=== PATIENT | male | born 1960 | race Caucasian/White ===

== ENCOUNTER 2022-10-01 20:54 | Inpatient (IN) ==
[2022-10-01] MEDS ORDERED: SODIUM CHLORIDE 0.9% 500 ML IV STA (21:33)
--- NOTE | 2022-10-01 21:56 | Emergency Department Note ---
History of Present Illness General Chief complaint: Hip Pain Time Seen by Provider: 10/01/22 21:37 History of Present Illness Maximum Pain Intensity: 10 This 62-year-old male patient presents to the emergency department today via ambulance for evaluation of altered mental status after fall. History is difficult to obtain, as there is no family history was given by the ex to EMS. Apparently about 10 or 11 days ago, the patient fell. He was at some point in the past week and a half seen at [facility] emergency department diagnosed with the "stomach flu". The patient was discharged. Upon arrival to the emergency department, the patient had complained of right hip and right rib pain. He is also complaining of back pain. It is unclear if the patient had a new fall since the fall 10 or 11 days ago, and the patient is unable to identify this. Upon arrival, the patient was incontinent of stool and does have developing erythema on the left buttock. Pt. aware he is at the hospital and denies any medical history, but unclear of events leading up to his ED visit tonight. Home Medications Medication Instructions Recorded Confirmed Type Cephalexin Monohydrate (Keflex) 500 mg PO QID ##28 11/27/09 Rx None (Patient States No Home Meds) ##0 11/27/09 History Tramadol (Ultram) 100 mg PO Q4HR ##30 11/27/09 Rx Allergies Allergy/AdvReac Type Severity Reaction Status Date / Time No Known Allergies Allergy Unverified 11/27/09 21:43 Past Med/Surg History Medical History No pertinent past medical history Social History Smoking Status: Current some day smoker Feels Safe at Home: Yes Review of Systems A total of 10 systems reviewed and were otherwise negative Physical Exam Vital Signs Vital Signs - 24 hr 10/01/22 20:59 10/01/22 20:59 10/01/22 21:23 Temperature 37.5 C Temperature Source Oral Pulse Rate 138 H 134 H Pulse Rate [Right Apical] 138 H Pulse Rate from SpO2 Sensor Respiratory Rate 20 20 Respiratory Effort / Characteristics Non-Labored Spontaneous Non-Labored Spontaneous Respiratory Depth Normal Normal Respiratory Pattern Regular Regular Blood Pressure 143/85 H Blood Pressure [Right Arm] 143/85 H Blood Pressure Mean 104 Blood Pressure Mean [Right Arm] 104 Pulse Oximetry 94 94 Oxygen Delivery Method Room Air Room Air Sepsis Recent Fever Within 48 Hours No Sepsis New/Unexplained Change in Mental Status Yes Sepsis Action Taken by Nursing Previously Notified 10/01/22 21:45 10/01/22 21:40 10/01/22 21:57 Temperature Temperature Source Pulse Rate 139 H 137 H Pulse Rate [Right Apical] Pulse Rate from SpO2 Sensor 136 H Respiratory Rate 23 32 H Respiratory Effort / Characteristics Respiratory Depth Respiratory Pattern Blood Pressure 118/91 112/84 Blood Pressure [Right Arm] Blood Pressure Mean 100 93 Blood Pressure Mean [Right Arm] Pulse Oximetry 93 93 93 Oxygen Delivery Method Room Air Room Air Room Air Sepsis Recent Fever Within 48 Hours Sepsis New/Unexplained Change in Mental Status Sepsis Action Taken by Nursing 10/01/22 22:00 10/01/22 22:24 10/01/22 22:30 Temperature Temperature Source Pulse Rate 135 H 138 H 135 H Pulse Rate [Right Apical] Pulse Rate from SpO2 Sensor 136 H Respiratory Rate 21 24 26 H Respiratory Effort / Characteristics Respiratory Depth Respiratory Pattern Blood Pressure 113/85 137/5 L 128/89 Blood Pressure [Right Arm] Blood Pressure Mean 94 49 102 Blood Pressure Mean [Right Arm] Pulse Oximetry 94 94 93 Oxygen Delivery Method Room Air Sepsis Recent Fever Within 48 Hours Sepsis New/Unexplained Change in Mental Status Sepsis Action Taken by Nursing 10/01/22 23:01 10/01/22 23:30 10/02/22 00:02 Temperature Temperature Source Pulse Rate 135 H 129 H Pulse Rate [Right Apical] Pulse Rate from SpO2 Sensor 129 H Respiratory Rate 18 32 H 28 H Respiratory Effort / Characteristics Respiratory Depth Respiratory Pattern Blood Pressure 132/86 138/84 109/78 Blood Pressure [Right Arm] Blood Pressure Mean 101 102 88 Blood Pressure Mean [Right Arm] Pulse Oximetry 94 93 95 Oxygen Delivery Method Sepsis Recent Fever Within 48 Hours Sepsis New/Unexplained Change in Mental Status Sepsis Action Taken by Nursing 10/02/22 00:31 10/02/22 00:44 10/02/22 00:50 Temperature Temperature Source Pulse Rate 135 H 132 H 131 H Pulse Rate [Right Apical] Pulse Rate from SpO2 Sensor 137 H 131 H Respiratory Rate 33 H 20 34 H Respiratory Effort / Characteristics Respiratory Depth Respiratory Pattern Blood Pressure 130/80 Blood Pressure [Right Arm] Blood Pressure Mean 96 Blood Pressure Mean [Right Arm] Pulse Oximetry 92 96 Oxygen Delivery Method Sepsis Recent Fever Within 48 Hours Sepsis New/Unexplained Change in Mental Status Sepsis Action Taken by Nursing 10/02/22 01:00 10/02/22 01:00 10/02/22 01:10 Temperature Temperature Source Pulse Rate 129 H Pulse Rate [Right Apical] Pulse Rate from SpO2 Sensor 128 H 126 H Respiratory Rate 35 H Respiratory Effort / Characteristics Respiratory Depth Respiratory Pattern Blood Pressure 121/84 Blood Pressure [Right Arm] Blood Pressure Mean 90 Blood Pressure Mean [Right Arm] Pulse Oximetry 94 95 Oxygen Delivery Method Sepsis Recent Fever Within 48 Hours Sepsis New/Unexplained Change in Mental Status Sepsis Action Taken by Nursing 10/02/22 01:20 10/02/22 01:30 10/02/22 01:40 Temperature Temperature Source Pulse Rate 117 H Pulse Rate [Right Apical] Pulse Rate from SpO2 Sensor 123 H 120 H 118 H Respiratory Rate 16 Respiratory Effort / Characteristics Respiratory Depth Respiratory Pattern Blood Pressure Blood Pressure [Right Arm] Blood Pressure Mean Blood Pressure Mean [Right Arm] Pulse Oximetry 96 96 93 Oxygen Delivery Method Sepsis Recent Fever Within 48 Hours Sepsis New/Unexplained Change in Mental Status Sepsis Action Taken by Nursing 10/02/22 01:50 10/02/22 01:50 10/02/22 02:00 Temperature Temperature Source Pulse Rate Pulse Rate [Right Apical] Pulse Rate from SpO2 Sensor 119 H Respiratory Rate Respiratory Effort / Characteristics Respiratory Depth Respiratory Pattern Blood Pressure 102/49 L 96/66 L Blood Pressure [Right Arm] Blood Pressure Mean 65 79 Blood Pressure Mean [Right Arm] Pulse Oximetry Oxygen Delivery Method Sepsis Recent Fever Within 48 Hours Sepsis New/Unexplained Change in Mental Status Sepsis Action Taken by Nursing 10/02/22 02:00 10/02/22 02:10 Temperature Temperature Source Pulse Rate Pulse Rate [Right Apical] Pulse Rate from SpO2 Sensor 116 H 115 H Respiratory Rate Respiratory Effort / Characteristics Respiratory Depth Respiratory Pattern Blood Pressure Blood Pressure [Right Arm] Blood Pressure Mean Blood Pressure Mean [Right Arm] Pulse Oximetry 94 90 Oxygen Delivery Method Sepsis Recent Fever Within 48 Hours Sepsis New/Unexplained Change in Mental Status Sepsis Action Taken by Nursing VITALS: Vitals are noted on the nurse's note and reviewed by myself patient is tachycardic. O2 saturation 93% on room air. GENERAL: This is a 62-year-old male, in no acute distress, nondiaphoretic, well- developed well-nourished. SKIN: The skin was without rashes, erythema, edema, or bruising. There is no tenting of the skin. Capillary refill less than 2 seconds. HEAD: Normocephalic atraumatic. EARS: External auditory canals clear, tympanic membranes pearly tavarez without erythema or effusion bilaterally. EYES: Pupils equal round and reactive to light and accommodation. Conjunctivae without injection, sclerae without icterus. Extraocular movements intact. NOSE: Patent, turbinates without inflammation or discharge. No sinus tenderness. MOUTH: Mucous membranes dry. Tonsils are not enlarged. Pharynx without erythema or exudate. Uvula midline. Airway patent. Tongue does not deviate. NECK: Supple without nuchal rigidity. No lymphadenopathy. No thyromegaly. Cervical spine is nontender. No JVD. HEART: Regular rate and rhythm without murmurs gallops or rubs. LUNGS: Clear to auscultation bilaterally without wheezes, rales or rhonchi. No retractions or accessory muscle use. ABDOMEN: Positive bowel sounds x 4. Soft, nontender, without masses or organomegaly. No guarding or rebound tenderness. MUSCULOSKELETAL: Right lower extremity shortened and externally rotated. No muscle atrophy or edema noted. Full range of motion without joint tenderness in all extremities except as noted. No obvious tenderness to palpation. Pt. does roll himself onto his right side throughout exam. Strength 5/5 throughout. NEURO: Patient was alert and oriented to place. Pt. slow to respond. Deep tendon reflexes 2+ throughout. No focal neurological deficits. Course Course The patient was seen and evaluated as above. An order was placed for continuous cardiac monitoring. The monitor shows a sinus tachycardia at a rate of 137 bpm per my interpretation. IV access obtained, labs drawn. Patient hydrated with IV fluids per sepsis protocol. Pt. pulled IV out, nursing staff replaced IV. Imaging performed and reviewed by myself and radiologist as noted. Labs reviewed by myself. Patient medicated with IV Zosyn. I discussed the findings with the patient at bedside. Recommended admission. Pt. agreeable. I discussed the case with my attending. I discussed case with Dr. Cook, [facility] physician. He did agree to see and evaluate the patient for admission Administered Medications Lactated Ringer's (Lr) 1,000 mls @ 200 mls/hr IV .Q5H ONE Stop: 10/02/22 06:06 Last Admin: 10/02/22 04:15 Dose: 200 mls/hr Documented By: TANIA Morphine Sulfate (Morphine Sulfate 2 Mg/Ml Carp) 2 mg IV Q3H PRN PRN Reason: Pain Stop: 10/16/22 03:31 Last Admin: 10/02/22 03:47 Dose: 2 mg Documented By: TANIA Discontinued Medications Sodium Chloride (Nss) 500 mls @ 999 mls/hr IV .Q31M STA Stop: 10/01/22 22:03 Last Admin: 10/01/22 21:55 Dose: Not Given Documented By: GLENN Sodium Chloride (Nss 1000ml) 1,000 mls @ 999 mls/hr IV .Q1H1M ISIAH Stop: 10/01/22 23:00 Last Infusion: 10/02/22 00:14 Dose: 0 mls/hr Documented By: Admin: 10/01/22 21:56 Dose: 999 mls/hr Documented By: GLENN Piperacillin Sod/Tazobactam Sod (Zosyn) 4.5 gm in 120 mls @ 240 mls/hr IV NOW ONE Stop: 10/01/22 23:02 Last Infusion: 10/02/22 00:14 Dose: 0 mls/hr Documented By: Admin: 10/01/22 22:40 Dose: 240 mls/hr Documented By: ABNER Sodium Chloride (Nss 1000ml) 1,000 mls @ 999 mls/hr IV .Q1H1M ONE Stop: 10/01/22 23:34 Last Infusion: 10/02/22 01:12 Dose: 0 mls/hr Documented By: Admin: 10/01/22 23:27 Dose: 999 mls/hr Documented By: KAROL Acetaminophen (Ofirmev) 1,000 mg in 100 mls @ 400 mls/hr IV NOW STA Stop: 10/02/22 01:03 Last Infusion: 10/02/22 01:12 Dose: 0 mls/hr Documented By: Admin: 10/02/22 00:54 Dose: 400 mls/hr Documented By: KAROL Magnesium Sulfate/Dextrose (Magnesium Sulfate / D5w) 1 gm in 100 mls @ 50 mls/hr IV ONE ONE Stop: 10/02/22 03:02 Last Infusion: 10/02/22 04:09 Dose: 0 mls/hr Documented By: Admin: 10/02/22 01:43 Dose: 50 mls/hr Documented By: KAROL Daptomycin 450 mg/ Syringe 9 mls @ 4.5 mls/min IV NOW STA; Protocol Stop: 10/02/22 01:08 Last Admin: 10/02/22 01:44 Dose: 4.5 mls/min Documented By: KAROL Metronidazole (Flagyl) 500 mg in 100 mls @ 100 mls/hr IV NOW STA; Protocol Stop: 10/02/22 02:24 Last Infusion: 10/02/22 04:09 Dose: 0 mls/hr Documented By: Admin: 10/02/22 02:37 Dose: 100 mls/hr Documented By: KAROL Ioversol (Optiray 320 100ml) 100 ml IV ONCE ONE Stop: 10/01/22 23:20 Last Admin: 10/01/22 23:20 Dose: 95 ml Documented By: ENDER Oxycodone HCl (Oxycodone Hcl Ir 5 Mg Tab (Immediate Release)) 5 mg PO NOW STA Stop: 10/02/22 02:19 Last Admin: 10/02/22 02:37 Dose: 5 mg Documented By: KAROL Medical Decision Making Differential Diagnosis Infection, hypoglycemia, electrolyte abnormalities, overdose, toxicologic, cardi ac sources, intracerebral event, neurologic, trauma, as well as other pathologies. Medical Records No medical records available for review. Home Medications Current Medication List: was personally reviewed by me Laboratory Data Attestation: I reviewed the patient's lab results. No leukocytosis. Mild anemia with hemoglobin of 13.5. Thrombocytopenia with platelet count of 96,000. Lactic acid 4.7. Repeat lactic acid 5.0. INR 1.6. Sodium 125, creatinine 1.15. Anion gap 9. [place]lys[place] 1.9, total bilirubin elevated at 2.9, AST elevated at 64, ALT 43. Alkaline phosphatase 115. Troponin elevated at 23.9. CK2 20. BNP 68. TSH 0.671. Procalcitonin elevated at 2.48. Urinalysis is concerning for urinary tract infection with positive nitrites, leukocyte esterase, blood. Urine drug screen positive for amphetamines, marijuana. Alcohol less than 10. COVID-19 testing negative 10/01/22 21:54 10/01/22 21:54 Lab Results 10/01/22 10/01/22 10/01/22 Range/Units 21:38 21:54 21:54 WBC 7.90 (4.8-10.8) K/ul RBC 4.23 L (4.70-6.10) M/uL Hgb 13.5 L (14.0-18.0) g/dl Hct 37.3 L (42.0-52.0) % MCV 88.2 (80.0-100.0) fL MCH 31.9 (25.0-34.0) pg MCHC 36.2 H (32.0-36.0) g/dL RDW Std Deviation 46.0 (36.4-46.3) fL RDW Coeff of Yanni 14.3 (11.5-14.5) % Plt Count 96 L (130-400) K/uL MPV 9.9 (9.4-12.4) fL Immature Gran % (Auto) 0.6 % Neut % (Auto) 80.7 % Lymph % (Auto) 12.2 % [place] % (Auto) 6.2 % Eos % (Auto) 0.0 % Baso % (Auto) 0.3 % Neut # (Auto) 6.38 (1.40-6.50) K/uL Lymph # (Auto) 0.96 L (1.2-3.4) K/uL [place] # (Auto) 0.49 (0.11-0.59) K/uL Eos # (Auto) 0.00 (0-0.50) K/uL Baso # (Auto) 0.02 (0-0.2) K/uL Immature Gran # (Auto) 0.05 (0.01-0.20) K/uL Platelet Estimate Decreased L (Normal) Acanthocytes (Spur) 2+ PT (9.0-12.0) Seconds INR (0.9-1.1) APTT (21.0-31.0) Seconds PTT Ratio VBG pH (7.36-7.41) VBG pCO2 (38-50) mmHg VBG pO2 mmHg VBG HCO3 mmol/L VBG O2 Saturation % VBG Base Excess mEq/L Sodium (136-145) mmol/L Potassium (3.5-5.1) mmol/L Chloride (98-107) mmol/L Carbon Dioxide (21-32) mmol/L Anion Gap (3-11) BUN (6-23) mg/dl Creatinine (0.6-1.4) mg/dl Est Cr Clr Drug Dosing ml/min Est GFR ( Amer) ml/min Est GFR (Non-Af Amer) ml/min BUN/Creatinine Ratio (10-20) Glucose (70-99(Fasting)) mg/dl Osmolality (280-300) mOsm/kg Lactate 4.7 H* (0.4-2.0) mmol/L Calcium (8.6-10.3) mg/dl Magnesium (1.7-2.4) mg/dl Total Bilirubin (0.2-1.0) mg/dl AST (13-39) U/L ALT (7-52) U/L Alkaline Phosphatase (34-104) U/L Ammonia (18-72) umol/L Total Creatine Kinase (30-223) U/L Troponin I High Sens (0-20) pg/ml B-Natriuretic Peptide (0-100) pg/ml Total Protein (6.0-8.3) gm/dl Albumin (3.4-5.0) gm/dl Globulin (2.5-4.0) gm/dl Albumin/Globulin Ratio (0.9-2) Procalcitonin (0-0.5) ng/ml TSH (0.300-4.500) uIu/ml Urine Color Urine Appearance (Clear) Urine pH (4.5-7.5) Ur Specific [place] (1.000-1.030) Urine Protein (Negative) Urine Glucose (UA) (Negative) Urine Ketones (Negative) Urine Blood (Negative) Urine Nitrite (Negative) Urine Bilirubin (Negative) Urine Urobilinogen (Negative) Ur Leukocyte Esterase (Negative) Urine WBC (Auto) (0-5) /hpf Urine RBC (Auto) (0-4) /hpf U Hyaline Cast (Auto) (0-5) /lpf U Epithel Cells (Auto) (0-5) /lpf Urine Bacteria (Auto) (Negative) Urine Opiates Screen (Neg) Ur Methadone, Qual (Neg) Urine Barbiturates (Neg) Ur Phencyclidine (PCP) (Neg) U Amphetamin/Meth Scrn (Neg) MDMA (Ecstasy) Screen (Neg) U Benzodiazepines Scrn (Neg) Ur Cocaine Metabolite (Neg) U Marijuana (THC) Screen (Neg) Ethyl Alcohol mg/dL (<10.0) mg/dl SARS-CoV-2, RNA, NAAT NEGATIVE (NEGATIVE) Blood Type Antibody Screen 10/01/22 10/01/22 10/01/22 Range/Units 21:54 21:54 21:54 WBC (4.8-10.8) K/ul RBC (4.70-6.10) M/uL Hgb (14.0-18.0) g/dl Hct (42.0-52.0) % MCV (80.0-100.0) fL MCH (25.0-34.0) pg MCHC (32.0-36.0) g/dL RDW Std Deviation (36.4-46.3) fL RDW Coeff of Yanni (11.5-14.5) % Plt Count (130-400) K/uL MPV (9.4-12.4) fL Immature Gran % (Auto) % Neut % (Auto) % Lymph % (Auto) % [place] % (Auto) % Eos % (Auto) % Baso % (Auto) % Neut # (Auto) (1.40-6.50) K/uL Lymph # (Auto) (1.2-3.4) K/uL [place] # (Auto) (0.11-0.59) K/uL Eos # (Auto) (0-0.50) K/uL Baso # (Auto) (0-0.2) K/uL Immature Gran # (Auto) (0.01-0.20) K/uL Platelet Estimate (Normal) Acanthocytes (Spur) PT 17.0 H (9.0-12.0) Seconds INR 1.6 H (0.9-1.1) APTT 40.4 H* (21.0-31.0) Seconds PTT Ratio 1.4 VBG pH (7.36-7.41) VBG pCO2 (38-50) mmHg VBG pO2 mmHg VBG HCO3 mmol/L VBG O2 Saturation % VBG Base Excess mEq/L Sodium 125 L (136-145) mmol/L Potassium 4.2 (3.5-5.1) mmol/L Chloride 95 L (98-107) mmol/L Carbon Dioxide 21 (21-32) mmol/L Anion Gap 9 (3-11) BUN 21 (6-23) mg/dl Creatinine 1.15 (0.6-1.4) mg/dl Est Cr Clr Drug Dosing 70.0 ml/min Est GFR ( Amer) 78.1 ml/min Est GFR (Non-Af Amer) 67.4 ml/min BUN/Creatinine Ratio 18.3 (10-20) Glucose 126 H (70-99(Fasting)) mg/dl Osmolality (280-300) mOsm/kg Lactate (0.4-2.0) mmol/L Calcium 8.4 L (8.6-10.3) mg/dl Magnesium 1.9 (1.7-2.4) mg/dl Total Bilirubin 2.9 H (0.2-1.0) mg/dl AST 64 H (13-39) U/L ALT 43 (7-52) U/L Alkaline Phosphatase 115 H (34-104) U/L Ammonia (18-72) umol/L Total Creatine Kinase 220 (30-223) U/L Troponin I High Sens 23.9 H (0-20) pg/ml B-Natriuretic Peptide (0-100) pg/ml Total Protein 7.3 (6.0-8.3) gm/dl Albumin 3.0 L (3.4-5.0) gm/dl Globulin 4.3 H (2.5-4.0) gm/dl Albumin/Globulin Ratio 0.7 L (0.9-2) Procalcitonin 2.48 H (0-0.5) ng/ml TSH (0.300-4.500) uIu/ml Urine Color Urine Appearance (Clear) Urine pH (4.5-7.5) Ur Specific [place] (1.000-1.030) Urine Protein (Negative) Urine Glucose (UA) (Negative) Urine Ketones (Negative) Urine Blood (Negative) Urine Nitrite (Negative) Urine Bilirubin (Negative) Urine Urobilinogen (Negative) Ur Leukocyte Esterase (Negative) Urine WBC (Auto) (0-5) /hpf Urine RBC (Auto) (0-4) /hpf U Hyaline Cast (Auto) (0-5) /lpf U Epithel Cells (Auto) (0-5) /lpf Urine Bacteria (Auto) (Negative) Urine Opiates Screen (Neg) Ur Methadone, Qual (Neg) Urine Barbiturates (Neg) Ur Phencyclidine (PCP) (Neg) U Amphetamin/Meth Scrn (Neg) MDMA (Ecstasy) Screen (Neg) U Benzodiazepines Scrn (Neg) Ur Cocaine Metabolite (Neg) U Marijuana (THC) Screen (Neg) Ethyl Alcohol mg/dL (<10.0) mg/dl SARS-CoV-2, RNA, NAAT (NEGATIVE) Blood Type Antibody Screen 10/01/22 10/01/22 10/01/22 Range/Units 21:54 21:54 21:54 WBC (4.8-10.8) K/ul RBC (4.70-6.10) M/uL Hgb (14.0-18.0) g/dl Hct (42.0-52.0) % MCV (80.0-100.0) fL MCH (25.0-34.0) pg MCHC (32.0-36.0) g/dL RDW Std Deviation (36.4-46.3) fL RDW Coeff of Yanni (11.5-14.5) % Plt Count (130-400) K/uL MPV (9.4-12.4) fL Immature Gran % (Auto) % Neut % (Auto) % Lymph % (Auto) % [place] % (Auto) % Eos % (Auto) % Baso % (Auto) % Neut # (Auto) (1.40-6.50) K/uL Lymph # (Auto) (1.2-3.4) K/uL [place] # (Auto) (0.11-0.59) K/uL Eos # (Auto) (0-0.50) K/uL Baso # (Auto) (0-0.2) K/uL Immature Gran # (Auto) (0.01-0.20) K/uL Platelet Estimate (Normal) Acanthocytes (Spur) PT (9.0-12.0) Seconds INR (0.9-1.1) APTT (21.0-31.0) Seconds PTT Ratio VBG pH (7.36-7.41) VBG pCO2 (38-50) mmHg VBG pO2 mmHg VBG HCO3 mmol/L VBG O2 Saturation % VBG Base Excess mEq/L Sodium (136-145) mmol/L Potassium (3.5-5.1) mmol/L Chloride (98-107) mmol/L Carbon Dioxide (21-32) mmol/L Anion Gap (3-11) BUN (6-23) mg/dl Creatinine (0.6-1.4) mg/dl Est Cr Clr Drug Dosing ml/min Est GFR ( Amer) ml/min Est GFR (Non-Af Amer) ml/min BUN/Creatinine Ratio (10-20) Glucose (70-99(Fasting)) mg/dl Osmolality (280-300) mOsm/kg Lactate (0.4-2.0) mmol/L Calcium (8.6-10.3) mg/dl Magnesium (1.7-2.4) mg/dl Total Bilirubin (0.2-1.0) mg/dl AST (13-39) U/L ALT (7-52) U/L Alkaline Phosphatase (34-104) U/L Ammonia (18-72) umol/L Total Creatine Kinase (30-223) U/L Troponin I High Sens (0-20) pg/ml B-Natriuretic Peptide 68 (0-100) pg/ml Total Protein (6.0-8.3) gm/dl Albumin (3.4-5.0) gm/dl Globulin (2.5-4.0) gm/dl Albumin/Globulin Ratio (0.9-2) Procalcitonin (0-0.5) ng/ml TSH (0.300-4.500) uIu/ml Urine Color Urine Appearance (Clear) Urine pH (4.5-7.5) Ur Specific [place] (1.000-1.030) Urine Protein (Negative) Urine Glucose (UA) (Negative) Urine Ketones (Negative) Urine Blood (Negative) Urine Nitrite (Negative) Urine Bilirubin (Negative) Urine Urobilinogen (Negative) Ur Leukocyte Esterase (Negative) Urine WBC (Auto) (0-5) /hpf Urine RBC (Auto) (0-4) /hpf U Hyaline Cast (Auto) (0-5) /lpf U Epithel Cells (Auto) (0-5) /lpf Urine Bacteria (Auto) (Negative) Urine Opiates Screen (Neg) Ur Methadone, Qual (Neg) Urine Barbiturates (Neg) Ur Phencyclidine (PCP) (Neg) U Amphetamin/Meth Scrn (Neg) MDMA (Ecstasy) Screen (Neg) U Benzodiazepines Scrn (Neg) Ur Cocaine Metabolite (Neg) U Marijuana (THC) Screen (Neg) Ethyl Alcohol mg/dL < 10.0 (<10.0) mg/dl SARS-CoV-2, RNA, NAAT (NEGATIVE) Blood Type A Negative Antibody Screen NEGATIVE 10/01/22 10/01/22 10/01/22 Range/Units 21:54 21:54 22:26 WBC (4.8-10.8) K/ul RBC (4.70-6.10) M/uL Hgb (14.0-18.0) g/dl Hct (42.0-52.0) % MCV (80.0-100.0) fL MCH (25.0-34.0) pg MCHC (32.0-36.0) g/dL RDW Std Deviation (36.4-46.3) fL RDW Coeff of Yanni (11.5-14.5) % Plt Count (130-400) K/uL MPV (9.4-12.4) fL Immature Gran % (Auto) % Neut % (Auto) % Lymph % (Auto) % [place] % (Auto) % Eos % (Auto) % Baso % (Auto) % Neut # (Auto) (1.40-6.50) K/uL Lymph # (Auto) (1.2-3.4) K/uL [place] # (Auto) (0.11-0.59) K/uL Eos # (Auto) (0-0.50) K/uL Baso # (Auto) (0-0.2) K/uL Immature Gran # (Auto) (0.01-0.20) K/uL Platelet Estimate (Normal) Acanthocytes (Spur) PT (9.0-12.0) Seconds INR (0.9-1.1) APTT (21.0-31.0) Seconds PTT Ratio VBG pH (7.36-7.41) VBG pCO2 (38-50) mmHg VBG pO2 mmHg VBG HCO3 mmol/L VBG O2 Saturation % VBG Base Excess mEq/L Sodium (136-145) mmol/L Potassium (3.5-5.1) mmol/L Chloride (98-107) mmol/L Carbon Dioxide (21-32) mmol/L Anion Gap (3-11) BUN (6-23) mg/dl Creatinine (0.6-1.4) mg/dl Est Cr Clr Drug Dosing ml/min Est GFR ( Amer) ml/min Est GFR (Non-Af Amer) ml/min BUN/Creatinine Ratio (10-20) Glucose (70-99(Fasting)) mg/dl Osmolality 276 L (280-300) mOsm/kg Lactate (0.4-2.0) mmol/L Calcium (8.6-10.3) mg/dl Magnesium (1.7-2.4) mg/dl Total Bilirubin (0.2-1.0) mg/dl AST (13-39) U/L ALT (7-52) U/L Alkaline Phosphatase (34-104) U/L Ammonia (18-72) umol/L Total Creatine Kinase (30-223) U/L Troponin I High Sens (0-20) pg/ml B-Natriuretic Peptide (0-100) pg/ml Total Protein (6.0-8.3) gm/dl Albumin (3.4-5.0) gm/dl Globulin (2.5-4.0) gm/dl Albumin/Globulin Ratio (0.9-2) Procalcitonin (0-0.5) ng/ml TSH 0.671 (0.300-4.500) uIu/ml Urine Color [place] Urine Appearance Clear (Clear) Urine pH 5.5 (4.5-7.5) Ur Specific [place] 1.029 (1.000-1.030) Urine Protein 2+ H (Negative) Urine Glucose (UA) Negative (Negative) Urine Ketones Trace H (Negative) Urine Blood 3+ H (Negative) Urine Nitrite Positive A (Negative) Urine Bilirubin 1+ H (Negative) Urine Urobilinogen Positive H (Negative) Ur Leukocyte Esterase Trace H (Negative) Urine WBC (Auto) 1-5 (0-5) /hpf Urine RBC (Auto) 5-10 H (0-4) /hpf U Hyaline Cast (Auto) 1-5 (0-5) /lpf U Epithel Cells (Auto) 5-10 H (0-5) /lpf Urine Bacteria (Auto) Negative (Negative) Urine Opiates Screen (Neg) Ur Methadone, Qual (Neg) Urine Barbiturates (Neg) Ur Phencyclidine (PCP) (Neg) U Amphetamin/Meth Scrn (Neg) MDMA (Ecstasy) Screen (Neg) U Benzodiazepines Scrn (Neg) Ur Cocaine Metabolite (Neg) U Marijuana (THC) Screen (Neg) Ethyl Alcohol mg/dL (<10.0) mg/dl SARS-CoV-2, RNA, NAAT (NEGATIVE) Blood Type Antibody Screen 10/01/22 10/02/22 10/02/22 Range/Units 22:26 00:00 00:00 WBC (4.8-10.8) K/ul RBC (4.70-6.10) M/uL Hgb (14.0-18.0) g/dl Hct (42.0-52.0) % MCV (80.0-100.0) fL MCH (25.0-34.0) pg MCHC (32.0-36.0) g/dL RDW Std Deviation (36.4-46.3) fL RDW Coeff of Yanni (11.5-14.5) % Plt Count (130-400) K/uL MPV (9.4-12.4) fL Immature Gran % (Auto) % Neut % (Auto) % Lymph % (Auto) % [place] % (Auto) % Eos % (Auto) % Baso % (Auto) % Neut # (Auto) (1.40-6.50) K/uL Lymph # (Auto) (1.2-3.4) K/uL [place] # (Auto) (0.11-0.59) K/uL Eos # (Auto) (0-0.50) K/uL Baso # (Auto) (0-0.2) K/uL Immature Gran # (Auto) (0.01-0.20) K/uL Platelet Estimate (Normal) Acanthocytes (Spur) PT (9.0-12.0) Seconds INR (0.9-1.1) APTT (21.0-31.0) Seconds PTT Ratio VBG pH 7.44 H (7.36-7.41) VBG pCO2 35 L (38-50) mmHg VBG pO2 20 mmHg VBG HCO3 24 mmol/L VBG O2 Saturation < 60.0 % VBG Base Excess 0.1 mEq/L Sodium (136-145) mmol/L Potassium (3.5-5.1) mmol/L Chloride (98-107) mmol/L Carbon Dioxide (21-32) mmol/L Anion Gap (3-11) BUN (6-23) mg/dl Creatinine (0.6-1.4) mg/dl Est Cr Clr Drug Dosing ml/min Est GFR ( Amer) ml/min Est GFR (Non-Af Amer) ml/min BUN/Creatinine Ratio (10-20) Glucose (70-99(Fasting)) mg/dl Osmolality (280-300) mOsm/kg Lactate 5.0 H* (0.4-2.0) mmol/L Calcium (8.6-10.3) mg/dl Magnesium (1.7-2.4) mg/dl Total Bilirubin (0.2-1.0) mg/dl AST (13-39) U/L ALT (7-52) U/L Alkaline Phosphatase (34-104) U/L Ammonia (18-72) umol/L Total Creatine Kinase (30-223) U/L Troponin I High Sens (0-20) pg/ml B-Natriuretic Peptide (0-100) pg/ml Total Protein (6.0-8.3) gm/dl Albumin (3.4-5.0) gm/dl Globulin (2.5-4.0) gm/dl Albumin/Globulin Ratio (0.9-2) Procalcitonin (0-0.5) ng/ml TSH (0.300-4.500) uIu/ml Urine Color Urine Appearance (Clear) Urine pH (4.5-7.5) Ur Specific [place] (1.000-1.030) Urine Protein (Negative) Urine Glucose (UA) (Negative) Urine Ketones (Negative) Urine Blood (Negative) Urine Nitrite (Negative) Urine Bilirubin (Negative) Urine Urobilinogen (Negative) Ur Leukocyte Esterase (Negative) Urine WBC (Auto) (0-5) /hpf Urine RBC (Auto) (0-4) /hpf U Hyaline Cast (Auto) (0-5) /lpf U Epithel Cells (Auto) (0-5) /lpf Urine Bacteria (Auto) (Negative) Urine Opiates Screen Neg (Neg) Ur Methadone, Qual Neg (Neg) Urine Barbiturates Neg (Neg) Ur Phencyclidine (PCP) Neg (Neg) U Amphetamin/Meth Scrn Pos H (Neg) MDMA (Ecstasy) Screen Neg (Neg) U Benzodiazepines Scrn Neg (Neg) Ur Cocaine Metabolite Neg (Neg) U Marijuana (THC) Screen Pos H (Neg) Ethyl Alcohol mg/dL (<10.0) mg/dl SARS-CoV-2, RNA, NAAT (NEGATIVE) Blood Type Antibody Screen 10/02/22 10/02/22 Range/Units 01:45 01:45 WBC (4.8-10.8) K/ul RBC (4.70-6.10) M/uL Hgb (14.0-18.0) g/dl Hct (42.0-52.0) % MCV (80.0-100.0) fL MCH (25.0-34.0) pg MCHC (32.0-36.0) g/dL RDW Std Deviation (36.4-46.3) fL RDW Coeff of Yanni (11.5-14.5) % Plt Count (130-400) K/uL MPV (9.4-12.4) fL Immature Gran % (Auto) % Neut % (Auto) % Lymph % (Auto) % [place] % (Auto) % Eos % (Auto) % Baso % (Auto) % Neut # (Auto) (1.40-6.50) K/uL Lymph # (Auto) (1.2-3.4) K/uL [place] # (Auto) (0.11-0.59) K/uL Eos # (Auto) (0-0.50) K/uL Baso # (Auto) (0-0.2) K/uL Immature Gran # (Auto) (0.01-0.20) K/uL Platelet Estimate (Normal) Acanthocytes (Spur) PT (9.0-12.0) Seconds INR (0.9-1.1) APTT (21.0-31.0) Seconds PTT Ratio VBG pH (7.36-7.41) VBG pCO2 (38-50) mmHg VBG pO2 mmHg VBG HCO3 mmol/L VBG O2 Saturation % VBG Base Excess mEq/L Sodium 126 L (136-145) mmol/L Potassium (3.5-5.1) mmol/L Chloride (98-107) mmol/L Carbon Dioxide (21-32) mmol/L Anion Gap (3-11) BUN (6-23) mg/dl Creatinine (0.6-1.4) mg/dl Est Cr Clr Drug Dosing ml/min Est GFR ( Amer) ml/min Est GFR (Non-Af Amer) ml/min BUN/Creatinine Ratio (10-20) Glucose (70-99(Fasting)) mg/dl Osmolality (280-300) mOsm/kg Lactate (0.4-2.0) mmol/L Calcium (8.6-10.3) mg/dl Magnesium (1.7-2.4) mg/dl Total Bilirubin (0.2-1.0) mg/dl AST (13-39) U/L ALT (7-52) U/L Alkaline Phosphatase (34-104) U/L Ammonia 44.0 (18-72) umol/L Total Creatine Kinase (30-223) U/L Troponin I High Sens 25.9 H (0-20) pg/ml B-Natriuretic Peptide (0-100) pg/ml Total Protein (6.0-8.3) gm/dl Albumin (3.4-5.0) gm/dl Globulin (2.5-4.0) gm/dl Albumin/Globulin Ratio (0.9-2) Procalcitonin (0-0.5) ng/ml TSH (0.300-4.500) uIu/ml Urine Color Urine Appearance (Clear) Urine pH (4.5-7.5) Ur Specific [place] (1.000-1.030) Urine Protein (Negative) Urine Glucose (UA) (Negative) Urine Ketones (Negative) Urine Blood (Negative) Urine Nitrite (Negative) Urine Bilirubin (Negative) Urine Urobilinogen (Negative) Ur Leukocyte Esterase (Negative) Urine WBC (Auto) (0-5) /hpf Urine RBC (Auto) (0-4) /hpf U Hyaline Cast (Auto) (0-5) /lpf U Epithel Cells (Auto) (0-5) /lpf Urine Bacteria (Auto) (Negative) Urine Opiates Screen (Neg) Ur Methadone, Qual (Neg) Urine Barbiturates (Neg) Ur Phencyclidine (PCP) (Neg) U Amphetamin/Meth Scrn (Neg) MDMA (Ecstasy) Screen (Neg) U Benzodiazepines Scrn (Neg) Ur Cocaine Metabolite (Neg) U Marijuana (THC) Screen (Neg) Ethyl Alcohol mg/dL (<10.0) mg/dl SARS-CoV-2, RNA, NAAT (NEGATIVE) Blood Type Antibody Screen Imaging Data Radiologist's Impression: Abdomen/Pelvis CT 10/01/22 21:49 Exam(s): CT ABDOMEN + PELVIS With Contrast IV Amt: 95 ML OPTIRAY 320 EXAM: CT Abdomen and Pelvis With Intravenous Contrast CLINICAL HISTORY: Reason for exam: fall, right hip pain, AMS. TECHNIQUE: Axial computed tomography images of the abdomen and pelvis with intravenous contrast. Automated exposure control was utilized for the study. A dose lowering technique was utilized adhering to the principles of ALARA. CONTRAST: Patient received 95 ML OPTIRAY 320 of IV contrast COMPARISON: None. FINDINGS: Lung bases: Mild bilateral posterior dependent atelectasis. ABDOMEN: Liver: Nodular margins of the liver suggestive of cirrhosis. Gallbladder and bile ducts: Unremarkable. No calcified stones. No ductal dilation. Pancreas: Unremarkable. No mass. No ductal dilation. Spleen: The spleen measures 14.6 cm consistent with splenomegaly. Adrenals: Unremarkable. No mass. Kidneys and ureters: Possible tiny stones within the lower pole of the left kidney measuring 2.2 mm. Otherwise normal bilateral kidneys. No hydronephrosis. Stomach and bowel: Incompletely distended colon with borderline thickening of the wall. Loops of small bowel within the right abdomen with borderline mild fullness of the wall, cannot exclude mild enterocolitis. Mild distention of several small bowel loops in the pelvis reaching a maximum diameter up to 2.3 cm, cannot exclude mild ileus. No significant dilatation to suggest obstruction. The descending colon is decompressed, otherwise unremarkable. PELVIS: Appendix: Normal appendix. Bladder: Unremarkable. No mass. Reproductive: Unremarkable as visualized. ABDOMEN and PELVIS: Intraperitoneal space: Unremarkable. No free air. No significant fluid collection. Bones/joints: There is a comminuted fracture involving the right intertrochanteric region. Mild compression fracture of L1 vertebral body with no extension to the pedicles or retropulsion. Multilevel degenerative disease of the lumbar spine. No dislocation. Soft tissues: Slight heterogeneity with enlargement and poor definition of the fascial planes involving the right gluteus musculature, suggestive of nonspecific soft tissue edema versus bruising/hematoma. Small bilateral fat-containing inguinal hernias versus scrotal lipomas. Vasculature: Calcified atherosclerotic disease of aorta with no aneurysm or dissection. Possible small distal esophageal varices. Lymph nodes: Unremarkable. No enlarged lymph nodes. IMPRESSION: 1. Intertrochanteric comminuted fracture of the right hip is described otherwise normal alignment. 2. Mild acute compression fracture of L1 with no retropulsion or extension to the pedicles. 3. Cirrhosis with mild splenomegaly and possible small esophageal varices. No evidence of visceral injury. No intra-abdominal hematoma and free fluid seen. 4. Possible nonobstructive stone within the left lower renal pole measuring 2.2 mm. Remainder of bilateral kidneys are unremarkable. 5. Cannot exclude mild enterocolitis in the appropriate clinical context, clinical correlation recommended. Electronically signed by: Aaliyah Fyr MD 10/02/22 00:[address] 10/01/22 21:49 Exam(s): CT C SPINE EXAM: CT Cervical Spine Without Intravenous Contrast CLINICAL HISTORY: Reason for exam: fall, AMS. TECHNIQUE: Axial computed tomography images of the cervical spine without intravenous contrast. Automated exposure control was utilized for the study. A dose lowering technique was utilized adhering to the principles of ALARA. COMPARISON: None. FINDINGS: Vertebrae: Degenerative arthrosis at anterior C1-C2 articulation otherwise normal odontoid process. Multilevel spondylosis with narrowing of described, severe C6-C7. Otherwise normal alignment. No acute fracture. Discs/spinal canal/neural foramina: Multilevel bilateral apophyseal hypertrophy contributing to variable degrees of neuroforaminal encroachment, more significant at C6-C7. No central canal stenosis. Soft tissues: Unremarkable. Pleural space: Lung apices revealed no pneumothorax. Mild right-sided apical pleural thickening with subpleural cystic/emphysematous changes versus scarring. IMPRESSION: Multilevel degenerative disease with no acute fracture or subluxation. Electronically signed by: Aaliyah Fry MD 10/02/22 00:[address] 10/01/22 21:49 Exam(s): CT CHEST With Contrast IV Amt: 95 ML OPTIRAY 320 EXAM: CT Chest With Intravenous Contrast CLINICAL HISTORY: Reason for exam: fall, right rib pain, AMS. TECHNIQUE: Axial computed tomography images of the chest with intravenous contrast. Automated exposure control was utilized for the study. A dose lowering technique was utilized adhering to the principles of ALARA. CONTRAST: Patient received 95 ML OPTIRAY 320 of IV contrast COMPARISON: None. FINDINGS: Lungs: Bilateral posterior lower lobe subpleural atelectasis. Pleural space: Right apical pleural thickening with subpleural scarring versus minimal cystic subpleural emphysematous changes. Otherwise normal lung parenchyma. No pleural effusion or pneumothorax. Heart: Unremarkable. No significant pericardial effusion. Normal cardiac size with coronary artery calcifications. Bones/joints: Degenerative disease of the bilateral shoulders, right more than left. Degenerative disease of the spine. Cortical disruption with irregularity along the superior endplate of L1 concerning for acute mild compression fracture. Moderate decrease in vertebral body height of T8 with prominent Schmorl nodes along the superior endplate suggestive of compression fracture, exact age indeterminate and likely old given morphology. No dislocation. Soft tissues: Unremarkable. Vasculature: Atherosclerotic disease of aorta with no aneurysm or dissection. Lymph nodes: Unremarkable. No enlarged lymph nodes. Liver: Nodular margins of the liver concerning for underlying cirrhosis. The spleen is enlarged measuring at least 14 cm, otherwise not entirely included in the [id number]. Gallbladder and bile ducts: Status post cholecystectomy. IMPRESSION: No acute findings in the chest. Electronically signed by: Aaliyah Fry MD 10/02/22 00:[address] 10/01/22 21:49 Exam(s): CT HEAD Without Contrast EXAM: CT Head Without Intravenous Contrast CLINICAL HISTORY: Reason for exam: fall, AMS. TECHNIQUE: Axial computed tomography images of the head/brain without intravenous contrast. Automated exposure control was utilized for the study. A dose lowering technique was utilized adhering to the principles of ALARA. COMPARISON: None. FINDINGS: Brain: Mild generalized brain atrophy. No hemorrhage. No significant white matter disease. Ventricles: Unremarkable. No ventriculomegaly. Bones/joints: Unremarkable. No acute fracture. Soft tissues: Unremarkable. Sinuses: Unremarkable as visualized. No acute sinusitis. Mastoid air cells: Unremarkable as visualized. No mastoid effusion. IMPRESSION: Involutional changes otherwise normal CT brain. Electronically signed by: Aaliyah Fry MD 10/02/22 00:22 AM ECG Data Attestation: I personally reviewed and interpreted this ECG as follows: Indication: + altered mental status Rate (beats per minute): 135 Rhythm: + sinus tachycardia ECG [place]: + Normal ECG ST segments: no ST depression, no ST elevation or no T-wave inversions Comparison ECG Date: no prior available Blood Pressure Blood Pressure Findings: Normal blood pressure Head Trauma GCS Score: 15 MDM Narrative This 62-year-old male patient presents to the emergency department today via ambulance for altered mental status. The patient is also complaining of right hip and right side pain. Pt. hydrated with 2,500 cc IV fluids upon arrival. He was medicated with Zosyn due to elevated lactic acid level. Patient was found to have a right hip fracture. CT imaging performed as above due to unclear history and AMS. CT imaging as above. CT imaging consistent with right hip fracture, acute compression fracture of L1, cirrhosis, mild enterocolitis. Patient did remain tachycardic while here in the emergency department despite fluid resuscitation. Pt. will be admitted to the [facility] hospitalist group for management of his current condition. Please see hospitalist dictation regarding ongoing management and care of this patient. The chart was completed utilizing [employer] Speech voice recognition software. Grammatical errors, random word insertions, pronoun errors, and incomplete sentences are an occasional consequence of this system due to software limitations, ambient noise, and hardware issues. Any formal questions or concerns about the content, text, or information contained within the body of this dictation should be directly addressed to the provider for clarification. Impression & Plan Acute alteration in mental status, Acute pain of right hip, Right-sided chest wall pain, Tachycardia, Sepsis, Closed fracture of right hip Discharge Plan Visit Data Chief Complaint: Hip Pain ED Provider: Patrick Bloom ED Midlevel Provider: Betzy Jean Discharge Problem: Acute alteration in mental status, Acute pain of right hip, Right-sided chest wall pain, Tachycardia, Sepsis, Closed fracture of right hip Patient Disposition: Admitted As Inpatient Discharge Instructions Interventions: ED Discharge Assessment Last Done: 10/02/22 03:21
[2022-10-01] MEDS ORDERED: SODIUM CHLORIDE 0.9% 1000ML 1,000 ML IV SCH (22:00)
[2022-10-01] MEDS ORDERED: PIPERACILLIN/TAZOBACTAM 4.5 GM/120 ML BAG IV ONE (22:33)
[2022-10-01] MEDS ORDERED: SODIUM CHLORIDE 0.9% 1000ML 1,000 ML IV ONE (22:34)
[2022-10-01 22:37] LABS: Albumin Globulin Ratio 0.7 (0.9-2); BUN Creatinine Ratio 18.3 (10-20); Bilirubin,Total 2.9 mg/dl (0.2-1.0); Calcium 8.4 mg/dl (8.6-10.3); Est GFR (African American) 78.1 ml/min; Est GFR (Non-African American) 67.4 ml/min; Globulin 4.3 gm/dl (2.5-4.0); Magnesium 1.9 mg/dl (1.7-2.4); Potassium 4.2 mmol/L (3.5-5.1); Total Protein 7.3 gm/dl (6.0-8.3)
[2022-10-01 22:44] LABS: Troponin I High Sensitivity 23.9 pg/ml (0-20)
[2022-10-01 22:47] LABS: Appearance Urine Clear (Clear); Bacteria Urine Automated Negative (Negative); Blood Urine 3+ (Negative); Color Urine Orange; Glucose Urine UA Negative (Negative); Ketones Urine Trace (Negative); Leukocyte Esterase Urine Trace (Negative); Nitrite Urine Positive (Negative); Protein Urine 2+ (Negative); Specific Gravity Urine 1.029 (1.000-1.030); Urobilinogen Urine Positive (Negative); pH Urine 5.5 (4.5-7.5)
[2022-10-01 22:48] LABS: Bilirubin Urine 1+ (Negative)
[2022-10-01 22:59] LABS: Acanthocytes 2+; Basophils # (auto) 0.02 K/uL (0-0.2); Basophils % (auto) 0.3 %; Hematocrit (blood only) 37.3 % (42.0-52.0); Hemoglobin 13.5 g/dl (14.0-18.0); Immature Granulocytes # (auto) 0.05 K/uL (0.01-0.20); Immature Granulocytes % (auto) 0.6 %; Lymphocytes # (auto) 0.96 K/uL (1.2-3.4); Lymphocytes % (auto) 12.2 %; Mean Corpuscular Hemoglobin 31.9 pg (25.0-34.0); Mean Corpuscular Hgb Conc 36.2 g/dL (32.0-36.0); Mean Corpuscular Volume 88.2 fL (80.0-100.0); Mean Platelet Volume 9.9 fL (9.4-12.4); Monocytes # (auto) 0.49 K/uL (0.11-0.59); Monocytes % (auto) 6.2 %; Neutrophils # (auto) 6.38 K/uL (1.40-6.50); Neutrophils % (auto) 80.7 %; Platelet Count 96 K/uL (130-400); Platelet Estimate Decreased (Normal); RDW Coefficient of Variation 14.3 % (11.5-14.5); Red Blood Count 4.23 M/uL (4.70-6.10)
[2022-10-01 23:01] LABS: INR 1.6 (0.9-1.1); Partial Thromboplastin Ratio 1.4
[2022-10-01 23:12] LABS: Amphetamines+Metham, Urine Pos (Neg); Barbiturates, Urine Neg (Neg); Benzodiazepine, Urine Neg (Neg); Cocaine, Urine Neg (Neg); MDMA (Ecstacy), Urine Neg (Neg); Methadone, Urine Neg (Neg); Opiate, Urine Neg (Neg); Phencyclidine, Urine Neg (Neg)
[2022-10-01 23:14] LABS: Partial Thromboplastin Time 40.4 Seconds (21.0-31.0)
[2022-10-01] MEDS ORDERED: OPTIRAY 320 100ml IV ONE (23:19)
--- NOTE | 2022-10-02 00:22 | CT Scan Report ---
Exam(s): CT CHEST With Contrast IV Amt: 95 ML OPTIRAY 320 EXAM: CT Chest With Intravenous Contrast CLINICAL HISTORY: Reason for exam: fall, right rib pain, AMS. TECHNIQUE: Axial computed tomography images of the chest with intravenous contrast. Automated exposure control was utilized for the study. A dose lowering technique was utilized adhering to the principles of ALARA. CONTRAST: Patient received 95 ML OPTIRAY 320 of IV contrast COMPARISON: None. FINDINGS: Lungs: Bilateral posterior lower lobe subpleural atelectasis. Pleural space: Right apical pleural thickening with subpleural scarring versus minimal cystic subpleural emphysematous changes. Otherwise normal lung parenchyma. No pleural effusion or pneumothorax. Heart: Unremarkable. No significant pericardial effusion. Normal cardiac size with coronary artery calcifications. Bones/joints: Degenerative disease of the bilateral shoulders, right more than left. Degenerative disease of the spine. Cortical disruption with irregularity along the superior endplate of L1 concerning for acute mild compression fracture. Moderate decrease in vertebral body height of T8 with prominent Schmorl nodes along the superior endplate suggestive of compression fracture, exact age indeterminate and likely old given morphology. No dislocation. Soft tissues: Unremarkable. Vasculature: Atherosclerotic disease of aorta with no aneurysm or dissection. Lymph nodes: Unremarkable. No enlarged lymph nodes. Liver: Nodular margins of the liver concerning for underlying cirrhosis. The spleen is enlarged measuring at least 14 cm, otherwise not entirely included in the [id number]. Gallbladder and bile ducts: Status post cholecystectomy. IMPRESSION: No acute findings in the chest. Electronically signed by: Aaliyah Fry MD 10/02/22 00:22 AM
--- NOTE | 2022-10-02 00:23 | CT Scan Report ---
Exam(s): CT C SPINE EXAM: CT Cervical Spine Without Intravenous Contrast CLINICAL HISTORY: Reason for exam: fall, AMS. TECHNIQUE: Axial computed tomography images of the cervical spine without intravenous contrast. Automated exposure control was utilized for the study. A dose lowering technique was utilized adhering to the principles of ALARA. COMPARISON: None. FINDINGS: Vertebrae: Degenerative arthrosis at anterior C1-C2 articulation otherwise normal odontoid process. Multilevel spondylosis with narrowing of described, severe C6-C7. Otherwise normal alignment. No acute fracture. Discs/spinal canal/neural foramina: Multilevel bilateral apophyseal hypertrophy contributing to variable degrees of neuroforaminal encroachment, more significant at C6-C7. No central canal stenosis. Soft tissues: Unremarkable. Pleural space: Lung apices revealed no pneumothorax. Mild right-sided apical pleural thickening with subpleural cystic/emphysematous changes versus scarring. IMPRESSION: Multilevel degenerative disease with no acute fracture or subluxation. Electronically signed by: Aaliyah Fry MD 10/02/22 00:22 AM
--- NOTE | 2022-10-02 00:23 | CT Scan Report ---
Exam(s): CT HEAD Without Contrast EXAM: CT Head Without Intravenous Contrast CLINICAL HISTORY: Reason for exam: fall, AMS. TECHNIQUE: Axial computed tomography images of the head/brain without intravenous contrast. Automated exposure control was utilized for the study. A dose lowering technique was utilized adhering to the principles of ALARA. COMPARISON: None. FINDINGS: Brain: Mild generalized brain atrophy. No hemorrhage. No significant white matter disease. Ventricles: Unremarkable. No ventriculomegaly. Bones/joints: Unremarkable. No acute fracture. Soft tissues: Unremarkable. Sinuses: Unremarkable as visualized. No acute sinusitis. Mastoid air cells: Unremarkable as visualized. No mastoid effusion. IMPRESSION: Involutional changes otherwise normal CT brain. Electronically signed by: Aaliyah Fry MD 10/02/22 00:22 AM
[2022-10-02 00:24] LABS: Base Excess VBG 0.1 mEq/L; HCO3 VBG 24 mmol/L; Oxygen Saturation VBG < 60.0 %; PCO2 VBG 35 mmHg (38-50); PO2 VBG 20 mmHg; pH VBG 7.44 (7.36-7.41)
--- NOTE | 2022-10-02 00:28 | CT Scan Report ---
Exam(s): CT ABDOMEN + PELVIS With Contrast IV Amt: 95 ML OPTIRAY 320 EXAM: CT Abdomen and Pelvis With Intravenous Contrast CLINICAL HISTORY: Reason for exam: fall, right hip pain, AMS. TECHNIQUE: Axial computed tomography images of the abdomen and pelvis with intravenous contrast. Automated exposure control was utilized for the study. A dose lowering technique was utilized adhering to the principles of ALARA. CONTRAST: Patient received 95 ML OPTIRAY 320 of IV contrast COMPARISON: None. FINDINGS: Lung bases: Mild bilateral posterior dependent atelectasis. ABDOMEN: Liver: Nodular margins of the liver suggestive of cirrhosis. Gallbladder and bile ducts: Unremarkable. No calcified stones. No ductal dilation. Pancreas: Unremarkable. No mass. No ductal dilation. Spleen: The spleen measures 14.6 cm consistent with splenomegaly. Adrenals: Unremarkable. No mass. Kidneys and ureters: Possible tiny stones within the lower pole of the left kidney measuring 2.2 mm. Otherwise normal bilateral kidneys. No hydronephrosis. Stomach and bowel: Incompletely distended colon with borderline thickening of the wall. Loops of small bowel within the right abdomen with borderline mild fullness of the wall, cannot exclude mild enterocolitis. Mild distention of several small bowel loops in the pelvis reaching a maximum diameter up to 2.3 cm, cannot exclude mild ileus. No significant dilatation to suggest obstruction. The descending colon is decompressed, otherwise unremarkable. PELVIS: Appendix: Normal appendix. Bladder: Unremarkable. No mass. Reproductive: Unremarkable as visualized. ABDOMEN and PELVIS: Intraperitoneal space: Unremarkable. No free air. No significant fluid collection. Bones/joints: There is a comminuted fracture involving the right intertrochanteric region. Mild compression fracture of L1 vertebral body with no extension to the pedicles or retropulsion. Multilevel degenerative disease of the lumbar spine. No dislocation. Soft tissues: Slight heterogeneity with enlargement and poor definition of the fascial planes involving the right gluteus musculature, suggestive of nonspecific soft tissue edema versus bruising/hematoma. Small bilateral fat-containing inguinal hernias versus scrotal lipomas. Vasculature: Calcified atherosclerotic disease of aorta with no aneurysm or dissection. Possible small distal esophageal varices. Lymph nodes: Unremarkable. No enlarged lymph nodes. IMPRESSION: 1. Intertrochanteric comminuted fracture of the right hip is described otherwise normal alignment. 2. Mild acute compression fracture of L1 with no retropulsion or extension to the pedicles. 3. Cirrhosis with mild splenomegaly and possible small esophageal varices. No evidence of visceral injury. No intra-abdominal hematoma and free fluid seen. 4. Possible nonobstructive stone within the left lower renal pole measuring 2.2 mm. Remainder of bilateral kidneys are unremarkable. 5. Cannot exclude mild enterocolitis in the appropriate clinical context, clinical correlation recommended. Electronically signed by: Aaliyah Fry MD 10/02/22 00:28 AM
[2022-10-02] MEDS ORDERED: ACETAMINOPHEN 1,000 MG/100 ML VIAL IV STA (00:49)
[2022-10-02] MEDS ORDERED: MAGNESIUM SULFATE / D5W 1 GM/100 ML BAG IV ONE (01:03)
[2022-10-02] MEDS ORDERED: LACTATED RINGER'S 1,000 ML IV ONE ×2 (01:07→06:37)
[2022-10-02] MEDS ORDERED: DAPTOmycin 450 MG in SYRINGE 0 ML IV STA (01:07)
[2022-10-02] MEDS ORDERED: metroNIDAZOLE 500 MG/100 ML BAG IV STA (01:25)
[2022-10-02] MEDS ORDERED: oxyCODONE HCL IR 5 MG TAB (IMMEDIATE RELEASE) PO STA (02:18)
--- NOTE | 2022-10-02 02:18 | History & Physical Report ---
Date of Service October 02, 2022 Assessment & Plan (1) Severe sepsis: Plan: SIRS plus lactic acidosis Possible sources : Complicated UTI Diarrhea rule out C. 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 difficile, Flagyl 1 dose for presumptive C. difficile given sepsis criteria, oral vancomycin if C. difficile positive IVF, follow lactic acid Follow troponin TTE RE syncope, hypotension Orthopedics consult Re: Right femoral fracture N.p.o. until patient seen by Orthopedics in anticipation of procedure Final preop eval pending response to sepsis management and TTE results Hepatitis panel, check HCV RNA Outpatient GI consult for new diagnosis of cirrhosis Careful correction of sodium, hyponatremia work-up, may need Nephrology evaluation. Check hemoglobin A1c Nicotine replacement therapy as needed DVT prophylaxis with SCDs Re: Thrombocytopenia Full code Patient's ex- requesting updates from providers. Martín Manisha Ames, contact #[phone]. Total critical care time was 45 minutes. Text document was generated using [employer] voice recognition software. It may contain grammatical or spelling errors. Kindly contact undersigned for clarification of any documentation item in question. History of Present Illness Chief Complaint: Right hip pain, diarrhea, confusion as per records Primary Care Provider: NO PCP History obtained from patient, family, and records. Medical history significant for LSS status post surgery, HCV status post Rx past alcohol abuse, ongoing tobacco use. Patient has not seen a PCP for a number of years. Patient fell at home last week after an unwitnessed syncopal event. Patient woke up on his own. Not sure how long he was out. No headache, no chest pain, no cough, no SOB, no abdominal pain. No tongue injury or incontinence as per patient. Patient noticed achy right hip pain worse on ambulation. Patient drove himself to [facility] ER where 'nothing was done' as per patient account. Patient subsequently stayed at ex-'s trailer home. Watery diarrhea symptoms with worsening right hip pain over the last few days. No recent antibiotic Rx. Patient not sure about sick contacts given recent ER visit. Patient found to be somewhat confused by . Patient brought to ER by EMS. Lowest SBP at the ER noted to be 90s. Zosyn administered at the ER for sepsis. 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 Allergies Allergy/AdvReac Type Severity Reaction Status Date / Time No Known Allergies Allergy Unverified 11/27/09 21:43 Home Medications Medication Instructions Recorded Confirmed Type herbal drugs 10/02/22 History Past Med/Surg History Medical History No pertinent past medical history Social History Smoking Status: Former smoker Hx Alcohol Use: No Hx Substance Use: No Preferred Language: German Communication Ability: Effective [place] Layer Required: No Beliefs That Will Affect Care: None Current Living Situation: Alone Current Living Situation Comment: home alone Other Information That Helps Us Care for You: No Feels Safe at Home: Yes Safety Concerns: Feels Safe At This Time Assistive Devices: Cane Review of Systems Review of Systems: As per HPI, all other systems reviewed and negative Physical Exam Physical Exam: GENERAL: uncomfortable, no respiratory distress SKIN: Pallor , warm HEENT: Partial alopecia, pale palpebral conjunctivae, no ptosis, dry buccal mucosa NECK : Supple, no tenderness CHEST : Decreased breath sounds, no tenderness HEART : Tachycardic, no obvious murmurs ABDOMEN: Some distention, nontender EXTREMITIES : No LE swelling, right hip tenderness, no other conspicuous deformities noted NEUROLOGIC : Coherent, no facial asymmetry, gait and stance not assessed Results & Data Results & Data Vital Signs (Past 12 Hours) Vital Signs Temp Pulse Pulse Resp BP BP Pulse Ox 10/02/22 02:10 90 10/02/22 02:00 94 10/02/22 02:00 96/66 L 10/02/22 01:50 102/49 L 10/02/22 01:40 117 H 16 93 10/02/22 01:30 96 10/02/22 01:20 96 10/02/22 01:10 95 10/02/22 01:00 129 H 35 H 94 10/02/22 01:00 121/84 10/02/22 00:50 131 H 34 H 96 10/02/22 00:44 132 H 20 10/02/22 00:31 135 H 33 H 130/80 92 10/02/22 00:02 28 H 109/78 95 10/01/22 23:30 129 H 32 H 138/84 93 10/01/22 23:01 135 H 18 132/86 94 10/01/22 22:30 135 H 26 H 128/89 93 10/01/22 22:24 138 H 24 137/5 L 94 10/01/22 22:00 135 H 21 113/85 94 10/01/22 21:57 137 H 32 H 112/84 93 10/01/22 21:40 139 H 23 118/91 93 10/01/22 21:45 93 10/01/22 21:23 134 H 10/01/22 20:59 138 H 20 143/85 H 94 10/01/22 20:59 37.5 C 138 H 20 143/85 H 94 O2 Del Method 10/02/22 02:10 10/02/22 02:00 10/02/22 02:00 10/02/22 01:50 10/02/22 01:40 10/02/22 01:30 10/02/22 01:20 10/02/22 01:10 10/02/22 01:00 10/02/22 01:00 10/02/22 00:50 10/02/22 00:44 10/02/22 00:31 10/02/22 00:02 10/01/22 23:30 10/01/22 23:01 10/01/22 22:30 10/01/22 22:24 10/01/22 22:00 Room Air 10/01/22 21:57 Room Air 10/01/22 21:40 Room Air 10/01/22 21:45 Room Air 10/01/22 21:23 10/01/22 20:59 Room Air 10/01/22 20:59 Room Air Laboratory Results Laboratory Results WBC 7.90 K/ul (4.8-10.8) 10/01/22 21:54 RBC 4.23 M/uL (4.70-6.10) L 10/01/22 21:54 Hgb 13.5 g/dl (14.0-18.0) L 10/01/22 21:54 Hct 37.3 % (42.0-52.0) L 10/01/22 21:54 MCV 88.2 fL (80.0-100.0) 10/01/22 21:54 MCH 31.9 pg (25.0-34.0) 10/01/22 21:54 MCHC 36.2 g/dL (32.0-36.0) H 10/01/22 21:54 RDW Std Deviation 46.0 fL (36.4-46.3) 10/01/22 21:54 RDW Coeff of Yanni 14.3 % (11.5-14.5) 10/01/22 21:54 Plt Count 96 K/uL (130-400) L 10/01/22 21:54 MPV 9.9 fL (9.4-12.4) 10/01/22 21:54 Immature Gran % (Auto) 0.6 % 10/01/22 21:54 Neut % (Auto) 80.7 % 10/01/22 21:54 Lymph % (Auto) 12.2 % 10/01/22 21:54 [place] % (Auto) 6.2 % 10/01/22 21:54 Eos % (Auto) 0.0 % 10/01/22 21:54 Baso % (Auto) 0.3 % 10/01/22 21:54 Neut # (Auto) 6.38 K/uL (1.40-6.50) 10/01/22 21:54 Lymph # (Auto) 0.96 K/uL (1.2-3.4) L 10/01/22 21:54 [place] # (Auto) 0.49 K/uL (0.11-0.59) 10/01/22 21:54 Eos # (Auto) 0.00 K/uL (0-0.50) 10/01/22 21:54 Baso # (Auto) 0.02 K/uL (0-0.2) 10/01/22 21:54 Immature Gran # (Auto) 0.05 K/uL (0.01-0.20) 10/01/22 21:54 Platelet Estimate Decreased (Normal) L 10/01/22 21:54 Acanthocytes (Spur) 2+ 10/01/22 21:54 PT 17.0 Seconds (9.0-12.0) H 10/01/22 21:54 INR 1.6 (0.9-1.1) H 10/01/22 21:54 APTT 40.4 Seconds (21.0-31.0) H* 10/01/22 21:54 PTT Ratio 1.4 10/01/22 21:54 VBG pH 7.44 (7.36-7.41) H 10/02/22 00:00 VBG pCO2 35 mmHg (38-50) L 10/02/22 00:00 VBG pO2 20 mmHg 10/02/22 00:00 VBG HCO3 24 mmol/L 10/02/22 00:00 VBG O2 Saturation < 60.0 % 10/02/22 00:00 VBG Base Excess 0.1 mEq/L 10/02/22 00:00 Sodium 125 mmol/L (136-145) L 10/01/22 21:54 Potassium 4.2 mmol/L (3.5-5.1) 10/01/22 21:54 Chloride 95 mmol/L (98-107) L 10/01/22 21:54 Carbon Dioxide 21 mmol/L (21-32) 10/01/22 21:54 Anion Gap 9 (3-11) 10/01/22 21:54 BUN 21 mg/dl (6-23) 10/01/22 21:54 Creatinine 1.15 mg/dl (0.6-1.4) 10/01/22 21:54 Est Cr Clr Drug Dosing 70.0 ml/min 10/01/22 21:54 Est GFR ( Amer) 78.1 ml/min 10/01/22 21:54 Est GFR (Non-Af Amer) 67.4 ml/min 10/01/22 21:54 BUN/Creatinine Ratio 18.3 (10-20) 10/01/22 21:54 Glucose 126 mg/dl (70-99(Fasting)) H 10/01/22 21:54 Osmolality 276 mOsm/kg (280-300) L 10/01/22 21:54 Lactate 5.0 mmol/L (0.4-2.0) H* 10/02/22 00:00 Calcium 8.4 mg/dl (8.6-10.3) L 10/01/22 21:54 Magnesium 1.9 mg/dl (1.7-2.4) 10/01/22 21:54 Total Bilirubin 2.9 mg/dl (0.2-1.0) H 10/01/22 21:54 AST 64 U/L (13-39) H 10/01/22 21:54 ALT 43 U/L (7-52) 10/01/22 21:54 Alkaline Phosphatase 115 U/L (34-104) H 10/01/22 21:54 Ammonia 44.0 umol/L (18-72) 10/02/22 01:45 Total Creatine Kinase 220 U/L (30-223) 10/01/22 21:54 Troponin I High Sens 23.9 pg/ml (0-20) H 10/01/22 21:54 B-Natriuretic Peptide 68 pg/ml (0-100) 10/01/22 21:54 Total Protein 7.3 gm/dl (6.0-8.3) 10/01/22 21:54 Albumin 3.0 gm/dl (3.4-5.0) L 10/01/22 21:54 Globulin 4.3 gm/dl (2.5-4.0) H 10/01/22 21:54 Albumin/Globulin Ratio 0.7 (0.9-2) L 10/01/22 21:54 Procalcitonin 2.48 ng/ml (0-0.5) H 10/01/22 21:54 TSH 0.671 uIu/ml (0.300-4.500) 10/01/22 21:54 Urine Color [place] 10/01/22 22:26 Urine Appearance Clear (Clear) 10/01/22 22:26 Urine pH 5.5 (4.5-7.5) 10/01/22 22:26 Ur Specific [place] 1.029 (1.000-1.030) 10/01/22 22:26 Urine Protein 2+ (Negative) H 10/01/22 22:26 Urine Glucose (UA) Negative (Negative) 10/01/22 22:26 Urine Ketones Trace (Negative) H 10/01/22 22:26 Urine Blood 3+ (Negative) H 10/01/22 22:26 Urine Nitrite Positive (Negative) A 10/01/22 22:26 Urine Bilirubin 1+ (Negative) H 10/01/22 22:26 Urine Urobilinogen Positive (Negative) H 10/01/22 22:26 Ur Leukocyte Esterase Trace (Negative) H 10/01/22 22:26 Urine WBC (Auto) 1-5 /hpf (0-5) 10/01/22 22:26 Urine RBC (Auto) 5-10 /hpf (0-4) H 10/01/22 22:26 U Hyaline Cast (Auto) 1-5 /lpf (0-5) 10/01/22 22:26 U Epithel Cells (Auto) 5-10 /lpf (0-5) H 10/01/22 22:26 Urine Bacteria (Auto) Negative (Negative) 10/01/22 22:26 Urine Opiates Screen Neg (Neg) 10/01/22 22:26 Ur Methadone, Qual Neg (Neg) 10/01/22 22:26 Urine Barbiturates Neg (Neg) 10/01/22 22:26 Ur Phencyclidine (PCP) Neg (Neg) 10/01/22 22:26 U Amphetamin/Meth Scrn Pos (Neg) H 10/01/22 22:26 MDMA (Ecstasy) Screen Neg (Neg) 10/01/22 22:26 U Benzodiazepines Scrn Neg (Neg) 10/01/22 22:26 Ur Cocaine Metabolite Neg (Neg) 10/01/22 22:26 U Marijuana (THC) Screen Pos (Neg) H 10/01/22 22:26 Ethyl Alcohol mg/dL < 10.0 mg/dl (<10.0) 10/01/22 21:54 SARS-CoV-2, RNA, NAAT NEGATIVE (NEGATIVE) 10/01/22 21:38 Blood Type A Negative 10/01/22 21:54 Antibody Screen NEGATIVE 10/01/22 21:54 Impressions Abdomen/Pelvis CT 10/01/22 21:49 Exam(s): CT ABDOMEN + PELVIS With Contrast IV Amt: 95 ML OPTIRAY 320 EXAM: CT Abdomen and Pelvis With Intravenous Contrast CLINICAL HISTORY: Reason for exam: fall, right hip pain, AMS. TECHNIQUE: Axial computed tomography images of the abdomen and pelvis with intravenous contrast. Automated exposure control was utilized for the study. A dose lowering technique was utilized adhering to the principles of ALARA. CONTRAST: Patient received 95 ML OPTIRAY 320 of IV contrast COMPARISON: None. FINDINGS: Lung bases: Mild bilateral posterior dependent atelectasis. ABDOMEN: Liver: Nodular margins of the liver suggestive of cirrhosis. Gallbladder and bile ducts: Unremarkable. No calcified stones. No ductal dilation. Pancreas: Unremarkable. No mass. No ductal dilation. Spleen: The spleen measures 14.6 cm consistent with splenomegaly. Adrenals: Unremarkable. No mass. Kidneys and ureters: Possible tiny stones within the lower pole of the left kidney measuring 2.2 mm. Otherwise normal bilateral kidneys. No hydronephrosis. Stomach and bowel: Incompletely distended colon with borderline thickening of the wall. Loops of small bowel within the right abdomen with borderline mild fullness of the wall, cannot exclude mild enterocolitis. Mild distention of several small bowel loops in the pelvis reaching a maximum diameter up to 2.3 cm, cannot exclude mild ileus. No significant dilatation to suggest obstruction. The descending colon is decompressed, otherwise unremarkable. PELVIS: Appendix: Normal appendix. Bladder: Unremarkable. No mass. Reproductive: Unremarkable as visualized. ABDOMEN and PELVIS: Intraperitoneal space: Unremarkable. No free air. No significant fluid collection. Bones/joints: There is a comminuted fracture involving the right intertrochanteric region. Mild compression fracture of L1 vertebral body with no extension to the pedicles or retropulsion. Multilevel degenerative disease of the lumbar spine. No dislocation. Soft tissues: Slight heterogeneity with enlargement and poor definition of the fascial planes involving the right gluteus musculature, suggestive of nonspecific soft tissue edema versus bruising/hematoma. Small bilateral fat-containing inguinal hernias versus scrotal lipomas. Vasculature: Calcified atherosclerotic disease of aorta with no aneurysm or dissection. Possible small distal esophageal varices. Lymph nodes: Unremarkable. No enlarged lymph nodes. IMPRESSION: 1. Intertrochanteric comminuted fracture of the right hip is described otherwise normal alignment. 2. Mild acute compression fracture of L1 with no retropulsion or extension to the pedicles. 3. Cirrhosis with mild splenomegaly and possible small esophageal varices. No evidence of visceral injury. No intra-abdominal hematoma and free fluid seen. 4. Possible nonobstructive stone within the left lower renal pole measuring 2.2 mm. Remainder of bilateral kidneys are unremarkable. 5. Cannot exclude mild enterocolitis in the appropriate clinical context, clinical correlation recommended. Electronically signed by: Aaliyah Fry MD 10/02/22 00:[address] 10/01/22 21:49 Exam(s): CT C SPINE EXAM: CT Cervical Spine Without Intravenous Contrast CLINICAL HISTORY: Reason for exam: fall, AMS. TECHNIQUE: Axial computed tomography images of the cervical spine without intravenous contrast. Automated exposure control was utilized for the study. A dose lowering technique was utilized adhering to the principles of ALARA. COMPARISON: None. FINDINGS: Vertebrae: Degenerative arthrosis at anterior C1-C2 articulation otherwise normal odontoid process. Multilevel spondylosis with narrowing of described, severe C6-C7. Otherwise normal alignment. No acute fracture. Discs/spinal canal/neural foramina: Multilevel bilateral apophyseal hypertrophy contributing to variable degrees of neuroforaminal encroachment, more significant at C6-C7. No central canal stenosis. Soft tissues: Unremarkable. Pleural space: Lung apices revealed no pneumothorax. Mild right-sided apical pleural thickening with subpleural cystic/emphysematous changes versus scarring. IMPRESSION: Multilevel degenerative disease with no acute fracture or subluxation. Electronically signed by: Aaliyah Fry MD 10/02/22 00:[address] 10/01/22 21:49 Exam(s): CT CHEST With Contrast IV Amt: 95 ML OPTIRAY 320 EXAM: CT Chest With Intravenous Contrast CLINICAL HISTORY: Reason for exam: fall, right rib pain, AMS. TECHNIQUE: Axial computed tomography images of the chest with intravenous contrast. Automated exposure control was utilized for the study. A dose lowering technique was utilized adhering to the principles of ALARA. CONTRAST: Patient received 95 ML OPTIRAY 320 of IV contrast COMPARISON: None. FINDINGS: Lungs: Bilateral posterior lower lobe subpleural atelectasis. Pleural space: Right apical pleural thickening with subpleural scarring versus minimal cystic subpleural emphysematous changes. Otherwise normal lung parenchyma. No pleural effusion or pneumothorax. Heart: Unremarkable. No significant pericardial effusion. Normal cardiac size with coronary artery calcifications. Bones/joints: Degenerative disease of the bilateral shoulders, right more than left. Degenerative disease of the spine. Cortical disruption with irregularity along the superior endplate of L1 concerning for acute mild compression fracture. Moderate decrease in vertebral body height of T8 with prominent Schmorl nodes along the superior endplate suggestive of compression fracture, exact age indeterminate and likely old given morphology. No dislocation. Soft tissues: Unremarkable. Vasculature: Atherosclerotic disease of aorta with no aneurysm or dissection. Lymph nodes: Unremarkable. No enlarged lymph nodes. Liver: Nodular margins of the liver concerning for underlying cirrhosis. The spleen is enlarged measuring at least 14 cm, otherwise not entirely included in the [id number]. Gallbladder and bile ducts: Status post cholecystectomy. IMPRESSION: No acute findings in the chest. Electronically signed by: Aaliyah Fry MD 10/02/22 00:[address] 10/01/22 21:49 Exam(s): CT HEAD Without Contrast EXAM: CT Head Without Intravenous Contrast CLINICAL HISTORY: Reason for exam: fall, AMS. TECHNIQUE: Axial computed tomography images of the head/brain without intravenous contrast. Automated exposure control was utilized for the study. A dose lowering technique was utilized adhering to the principles of ALARA. COMPARISON: None. FINDINGS: Brain: Mild generalized brain atrophy. No hemorrhage. No significant white matter disease. Ventricles: Unremarkable. No ventriculomegaly. Bones/joints: Unremarkable. No acute fracture. Soft tissues: Unremarkable. Sinuses: Unremarkable as visualized. No acute sinusitis. Mastoid air cells: Unremarkable as visualized. No mastoid effusion. IMPRESSION: Involutional changes otherwise normal CT brain. Electronically signed by: Aaliyah Fry MD 10/02/22 00:22 AM Diagnostic Findings EKG as per my interpretation : Rate 135, sinus tachycardia, normal axis, no ischemia, low voltage
[2022-10-02] MEDS ORDERED: PROMETHAZINE HCL 6.25 MG in SODIUM CHLORIDE 0.9% 50 ML IV PRN (02:23)
[2022-10-02] MEDS ORDERED: ACETAMINOPHEN 325 MG TAB PO PRN (02:25)
[2022-10-02 02:27] LABS: Troponin I High Sensitivity 25.9 pg/ml (0-20)
--- NOTE | 2022-10-02 03:21 | CT Scan Report ---
Exam(s): CT RIGHT HIP Without Contrast EXAM: CT Right Lower Extremity Without Intravenous Contrast, Hip CLINICAL HISTORY: Reason for exam: R hip pain. TECHNIQUE: Axial computed tomography images of the right hip without intravenous contrast. CTDI is 3597.14 mGy and DLP is 1546.33 mGy-cm. Automated exposure control was utilized for the study. A dose lowering technique was utilized adhering to the principles of ALARA. COMPARISON: None. FINDINGS: Bones/joints: Severely comminuted fracture involving the right intertrochanteric region of the right proximal femur with cephalad displacement of the femoral shaft in relation to the femoral neck and 90 angulation. Normal alignment at the level of the hip joint. Mild narrowing of the joint space at the level of the right hip with small cystic changes consistent with degenerative disease. Soft tissues: Unremarkable. IMPRESSION: Comminuted right-sided intertrochanteric fracture as described. Electronically signed by: Aaliyah Fry MD 10/02/22 03:19 AM
[2022-10-02] MEDS ORDERED: bisacodyL 10 MG SUPP PR PRN (03:27)
[2022-10-02] MEDS: MoRPHine SULFATE 2 MG/ML CARP IV PRN ×3 (03:47→17:08)
[2022-10-02 06:04] LABS: Hematocrit (blood only) 31.1 % (42.0-52.0); Hemoglobin 11.1 g/dl (14.0-18.0); Mean Corpuscular Hemoglobin 31.4 pg (25.0-34.0); Mean Corpuscular Hgb Conc 35.7 g/dL (32.0-36.0); Mean Corpuscular Volume 87.9 fL (80.0-100.0); Mean Platelet Volume 9.9 fL (9.4-12.4); Platelet Count 76 K/uL (130-400); RDW Coefficient of Variation 14.2 % (11.5-14.5); RDW Standard Deviation 46.1 fL (36.4-46.3); Red Blood Count 3.54 M/uL (4.70-6.10); White Blood Count 5.56 K/ul (4.8-10.8)
[2022-10-02 06:12] LABS: Albumin Globulin Ratio 0.7 (0.9-2); Albumin Level 2.5 gm/dl (3.4-5.0); BUN Creatinine Ratio 22.6 (10-20); Bilirubin,Total 2.4 mg/dl (0.2-1.0); Calcium 7.6 mg/dl (8.6-10.3); Creatinine Clr Calc Pharmacy 86.6 ml/min; Est GFR (African American) 100.9 ml/min; Est GFR (Non-African American) 87.1 ml/min; Globulin 3.7 gm/dl (2.5-4.0); Potassium 3.9 mmol/L (3.5-5.1); Total Protein 6.2 gm/dl (6.0-8.3)
[2022-10-02 06:14] LABS: Basophils # (auto) 0.02 K/uL (0-0.2); Basophils % (auto) 0.4 %; Immature Granulocytes # (auto) 0.03 K/uL (0.01-0.20); Immature Granulocytes % (auto) 0.5 %; Lymphocytes # (auto) 0.75 K/uL (1.2-3.4); Lymphocytes % (auto) 13.5 %; Monocytes # (auto) 0.52 K/uL (0.11-0.59); Monocytes % (auto) 9.4 %; Neutrophils # (auto) 4.24 K/uL (1.40-6.50); Neutrophils % (auto) 76.2 %; Polychromasia 1+
[2022-10-02 06:19] LABS: Troponin I High Sensitivity 20.3 pg/ml (0-20)
--- NOTE | 2022-10-02 07:09 | XRay Report ---
XR hip RT 2V w pelvis CLINICAL HISTORY: Right hip pain following fall. COMPARISON: CT of the abdomen and right hip performed earlier today. FINDINGS: Incidental is made of contrast within the bladder from recent contrast-enhanced CT. The sa croiliac joints and symphysis pubis are intact. Note is made of an acute significantly comminuted mod erately displaced intertrochanteric fracture of the right femur. There is no proximal left femoral fr acture. There is no pelvic fracture. IMPRESSION: Acute comminuted, moderately displaced intertrochanteric fracture of the right femur. ACT 112: Negative or not required by law. Electronically signed by: Aravind Plata M.D. 10/02/2022 7:08 AM
[2022-10-02 07:13] LABS: Estimated Average Glucose 97 mg/dl
[2022-10-02 08:30] LABS: Anaplasmosis Smear(Rpt to DOH) Pos for Anaplasma
[2022-10-02] MEDS: CEFEPIME 2,000 MG in SYRINGE 0 ML IV SCH ×3 (08:36→23:43)
[2022-10-02] MEDS: DOXYCYCLINE HYCLATE 100 MG in DEXTROSE 5% 100 ML IV SCH ×2 (10:38→20:00)
[2022-10-02] MEDS: SODIUM CHLORIDE 0.9% 1000ML 1,000 ML IV SCH ×3 (10:39→23:44)
--- NOTE | 2022-10-02 12:17 | Electrocardiogram Report ---
Test Reason : Blood Pressure : / mmHG Vent. Rate : 135 BPM Atrial Rate : 135 BPM P-R Int : 158 ms QRS Dur : 082 ms QT Int : 274 ms P-R-T Axes : 065 024 054 degrees QTc Int : 411 ms Sinus tachycardia Low voltage QRS Borderline ECG When compared with ECG of 02-AUG-2010 11:24, Vent. rate has increased BY 64 BPM Confirmed by Cisco Pandey ([id number]) on 10/02/2022 12:17:11 PM Referred By: REFERRED SELF Confirmed By:Cisco Pandey
[2022-10-02 13:57] LABS: Lyme Ab IgM w/WB Rflx Positive (Negative)
[2022-10-02 14:20] LABS: Lyme Ab IgG w/WB Rflx Positive (Negative)
[2022-10-02] MEDS: oxyCODONE HCL IR 5 MG TAB (IMMEDIATE RELEASE) PO PRN (14:49)
--- NOTE | 2022-10-02 15:04 | Hospitalist Progress Note ---
Date of Service October 02, 2022 Assessment & Plan (1) Severe sepsis: (2) Lyme disease: (3) Anaplasmosis: (4) Lactic acidosis: (5) Hyponatremia: (6) Closed fracture of right hip: Plan 62-year-old male male with history of hep C treated, cirrhosis, was not seen a physician for long time and is not on any meds except for herbals admitted with right hip fracture, Lyme disease/anaplasmosis, lactic acidosis and hyponatremia X-ray right hip- Acute comminuted, moderately displaced intertrochanteric fracture of the right femur. CT A/P- 1. Intertrochanteric comminuted fracture of the right hip is described otherwise normal alignment. 2. Mild acute compression fracture of L1 with no retropulsion or extension to the pedicles. 3. Cirrhosis with mild splenomegaly and possible small esophageal varices. No evidence of visceral injury. No intra-abdominal hematoma and free fluid seen. 4. Possible nonobstructive stone within the left lower renal pole measuring 2.2 mm. Remainder of bilateral kidneys are unremarkable. 5. Cannot exclude mild enterocolitis in the appropriate clinical context, clinical correlation recommended. CT chest, head and cervical spine with no acute findings Echo with hyperdynamic left ventricle, EF more than 75%,borderline consider LVH, no significant valvular disease, no pulm hypertension Lyme disease/anaplasmosis- reported tick bite last week. Labs positive for Anaplasma and Lyme disease. Started on doxycycline. Lactic acidosis-patient does not report any abdominal pain, doubt any abdominal ischemia, possibly due to above. Getting IVF. Trend. Also on empiric cefepime pending blood culture results. Patient does not meet SIRS or sepsis criteria-no fever or leukocytosis or hypotension noted. Hyponatremia-sodium has remained at 126 despite IVF. Continue NSS. Nephrology consulted. Closed right hip fracture-due to fall. CT reviewed as above. Ortho following for surgery L1 fracture-due to fall. CT reviewed as above. Consulted spine orthopedics Polysubstance abuse- UDS positive for amphetamine and marijuana. Does smoke few cigarettes a day. States he used to drink alcohol in the past. Thrombocytopenia-due to tickborne disease. Monitor. Cirrhosis of liver with mild splenomegaly and possible small esophageal varices- no ascites noted. No acute encephalopathy. Patient does report history of hep C treated in the past and was seen at [place]. Patient does not see any GI doctors locally. Recommended GI follow-up at discharge with EGD DVT prophylaxis-patient is at high risk for DVT given his hip fracture. We will start on subcu heparin until midnight and hold for possible surgery tomorrow. Disposition-uncertain at this time. Patient will need hip surgery after medical optimization Updated ex- Manisha at bedside Admission and Anticipated Discharge Date Admission Date: October 02, 2022 Subjective Patient was seen and examined at bedside. He is awake alert oriented x4, answering questions appropriately, ex partner at bedside. Apparently he fell [id number] 2 times over the past week and was evaluated at [facility] but denies having any xrays done. He was using a cane over the past week. He also had a tick removed. States poor oral intake. He is asking for a drink. He hasn't seen a doctor in a long time. He does have Hep C which was treated; and states he was evaluated at [place] with liver biopsy. He states he smokes few cigarettes. Denies alcohol intake. Review of Systems Review of Systems: All systems reviewed & are unremarkable except as noted in Subjective Physical Exam Physical Exam: General: Sick looking, lying comfortably in bed, not in acute distress, on room air HEENT: EOMI, KAMALJIT, dry oral mucosa Chest: Fair breath sounds bilaterally CVS: Regular, normal heart sounds, no murmur Abdomen: Soft, non tender, not distended, normal bowel sounds Neuro: Awake, alert, oriented, conversing well Extremities: No cyanosis, clubbing or edema. No ecchymosis noted Results & Data Results & Data Vital Signs (Past 12 Hours) Vital Signs Temp Pulse Pulse Resp BP Pulse Ox O2 Del Method 10/02/22 12:05 36.9 C 116 H 20 119/71 94 Room Air 10/02/22 07:54 36.8 C 109 H 20 108/68 96 Room Air 10/02/22 07:48 111 H 10/02/22 06:39 36.6 C 106 H 14 106/68 96 Room Air 10/02/22 05:40 105 H 10/02/22 03:43 36.6 C 106 H 14 106/68 96 Room Air Laboratory Results Short CBC 10/01/22 10/02/22 Range/Units 21:54 05:20 WBC 7.90 5.56 (4.8-10.8) K/ul Hgb 13.5 L 11.1 L (14.0-18.0) g/dl Hct 37.3 L 31.1 L (42.0-52.0) % Plt Count 96 L 76 L (130-400) K/uL BMP 10/01/22 10/02/22 10/02/22 21:54 01:45 05:20 Sodium 125 L 126 L 126 L Potassium 4.2 3.9 Chloride 95 L 100 Carbon Dioxide 21 21 BUN 21 21 Creatinine 1.15 0.93 Glucose 126 H 113 H Calcium 8.4 L 7.6 L Cardiac Enzymes 10/01/22 10/02/22 Range/Units 21:54 05:20 Total Creatine Kinase 220 215 (30-223) U/L Liver Function 10/01/22 10/02/22 Range/Units 21:54 05:20 Total Bilirubin 2.9 H 2.4 H (0.2-1.0) mg/dl AST 64 H 56 H (13-39) U/L ALT 43 36 (7-52) U/L Alkaline Phosphatase 115 H 94 (34-104) U/L Albumin 3.0 L 2.5 L (3.4-5.0) gm/dl Urine 10/01/22 Range/Units 22:26 Urine Color [place] Urine Appearance Clear (Clear) Urine pH 5.5 (4.5-7.5) Ur Specific [place] 1.029 (1.000-1.030) Urine Protein 2+ H (Negative) Urine Glucose (UA) Negative (Negative) Diagnostic Findings Hip/Pelvis X-Ray 10/01/22 21:49 XR hip RT 2V w pelvis CLINICAL HISTORY: Right hip pain following fall. COMPARISON: CT of the abdomen and right hip performed earlier today. FINDINGS: Incidental is made of contrast within the bladder from recent contrast-enhanced CT. The sacroiliac joints and symphysis pubis are intact. Note is made of an acute significantly comminuted moderately displaced intertrochanteric fracture of the right femur. There is no proximal left femoral fracture. There is no pelvic fracture. IMPRESSION: Acute comminuted, moderately displaced intertrochanteric fracture of the right femur. ACT 112: Negative or not required by law. Electronically signed by: Aravind Plata M.D. 10/02/2022 7:[address] 10/02/22 02:23 Exam(s): CT RIGHT HIP Without Contrast EXAM: CT Right Lower Extremity Without Intravenous Contrast, Hip CLINICAL HISTORY: Reason for exam: R hip pain. TECHNIQUE: Axial computed tomography images of the right hip without intravenous contrast. CTDI is 3597.14 mGy and DLP is 1546.33 mGy-cm. Automated exposure control was utilized for the study. A dose lowering technique was utilized adhering to the principles of ALARA. COMPARISON: None. FINDINGS: Bones/joints: Severely comminuted fracture involving the right intertrochanteric region of the right proximal femur with cephalad displacement of the femoral shaft in relation to the femoral neck and 90 angulation. Normal alignment at the level of the hip joint. Mild narrowing of the joint space at the level of the right hip with small cystic changes consistent with degenerative disease. Soft tissues: Unremarkable. IMPRESSION: Comminuted right-sided intertrochanteric fracture as described. Electronically signed by: Aaliyah Fry MD 10/02/22 03:19 AM Medications Administered Current Inpatient Medications Acetaminophen (Acetaminophen 325 Mg Tab) 325 mg PO Q6H PRN PRN Reason: Mild Pain (Scale 1, 2, 3) Stop: 11/01/22 02:24 Promethazine HCl 6.25 mg/ (Sodium Chloride) 50.25 mls @ 201 mls/hr IV Q6H PRN PRN Reason: Nausea And Vomiting Stop: 11/01/22 02:22 Cefepime HCl 2,000 mg/ Syringe 20 mls @ 5 mls/min IV Q8H ISIAH; Protocol Stop: 10/12/22 07:59 Last Admin: 10/02/22 08:36 Dose: 5 mls/min Doxycycline Hyclate 100 mg/ (Dextrose) 110 mls @ 50 mls/hr IV Q12H ISIAH; Protocol Stop: 10/16/22 08:59 Last Infusion: 10/02/22 13:05 Dose: Infused Sodium Chloride (Nss 1000ml) 1,000 mls @ 125 mls/hr IV .Q8H ISIAH Stop: 11/01/22 10:14 Last Admin: 10/02/22 10:39 Dose: 125 mls/hr Morphine Sulfate (Morphine Sulfate 2 Mg/Ml Carp) 2 mg IV Q3H PRN PRN Reason: Pain Stop: 10/16/22 03:31 Last Admin: 10/02/22 08:35 Dose: 2 mg Oxycodone HCl (Oxycodone Hcl Ir 5 Mg Tab (Immediate Release)) 5 mg PO Q4H PRN PRN Reason: Pain Stop: 10/16/22 02:22 Last Admin: 10/02/22 14:49 Dose: 5 mg
--- NOTE | 2022-10-02 15:13 | Orthopedic Consultation ---
Date of Consultation October 02, 2022 Assessment & Plan (1) Closed fracture of right hip: Right intertrochanteric hip fracture Patient will require a right trochanteric femoral nail. I have disussed the case with Dr. Villalta. Patient is currently not cleared for surgery at this time. We will add him onto the surgery schedule tomorrow tentatively and if he is medically cleared at that point in time we will go ahead with the right TFN. History of Present Illness Reason for Consultation: Right intertrochanteric hip fracture Attending Physician: Wolfgang Villalta MD History of Present Illness 62-year-old male with past medical history of hepatitis C which has been treated, history of cirrhosis, who fell several times over the last week injuring his hip. Initially had fallen approximately a week ago and had pain in his right hip but was apparently able to ambulate with a cane. History from the chart states that he went to [facility] to be seen there but nothing was overtly done. He began having worsening pain and had 1 more fall at 1 point in time. He was having increasing difficulty ambulating and bearing weight. He was staying with his ex- at her place of residence and she noticed a change in mental status. He was thusly brought to [facility] and was seen by the staff. X-rays were taken. It was found that he had an intertrochanteric hip fracture of the right hip. 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 He was admitted by the hospitalist staff and we have been asked to see him for his right hip fracture. Currently he is sleeping but does awaken. He answers most questions appropriately. He is obviously somewhat somnolent and had just received some pain medication. He states he is having hip pain mostly with movement but at most times the pain is controlled at rest. No other complaints at this time. Allergies Allergy/AdvReac Type Severity Reaction Status Date / Time No Known Allergies Allergy Unverified 11/27/09 21:43 Home Medications Medication Instructions Recorded Confirmed Type herbal drugs 10/02/22 History Patient History Medical History No pertinent past medical history Social History Smoking Status: Former smoker Hx Alcohol Use: No Hx Substance Use: No Preferred Language: Egyptian Communication Ability: Effective Parliamentary Librarian Required: No Beliefs That Will Affect Care: None Current Living Situation: Alone Current Living Situation Comment: home alone Other Information That Helps Us Care for You: No Feels Safe at Home: Yes Safety Concerns: Feels Safe At This Time Assistive Devices: Cane Physical Exam Physical Exam: Patient is a 62-year-old white male who appears his stated age. He is somewhat somnolent but is alert and oriented to person and place. No acute distress. He is pleasant and cooperative. On examination of his right lower extremity, he has noted swelling in the right thigh compared to the left. He has moderate tenderness on palpation over the lateral aspect of the right hip. He has no pain over the right knee on palpation and has no noticeable effusion. Range of motion is deferred. He is nontender at the right ankle and has the ability to do range of motion of the right ankle at this time. Left lower extremity is unaffected and he is nontender at the hip, knee, ankle. Denies any new cervical, thoracic, lumbar pain. History of lumbar surgery in the past with chronic pain. He states he has some mild numbness or tingling in the toes of his left foot compared to the right. Upper extremities appear to be unaffected and he is nontender at the shoulders, elbows, and wrists. Range of motion within normal limits. Distal pulses equal bilaterally. Other than his complaint of some mild tingling and numbness in his toes of the left foot he has no gross motor or sensory loss at this time. Results & Data Vital Signs (Past 12 Hours) Vital Signs Temp Pulse Pulse Resp BP Pulse Ox O2 Del Method 10/02/22 12:05 36.9 C 116 H 20 119/71 94 Room Air 10/02/22 07:54 36.8 C 109 H 20 108/68 96 Room Air 10/02/22 07:48 111 H 10/02/22 06:39 36.6 C 106 H 14 106/68 96 Room Air 10/02/22 05:40 105 H 10/02/22 03:43 36.6 C 106 H 14 106/68 96 Room Air Laboratory Results Laboratory Results WBC 5.56 K/ul (4.8-10.8) 10/02/22 05:20 RBC 3.54 M/uL (4.70-6.10) L 10/02/22 05:20 Hgb 11.1 g/dl (14.0-18.0) L 10/02/22 05:20 Hct 31.1 % (42.0-52.0) L 10/02/22 05:20 MCV 87.9 fL (80.0-100.0) 10/02/22 05:20 MCH 31.4 pg (25.0-34.0) 10/02/22 05:20 MCHC 35.7 g/dL (32.0-36.0) 10/02/22 05:20 RDW Std Deviation 46.1 fL (36.4-46.3) 10/02/22 05:20 RDW Coeff of Yanni 14.2 % (11.5-14.5) 10/02/22 05:20 Plt Count 76 K/uL (130-400) L 10/02/22 05:20 MPV 9.9 fL (9.4-12.4) 10/02/22 05:20 Immature Gran % (Auto) 0.5 % 10/02/22 05:20 Neut % (Auto) 76.2 % 10/02/22 05:20 Lymph % (Auto) 13.5 % 10/02/22 05:20 [place] % (Auto) 9.4 % 10/02/22 05:20 Eos % (Auto) 0.0 % 10/02/22 05:20 Baso % (Auto) 0.4 % 10/02/22 05:20 Neut # (Auto) 4.24 K/uL (1.40-6.50) 10/02/22 05:20 Lymph # (Auto) 0.75 K/uL (1.2-3.4) L 10/02/22 05:20 [place] # (Auto) 0.52 K/uL (0.11-0.59) 10/02/22 05:20 Eos # (Auto) 0.00 K/uL (0-0.50) 10/02/22 05:20 Baso # (Auto) 0.02 K/uL (0-0.2) 10/02/22 05:20 Immature Gran # (Auto) 0.03 K/uL (0.01-0.20) 10/02/22 05:20 Platelet Estimate Decreased (Normal) L 10/01/22 21:54 Polychromasia 1+ 10/02/22 05:20 Acanthocytes (Spur) 2+ 10/01/22 21:54 Peripher Smr Path Cons 10/02/22 05:20 PT 17.0 Seconds (9.0-12.0) H 10/01/22 21:54 INR 1.6 (0.9-1.1) H 10/01/22 21:54 APTT 40.4 Seconds (21.0-31.0) H* 10/01/22 21:54 PTT Ratio 1.4 10/01/22 21:54 VBG pH 7.44 (7.36-7.41) H 10/02/22 00:00 VBG pCO2 35 mmHg (38-50) L 10/02/22 00:00 VBG pO2 20 mmHg 10/02/22 00:00 VBG HCO3 24 mmol/L 10/02/22 00:00 VBG O2 Saturation < 60.0 % 10/02/22 00:00 VBG Base Excess 0.1 mEq/L 10/02/22 00:00 Sodium 126 mmol/L (136-145) L 10/02/22 05:20 Potassium 3.9 mmol/L (3.5-5.1) 10/02/22 05:20 Chloride 100 mmol/L (98-107) 10/02/22 05:20 Carbon Dioxide 21 mmol/L (21-32) 10/02/22 05:20 Anion Gap 5 (3-11) 10/02/22 05:20 BUN 21 mg/dl (6-23) 10/02/22 05:20 Creatinine 0.93 mg/dl (0.6-1.4) 10/02/22 05:20 Est Cr Clr Drug Dosing 86.6 ml/min 10/02/22 05:20 Est GFR ( Amer) 100.9 ml/min 10/02/22 05:20 Est GFR (Non-Af Amer) 87.1 ml/min 10/02/22 05:20 BUN/Creatinine Ratio 22.6 (10-20) H 10/02/22 05:20 Glucose 113 mg/dl (70-99(Fasting)) H 10/02/22 05:20 Estimat Average Glucose 97 mg/dl 10/02/22 05:20 Hemoglobin A1c 5.0 % (4.5-5.6) 10/02/22 05:20 Osmolality 276 mOsm/kg (280-300) L 10/01/22 21:54 Lactate 4.7 mmol/L (0.4-2.0) H* 10/02/22 11:50 Calcium 7.6 mg/dl (8.6-10.3) L 10/02/22 05:20 Magnesium 1.9 mg/dl (1.7-2.4) 10/01/22 21:54 Total Bilirubin 2.4 mg/dl (0.2-1.0) H 10/02/22 05:20 AST 56 U/L (13-39) H 10/02/22 05:20 ALT 36 U/L (7-52) 10/02/22 05:20 Alkaline Phosphatase 94 U/L (34-104) 10/02/22 05:20 Ammonia 44.0 umol/L (18-72) 10/02/22 01:45 Total Creatine Kinase 215 U/L (30-223) 10/02/22 05:20 Troponin I High Sens 20.3 pg/ml (0-20) H 10/02/22 05:20 B-Natriuretic Peptide 68 pg/ml (0-100) 10/01/22 21:54 Total Protein 6.2 gm/dl (6.0-8.3) 10/02/22 05:20 Albumin 2.5 gm/dl (3.4-5.0) L 10/02/22 05:20 Globulin 3.7 gm/dl (2.5-4.0) 10/02/22 05:20 Albumin/Globulin Ratio 0.7 (0.9-2) L 10/02/22 05:20 Procalcitonin 3.15 ng/ml (0-0.5) H 10/02/22 05:20 TSH 0.671 uIu/ml (0.300-4.500) 10/01/22 21:54 Urine Color [place] 10/01/22 22:26 Urine Appearance Clear (Clear) 10/01/22 22:26 Urine pH 5.5 (4.5-7.5) 10/01/22 22:26 Ur Specific [place] 1.029 (1.000-1.030) 10/01/22 22:26 Urine Protein 2+ (Negative) H 10/01/22 22:26 Urine Glucose (UA) Negative (Negative) 10/01/22 22:26 Urine Ketones Trace (Negative) H 10/01/22 22:26 Urine Blood 3+ (Negative) H 10/01/22 22:26 Urine Nitrite Positive (Negative) A 10/01/22 22:26 Urine Bilirubin 1+ (Negative) H 10/01/22 22:26 Urine Urobilinogen Positive (Negative) H 10/01/22 22:26 Ur Leukocyte Esterase Trace (Negative) H 10/01/22 22:26 Urine WBC (Auto) 1-5 /hpf (0-5) 10/01/22 22:26 Urine RBC (Auto) 5-10 /hpf (0-4) H 10/01/22 22:26 U Hyaline Cast (Auto) 1-5 /lpf (0-5) 10/01/22 22:26 U Epithel Cells (Auto) 5-10 /lpf (0-5) H 10/01/22 22:26 Urine Bacteria (Auto) Negative (Negative) 10/01/22 22:26 Urine Opiates Screen Neg (Neg) 10/01/22 22:26 Ur Methadone, Qual Neg (Neg) 10/01/22 22:26 Urine Barbiturates Neg (Neg) 10/01/22 22:26 Ur Phencyclidine (PCP) Neg (Neg) 10/01/22 22:26 U Amphetamin/Meth Scrn Pos (Neg) H 10/01/22 22:26 MDMA (Ecstasy) Screen Neg (Neg) 10/01/22 22:26 U Benzodiazepines Scrn Neg (Neg) 10/01/22 22:26 Ur Cocaine Metabolite Neg (Neg) 10/01/22 22:26 U Marijuana (THC) Screen Pos (Neg) H 10/01/22 22:26 Ethyl Alcohol mg/dL < 10.0 mg/dl (<10.0) 10/01/22 21:54 Anaplasma Smear See Comment A 10/02/22 05:20 Anaplasma Comment Pos for Anaplasma 10/02/22 05:20 Lyme Disease IgG Ab Positive (Negative) A 10/02/22 11:50 Lyme Disease IgM Ab Positive (Negative) A 10/02/22 11:50 SARS-CoV-2, RNA, NAAT NEGATIVE (NEGATIVE) 10/01/22 21:38 Blood Type A Negative 10/01/22 21:54 Antibody Screen NEGATIVE 10/01/22 21:54 Impressions Abdomen/Pelvis CT 10/01/22 21:49 Exam(s): CT ABDOMEN + PELVIS With Contrast IV Amt: 95 ML OPTIRAY 320 EXAM: CT Abdomen and Pelvis With Intravenous Contrast CLINICAL HISTORY: Reason for exam: fall, right hip pain, AMS. TECHNIQUE: Axial computed tomography images of the abdomen and pelvis with intravenous contrast. Automated exposure control was utilized for the study. A dose lowering technique was utilized adhering to the principles of ALARA. CONTRAST: Patient received 95 ML OPTIRAY 320 of IV contrast COMPARISON: None. FINDINGS: Lung bases: Mild bilateral posterior dependent atelectasis. ABDOMEN: Liver: Nodular margins of the liver suggestive of cirrhosis. Gallbladder and bile ducts: Unremarkable. No calcified stones. No ductal dilation. Pancreas: Unremarkable. No mass. No ductal dilation. Spleen: The spleen measures 14.6 cm consistent with splenomegaly. Adrenals: Unremarkable. No mass. Kidneys and ureters: Possible tiny stones within the lower pole of the left kidney measuring 2.2 mm. Otherwise normal bilateral kidneys. No hydronephrosis. Stomach and bowel: Incompletely distended colon with borderline thickening of the wall. Loops of small bowel within the right abdomen with borderline mild fullness of the wall, cannot exclude mild enterocolitis. Mild distention of several small bowel loops in the pelvis reaching a maximum diameter up to 2.3 cm, cannot exclude mild ileus. No significant dilatation to suggest obstruction. The descending colon is decompressed, otherwise unremarkable. PELVIS: Appendix: Normal appendix. Bladder: Unremarkable. No mass. Reproductive: Unremarkable as visualized. ABDOMEN and PELVIS: Intraperitoneal space: Unremarkable. No free air. No significant fluid collection. Bones/joints: There is a comminuted fracture involving the right intertrochanteric region. Mild compression fracture of L1 vertebral body with no extension to the pedicles or retropulsion. Multilevel degenerative disease of the lumbar spine. No dislocation. Soft tissues: Slight heterogeneity with enlargement and poor definition of the fascial planes involving the right gluteus musculature, suggestive of nonspecific soft tissue edema versus bruising/hematoma. Small bilateral fat-containing inguinal hernias versus scrotal lipomas. Vasculature: Calcified atherosclerotic disease of aorta with no aneurysm or dissection. Possible small distal esophageal varices. Lymph nodes: Unremarkable. No enlarged lymph nodes. IMPRESSION: 1. Intertrochanteric comminuted fracture of the right hip is described otherwise normal alignment. 2. Mild acute compression fracture of L1 with no retropulsion or extension to the pedicles. 3. Cirrhosis with mild splenomegaly and possible small esophageal varices. No evidence of visceral injury. No intra-abdominal hematoma and free fluid seen. 4. Possible nonobstructive stone within the left lower renal pole measuring 2.2 mm. Remainder of bilateral kidneys are unremarkable. 5. Cannot exclude mild enterocolitis in the appropriate clinical context, clinical correlation recommended. Electronically signed by: Aaliyah Fry MD 10/02/22 00:[address] 10/01/22 21:49 Exam(s): CT C SPINE EXAM: CT Cervical Spine Without Intravenous Contrast CLINICAL HISTORY: Reason for exam: fall, AMS. TECHNIQUE: Axial computed tomography images of the cervical spine without intravenous contrast. Automated exposure control was utilized for the study. A dose lowering technique was utilized adhering to the principles of ALARA. COMPARISON: None. FINDINGS: Vertebrae: Degenerative arthrosis at anterior C1-C2 articulation otherwise normal odontoid process. Multilevel spondylosis with narrowing of described, severe C6-C7. Otherwise normal alignment. No acute fracture. Discs/spinal canal/neural foramina: Multilevel bilateral apophyseal hypertrophy contributing to variable degrees of neuroforaminal encroachment, more significant at C6-C7. No central canal stenosis. Soft tissues: Unremarkable. Pleural space: Lung apices revealed no pneumothorax. Mild right-sided apical pleural thickening with subpleural cystic/emphysematous changes versus scarring. IMPRESSION: Multilevel degenerative disease with no acute fracture or subluxation. Electronically signed by: Aaliyah Fry MD 10/02/22 00:[address] 10/01/22 21:49 Exam(s): CT CHEST With Contrast IV Amt: 95 ML OPTIRAY 320 EXAM: CT Chest With Intravenous Contrast CLINICAL HISTORY: Reason for exam: fall, right rib pain, AMS. TECHNIQUE: Axial computed tomography images of the chest with intravenous contrast. Automated exposure control was utilized for the study. A dose lowering technique was utilized adhering to the principles of ALARA. CONTRAST: Patient received 95 ML OPTIRAY 320 of IV contrast COMPARISON: None. FINDINGS: Lungs: Bilateral posterior lower lobe subpleural atelectasis. Pleural space: Right apical pleural thickening with subpleural scarring versus minimal cystic subpleural emphysematous changes. Otherwise normal lung parenchyma. No pleural effusion or pneumothorax. Heart: Unremarkable. No significant pericardial effusion. Normal cardiac size with coronary artery calcifications. Bones/joints: Degenerative disease of the bilateral shoulders, right more than left. Degenerative disease of the spine. Cortical disruption with irregularity along the superior endplate of L1 concerning for acute mild compression fracture. Moderate decrease in vertebral body height of T8 with prominent Schmorl nodes along the superior endplate suggestive of compression fracture, exact age indeterminate and likely old given morphology. No dislocation. Soft tissues: Unremarkable. Vasculature: Atherosclerotic disease of aorta with no aneurysm or dissection. Lymph nodes: Unremarkable. No enlarged lymph nodes. Liver: Nodular margins of the liver concerning for underlying cirrhosis. The spleen is enlarged measuring at least 14 cm, otherwise not entirely included in the [id number]. Gallbladder and bile ducts: Status post cholecystectomy. IMPRESSION: No acute findings in the chest. Electronically signed by: Aaliyah Fry MD 10/02/22 00:[address] 10/01/22 21:49 Exam(s): CT HEAD Without Contrast EXAM: CT Head Without Intravenous Contrast CLINICAL HISTORY: Reason for exam: fall, AMS. TECHNIQUE: Axial computed tomography images of the head/brain without intravenous contrast. Automated exposure control was utilized for the study. A dose lowering technique was utilized adhering to the principles of ALARA. COMPARISON: None. FINDINGS: Brain: Mild generalized brain atrophy. No hemorrhage. No significant white matter disease. Ventricles: Unremarkable. No ventriculomegaly. Bones/joints: Unremarkable. No acute fracture. Soft tissues: Unremarkable. Sinuses: Unremarkable as visualized. No acute sinusitis. Mastoid air cells: Unremarkable as visualized. No mastoid effusion. IMPRESSION: Involutional changes otherwise normal CT brain. Electronically signed by: Aaliyah Fry MD 10/02/22 00:22 AM Hip/Pelvis X-Ray 10/01/22 21:49 XR hip RT 2V w pelvis CLINICAL HISTORY: Right hip pain following fall. COMPARISON: CT of the abdomen and right hip performed earlier today. FINDINGS: Incidental is made of contrast within the bladder from recent contrast-enhanced CT. The sacroiliac joints and symphysis pubis are intact. Note is made of an acute significantly comminuted moderately displaced intertrochanteric fracture of the right femur. There is no proximal left femoral fracture. There is no pelvic fracture. IMPRESSION: Acute comminuted, moderately displaced intertrochanteric fracture of the right femur. ACT 112: Negative or not required by law. Electronically signed by: Aravind Plata M.D. 10/02/2022 7:[address] 10/02/22 02:23 Exam(s): CT RIGHT HIP Without Contrast EXAM: CT Right Lower Extremity Without Intravenous Contrast, Hip CLINICAL HISTORY: Reason for exam: R hip pain. TECHNIQUE: Axial computed tomography images of the right hip without intravenous contrast. CTDI is 3597.14 mGy and DLP is 1546.33 mGy-cm. Automated exposure control was utilized for the study. A dose lowering technique was utilized adhering to the principles of ALARA. COMPARISON: None. FINDINGS: Bones/joints: Severely comminuted fracture involving the right intertrochanteric region of the right proximal femur with cephalad displacement of the femoral shaft in relation to the femoral neck and 90 angulation. Normal alignment at the level of the hip joint. Mild narrowing of the joint space at the level of the right hip with small cystic changes consistent with degenerative disease. Soft tissues: Unremarkable. IMPRESSION: Comminuted right-sided intertrochanteric fracture as described. Electronically signed by: Aaliyah Fry MD 10/02/22 03:19 AM
[2022-10-02] MEDS ORDERED: METOPROLOL TARTRATE 1 MG/ML VIAL IV STA (17:17)
--- NOTE | 2022-10-02 17:20 | Nephrology Consultation ---
Date of Consultation October 02, 2022 Assessment & Plan (1) Hyponatremia: presenting sodium 126 in a septic patient w/ hypotension w/ meth in his system, tachycardia, AF w/ RVR and climbing lactate. unclear cause; may be hypovolemic but at risk for SIADH/low solute diet picture. note also that as liver pt he may have normal BP in low 1oos systolic -maintain eukalemia -ordered missing urine data -clinically current priority though is hemodynamic stabilization > hyponatremia correction less important meli since it would involve stopping/slowing IVF; for now continue current IVF -f/u repeat labs should be drawn soon; orders in -goal sNa by tomorrow am is no more than 133 -continue IVF as needed and efforts to control HR (2) Abnormal urine findings: proteinuria, microhematuria; no evidence of infection. may well relate to hcv hx. denies nsaid use. -quantify proteinuria -follow blood tests of renal function -at risk for [place] w/ dye load -further w/u pending above History of Present Illness Reason for Consultation: hyponatremia Requesting Physician: Dr Villalta Attending Physician: Wolfgang Villalta MD History of Present Illness 62 y/o M whom I'm asked to see for hyponatremia was admitted early this AM w/ severe sepsis from anaplasmosis /lyme disease and w/ traumatic R femoral fracture after syncope. Plan is for OR tomorrow if he can be medically cleared. Also w/ sNa 126 on presentation. PMH includes HCV s/p RX and w/ liver cirrhosis, past EtOH abuse, active methamphetamine and THC and tobacco use, lumbar spinal stenosis s/p surgery. Does not follow w/ OP PCP x years. He had an unwitnessed syncopal event approximately a week back and went to [facility]; released. over the next days developed watery diarrhea and worsening R hip pain. Brought to ER today d/t confusion, hypotension w/ presenting SBP in 90s. His HR since admission has been 120-130s. he is currently 2.1 L positive. His presenting sNa was 126, unchanged despite aggressive fluid resuscitation currently w/ NS at 150 mL/hr. he is being treated w/ doxycycline and cefepime. Currently on a regular diet for NPO status at [place]. Lactate continues to climb, last one 4.7 midday. serum osms 276; no urine studies for sodium posted yet. late this afternoon he flipped into a fib w/ RVR and is being started on a heparing gtt. 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 Recent 2-3 wk camping trips sounds like in [place]. He c/o uncontrolled R hip pain; no sob, no n/v; tolerating po but minimal appetite; no edema; denies confusion. tells me he had gross hematuria in the past year but wasn't sure of cause. no recent gross hematuria. no rash. Allergies Allergy/AdvReac Type Severity Reaction Status Date / Time No Known Allergies Allergy Unverified 10/02/22 15:33 Home Medications Medication Instructions Recorded Confirmed Type herbal drugs SLEEP 10/02/22 History Patient History Medical History (Updated 10/02/22 @ 17:26 by Lizbet Todd MD, PhD) HCV (hepatitis C virus) s/p medical treatment Liver cirrhosis Surgical History (Updated 10/02/22 @ 17:23 by Lizbet Todd MD, PhD) History of lumbosacral spine surgery Social History Smoking Status: Former smoker Hx Alcohol Use: No Hx Substance Use: No Preferred Language: Telugu Communication Ability: Effective Cash Applications Specialist Required: No Beliefs That Will Affect Care: None Current Living Situation: Alone Current Living Situation Comment: home alone Other Information That Helps Us Care for You: No Feels Safe at Home: Yes Safety Concerns: Feels Safe At This Time Assistive Devices: Cane Review of Systems Review of Systems: All systems reviewed & are unremarkable except as noted in HPI & below Physical Exam Constitutional: well developed, well nourished and cooperative; no acute distress Eyes: EOM intact bilaterally ENMT: Ears: no external ear abnormality Nose: no external nose abnormality Mouth: + dry oral mucous membranes Neck: no nuchal rigidity Respiratory: normal respiratory effort Auscultation: + diminished lung sounds Cardiovascular: Rate/Rhythm: + tachycardic Extremities: no edema Gastrointestinal (Abdomen): Inspection/Auscultation: normal bowel sounds Percussion/Palpation: abdomen soft; abdomen nontender Musculoskeletal: Extremities: + limited ROM of extremities (R leg ext rotated) and strength 5/5 throughout Skin: no rashes, warm and dry Neurologic: neff, fluent speech, no tremor Psychiatric: Orientation: alert and oriented x 3 Genitourinary: sosa w/ orange yellow urine Results & Data Vital Signs (Past 12 Hours) Vital Signs Temp Pulse Pulse Resp BP Pulse Ox O2 Del Method 10/02/22 17:04 124 H 10/02/22 16:05 37 C 58 L 20 100/63 98 Room Air 10/02/22 12:05 36.9 C 116 H 20 119/71 94 Room Air 10/02/22 07:54 36.8 C 109 H 20 108/68 96 Room Air 10/02/22 07:48 111 H 10/02/22 06:39 36.6 C 106 H 14 106/68 96 Room Air 10/02/22 05:40 105 H Laboratory Results 10/02/22 05:20 10/02/22 05:20 UA > 3+ blood, 1+ bilirubin, 2+ protien, trace ketones 1029, trace LE; no bacteria Diagnostic Findings X-ray right hip-Acute comminuted, moderately displaced intertrochanteric fracture of the right femur. CT A/P-1. Intertrochanteric comminuted fracture of the right hip is described otherwise normal alignment. 2. Mild acute compression fracture of L1 with no retropulsion or extension to the pedicles. 3. Cirrhosis with mild splenomegaly and possible small esophageal varices. No evidence of visceral injury. No intra-abdominal hematoma and free fluid seen. 4. Possible nonobstructive stone within the left lower renal pole measuring 2.2 mm. Remainder of bilateral kidneys are unremarkable. 5. Cannot exclude mild enterocolitis in the appropriate clinical context, clinical correlation recommended. CT chest, head and cervical spinewith no acute findings Echowith hyperdynamic left ventricle, EF more than 75%,borderline consider LVH, no significant valvular disease, no pulm hypertension TTE EF wnl, hyperdynamic; broderline [facility]; valves ok
[2022-10-02] MEDS ORDERED: Heparin IV Adult Wt-Based Low-Dose *NO* Bolus Protocol IV SCH (17:30)
[2022-10-02] MEDS ORDERED: HEPARIN SODIUM/DEXTROSE 25,000 UNITS/500 ML BAG IV SCH (17:45)
[2022-10-02] MEDS ORDERED: LIDOCAINE 5% 1 PATCH TD STA (18:52)
[2022-10-02 19:02] LABS: Sodium Random Urine < 10 mmol/L; Total Protein Urine Random 146.5 mg/dl (0-11.9)
[2022-10-02 19:05] LABS: BUN Creatinine Ratio 22.8 (10-20); Calcium 7.5 mg/dl (8.6-10.3); Creatinine Clr Calc Pharmacy 101.9 ml/min; Est GFR (African American) 110.8 ml/min; Est GFR (Non-African American) 95.6 ml/min; Potassium 4.1 mmol/L (3.5-5.1)
[2022-10-02 19:08] LABS: Creatinine Urine Random 183.9 mg/dl; Protein Creatinine Ratio Urine 0.8 (0-0.2)
[2022-10-02] MEDS: METOPROLOL TARTRATE 25 MG TAB PO SCH (21:07)
[2022-10-02] MEDS: ACETAMINOPHEN 325 MG TAB PO SCH (21:10)
[2022-10-02] MEDS ORDERED: HEPARIN SOD 5,000 UNIT/0.5 ML VIAL SQ SCH (22:00)
[2022-10-03 01:18] LABS: BUN Creatinine Ratio 22.8 (10-20); Calcium 7.8 mg/dl (8.6-10.3); Creatinine Clr Calc Pharmacy 101.9 ml/min; Est GFR (African American) 110.8 ml/min; Est GFR (Non-African American) 95.6 ml/min
[2022-10-03] MEDS ORDERED: DAPTOmycin 450 MG in SYRINGE 0 ML IV SCH (02:00)
[2022-10-03 05:19] LABS: Hematocrit (blood only) 30.6 % (42.0-52.0); Hemoglobin 10.8 g/dl (14.0-18.0); Mean Corpuscular Hemoglobin 31.2 pg (25.0-34.0); Mean Corpuscular Hgb Conc 35.3 g/dL (32.0-36.0); Mean Corpuscular Volume 88.4 fL (80.0-100.0); Mean Platelet Volume 10.7 fL (9.4-12.4); Platelet Count 74 K/uL (130-400); RDW Coefficient of Variation 14.6 % (11.5-14.5); RDW Standard Deviation 46.9 fL (36.4-46.3); Red Blood Count 3.46 M/uL (4.70-6.10); White Blood Count 5.27 K/ul (4.8-10.8)
[2022-10-03 05:31] LABS: BUN Creatinine Ratio 27.3 (10-20); Calcium 7.8 mg/dl (8.6-10.3); Creatinine Clr Calc Pharmacy 132.3 ml/min; Est GFR (African American) 119.3 ml/min; Est GFR (Non-African American) 102.9 ml/min; Phosphorus 1.9 mg/dl (2.5-4.9); Potassium 4.1 mmol/L (3.5-5.1)
[2022-10-03] MEDS: SODIUM CHLORIDE 0.9% 1000ML 1,000 ML IV SCH ×3 (05:55→21:12)
[2022-10-03] MEDS ORDERED: SODIUM PHOSPHATE 3 MMOL/1 ML INFUSION IV ONE (07:28)
[2022-10-03] MEDS ORDERED: SODIUM PHOSPHATE 21 MMOL in SODIUM CHLORIDE 0.9% 500 ML IV ONE (08:00)
[2022-10-03] MEDS: ACETAMINOPHEN 325 MG TAB PO SCH ×3 (08:00→21:22)
[2022-10-03] MEDS: METOPROLOL TARTRATE 25 MG TAB PO SCH ×2 (08:01→21:23)
[2022-10-03] MEDS: DOXYCYCLINE HYCLATE 100 MG in DEXTROSE 5% 100 ML IV SCH ×2 (08:05→21:21)
[2022-10-03] MEDS: CEFEPIME 2,000 MG in SYRINGE 0 ML IV SCH ×3 (08:05→23:20)
[2022-10-03] MEDS: MoRPHine SULFATE 4 MG/ML 1 ML CARP\\VIAL IV PRN ×2 (08:05→22:53)
--- NOTE | 2022-10-03 10:19 | Cardiology Consultation ---
Date of Consultation October 03, 2022 Assessment & Plan (1) Severe sepsis: (2) Anaplasmosis: (3) Acute alteration in mental status: (4) Acute pain of right hip: (5) Atrial fibrillation: (6) Elevated troponin: Plan New onset asymptomatic atrial fibrillation with a rapid ventricular response in a 62-year-old male admitted with anaplasmosis, following a fall appearing to be secondary to hypovolemia/hypotension with resultant right hip fracture and acute compression fracture of L1. Workup also revealing emphysema, cirrhosis with possible small distal esophageal varices, thrombocytopenia, hyponatremia. High- sensitivity troponin I minimally elevated and flat with resting echocardiography revealing hyperdynamic LV systolic function without significant valvular disease or pulmonary hypertension. Recommend rate control, continuation of metoprolol as prescribed for now, unin terrupted perioperatively [id number] Score is 1 point with the risks of long-term anticoagulation appearing to be greater than the benefit. Okay to proceed with right trochanteric femoral nailing from a cardiac standpoint. Doxycycline for anaplasmosis/Lyme Supervising Physician Co-Signing Physician Notes Patient seen and examined at the bedside. Answers questions appropriately. Denies chest pain or shortness of breath. Telemetry atrial fibrillation. Complains of right-sided hip and groin discomfort. PE: VSS. Gen: NAD, Awake and alert. Heart: Irregular rhythm. No murmur. Lungs: clear B/L. No R/R/W. Ext: no edema. A/P: Agree with above PA-C history, physical exam, assessment and plan. Currently rate controlled on telemetry. Continue beta-lina therapy. Long- term risk of anticoagulation appears to outweigh benefit. Patient may proceed with orthopedic surgery from a cardiovascular perspective. Treatment of tickborne disease as per internal medicine. History of Present Illness Reason for Consultation: Atrial fibrillation with rapid ventricular response, cardiac clearance/preoperative management Requesting Physician: Pawan Attending Physician: Pawan History of Present Illness Mr. Elias Cortés is a 62-year-old male who was camping a few weeks ago and notes finding an engorged tick after showering. No rash. A week or two ago he started feeling poorly with GI upset, diarrhea. He notes falling a week or two ago after getting up to use the restroom early one morning. Two days after falling the patient was seen at the [facility] ER and was diagnosed with a stomach flu. He recalls receiving IV fluids and being sent home. On October 01, 2022 the patient went to have dinner with his at her home. Due to altered mental status EMS was summoned and the patient was transported to [facility] ER. Patient admitted with a diagnosis of severe sepsis from anaplasmosis/Lyme. Imaging revealed a right hip fracture as well as an acute compression fracture of L1. Additional notable imaging findings included emphysema, cirrhosis with possible small distal esophageal varices, splenomegaly, left sided kidney stones, possible mild enterocolitis, calcified atherosclerotic disease in the aorta without aneurysm or dissection. Additional notable labs include mildly elevated high-sensitivity troponin, hyponatremia, anemia, thrombocytopenia Initial EKG on presentation revealed sinus tachycardia. On October 02, 2022 around 5 PM the patient was observed to be in atrial fibrillation with a rapid ventricular response. He was given IV Lopressor and oral metoprolol tartrate with resultant controlled ventricular response. High-sensitivity troponin I minimally elevated at 23.9, 25.9, and 20.3 pg/mL Resting echocardiography was technically limited. Rhythm was sinus tachycardia at the time of echocardiography. LV systolic function was hyperdynamic with an ejection fraction of greater than 70%. Borderline concentric LVH observed. Aortic valve is mildly calcified, probably trileaflet, without significant aortic stenosis. Trace tricuspid regurgitation noted. Doppler findings not suggestive of pulmonary hypertension. Patient denies prior cardiac history. He specifically denies history of atrial fibrillation, arrhythmia, heart murmur, rheumatic fever, scarlet fever, CAD, [place], or CHF. Past Medical and Surgical History: Chronic alcohol use/abuse Chronic tobacco use/abuse Cirrhosis HCV status post RX Lumbar spine stenosis status postsurgery Cholecystectomy Neurosurgery Family History: Father with an [place] around the age of 50. Younger sister with lung cancer. Older sister with multiple medical issues. Recently lost a sister 2 days ago. Social History: Chronic smoker, less than 1/2 pack/day. Alcohol: Prior heavy use, currently drinking a sixpack per month. Denies illegal drug use; toxicology positive for amphetamine/meth and marijuana. Notes being in herbal men and getting sleep aid as well as [facility] [place]. Lives in [place] alone. , living separately. 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 NAD. HENT: Normocephalic. Atraumatic. Mouth: Very poor dentition Eyes: PER. Conjunctiva pink, sclera clear. Neck: No carotid bruits. No JVD. No HJR. Heart: Irregularly irregular at 86 bpm. Soft systolic ejection murmur. No diastolic murmur. No rub. No gallop. PMI is nondisplaced. Lungs: Diminished. Decreased. Clear to auscultation. Abdomen: +BS. Soft. Nontender. No masses or organomegaly. Infante catheter in place draining concentrated urine Extremities: ? Mild clubbing. No cyanosis. No edema. Limited neurological examination is without focal deficits. Pulses: radial=2/4, posterior tibial=1/4. Results & Data Vital Signs (Past 12 Hours) Vital Signs Temp Pulse Pulse Resp BP Pulse Ox O2 Del Method 10/03/22 07:55 36.8 C 102 H 18 102/66 96 Room Air 10/03/22 07:42 107 H 10/03/22 02:30 36.8 C 101 H 12 111/62 100 Room Air 10/02/22 23:38 112 H 10/02/22 22:50 36.9 C 100 H 20 87/53 L 96 Room Air Laboratory Results CBC 10/03/22 Range/Units 04:43 WBC 5.27 (4.8-10.8) K/ul RBC 3.46 L (4.70-6.10) M/uL Hgb 10.8 L (14.0-18.0) g/dl Hct 30.6 L (42.0-52.0) % Plt Count 74 L (130-400) K/uL Comprehensive Metabolic Panel 10/02/22 10/03/22 10/03/22 Range/Units 18:11 00:48 04:43 Sodium 124 L 129 L 130 L (136-145) mmol/L Potassium 4.1 4.0 4.1 (3.5-5.1) mmol/L Chloride 98 103 104 (98-107) mmol/L Carbon Dioxide 21 22 22 (21-32) mmol/L BUN 18 18 18 (6-23) mg/dl Creatinine 0.79 0.79 0.66 (0.6-1.4) mg/dl Glucose 128 H 90 86 (70-99(Fasting)) mg/dl Calcium 7.5 L 7.8 L 7.8 L (8.6-10.3) mg/dl Intake and Output 10/02/22 10/03/22 10/03/22 22:59 06:59 14:59 Intake Total 1481.667 / 5270.000 1920.0 / 5270.000 0 / 0 Output Total 750 / 1400 650 / 1400 Balance 731.667 / 3870.000 1270.0 / 3870.000 0 / 0 Intake: IV 1001.667 / 4435.000 1920.0 / 4435.000 0 / 0 Doxycycline Hyclate 100 mg In 110 / 220 Dextrose 5% 100 ml @ 50 mls/hr IV Q12H ISIAH Rx#:[id number] Heparin Sodium/Dextrose 25,000 47.5 / 47.5 0 / 0 units In 500 ml @ 950 UNITS/HR 19 mls/hr IV .Q24H ISIAH Rx#: [id number] Sodium Chloride 0.9% 1000ML 1, 844.167 / 2764.167 1920.0 / 2764.167 000 ml @ 150 mls/hr IV .Q6H40M ISIAH Rx#:[id number] Oral 480 / 835 Output: Urine Amount (Catheter) 750 / 1400 650 / 1400 Infante/Indwelling 750 / 1400 650 / 1400 Other: Other Intake Source NPO Weight 91.1 kg Weight Measurement Method Built in [facility] Diagnostic Findings EKG on presentation revealed sinus tachycardia at 135 bpm with low voltage QRS. EKG on October 02, 2022 revealed atrial fibrillation with a rapid ventricular response, ventricular rate of 133 bpm, with nonspecific T wave abnormality EKG this morning reveals atrial fibrillation with a ventricular rate of 89 bpm, low voltage QRS. Continuous telemetry monitoring reveals atrial fibrillation over the past 15 hours with heart rates primarily between 80 and 100 bpm. Echo is as detailed above.
--- NOTE | 2022-10-03 12:50 | Nephrology Progress Note ---
Date of Service October 03, 2022 Assessment & Plan (1) Hyponatremia: Plan: hypovolemic hypotonic hyponatremia. presenting sodium 126 in a septic patient w/ hypotension w/ meth in his system, tachycardia, AF w/ RVR and climbing lactate. unclear cause; may be hypovolemic but at risk for SIADH/low solute diet picture. note also that as liver pt he may have normal BP in low 100s systolic. improving at acceptable rate to 130 today; responding as hypovolemic though at risk for SIADH type process -maintain eukalemia -not unreasonable from sodium standpoint to consider OR at this time -goal sNa by tomorrow am is no more than 136 -continue normal saline at 150 an hour and efforts to control HR; follow-up cardiology recs (2) Abnormal urine findings: Plan: 800 mg proteinuria, microhematuria; no evidence of infection. may well relate to hcv hx versus Lyme dz/anaplasma. denies nsaid use. -quantify proteinuria -follow blood tests of renal function -at risk for [place] w/ dye load but so far no evidence of this -f/u pending hepatitis panels -further w/u pending above Admission and Anticipated Discharge Date Admission Date: October 02, 2022 Subjective lactate remains elevated; NPO for OR this PM; ongoing pain; + hunger; denies nausea vomiting or shortness of breath Review of Systems Review of Systems: All systems reviewed & are unremarkable except as noted in Subjective Physical Exam Constitutional: well developed, well nourished and cooperative; no acute distress Eyes: EOM intact bilaterally ENMT: Ears: no external ear abnormality Nose: no external nose abnormality Mouth: + dry oral mucous membranes Neck: no nuchal rigidity Respiratory: normal respiratory effort (Lying flat on room air); no cough Auscultation: + diminished lung sounds Cardiovascular: Rate/Rhythm: + tachycardic Extremities: no edema Gastrointestinal (Abdomen): Inspection/Auscultation: normal bowel sounds Percussion/Palpation: abdomen soft; abdomen nontender Musculoskeletal: Extremities: + limited ROM of extremities (R leg ext rotated) and strength 5/5 throughout Skin: no rashes, warm and dry Neurologic: Moves all extremities, fluent speech, no tremor Psychiatric: Orientation: alert and oriented x 3 Results & Data Vital Signs (Past 12 Hours) Vital Signs Temp Pulse Pulse Resp BP Pulse Ox O2 Del Method 10/03/22 12:11 36.7 C 88 21 93/57 L 97 Room Air 10/03/22 07:55 36.8 C 102 H 18 102/66 96 Room Air 10/03/22 07:42 107 H 10/03/22 02:30 36.8 C 101 H 12 111/62 100 Room Air Laboratory Results 10/03/22 04:43 10/03/22 04:43 sOSM 276 uOSM [id number] Yariel<10
[2022-10-03] MEDS ORDERED: SODIUM CHLORIDE 0.9% 250 ML IV PRN (13:17)
--- NOTE | 2022-10-03 13:17 | Anesthesiology Consultation ---
Date of Service October 03, 2022 Assessment & Plan Chart Review Chart Review: Acceptable Risk for Surgery and Patient NOT seen in Pre Admission Testing History Surgery Operation Date: 10/03/22 07:00 Proposed Procedures p Right Trochanteric Nail - Onofre Oscar MD Height/Weight Height: 5 ft 11 in Weight: 91.1 kg Allergies Allergy/AdvReac Type Severity Reaction Status Date / Time No Known Allergies Allergy Unverified 10/02/22 15:33 Medications Home Medications Medication Instructions Recorded Confirmed Last Taken herbal drugs SLEEP 10/02/22 Unknown Active Medications Generic Name Dose Route Start Last Admin Trade Name Freq PRN Reason Stop Dose Admin Acetaminophen 650 mg 10/02/22 21:00 10/03/22 08:00 Acetaminophen 325 Mg Tab PO 11/01/22 20:59 650 mg TID ISIAH Administration Cefepime HCl 2,000 mg/ Syringe 20 mls @ 5 mls/min 10/02/22 08:00 10/03/22 08:05 IV 10/12/22 07:59 5 mls/min Q8H ISIAH Administration Protocol Doxycycline Hyclate 100 mg/ 110 mls @ 50 mls/hr 10/02/22 09:00 10/03/22 10:55 Dextrose IV 10/16/22 08:59 Infused Q12H ISIAH Infusion Protocol Sodium Chloride 1,000 mls @ 150 mls/hr 10/02/22 10:15 10/03/22 05:55 Nss 1000ml IV 11/01/22 10:14 150 mls/hr .Q6H40M ISIAH Administration Sodium Phosphate 21 mmol/ 507 mls @ 88 mls/hr 10/03/22 08:00 10/03/22 08:07 Sodium Chloride IV 10/03/22 13:45 88 mls/hr ONE ONE Administration Metoprolol Tartrate 12.5 mg 10/02/22 21:00 10/03/22 08:01 Metoprolol Tartrate 25 Mg Tab PO 11/01/22 20:59 12.5 mg BID ISIAH Administration Morphine Sulfate 3 mg 10/02/22 18:58 10/03/22 08:05 Morphine Sulfate 4 Mg/Ml 1 Ml Carp\Vial IV 10/16/22 18:57 3 mg Q3H PRN Administration Pain Oxycodone HCl 5 mg 10/02/22 02:23 10/02/22 14:49 Oxycodone Hcl Ir 5 Mg Tab (Immediate Release) PO 10/16/22 02:22 5 mg Q4H PRN Administration Pain Past Medical History Medical History HCV (hepatitis C virus) s/p medical treatment Liver cirrhosis Past Surgical History Surgical History History of lumbosacral spine surgery Social History Smoking Status: Former smoker Hx Alcohol Use: No Hx Substance Use: No substance use type: does not use Physical Exam Vital Signs Last Vital Signs Temp 36.7 C 10/03/22 12:11 Pulse 88 10/03/22 12:11 Resp 21 10/03/22 12:11 BP 93/57 L 10/03/22 12:11 Pulse Ox 97 10/03/22 12:11 O2 Del Method Room Air 10/03/22 12:11 Testing Laboratory Results 10/03/22 04:43 10/03/22 04:43 PT 17.0 Seconds (9.0-12.0) H 10/01/22 21:54 INR 1.6 (0.9-1.1) H 10/01/22 21:54 APTT 40.4 Seconds (21.0-31.0) H* 10/01/22 21:54 Hemoglobin A1c 5.0 % (4.5-5.6) 10/02/22 05:20 Urine Color Osprey 10/01/22 22:26 Urine Appearance Clear (Clear) 10/01/22 22:26 Urine pH 5.5 (4.5-7.5) 10/01/22 22:26 Ur Specific [place] 1.029 (1.000-1.030) 10/01/22 22:26 Urine Protein 2+ (Negative) H 10/01/22 22:26 Urine Glucose (UA) Negative (Negative) 10/01/22 22:26 Urine Ketones Trace (Negative) H 10/01/22 22:26 Urine Nitrite Positive (Negative) A 10/01/22 22:26 Ur Leukocyte Esterase Trace (Negative) H 10/01/22 22:26 Urine WBC (Auto) 1-5 /hpf (0-5) 10/01/22 22:26 Urine RBC (Auto) 5-10 /hpf (0-4) H 10/01/22 22:26 U Hyaline Cast (Auto) 1-5 /lpf (0-5) 10/01/22 22:26 U Epithel Cells (Auto) 5-10 /lpf (0-5) H 10/01/22 22:26 Urine Bacteria (Auto) Negative (Negative) 10/01/22 22:26 Blood Type A Negative 10/01/22 21:54 Antibody Screen NEGATIVE 10/01/22 21:54 10/01/22 22:00 Aerobic Blood Culture - Preliminary Blood No growth in Aerobic bottle after 24 hours. Anaerobic Blood Culture - Final 10/01/22 21:54 Aerobic Blood Culture - Preliminary Blood No growth in Aerobic bottle after 24 hours. Anaerobic Blood Culture - Preliminary No growth in Anaerobic bottle after 24 hours.
[2022-10-03] MEDS ORDERED: LIDOCAINE 2% 2 ML VIAL/AMP(20MG/ML) INFIL ONE ×3 (14:28→17:35)
[2022-10-03] MEDS ORDERED: PROPOFOL IV EMULSION 10 MG/ML 20 ML VIAL IV ONE (14:28)
[2022-10-03] MEDS ORDERED: MIDAZOLAM HCL 1 MG/ML 2ML VIAL ONE (14:29)
[2022-10-03] MEDS ORDERED: fentaNYL citrate PF 100 MCG/2 ML VIAL ONE ×2 (14:29→16:37)
--- NOTE | 2022-10-03 14:33 | Hospitalist Progress Note ---
Date of Service October 03, 2022 Assessment & Plan (1) Lyme disease: (2) Anaplasmosis: (3) Lactic acidosis: (4) Hyponatremia: (5) Closed fracture of right hip: Plan 62-year-old male male with history of hep C treated, cirrhosis, was not seen a physician for long time and is not on any meds except for herbals admitted with right hip fracture, Lyme disease/anaplasmosis, lactic acidosis and hyponatremia X-ray right hip- Acute comminuted, moderately displaced intertrochanteric fracture of the right femur. CT A/P- 1. Intertrochanteric comminuted fracture of the right hip is described otherwise normal alignment. 2. Mild acute compression fracture of L1 with no retropulsion or extension to the pedicles. 3. Cirrhosis with mild splenomegaly and possible small esophageal varices. No evidence of visceral injury. No intra-abdominal hematoma and free fluid seen. 4. Possible nonobstructive stone within the left lower renal pole measuring 2.2 mm. Remainder of bilateral kidneys are unremarkable. 5. Cannot exclude mild enterocolitis in the appropriate clinical context, clinical correlation recommended. CT chest, head and cervical spine with no acute findings Echo with hyperdynamic left ventricle, EF more than 75%,borderline consider LVH, no significant valvular disease, no pulm hypertension Closed right hip fracture-due to fall. CT reviewed as above. Plan for surgery today per Ortho. Cleared by cardio for surgery. Remains n.p.o. for the same. L1 fracture-due to fall. CT reviewed as above. Consulted spine orthopedics Lyme disease/anaplasmosis- reported tick bite last week. Labs positive for Anaplasma and Lyme disease. Started on doxycycline 10/02. Lactic acidosis-significantly improved. Lactic acid probably not clearing up because of his liver cirrhosis. No need for further trending. He has been on empiric cefepime pending blood culture results. He does not meet SIRS or sepsis criteria on admission-no fever or leukocytosis or hypotension noted. A-fib with RVR-new diagnosis, went to A-fib with RVR at 5 PM 10/02 and has been in A-fib since, however rate is controlled with Lopressor. We will continue perioperatively and monitor on telemetry. Cardiology is following. Echocardiogram reviewed Hyponatremia-sodium has improved 125->126->130 with IVF. Nephrology following. We will however be cautious with excessive crystalloids given his cirrhosis of liver and risk for third spacing. Hypophosphatemia-repleted. Recheck in a.m. Polysubstance abuse- UDS positive for amphetamine and marijuana. Does smoke few cigarettes a day. States he used to drink alcohol in the past. Thrombocytopenia-due to tickborne disease. Overall stable. Monitor. Cirrhosis of liver with mild splenomegaly and possible small esophageal varices- no ascites noted. No acute encephalopathy. Patient does report history of hep C treated in the past and was seen at [facility]. Patient does not see any GI doctors locally. Recommended GI follow-up at discharge with EGD DVT prophylaxis-we will start on subcu Lovenox after surgery given risk for VTE Disposition: Hip surgery today. Will need PT evaluation and rehab afterwards. Admission and Anticipated Discharge Date Admission Date: October 02, 2022 Subjective Patient was seen and examined at bedside. He feels better but continues with the pain. He thinks his head is clearing up and he cannot remember things better. No fever, chills, chest pain, shortness of breath, nausea or vomiting. Review of Systems Review of Systems: All systems reviewed & are unremarkable except as noted in Subjective Physical Exam Physical Exam: General: Sick looking, lying comfortably in bed, not in acute distress, on room air HEENT: EOMI, KAMALJIT, dry oral mucosa, poor oral hygiene Chest: Fair breath sounds bilaterally CVS: Regular, normal heart sounds, no murmur Abdomen: Soft, non tender, not distended, normal bowel sounds Neuro: Awake, alert, oriented, conversing well Extremities: No cyanosis, clubbing or edema. Results & Data Results & Data Vital Signs (Past 12 Hours) Vital Signs Temp Pulse Pulse Resp BP Pulse Ox O2 Del Method 10/03/22 12:11 36.7 C 88 21 93/57 L 97 Room Air 10/03/22 07:55 36.8 C 102 H 18 102/66 96 Room Air 10/03/22 07:42 107 H 10/03/22 02:30 36.8 C 101 H 12 111/62 100 Room Air Laboratory Results Short CBC 10/03/22 Range/Units 04:43 WBC 5.27 (4.8-10.8) K/ul Hgb 10.8 L (14.0-18.0) g/dl Hct 30.6 L (42.0-52.0) % Plt Count 74 L (130-400) K/uL BMP 10/02/22 10/03/22 10/03/22 18:11 00:48 04:43 Sodium 124 L 129 L 130 L Potassium 4.1 4.0 4.1 Chloride 98 103 104 Carbon Dioxide 22 22 BUN 18 18 18 Creatinine 0.79 0.79 0.66 Glucose 128 H 90 86 Calcium 7.5 L 7.8 L 7.8 L Medications Administered Current Inpatient Medications Acetaminophen (Acetaminophen 325 Mg Tab) 650 mg PO TID [facility] Stop: 11/01/22 20:59 Last Admin: 10/03/22 13:34 Dose: Not Given Promethazine HCl 6.25 mg/ (Sodium Chloride) 50.25 mls @ 201 mls/hr IV Q6H PRN PRN Reason: Nausea And Vomiting Stop: 11/01/22 02:22 Cefepime HCl 2,000 mg/ Syringe 20 mls @ 5 mls/min IV Q8H [facility]; Protocol Stop: 10/12/22 07:59 Last Admin: 10/03/22 08:05 Dose: 5 mls/min Doxycycline Hyclate 100 mg/ (Dextrose) 110 mls @ 50 mls/hr IV Q12H [facility]; Pro tocol Stop: 10/16/22 08:59 Last Infusion: 10/03/22 10:55 Dose: Infused Sodium Chloride (Nss 1000ml) 1,000 mls @ 150 mls/hr IV .Q6H40M [facility] Stop: 11/01/22 10:14 Last Admin: 10/03/22 13:33 Dose: 150 mls/hr Sodium Chloride (Nss) 250 mls @ 15 mls/hr IV .[id number] PRN PRN Reason: For Transfusion Duration Stop: 10/03/22 23:19 Metoprolol Tartrate (Metoprolol Tartrate 25 Mg Tab) 12.5 mg PO BID [facility] Stop: 11/01/22 20:59 Last Admin: 10/03/22 08:01 Dose: 12.5 mg Morphine Sulfate (Morphine Sulfate 4 Mg/Ml 1 Ml Carp\Vial) 3 mg IV Q3H PRN PRN Reason: Pain Stop: 10/16/22 18:57 Last Admin: 10/03/22 08:05 Dose: 3 mg Oxycodone HCl (Oxycodone Hcl Ir 5 Mg Tab (Immediate Release)) 5 mg PO Q4H PRN PRN Reason: Pain Stop: 10/16/22 02:22 Last Admin: 10/02/22 14:49 Dose: 5 mg
--- NOTE | 2022-10-03 15:34 | Electrocardiogram Report ---
Test Reason : Blood Pressure : / mmHG Vent. Rate : 133 BPM Atrial Rate : 113 BPM P-R Int : 000 ms QRS Dur : 086 ms QT Int : 308 ms P-R-T Axes : 000 148 126 degrees QTc Int : 458 ms Suspect arm lead reversal, interpretation assumes no reversal Atrial fibrillation with rapid ventricular response Right ventricular hypertrophy Lateral infarct , age undetermined Abnormal ECG When compared with ECG of 01-OCT-2022 21:41, Atrial fibrillation has replaced Sinus rhythm QRS axis Shifted right Lateral infarct is now Present Nonspecific T wave abnormality now evident in Lateral leads Confirmed by Cisco Pandey ([id number]) on 10/03/2022 3:34:05 PM Referred By: REFERRED SELF Confirmed By:Cisco Pandey
[2022-10-03] MEDS ORDERED: ONDANSETRON INJ 2 MG/ML 2 ML VIAL IV PRN ×2 (15:38→19:11)
[2022-10-03] MEDS ORDERED: fentaNYL citrate PF 100 MCG/2 ML VIAL IV PRN ×2 (15:38→19:11)
[2022-10-03] MEDS ORDERED: ePHEDrine sulfate 50 MG/ML AMP IV PRN ×2 (15:38→19:11)
[2022-10-03] MEDS ORDERED: ATROPINE SULFATE 0.1 MG/ML 10ML SYR IV PRN ×2 (15:38→19:11)
[2022-10-03] MEDS ORDERED: ONDANSETRON INJ 2 MG/ML 2 ML VIAL ONE (15:50)
[2022-10-03] MEDS ORDERED: DEXAMETHASONE SOD INJ 4 MG/ML VIAL ONE (15:50)
--- NOTE | 2022-10-03 15:53 | Electrocardiogram Report ---
Test Reason : Blood Pressure : / mmHG Vent. Rate : 089 BPM Atrial Rate : 075 BPM P-R Int : 000 ms QRS Dur : 088 ms QT Int : 356 ms P-R-T Axes : 000 038 049 degrees QTc Int : 433 ms Atrial fibrillation Low voltage QRS Abnormal ECG When compared with ECG of 02-OCT-2022 17:22, (unconfirmed) Vent. rate has decreased BY 44 BPM QRS axis Shifted left Criteria for Lateral infarct are no longer Present Nonspecific T wave abnormality no longer evident in Lateral leads Confirmed by Cisco Pandey ([id number]) on 10/03/2022 3:53:35 PM Referred By: REFERRED SELF Confirmed By:Cisco Pandey
--- NOTE | 2022-10-03 16:14 | History & Physical Bridge Note ---
Date of Service October 03, 2022 History & Physical Bridge Note I have examined the patient, reviewed the History & Physical and in the interval since the performance of the History & Physical I have noted the following changes of clinical significance: no changes noted
[2022-10-03] MEDS ORDERED: KETAMINE 50 MG/5 ML SYRINGE ONE (16:37)
[2022-10-03] MEDS ORDERED: LABETALOL HCL IV 5 MG/ML 20ML IV ONE (17:49)
[2022-10-03] MEDS ORDERED: BUPIVACAINE 0.25% PF 30 ML VIAL ONE (18:10)
[2022-10-03] MEDS ORDERED: HYDROmorphone INJ 2 MG/ML SYR/VIAL ONE (18:11)
--- NOTE | 2022-10-03 18:35 | Post Operative Brief Note ---
Immediate Post Op Note v1 Date of Surgery October 03, 2022 Pre & Post Diagnosis Preoperative diagnosis: Comminuted intertrochanteric right hip fracture postoperative diagnosis: Comminuted intertrochanteric right hip fracture Operation Date: 10/03/22 07:00 <No data on this case meets the specified criteria> I identified the patient and participated in the time-out.: Yes Procedure open reduction internal fixation right hip fracture with trochanteric femoral nail fixation with fenestrated helical blade Operation Date: 10/03/22 07:00 <No data on this case meets the specified criteria> Surgeon Onofre Oscar MD Director Of Optimization Christian FRIEDMAN Estimated Blood Loss 75 Findings Consistent with Post-Op Diagnosis Specimens none Drains Sosa Catheter (arrived with sosa catheter in place, draining cloudy dark yellow/tea colored urine) Anesthesia Type General Regional Complications none Disposition Disposition: Recovery Room Overlapping Procedure I was immediately available: during the entire case.
--- NOTE | 2022-10-03 18:50 | Operative Report ---
Post Operative Report Pre & Post Diagnosis preoperative diagnosis:comminuted right intertrochanteric hip fracture Postoperative diagnosis: Comminuted right intertrochanteric hip fracture Operation Date: 10/03/22 07:00 <No data on this case meets the specified criteria> I identified the patient and participated in the time-out.: Yes Procedure open reduction internal fixation right intertrochanteric hip fracture with a trochanteric femoral nail with fenestrated helical blade fixation Operation Date: 10/03/22 07:00 <No data on this case meets the specified criteria> Surgeon Onofre Oscar MD [employer] Machine Operator Christian FRIEDMAN Estimated Blood Loss 75 Findings Consistent with Post-Op Diagnosis Specimens none Drains none Anesthesia Type General Regional Complications none Disposition Disposition: Recovery Room Indications See operative note Description of Procedure 62-year-old male with history of drug abuse and diagnosis on this admission with hepatitis C. And cirrhosis of the liver. Patient had a history of mechanical fall and apparently drove himself to the emergency room but had mental status changes and most of the history came from his family. X-rays demonstrate a comminuted intertrochanteric right hip fracture. There was some delay to surgery due to his medical condition and medical management issues. Patient does have a low platelet count at 74,000. Patient was placed under general anesthetic due to low platelet count. Patient was positioned on the fracture table in boot traction with a well-padded right foot and heel. The left leg was placed into a well leg holding device flexion and internal rotation also well-padded. His right arm was draped across his abdomen and chest. The fracture was reduced with longitudinal traction on the fracture table internal rotation and adduction of the hip. I was able to get satisfactory reduction with reestablishment of the normal neck-shaft angle and fracture out to length but there is still comminution of the trochanters. The right hip was sterilely prepped and draped in sterile fashion. ChloraPrep was used. Patient had preoperative IV antibiotics. A longitudinal incision was made over the trochanteric region of the right hip. Patient had a lot of swelling in the hip and thigh area due to posttraumatic swelling and internal bleeding. The skin was incised through edematous fat which was elevated off the fascia. The fascia bruce was split longitudinally and the medius muscle had a large hematoma within it. This was evacuated. We coagulated bleeders as necessary with electrocautery. Despite the low platelet count patient did not have much active bleeding and a lot of this was old blood. The fracture was significantly comminuted. In order to get the reamer in appropriate position I had to use a curved awl to line that up appropriately first followed by a beaded guidewire followed by appropriate reamer in the proximal canal. He had very thick femoral cortexes and no evidence of any osteoporosis. Because of his narrow distal femoral canal which shows a 10 mm diameter nail. Under fluoroscopic guidance the 10 mm x 130 degree angle titanium cannulated trochanteric femoral nail with a 235 mm length from [employer] was advanced over the guidewire under fluoroscopic guidance into the canal. It was advanced down to the appropriate depth. Sec incision was made for the helical blade. The guidewire was advanced under fluoroscopic guidance in AP and lateral views to be centrally located within the neck and head. The appropriate drills were used. This was followed by insertion of the 105 mm length fenestrated helical titanium blade. There was excellent fixation. The proximal screw was tightened and backed off a quarter turn to allow sliding and compression. Traction was let off the leg and then we compressed the fracture with the device. After adequate compression was obtained the сергей was locked distally with a 5 mm x 44 mm titanium locking screw. Final x-rays were obtained AP and lateral views demonstrating screws were all in appropriate position and the blade was in good position within the femoral neck and head. All wounds were irrigated. The fascia was closed with 2 [id number] #1 Vicryl sutures. The subcutaneous tissues were closed rotated 2-0 Vicryl sutures. The skin was closed with wagner. Sterile dressings were applied. Marvin FRIEDMAN was my marketing support assistant. He assisted in soft tissue retraction instrument management wound closure and postoperative care. I attest to the content of the Intraoperative Record and any orders documented therein. Any exceptions are noted below.
--- NOTE | 2022-10-03 19:09 | Anesthesiology Progress Note ---
Date of Service October 03, 2022 Anesthesia Post Procedure Vital Signs Vital Signs: Temp Pulse Pulse Resp BP BP Pulse Ox 10/03/22 15:30 37 C 97 H 20 90/60 L 10/03/22 12:11 36.7 C 88 21 93/57 L 97 10/03/22 07:55 36.8 C 102 H 18 102/66 96 10/03/22 07:42 107 H 10/03/22 02:30 36.8 C 101 H 12 111/62 100 10/02/22 23:38 112 H 10/02/22 22:50 36.9 C 100 H 20 87/53 L 96 10/02/22 20:53 114 H 96/62 L 10/02/22 19:49 36.8 C 115 H 17 93/58 L 93 O2 Del Method 10/03/22 15:30 Room Air 10/03/22 12:11 Room Air 10/03/22 07:55 Room Air 10/03/22 07:42 10/03/22 02:30 Room Air 10/02/22 23:38 10/02/22 22:50 Room Air 10/02/22 20:53 10/02/22 19:49 Room Air Pain Intensity Right Hip: Pain Intensity: 9 Transfer of Care Handoff Completed per policy Notes Mental Status: alert / awake / arousable Patient Amnestic to Procedure: Yes Nausea / Vomiting: adequately controlled Pain: adequately controlled Airway Patency, RR, SpO2: stable & adequate BP & HR: stable & adequate Hydration State: stable & adequate Anesthetic Complications: no major complications apparent
--- NOTE | 2022-10-03 19:29 | Fluoroscopy Report ---
INTRAOPERATIVE RADIOGRAPHS CLINICAL HISTORY: Open reduction and fixation of the right proximal femur. Fluoro time: 180 seconds Ka,r: 63.93 mGy FINDINGS: 5 spot fluoroscopic views of the right femur are correlated with radiographs dated 3. There has been intertrochanteric and intramedullary nail fixation of a comminuted intertrochanteri c fracture of the right proximal femur. Near-anatomic alignment is restored. There is medial displace ment of the lesser trochanter. A single cortical lag transfixes the distal end of the intramedullary nail. The orthopedic hardware appears intact. IMPRESSION: Intraoperative images from open reduction and internal fixation of the right proximal fem ur as above. Electronically signed by: Juan J Echevarria M.D. 10/03/2022 7:28 PM
[2022-10-03] MEDS: oxyCODONE HCL IR 5 MG TAB (IMMEDIATE RELEASE) PO PRN (21:26)
[2022-10-04] MEDS: MoRPHine SULFATE 4 MG/ML 1 ML CARP\\VIAL IV PRN ×2 (05:58→13:14)
[2022-10-04 06:17] LABS: Hematocrit (blood only) 28.8 % (42.0-52.0); Hemoglobin 9.9 g/dl (14.0-18.0); Mean Corpuscular Hemoglobin 31.2 pg (25.0-34.0); Mean Corpuscular Hgb Conc 34.4 g/dL (32.0-36.0); Mean Corpuscular Volume 90.9 fL (80.0-100.0); Mean Platelet Volume 11.5 fL (9.4-12.4); Platelet Count 77 K/uL (130-400); RDW Coefficient of Variation 14.7 % (11.5-14.5); RDW Standard Deviation 49.5 fL (36.4-46.3); Red Blood Count 3.17 M/uL (4.70-6.10); White Blood Count 6.63 K/ul (4.8-10.8)
[2022-10-04 06:31] LABS: BUN Creatinine Ratio 28.8 (10-20); Est GFR (African American) 119.3 ml/min; Est GFR (Non-African American) 102.9 ml/min; Magnesium 2.1 mg/dl (1.7-2.4); Phosphorus 2.2 mg/dl (2.5-4.9); Potassium 4.6 mmol/L (3.5-5.1)
[2022-10-04 06:55] LABS: Basophils # (auto) 0.01 K/uL (0-0.2); Basophils % (auto) 0.2 %; Immature Granulocytes # (auto) 0.03 K/uL (0.01-0.20); Immature Granulocytes % (auto) 0.5 %; Lymphocytes # (auto) 3.07 K/uL (1.2-3.4); Lymphocytes % (auto) 46.3 %; Neutrophils # (auto) 2.92 K/uL (1.40-6.50); Polychromasia 1+
--- NOTE | 2022-10-04 08:00 | Orthopedic Progress Note ---
Date of Service October 04, 2022 Assessment & Plan (1) Closed fracture of right hip: Plan: Postop day #1 right trochanteric femoral nailing -PT/OT: Toe-touch weightbearing right lower extremity -Pain management as written -AM labs: Hemoglobin 9.9 from 10.8 preop and 13.5 on admission. Acute blood loss anemia due to surgical loss versus dilutional. Platelets stable at 77. -DVT prophylaxis: SCDs, TEDs, Anticoagulation as per medicine. Okay to resume anticoagulation this evening. -Discharge plan: Patient likely will require rehab at discharge. He lives alone in a second floor apartment. PT/OT eval's pending. Admission and Anticipated Discharge Date Admission Date: October 02, 2022 Subjective Patient is postop day #1 right trochanteric femoral nailing. He is doing well this morning in regards to his hip. Pain is controlled. No other complaints. Denies chest pain, shortness of breath, nausea/vomiting/diarrhea, headaches or d izziness. Review of Systems Review of Systems: All systems reviewed & are unremarkable except as noted in Subjective Physical Exam Physical Exam: Right hip: Dressing is clean, dry, intact. Compartments are soft and nontender. No calf tenderness. Toes are mobile with good dorsiflexion. Distally neurovascular status and sensation grossly intact. Results & Data Vital Signs (Past 12 Hours) Vital Signs Temp Pulse Pulse Resp BP Pulse Ox Pulse Ox 10/04/22 06:09 85 10/04/22 06:00 113/77 10/04/22 03:00 95 10/04/22 02:49 36.1 C L 91 H 16 102/65 95 10/03/22 23:06 91 H 10/03/22 22:15 36.0 C L 91 H 18 99/65 L 96 10/03/22 20:45 36.4 C 93 H 18 104/66 91 10/03/22 20:18 89 18 109/60 92 O2 Del Method O2 Del Method O2 Flow Rate 10/04/22 06:09 10/04/22 06:00 10/04/22 03:00 Room Air 10/04/22 02:49 Room Air 10/03/22 23:06 10/03/22 22:15 Nasal Cannula 2 10/03/22 20:45 Nasal Cannula 2 10/03/22 20:18 Nasal Cannula 2 Laboratory Results Lab Results 10/01/22 10/01/22 10/01/22 Range/Units 21:38 21:54 21:54 WBC 7.90 (4.8-10.8) K/ul RBC 4.23 L (4.70-6.10) M/uL Hgb 13.5 L (14.0-18.0) g/dl Hct 37.3 L (42.0-52.0) % MCV 88.2 (80.0-100.0) fL MCH 31.9 (25.0-34.0) pg MCHC 36.2 H (32.0-36.0) g/dL RDW Std Deviation 46.0 (36.4-46.3) fL RDW Coeff of Yanni 14.3 (11.5-14.5) % Plt Count 96 L (130-400) K/uL MPV 9.9 (9.4-12.4) fL Immature Gran % (Auto) 0.6 % Neut % (Auto) 80.7 % Lymph % (Auto) 12.2 % [place] % (Auto) 6.2 % Eos % (Auto) 0.0 % Baso % (Auto) 0.3 % Neut # (Auto) 6.38 (1.40-6.50) K/uL Lymph # (Auto) 0.96 L (1.2-3.4) K/uL [place] # (Auto) 0.49 (0.11-0.59) K/uL Eos # (Auto) 0.00 (0-0.50) K/uL Baso # (Auto) 0.02 (0-0.2) K/uL Immature Gran # (Auto) 0.05 (0.01-0.20) K/uL Platelet Estimate Decreased L (Normal) Polychromasia Acanthocytes (Spur) 2+ Peripher Smr Path Cons PT (9.0-12.0) Seconds INR (0.9-1.1) APTT (21.0-31.0) Seconds PTT Ratio VBG pH (7.36-7.41) VBG pCO2 (38-50) mmHg VBG pO2 mmHg VBG HCO3 mmol/L VBG O2 Saturation % VBG Base Excess mEq/L Sodium (136-145) mmol/L Potassium (3.5-5.1) mmol/L Chloride (98-107) mmol/L Carbon Dioxide (21-32) mmol/L Anion Gap (3-11) BUN (6-23) mg/dl Creatinine (0.6-1.4) mg/dl Est Cr Clr Drug Dosing ml/min Est GFR ( Amer) ml/min Est GFR (Non-Af Amer) ml/min BUN/Creatinine Ratio (10-20) Glucose (70-99(Fasting)) mg/dl Estimat Average Glucose mg/dl Hemoglobin A1c (4.5-5.6) % Osmolality (280-300) mOsm/kg Lactate 4.7 H* (0.4-2.0) mmol/L Calcium (8.6-10.3) mg/dl Phosphorus (2.5-4.9) mg/dl Magnesium (1.7-2.4) mg/dl Total Bilirubin (0.2-1.0) mg/dl AST (13-39) U/L ALT (7-52) U/L Alkaline Phosphatase (34-104) U/L Ammonia (18-72) umol/L Total Creatine Kinase (30-223) U/L Troponin I High Sens (0-20) pg/ml B-Natriuretic Peptide (0-100) pg/ml Total Protein (6.0-8.3) gm/dl Albumin (3.4-5.0) gm/dl Globulin (2.5-4.0) gm/dl Albumin/Globulin Ratio (0.9-2) 25-OH Vitamin D Total (30-100) ng/ml Procalcitonin (0-0.5) ng/ml TSH (0.300-4.500) uIu/ml Urine Color Urine Appearance (Clear) Urine pH (4.5-7.5) Ur Specific [place] (1.000-1.030) Urine Protein (Negative) Urine Glucose (UA) (Negative) Urine Ketones (Negative) Urine Blood (Negative) Urine Nitrite (Negative) Urine Bilirubin (Negative) Urine Urobilinogen (Negative) Ur Leukocyte Esterase (Negative) Urine WBC (Auto) (0-5) /hpf Urine RBC (Auto) (0-4) /hpf U Hyaline Cast (Auto) (0-5) /lpf U Epithel Cells (Auto) (0-5) /lpf Urine Bacteria (Auto) (Negative) Urine Osmolality (500-800) mOsm/kg Ur Random Creatinine mg/dl U Random Total Protein (0-11.9) mg/dl Ur Random Sodium mmol/L Protein/Creatinin Ratio (0-0.2) Urine Opiates Screen (Neg) Ur Methadone, Qual (Neg) Urine Barbiturates (Neg) Ur Phencyclidine (PCP) (Neg) U Amphetamin/Meth Scrn (Neg) MDMA (Ecstasy) Screen (Neg) U Benzodiazepines Scrn (Neg) Ur Cocaine Metabolite (Neg) U Marijuana (THC) Screen (Neg) Ethyl Alcohol mg/dL (<10.0) mg/dl Anaplasma Smear Anaplasma Comment Lyme Disease IgG Ab (Negative) Lyme Disease IgM Ab (Negative) SARS-CoV-2, RNA, NAAT NEGATIVE (NEGATIVE) Blood Type Blood Type Recheck Antibody Screen 10/01/22 10/01/22 10/01/22 Range/Units 21:54 21:54 21:54 WBC (4.8-10.8) K/ul RBC (4.70-6.10) M/uL Hgb (14.0-18.0) g/dl Hct (42.0-52.0) % MCV (80.0-100.0) fL MCH (25.0-34.0) pg MCHC (32.0-36.0) g/dL RDW Std Deviation (36.4-46.3) fL RDW Coeff of Yanin (11.5-14.5) % Plt Count (130-400) K/uL MPV (9.4-12.4) fL Immature Gran % (Auto) % Neut % (Auto) % Lymph % (Auto) % [place] % (Auto) % Eos % (Auto) % Baso % (Auto) % Neut # (Auto) (1.40-6.50) K/uL Lymph # (Auto) (1.2-3.4) K/uL [place] # (Auto) (0.11-0.59) K/uL Eos # (Auto) (0-0.50) K/uL Baso # (Auto) (0-0.2) K/uL Immature Gran # (Auto) (0.01-0.20) K/uL Platelet Estimate (Normal) Polychromasia Acanthocytes (Spur) Peripher Smr Path Cons PT 17.0 H (9.0-12.0) Seconds INR 1.6 H (0.9-1.1) APTT 40.4 H* (21.0-31.0) Seconds PTT Ratio 1.4 VBG pH (7.36-7.41) VBG pCO2 (38-50) mmHg VBG pO2 mmHg VBG HCO3 mmol/L VBG O2 Saturation % VBG Base Excess mEq/L Sodium 125 L (136-145) mmol/L Potassium 4.2 (3.5-5.1) mmol/L Chloride 95 L (98-107) mmol/L Carbon Dioxide 21 (21-32) mmol/L Anion Gap 9 (3-11) BUN 21 (6-23) mg/dl Creatinine 1.15 (0.6-1.4) mg/dl Est Cr Clr Drug Dosing 70.0 ml/min Est GFR ( Amer) 78.1 ml/min Est GFR (Non-Af Amer) 67.4 ml/min BUN/Creatinine Ratio 18.3 (10-20) Glucose 126 H (70-99(Fasting)) mg/dl Estimat Average Glucose mg/dl Hemoglobin A1c (4.5-5.6) % Osmolality (280-300) mOsm/kg Lactate (0.4-2.0) mmol/L Calcium 8.4 L (8.6-10.3) mg/dl Phosphorus (2.5-4.9) mg/dl Magnesium 1.9 (1.7-2.4) mg/dl Total Bilirubin 2.9 H (0.2-1.0) mg/dl AST 64 H (13-39) U/L ALT 43 (7-52) U/L Alkaline Phosphatase 115 H (34-104) U/L Ammonia (18-72) umol/L Total Creatine Kinase 220 (30-223) U/L Troponin I High Sens 23.9 H (0-20) pg/ml B-Natriuretic Peptide (0-100) pg/ml Total Protein 7.3 (6.0-8.3) gm/dl Albumin 3.0 L (3.4-5.0) gm/dl Globulin 4.3 H (2.5-4.0) gm/dl Albumin/Globulin Ratio 0.7 L (0.9-2) 25-OH Vitamin D Total (30-100) ng/ml Procalcitonin 2.48 H (0-0.5) ng/ml TSH (0.300-4.500) uIu/ml Urine Color Urine Appearance (Clear) Urine pH (4.5-7.5) Ur Specific [place] (1.000-1.030) Urine Protein (Negative) Urine Glucose (UA) (Negative) Urine Ketones (Negative) Urine Blood (Negative) Urine Nitrite (Negative) Urine Bilirubin (Negative) Urine Urobilinogen (Negative) Ur Leukocyte Esterase (Negative) Urine WBC (Auto) (0-5) /hpf Urine RBC (Auto) (0-4) /hpf U Hyaline Cast (Auto) (0-5) /lpf U Epithel Cells (Auto) (0-5) /lpf Urine Bacteria (Auto) (Negative) Urine Osmolality (500-800) mOsm/kg Ur Random Creatinine mg/dl U Random Total Protein (0-11.9) mg/dl Ur Random Sodium mmol/L Protein/Creatinin Ratio (0-0.2) Urine Opiates Screen (Neg) Ur Methadone, Qual (Neg) Urine Barbiturates (Neg) Ur Phencyclidine (PCP) (Neg) U Amphetamin/Meth Scrn (Neg) MDMA (Ecstasy) Screen (Neg) U Benzodiazepines Scrn (Neg) Ur Cocaine Metabolite (Neg) U Marijuana (THC) Screen (Neg) Ethyl Alcohol mg/dL (<10.0) mg/dl Anaplasma Smear Anaplasma Comment Lyme Disease IgG Ab (Negative) Lyme Disease IgM Ab (Negative) SARS-CoV-2, RNA, NAAT (NEGATIVE) Blood Type Blood Type Recheck Antibody Screen 10/01/22 10/01/22 10/01/22 Range/Units 21:54 21:54 21:54 WBC (4.8-10.8) K/ul RBC (4.70-6.10) M/uL Hgb (14.0-18.0) g/dl Hct (42.0-52.0) % MCV (80.0-100.0) fL MCH (25.0-34.0) pg MCHC (32.0-36.0) g/dL RDW Std Deviation (36.4-46.3) fL RDW Coeff of Yanni (11.5-14.5) % Plt Count (130-400) K/uL MPV (9.4-12.4) fL Immature Gran % (Auto) % Neut % (Auto) % Lymph % (Auto) % [place] % (Auto) % Eos % (Auto) % Baso % (Auto) % Neut # (Auto) (1.40-6.50) K/uL Lymph # (Auto) (1.2-3.4) K/uL [place] # (Auto) (0.11-0.59) K/uL Eos # (Auto) (0-0.50) K/uL Baso # (Auto) (0-0.2) K/uL Immature Gran # (Auto) (0.01-0.20) K/uL Platelet Estimate (Normal) Polychromasia Acanthocytes (Spur) Peripher Smr Path Cons PT (9.0-12.0) Seconds INR (0.9-1.1) APTT (21.0-31.0) Seconds PTT Ratio VBG pH (7.36-7.41) VBG pCO2 (38-50) mmHg VBG pO2 mmHg VBG HCO3 mmol/L VBG O2 Saturation % VBG Base Excess mEq/L Sodium (136-145) mmol/L Potassium (3.5-5.1) mmol/L Chloride (98-107) mmol/L Carbon Dioxide (21-32) mmol/L Anion Gap (3-11) BUN (6-23) mg/dl Creatinine (0.6-1.4) mg/dl Est Cr Clr Drug Dosing ml/min Est GFR ( Amer) ml/min Est GFR (Non-Af Amer) ml/min BUN/Creatinine Ratio (10-20) Glucose (70-99(Fasting)) mg/dl Estimat Average Glucose mg/dl Hemoglobin A1c (4.5-5.6) % Osmolality (280-300) mOsm/kg Lactate (0.4-2.0) mmol/L Calcium (8.6-10.3) mg/dl Phosphorus (2.5-4.9) mg/dl Magnesium (1.7-2.4) mg/dl Total Bilirubin (0.2-1.0) mg/dl AST (13-39) U/L ALT (7-52) U/L Alkaline Phosphatase (34-104) U/L Ammonia (18-72) umol/L Total Creatine Kinase (30-223) U/L Troponin I High Sens (0-20) pg/ml B-Natriuretic Peptide 68 (0-100) pg/ml Total Protein (6.0-8.3) gm/dl Albumin (3.4-5.0) gm/dl Globulin (2.5-4.0) gm/dl Albumin/Globulin Ratio (0.9-2) 25-OH Vitamin D Total (30-100) ng/ml Procalcitonin (0-0.5) ng/ml TSH (0.300-4.500) uIu/ml Urine Color Urine Appearance (Clear) Urine pH (4.5-7.5) Ur Specific [place] (1.000-1.030) Urine Protein (Negative) Urine Glucose (UA) (Negative) Urine Ketones (Negative) Urine Blood (Negative) Urine Nitrite (Negative) Urine Bilirubin (Negative) Urine Urobilinogen (Negative) Ur Leukocyte Esterase (Negative) Urine WBC (Auto) (0-5) /hpf Urine RBC (Auto) (0-4) /hpf U Hyaline Cast (Auto) (0-5) /lpf U Epithel Cells (Auto) (0-5) /lpf Urine Bacteria (Auto) (Negative) Urine Osmolality (500-800) mOsm/kg Ur Random Creatinine mg/dl U Random Total Protein (0-11.9) mg/dl Ur Random Sodium mmol/L Protein/Creatinin Ratio (0-0.2) Urine Opiates Screen (Neg) Ur Methadone, Qual (Neg) Urine Barbiturates (Neg) Ur Phencyclidine (PCP) (Neg) U Amphetamin/Meth Scrn (Neg) MDMA (Ecstasy) Screen (Neg) U Benzodiazepines Scrn (Neg) Ur Cocaine Metabolite (Neg) U Marijuana (THC) Screen (Neg) Ethyl Alcohol mg/dL < 10.0 (<10.0) mg/dl Anaplasma Smear Anaplasma Comment Lyme Disease IgG Ab (Negative) Lyme Disease IgM Ab (Negative) SARS-CoV-2, RNA, NAAT (NEGATIVE) Blood Type A Negative Blood Type Recheck Antibody Screen NEGATIVE 10/01/22 10/01/22 10/01/22 Range/Units 21:54 21:54 22:26 WBC (4.8-10.8) K/ul RBC (4.70-6.10) M/uL Hgb (14.0-18.0) g/dl Hct (42.0-52.0) % MCV (80.0-100.0) fL MCH (25.0-34.0) pg MCHC (32.0-36.0) g/dL RDW Std Deviation (36.4-46.3) fL RDW Coeff of Yanni (11.5-14.5) % Plt Count (130-400) K/uL MPV (9.4-12.4) fL Immature Gran % (Auto) % Neut % (Auto) % Lymph % (Auto) % [place] % (Auto) % Eos % (Auto) % Baso % (Auto) % Neut # (Auto) (1.40-6.50) K/uL Lymph # (Auto) (1.2-3.4) K/uL [place] # (Auto) (0.11-0.59) K/uL Eos # (Auto) (0-0.50) K/uL Baso # (Auto) (0-0.2) K/uL Immature Gran # (Auto) (0.01-0.20) K/uL Platelet Estimate (Normal) Polychromasia Acanthocytes (Spur) Peripher Smr Path Cons PT (9.0-12.0) Seconds INR (0.9-1.1) APTT (21.0-31.0) Seconds PTT Ratio VBG pH (7.36-7.41) VBG pCO2 (38-50) mmHg VBG pO2 mmHg VBG HCO3 mmol/L VBG O2 Saturation % VBG Base Excess mEq/L Sodium (136-145) mmol/L Potassium (3.5-5.1) mmol/L Chloride (98-107) mmol/L Carbon Dioxide (21-32) mmol/L Anion Gap (3-11) BUN (6-23) mg/dl Creatinine (0.6-1.4) mg/dl Est Cr Clr Drug Dosing ml/min Est GFR ( Amer) ml/min Est GFR (Non-Af Amer) ml/min BUN/Creatinine Ratio (10-20) Glucose (70-99(Fasting)) mg/dl Estimat Average Glucose mg/dl Hemoglobin A1c (4.5-5.6) % Osmolality 276 L (280-300) mOsm/kg Lactate (0.4-2.0) mmol/L Calcium (8.6-10.3) mg/dl Phosphorus (2.5-4.9) mg/dl Magnesium (1.7-2.4) mg/dl Total Bilirubin (0.2-1.0) mg/dl AST (13-39) U/L ALT (7-52) U/L Alkaline Phosphatase (34-104) U/L Ammonia (18-72) umol/L Total Creatine Kinase (30-223) U/L Troponin I High Sens (0-20) pg/ml B-Natriuretic Peptide (0-100) pg/ml Total Protein (6.0-8.3) gm/dl Albumin (3.4-5.0) gm/dl Globulin (2.5-4.0) gm/dl Albumin/Globulin Ratio (0.9-2) 25-OH Vitamin D Total (30-100) ng/ml Procalcitonin (0-0.5) ng/ml TSH 0.671 (0.300-4.500) uIu/ml Urine Color [place] Urine Appearance Clear (Clear) Urine pH 5.5 (4.5-7.5) Ur Specific [place] 1.029 (1.000-1.030) Urine Protein 2+ H (Negative) Urine Glucose (UA) Negative (Negative) Urine Ketones Trace H (Negative) Urine Blood 3+ H (Negative) Urine Nitrite Positive A (Negative) Urine Bilirubin 1+ H (Negative) Urine Urobilinogen Positive H (Negative) Ur Leukocyte Esterase Trace H (Negative) Urine WBC (Auto) 1-5 (0-5) /hpf Urine RBC (Auto) 5-10 H (0-4) /hpf U Hyaline Cast (Auto) 1-5 (0-5) /lpf U Epithel Cells (Auto) 5-10 H (0-5) /lpf Urine Bacteria (Auto) Negative (Negative) Urine Osmolality (500-800) mOsm/kg Ur Random Creatinine mg/dl U Random Total Protein (0-11.9) mg/dl Ur Random Sodium mmol/L Protein/Creatinin Ratio (0-0.2) Urine Opiates Screen (Neg) Ur Methadone, Qual (Neg) Urine Barbiturates (Neg) Ur Phencyclidine (PCP) (Neg) U Amphetamin/Meth Scrn (Neg) MDMA (Ecstasy) Screen (Neg) U Benzodiazepines Scrn (Neg) Ur Cocaine Metabolite (Neg) U Marijuana (THC) Screen (Neg) Ethyl Alcohol mg/dL (<10.0) mg/dl Anaplasma Smear Anaplasma Comment Lyme Disease IgG Ab (Negative) Lyme Disease IgM Ab (Negative) SARS-CoV-2, RNA, NAAT (NEGATIVE) Blood Type Blood Type Recheck Antibody Screen 10/01/22 10/02/22 10/02/22 Range/Units 22:26 00:00 00:00 WBC (4.8-10.8) K/ul RBC (4.70-6.10) M/uL Hgb (14.0-18.0) g/dl Hct (42.0-52.0) % MCV (80.0-100.0) fL MCH (25.0-34.0) pg MCHC (32.0-36.0) g/dL RDW Std Deviation (36.4-46.3) fL RDW Coeff of Yanni (11.5-14.5) % Plt Count (130-400) K/uL MPV (9.4-12.4) fL Immature Gran % (Auto) % Neut % (Auto) % Lymph % (Auto) % [place] % (Auto) % Eos % (Auto) % Baso % (Auto) % Neut # (Auto) (1.40-6.50) K/uL Lymph # (Auto) (1.2-3.4) K/uL [place] # (Auto) (0.11-0.59) K/uL Eos # (Auto) (0-0.50) K/uL Baso # (Auto) (0-0.2) K/uL Immature Gran # (Auto) (0.01-0.20) K/uL Platelet Estimate (Normal) Polychromasia Acanthocytes (Spur) Peripher Smr Path Cons PT (9.0-12.0) Seconds INR (0.9-1.1) APTT (21.0-31.0) Seconds PTT Ratio VBG pH 7.44 H (7.36-7.41) VBG pCO2 35 L (38-50) mmHg VBG pO2 20 mmHg VBG HCO3 24 mmol/L VBG O2 Saturation < 60.0 % VBG Base Excess 0.1 mEq/L Sodium (136-145) mmol/L Potassium (3.5-5.1) mmol/L Chloride (98-107) mmol/L Carbon Dioxide (21-32) mmol/L Anion Gap (3-11) BUN (6-23) mg/dl Creatinine (0.6-1.4) mg/dl Est Cr Clr Drug Dosing ml/min Est GFR ( Amer) ml/min Est GFR (Non-Af Amer) ml/min BUN/Creatinine Ratio (10-20) Glucose (70-99(Fasting)) mg/dl Estimat Average Glucose mg/dl Hemoglobin A1c (4.5-5.6) % Osmolality (280-300) mOsm/kg Lactate 5.0 H* (0.4-2.0) mmol/L Calcium (8.6-10.3) mg/dl Phosphorus (2.5-4.9) mg/dl Magnesium (1.7-2.4) mg/dl Total Bilirubin (0.2-1.0) mg/dl AST (13-39) U/L ALT (7-52) U/L Alkaline Phosphatase (34-104) U/L Ammonia (18-72) umol/L Total Creatine Kinase (30-223) U/L Troponin I High Sens (0-20) pg/ml B-Natriuretic Peptide (0-100) pg/ml Total Protein (6.0-8.3) gm/dl Albumin (3.4-5.0) gm/dl Globulin (2.5-4.0) gm/dl Albumin/Globulin Ratio (0.9-2) 25-OH Vitamin D Total (30-100) ng/ml Procalcitonin (0-0.5) ng/ml TSH (0.300-4.500) uIu/ml Urine Color Urine Appearance (Clear) Urine pH (4.5-7.5) Ur Specific [place] (1.000-1.030) Urine Protein (Negative) Urine Glucose (UA) (Negative) Urine Ketones (Negative) Urine Blood (Negative) Urine Nitrite (Negative) Urine Bilirubin (Negative) Urine Urobilinogen (Negative) Ur Leukocyte Esterase (Negative) Urine WBC (Auto) (0-5) /hpf Urine RBC (Auto) (0-4) /hpf U Hyaline Cast (Auto) (0-5) /lpf U Epithel Cells (Auto) (0-5) /lpf Urine Bacteria (Auto) (Negative) Urine Osmolality (500-800) mOsm/kg Ur Random Creatinine mg/dl U Random Total Protein (0-11.9) mg/dl Ur Random Sodium mmol/L Protein/Creatinin Ratio (0-0.2) Urine Opiates Screen Neg (Neg) Ur Methadone, Qual Neg (Neg) Urine Barbiturates Neg (Neg) Ur Phencyclidine (PCP) Neg (Neg) U Amphetamin/Meth Scrn Pos H (Neg) MDMA (Ecstasy) Screen Neg (Neg) U Benzodiazepines Scrn Neg (Neg) Ur Cocaine Metabolite Neg (Neg) U Marijuana (THC) Screen Pos H (Neg) Ethyl Alcohol mg/dL (<10.0) mg/dl Anaplasma Smear Anaplasma Comment Lyme Disease IgG Ab (Negative) Lyme Disease IgM Ab (Negative) SARS-CoV-2, RNA, NAAT (NEGATIVE) Blood Type Blood Type Recheck Antibody Screen 10/02/22 10/02/22 10/02/22 Range/Units 01:45 01:45 05:20 WBC (4.8-10.8) K/ul RBC (4.70-6.10) M/uL Hgb (14.0-18.0) g/dl Hct (42.0-52.0) % MCV (80.0-100.0) fL MCH (25.0-34.0) pg MCHC (32.0-36.0) g/dL RDW Std Deviation (36.4-46.3) fL RDW Coeff of Yanni (11.5-14.5) % Plt Count (130-400) K/uL MPV (9.4-12.4) fL Immature Gran % (Auto) % Neut % (Auto) % Lymph % (Auto) % [place] % (Auto) % Eos % (Auto) % Baso % (Auto) % Neut # (Auto) (1.40-6.50) K/uL Lymph # (Auto) (1.2-3.4) K/uL [place] # (Auto) (0.11-0.59) K/uL Eos # (Auto) (0-0.50) K/uL Baso # (Auto) (0-0.2) K/uL Immature Gran # (Auto) (0.01-0.20) K/uL Platelet Estimate (Normal) Polychromasia Acanthocytes (Spur) Peripher Smr Path Cons PT (9.0-12.0) Seconds INR (0.9-1.1) APTT (21.0-31.0) Seconds PTT Ratio VBG pH (7.36-7.41) VBG pCO2 (38-50) mmHg VBG pO2 mmHg VBG HCO3 mmol/L VBG O2 Saturation % VBG Base Excess mEq/L Sodium 126 L 126 L (136-145) mmol/L Potassium 3.9 (3.5-5.1) mmol/L Chloride 100 (98-107) mmol/L Carbon Dioxide 21 (21-32) mmol/L Anion Gap 5 (3-11) BUN 21 (6-23) mg/dl Creatinine 0.93 (0.6-1.4) mg/dl Est Cr Clr Drug Dosing 86.6 ml/min Est GFR ( Amer) 100.9 ml/min Est GFR (Non-Af Amer) 87.1 ml/min BUN/Creatinine Ratio 22.6 H (10-20) Glucose 113 H (70-99(Fasting)) mg/dl Estimat Average Glucose mg/dl Hemoglobin A1c (4.5-5.6) % Osmolality (280-300) mOsm/kg Lactate (0.4-2.0) mmol/L Calcium 7.6 L (8.6-10.3) mg/dl Phosphorus (2.5-4.9) mg/dl Magnesium (1.7-2.4) mg/dl Total Bilirubin 2.4 H (0.2-1.0) mg/dl AST 56 H (13-39) U/L ALT 36 (7-52) U/L Alkaline Phosphatase 94 (34-104) U/L Ammonia 44.0 (18-72) umol/L Total Creatine Kinase 215 (30-223) U/L Troponin I High Sens 25.9 H 20.3 H (0-20) pg/ml B-Natriuretic Peptide (0-100) pg/ml Total Protein 6.2 (6.0-8.3) gm/dl Albumin 2.5 L (3.4-5.0) gm/dl Globulin 3.7 (2.5-4.0) gm/dl Albumin/Globulin Ratio 0.7 L (0.9-2) 25-OH Vitamin D Total (30-100) ng/ml Procalcitonin (0-0.5) ng/ml TSH (0.300-4.500) uIu/ml Urine Color Urine Appearance (Clear) Urine pH (4.5-7.5) Ur Specific [place] (1.000-1.030) Urine Protein (Negative) Urine Glucose (UA) (Negative) Urine Ketones (Negative) Urine Blood (Negative) Urine Nitrite (Negative) Urine Bilirubin (Negative) Urine Urobilinogen (Negative) Ur Leukocyte Esterase (Negative) Urine WBC (Auto) (0-5) /hpf Urine RBC (Auto) (0-4) /hpf U Hyaline Cast (Auto) (0-5) /lpf U Epithel Cells (Auto) (0-5) /lpf Urine Bacteria (Auto) (Negative) Urine Osmolality (500-800) mOsm/kg Ur Random Creatinine mg/dl U Random Total Protein (0-11.9) mg/dl Ur Random Sodium mmol/L Protein/Creatinin Ratio (0-0.2) Urine Opiates Screen (Neg) Ur Methadone, Qual (Neg) Urine Barbiturates (Neg) Ur Phencyclidine (PCP) (Neg) U Amphetamin/Meth Scrn (Neg) MDMA (Ecstasy) Screen (Neg) U Benzodiazepines Scrn (Neg) Ur Cocaine Metabolite (Neg) U Marijuana (THC) Screen (Neg) Ethyl Alcohol mg/dL (<10.0) mg/dl Anaplasma Smear Anaplasma Comment Lyme Disease IgG Ab (Negative) Lyme Disease IgM Ab (Negative) SARS-CoV-2, RNA, NAAT (NEGATIVE) Blood Type Blood Type Recheck Antibody Screen 10/02/22 10/02/22 10/02/22 Range/Units 05:20 05:20 05:20 WBC 5.56 (4.8-10.8) K/ul RBC 3.54 L (4.70-6.10) M/uL Hgb 11.1 L (14.0-18.0) g/dl Hct 31.1 L (42.0-52.0) % MCV 87.9 (80.0-100.0) fL MCH 31.4 (25.0-34.0) pg MCHC 35.7 (32.0-36.0) g/dL RDW Std Deviation 46.1 (36.4-46.3) fL RDW Coeff of Yanni 14.2 (11.5-14.5) % Plt Count 76 L (130-400) K/uL MPV 9.9 (9.4-12.4) fL Immature Gran % (Auto) 0.5 % Neut % (Auto) 76.2 % Lymph % (Auto) 13.5 % [place] % (Auto) 9.4 % Eos % (Auto) 0.0 % Baso % (Auto) 0.4 % Neut # (Auto) 4.24 (1.40-6.50) K/uL Lymph # (Auto) 0.75 L (1.2-3.4) K/uL [place] # (Auto) 0.52 (0.11-0.59) K/uL Eos # (Auto) 0.00 (0-0.50) K/uL Baso # (Auto) 0.02 (0-0.2) K/uL Immature Gran # (Auto) 0.03 (0.01-0.20) K/uL Platelet Estimate (Normal) Polychromasia 1+ Acanthocytes (Spur) Peripher Smr Path Cons PT (9.0-12.0) Seconds INR (0.9-1.1) APTT (21.0-31.0) Seconds PTT Ratio VBG pH (7.36-7.41) VBG pCO2 (38-50) mmHg VBG pO2 mmHg VBG HCO3 mmol/L VBG O2 Saturation % VBG Base Excess mEq/L Sodium (136-145) mmol/L Potassium (3.5-5.1) mmol/L Chloride (98-107) mmol/L Carbon Dioxide (21-32) mmol/L Anion Gap (3-11) BUN (6-23) mg/dl Creatinine (0.6-1.4) mg/dl Est Cr Clr Drug Dosing ml/min Est GFR ( Amer) ml/min Est GFR (Non-Af Amer) ml/min BUN/Creatinine Ratio (10-20) Glucose (70-99(Fasting)) mg/dl Estimat Average Glucose 97 mg/dl Hemoglobin A1c 5.0 (4.5-5.6) % Osmolality (280-300) mOsm/kg Lactate 3.1 H* (0.4-2.0) mmol/L Calcium (8.6-10.3) mg/dl Phosphorus (2.5-4.9) mg/dl Magnesium (1.7-2.4) mg/dl Total Bilirubin (0.2-1.0) mg/dl AST (13-39) U/L ALT (7-52) U/L Alkaline Phosphatase (34-104) U/L Ammonia (18-72) umol/L Total Creatine Kinase (30-223) U/L Troponin I High Sens (0-20) pg/ml B-Natriuretic Peptide (0-100) pg/ml Total Protein (6.0-8.3) gm/dl Albumin (3.4-5.0) gm/dl Globulin (2.5-4.0) gm/dl Albumin/Globulin Ratio (0.9-2) 25-OH Vitamin D Total (30-100) ng/ml Procalcitonin (0-0.5) ng/ml TSH (0.300-4.500) uIu/ml Urine Color Urine Appearance (Clear) Urine pH (4.5-7.5) Ur Specific [place] (1.000-1.030) Urine Protein (Negative) Urine Glucose (UA) (Negative) Urine Ketones (Negative) Urine Blood (Negative) Urine Nitrite (Negative) Urine Bilirubin (Negative) Urine Urobilinogen (Negative) Ur Leukocyte Esterase (Negative) Urine WBC (Auto) (0-5) /hpf Urine RBC (Auto) (0-4) /hpf U Hyaline Cast (Auto) (0-5) /lpf U Epithel Cells (Auto) (0-5) /lpf Urine Bacteria (Auto) (Negative) Urine Osmolality (500-800) mOsm/kg Ur Random Creatinine mg/dl U Random Total Protein (0-11.9) mg/dl Ur Random Sodium mmol/L Protein/Creatinin Ratio (0-0.2) Urine Opiates Screen (Neg) Ur Methadone, Qual (Neg) Urine Barbiturates (Neg) Ur Phencyclidine (PCP) (Neg) U Amphetamin/Meth Scrn (Neg) MDMA (Ecstasy) Screen (Neg) U Benzodiazepines Scrn (Neg) Ur Cocaine Metabolite (Neg) U Marijuana (THC) Screen (Neg) Ethyl Alcohol mg/dL (<10.0) mg/dl Anaplasma Smear See Comment A Anaplasma Comment Pos for Anaplasma Lyme Disease IgG Ab (Negative) Lyme Disease IgM Ab (Negative) SARS-CoV-2, RNA, NAAT (NEGATIVE) Blood Type Blood Type Recheck Antibody Screen 10/02/22 10/02/22 10/02/22 Range/Units 05:20 11:50 11:50 WBC (4.8-10.8) K/ul RBC (4.70-6.10) M/uL Hgb (14.0-18.0) g/dl Hct (42.0-52.0) % MCV (80.0-100.0) fL MCH (25.0-34.0) pg MCHC (32.0-36.0) g/dL RDW Std Deviation (36.4-46.3) fL RDW Coeff of Ynani (11.5-14.5) % Plt Count (130-400) K/uL MPV (9.4-12.4) fL Immature Gran % (Auto) % Neut % (Auto) % Lymph % (Auto) % [place] % (Auto) % Eos % (Auto) % Baso % (Auto) % Neut # (Auto) (1.40-6.50) K/uL Lymph # (Auto) (1.2-3.4) K/uL [place] # (Auto) (0.11-0.59) K/uL Eos # (Auto) (0-0.50) K/uL Baso # (Auto) (0-0.2) K/uL Immature Gran # (Auto) (0.01-0.20) K/uL Platelet Estimate (Normal) Polychromasia Acanthocytes (Spur) Peripher Smr Path Cons PT (9.0-12.0) Seconds INR (0.9-1.1) APTT (21.0-31.0) Seconds PTT Ratio VBG pH (7.36-7.41) VBG pCO2 (38-50) mmHg VBG pO2 mmHg VBG HCO3 mmol/L VBG O2 Saturation % VBG Base Excess mEq/L Sodium (136-145) mmol/L Potassium (3.5-5.1) mmol/L Chloride (98-107) mmol/L Carbon Dioxide (21-32) mmol/L Anion Gap (3-11) BUN (6-23) mg/dl Creatinine (0.6-1.4) mg/dl Est Cr Clr Drug Dosing ml/min Est GFR ( Amer) ml/min Est GFR (Non-Af Amer) ml/min BUN/Creatinine Ratio (10-20) Glucose (70-99(Fasting)) mg/dl Estimat Average Glucose mg/dl Hemoglobin A1c (4.5-5.6) % Osmolality (280-300) mOsm/kg Lactate 4.7 H* (0.4-2.0) mmol/L Calcium (8.6-10.3) mg/dl Phosphorus (2.5-4.9) mg/dl Magnesium (1.7-2.4) mg/dl Total Bilirubin (0.2-1.0) mg/dl AST (13-39) U/L ALT (7-52) U/L Alkaline Phosphatase (34-104) U/L Ammonia (18-72) umol/L Total Creatine Kinase (30-223) U/L Troponin I High Sens (0-20) pg/ml B-Natriuretic Peptide (0-100) pg/ml Total Protein (6.0-8.3) gm/dl Albumin (3.4-5.0) gm/dl Globulin (2.5-4.0) gm/dl Albumin/Globulin Ratio (0.9-2) 25-OH Vitamin D Total (30-100) ng/ml Procalcitonin 3.15 H (0-0.5) ng/ml TSH (0.300-4.500) uIu/ml Urine Color Urine Appearance (Clear) Urine pH (4.5-7.5) Ur Specific [place] (1.000-1.030) Urine Protein (Negative) Urine Glucose (UA) (Negative) Urine Ketones (Negative) Urine Blood (Negative) Urine Nitrite (Negative) Urine Bilirubin (Negative) Urine Urobilinogen (Negative) Ur Leukocyte Esterase (Negative) Urine WBC (Auto) (0-5) /hpf Urine RBC (Auto) (0-4) /hpf U Hyaline Cast (Auto) (0-5) /lpf U Epithel Cells (Auto) (0-5) /lpf Urine Bacteria (Auto) (Negative) Urine Osmolality (500-800) mOsm/kg Ur Random Creatinine mg/dl U Random Total Protein (0-11.9) mg/dl Ur Random Sodium mmol/L Protein/Creatinin Ratio (0-0.2) Urine Opiates Screen (Neg) Ur Methadone, Qual (Neg) Urine Barbiturates (Neg) Ur Phencyclidine (PCP) (Neg) U Amphetamin/Meth Scrn (Neg) MDMA (Ecstasy) Screen (Neg) U Benzodiazepines Scrn (Neg) Ur Cocaine Metabolite (Neg) U Marijuana (THC) Screen (Neg) Ethyl Alcohol mg/dL (<10.0) mg/dl Anaplasma Smear Anaplasma Comment Lyme Disease IgG Ab Positive A (Negative) Lyme Disease IgM Ab Positive A (Negative) SARS-CoV-2, RNA, NAAT (NEGATIVE) Blood Type Blood Type Recheck Antibody Screen 10/02/22 10/02/22 10/02/22 Range/Units 17:29 17:29 18:11 WBC (4.8-10.8) K/ul RBC (4.70-6.10) M/uL Hgb (14.0-18.0) g/dl Hct (42.0-52.0) % MCV (80.0-100.0) fL MCH (25.0-34.0) pg MCHC (32.0-36.0) g/dL RDW Std Deviation (36.4-46.3) fL RDW Coeff of Yanni (11.5-14.5) % Plt Count (130-400) K/uL MPV (9.4-12.4) fL Immature Gran % (Auto) % Neut % (Auto) % Lymph % (Auto) % [place] % (Auto) % Eos % (Auto) % Baso % (Auto) % Neut # (Auto) (1.40-6.50) K/uL Lymph # (Auto) (1.2-3.4) K/uL [place] # (Auto) (0.11-0.59) K/uL Eos # (Auto) (0-0.50) K/uL Baso # (Auto) (0-0.2) K/uL Immature Gran # (Auto) (0.01-0.20) K/uL Platelet Estimate (Normal) Polychromasia Acanthocytes (Spur) Peripher Smr Path Cons PT (9.0-12.0) Seconds INR (0.9-1.1) APTT (21.0-31.0) Seconds PTT Ratio VBG pH (7.36-7.41) VBG pCO2 (38-50) mmHg VBG pO2 mmHg VBG HCO3 mmol/L VBG O2 Saturation % VBG Base Excess mEq/L Sodium 124 L (136-145) mmol/L Potassium 4.1 (3.5-5.1) mmol/L Chloride 98 (98-107) mmol/L Carbon Dioxide 21 (21-32) mmol/L Anion Gap 5 (3-11) BUN 18 (6-23) mg/dl Creatinine 0.79 (0.6-1.4) mg/dl Est Cr Clr Drug Dosing 101.9 ml/min Est GFR ( Amer) 110.8 ml/min Est GFR (Non-Af Amer) 95.6 ml/min BUN/Creatinine Ratio 22.8 H (10-20) Glucose 128 H (70-99(Fasting)) mg/dl Estimat Average Glucose mg/dl Hemoglobin A1c (4.5-5.6) % Osmolality (280-300) mOsm/kg Lactate (0.4-2.0) mmol/L Calcium 7.5 L (8.6-10.3) mg/dl Phosphorus (2.5-4.9) mg/dl Magnesium (1.7-2.4) mg/dl Total Bilirubin (0.2-1.0) mg/dl AST (13-39) U/L ALT (7-52) U/L Alkaline Phosphatase (34-104) U/L Ammonia (18-72) umol/L Total Creatine Kinase (30-223) U/L Troponin I High Sens (0-20) pg/ml B-Natriuretic Peptide (0-100) pg/ml Total Protein (6.0-8.3) gm/dl Albumin (3.4-5.0) gm/dl Globulin (2.5-4.0) gm/dl Albumin/Globulin Ratio (0.9-2) 25-OH Vitamin D Total (30-100) ng/ml Procalcitonin (0-0.5) ng/ml TSH (0.300-4.500) uIu/ml Urine Color Urine Appearance (Clear) Urine pH (4.5-7.5) Ur Specific [place] (1.000-1.030) Urine Protein (Negative) Urine Glucose (UA) (Negative) Urine Ketones (Negative) Urine Blood (Negative) Urine Nitrite (Negative) Urine Bilirubin (Negative) Urine Urobilinogen (Negative) Ur Leukocyte Esterase (Negative) Urine WBC (Auto) (0-5) /hpf Urine RBC (Auto) (0-4) /hpf U Hyaline Cast (Auto) (0-5) /lpf U Epithel Cells (Auto) (0-5) /lpf Urine Bacteria (Auto) (Negative) Urine Osmolality 976 H (500-800) mOsm/kg Ur Random Creatinine 183.9 mg/dl U Random Total Protein 146.5 H (0-11.9) mg/dl Ur Random Sodium < 10 mmol/L Protein/Creatinin Ratio 0.8 H (0-0.2) Urine Opiates Screen (Neg) Ur Methadone, Qual (Neg) Urine Barbiturates (Neg) Ur Phencyclidine (PCP) (Neg) U Amphetamin/Meth Scrn (Neg) MDMA (Ecstasy) Screen (Neg) U Benzodiazepines Scrn (Neg) Ur Cocaine Metabolite (Neg) U Marijuana (THC) Screen (Neg) Ethyl Alcohol mg/dL (<10.0) mg/dl Anaplasma Smear Anaplasma Comment Lyme Disease IgG Ab (Negative) Lyme Disease IgM Ab (Negative) SARS-CoV-2, RNA, NAAT (NEGATIVE) Blood Type Blood Type Recheck Antibody Screen 10/03/22 10/03/22 10/03/22 Range/Units 00:48 04:43 04:43 WBC 5.27 (4.8-10.8) K/ul RBC 3.46 L (4.70-6.10) M/uL Hgb 10.8 L (14.0-18.0) g/dl Hct 30.6 L (42.0-52.0) % MCV 88.4 (80.0-100.0) fL MCH 31.2 (25.0-34.0) pg MCHC 35.3 (32.0-36.0) g/dL RDW Std Deviation 46.9 H (36.4-46.3) fL RDW Coeff of Yanni 14.6 H (11.5-14.5) % Plt Count 74 L (130-400) K/uL MPV 10.7 (9.4-12.4) fL Immature Gran % (Auto) % Neut % (Auto) % Lymph % (Auto) % [place] % (Auto) % Eos % (Auto) % Baso % (Auto) % Neut # (Auto) (1.40-6.50) K/uL Lymph # (Auto) (1.2-3.4) K/uL [place] # (Auto) (0.11-0.59) K/uL Eos # (Auto) (0-0.50) K/uL Baso # (Auto) (0-0.2) K/uL Immature Gran # (Auto) (0.01-0.20) K/uL Platelet Estimate (Normal) Polychromasia Acanthocytes (Spur) Peripher Smr Path Cons PT (9.0-12.0) Seconds INR (0.9-1.1) APTT (21.0-31.0) Seconds PTT Ratio VBG pH (7.36-7.41) VBG pCO2 (38-50) mmHg VBG pO2 mmHg VBG HCO3 mmol/L VBG O2 Saturation % VBG Base Excess mEq/L Sodium 129 L 130 L (136-145) mmol/L Potassium 4.0 4.1 (3.5-5.1) mmol/L Chloride 103 104 (98-107) mmol/L Carbon Dioxide 22 22 (21-32) mmol/L Anion Gap 4 4 (3-11) BUN 18 18 (6-23) mg/dl Creatinine 0.79 0.66 (0.6-1.4) mg/dl Est Cr Clr Drug Dosing 101.9 132.3 ml/min Est GFR ( Amer) 110.8 119.3 ml/min Est GFR (Non-Af Amer) 95.6 102.9 ml/min BUN/Creatinine Ratio 22.8 H 27.3 H (10-20) Glucose 90 86 (70-99(Fasting)) mg/dl Estimat Average Glucose mg/dl Hemoglobin A1c (4.5-5.6) % Osmolality (280-300) mOsm/kg Lactate (0.4-2.0) mmol/L Calcium 7.8 L 7.8 L (8.6-10.3) mg/dl Phosphorus 1.9 L (2.5-4.9) mg/dl Magnesium 2.0 (1.7-2.4) mg/dl Total Bilirubin (0.2-1.0) mg/dl AST (13-39) U/L ALT (7-52) U/L Alkaline Phosphatase (34-104) U/L Ammonia (18-72) umol/L Total Creatine Kinase (30-223) U/L Troponin I High Sens (0-20) pg/ml B-Natriuretic Peptide (0-100) pg/ml Total Protein (6.0-8.3) gm/dl Albumin (3.4-5.0) gm/dl Globulin (2.5-4.0) gm/dl Albumin/Globulin Ratio (0.9-2) 25-OH Vitamin D Total (30-100) ng/ml Procalcitonin (0-0.5) ng/ml TSH (0.300-4.500) uIu/ml Urine Color Urine Appearance (Clear) Urine pH (4.5-7.5) Ur Specific [place] (1.000-1.030) Urine Protein (Negative) Urine Glucose (UA) (Negative) Urine Ketones (Negative) Urine Blood (Negative) Urine Nitrite (Negative) Urine Bilirubin (Negative) Urine Urobilinogen (Negative) Ur Leukocyte Esterase (Negative) Urine WBC (Auto) (0-5) /hpf Urine RBC (Auto) (0-4) /hpf U Hyaline Cast (Auto) (0-5) /lpf U Epithel Cells (Auto) (0-5) /lpf Urine Bacteria (Auto) (Negative) Urine Osmolality (500-800) mOsm/kg Ur Random Creatinine mg/dl U Random Total Protein (0-11.9) mg/dl Ur Random Sodium mmol/L Protein/Creatinin Ratio (0-0.2) Urine Opiates Screen (Neg) Ur Methadone, Qual (Neg) Urine Barbiturates (Neg) Ur Phencyclidine (PCP) (Neg) U Amphetamin/Meth Scrn (Neg) MDMA (Ecstasy) Screen (Neg) U Benzodiazepines Scrn (Neg) Ur Cocaine Metabolite (Neg) U Marijuana (THC) Screen (Neg) Ethyl Alcohol mg/dL (<10.0) mg/dl Anaplasma Smear Anaplasma Comment Lyme Disease IgG Ab (Negative) Lyme Disease IgM Ab (Negative) SARS-CoV-2, RNA, NAAT (NEGATIVE) Blood Type Blood Type Recheck Antibody Screen 10/03/22 10/03/22 10/03/22 Range/Units 04:43 08:39 10:26 WBC (4.8-10.8) K/ul RBC (4.70-6.10) M/uL Hgb (14.0-18.0) g/dl Hct (42.0-52.0) % MCV (80.0-100.0) fL MCH (25.0-34.0) pg MCHC (32.0-36.0) g/dL RDW Std Deviation (36.4-46.3) fL RDW Coeff of Yanni (11.5-14.5) % Plt Count (130-400) K/uL MPV (9.4-12.4) fL Immature Gran % (Auto) % Neut % (Auto) % Lymph % (Auto) % [place] % (Auto) % Eos % (Auto) % Baso % (Auto) % Neut # (Auto) (1.40-6.50) K/uL Lymph # (Auto) (1.2-3.4) K/uL [place] # (Auto) (0.11-0.59) K/uL Eos # (Auto) (0-0.50) K/uL Baso # (Auto) (0-0.2) K/uL Immature Gran # (Auto) (0.01-0.20) K/uL Platelet Estimate (Normal) Polychromasia Acanthocytes (Spur) Peripher Smr Path Cons PT (9.0-12.0) Seconds INR (0.9-1.1) APTT (21.0-31.0) Seconds PTT Ratio VBG pH (7.36-7.41) VBG pCO2 (38-50) mmHg VBG pO2 mmHg VBG HCO3 mmol/L VBG O2 Saturation % VBG Base Excess mEq/L Sodium (136-145) mmol/L Potassium (3.5-5.1) mmol/L Chloride (98-107) mmol/L Carbon Dioxide (21-32) mmol/L Anion Gap (3-11) BUN (6-23) mg/dl Creatinine (0.6-1.4) mg/dl Est Cr Clr Drug Dosing ml/min Est GFR ( Amer) ml/min Est GFR (Non-Af Amer) ml/min BUN/Creatinine Ratio (10-20) Glucose (70-99(Fasting)) mg/dl Estimat Average Glucose mg/dl Hemoglobin A1c (4.5-5.6) % Osmolality (280-300) mOsm/kg Lactate 2.6 H* 2.9 H* (0.4-2.0) mmol/L Calcium (8.6-10.3) mg/dl Phosphorus (2.5-4.9) mg/dl Magnesium (1.7-2.4) mg/dl Total Bilirubin (0.2-1.0) mg/dl AST (13-39) U/L ALT (7-52) U/L Alkaline Phosphatase (34-104) U/L Ammonia (18-72) umol/L Total Creatine Kinase (30-223) U/L Troponin I High Sens (0-20) pg/ml B-Natriuretic Peptide (0-100) pg/ml Total Protein (6.0-8.3) gm/dl Albumin (3.4-5.0) gm/dl Globulin (2.5-4.0) gm/dl Albumin/Globulin Ratio (0.9-2) 25-OH Vitamin D Total (30-100) ng/ml Procalcitonin (0-0.5) ng/ml TSH (0.300-4.500) uIu/ml Urine Color Urine Appearance (Clear) Urine pH (4.5-7.5) Ur Specific [place] (1.000-1.030) Urine Protein (Negative) Urine Glucose (UA) (Negative) Urine Ketones (Negative) Urine Blood (Negative) Urine Nitrite (Negative) Urine Bilirubin (Negative) Urine Urobilinogen (Negative) Ur Leukocyte Esterase (Negative) Urine WBC (Auto) (0-5) /hpf Urine RBC (Auto) (0-4) /hpf U Hyaline Cast (Auto) (0-5) /lpf U Epithel Cells (Auto) (0-5) /lpf Urine Bacteria (Auto) (Negative) Urine Osmolality (500-800) mOsm/kg Ur Random Creatinine mg/dl U Random Total Protein (0-11.9) mg/dl Ur Random Sodium mmol/L Protein/Creatinin Ratio (0-0.2) Urine Opiates Screen (Neg) Ur Methadone, Qual (Neg) Urine Barbiturates (Neg) Ur Phencyclidine (PCP) (Neg) U Amphetamin/Meth Scrn (Neg) MDMA (Ecstasy) Screen (Neg) U Benzodiazepines Scrn (Neg) Ur Cocaine Metabolite (Neg) U Marijuana (THC) Screen (Neg) Ethyl Alcohol mg/dL (<10.0) mg/dl Anaplasma Smear Anaplasma Comment Lyme Disease IgG Ab (Negative) Lyme Disease IgM Ab (Negative) SARS-CoV-2, RNA, NAAT (NEGATIVE) Blood Type Blood Type Recheck A Negative Antibody Screen 10/04/22 10/04/22 10/04/22 Range/Units 05:50 05:50 05:50 WBC 6.63 (4.8-10.8) K/ul RBC 3.17 L (4.70-6.10) M/uL Hgb 9.9 L (14.0-18.0) g/dl Hct 28.8 L (42.0-52.0) % MCV 90.9 (80.0-100.0) fL MCH 31.2 (25.0-34.0) pg MCHC 34.4 (32.0-36.0) g/dL RDW Std Deviation 49.5 H (36.4-46.3) fL RDW Coeff of Yanni 14.7 H (11.5-14.5) % Plt Count 77 L (130-400) K/uL MPV 11.5 (9.4-12.4) fL Immature Gran % (Auto) 0.5 % Neut % (Auto) 44.0 % Lymph % (Auto) 46.3 % [place] % (Auto) 9.0 % Eos % (Auto) 0.0 % Baso % (Auto) 0.2 % Neut # (Auto) 2.92 (1.40-6.50) K/uL Lymph # (Auto) 3.07 (1.2-3.4) K/uL [place] # (Auto) 0.60 H (0.11-0.59) K/uL Eos # (Auto) 0.00 (0-0.50) K/uL Baso # (Auto) 0.01 (0-0.2) K/uL Immature Gran # (Auto) 0.03 (0.01-0.20) K/uL Platelet Estimate (Normal) Polychromasia 1+ Acanthocytes (Spur) Peripher Smr Path Cons PT (9.0-12.0) Seconds INR (0.9-1.1) APTT (21.0-31.0) Seconds PTT Ratio VBG pH (7.36-7.41) VBG pCO2 (38-50) mmHg VBG pO2 mmHg VBG HCO3 mmol/L VBG O2 Saturation % VBG Base Excess mEq/L Sodium 132 L (136-145) mmol/L Potassium 4.6 (3.5-5.1) mmol/L Chloride 108 H (98-107) mmol/L Carbon Dioxide 19 L (21-32) mmol/L Anion Gap 5 (3-11) BUN 19 (6-23) mg/dl Creatinine 0.66 (0.6-1.4) mg/dl Est Cr Clr Drug Dosing 133.0 ml/min Est GFR ( Amer) 119.3 ml/min Est GFR (Non-Af Amer) 102.9 ml/min BUN/Creatinine Ratio 28.8 H (10-20) Glucose 123 H (70-99(Fasting)) mg/dl Estimat Average Glucose mg/dl Hemoglobin A1c (4.5-5.6) % Osmolality (280-300) mOsm/kg Lactate (0.4-2.0) mmol/L Calcium 8.0 L (8.6-10.3) mg/dl Phosphorus 2.2 L (2.5-4.9) mg/dl Magnesium 2.1 (1.7-2.4) mg/dl Total Bilirubin (0.2-1.0) mg/dl AST (13-39) U/L ALT (7-52) U/L Alkaline Phosphatase (34-104) U/L Ammonia (18-72) umol/L Total Creatine Kinase (30-223) U/L Troponin I High Sens (0-20) pg/ml B-Natriuretic Peptide (0-100) pg/ml Total Protein (6.0-8.3) gm/dl Albumin (3.4-5.0) gm/dl Globulin (2.5-4.0) gm/dl Albumin/Globulin Ratio (0.9-2) 25-OH Vitamin D Total 22.5 L (30-100) ng/ml Procalcitonin (0-0.5) ng/ml TSH (0.300-4.500) uIu/ml Urine Color Urine Appearance (Clear) Urine pH (4.5-7.5) Ur Specific [place] (1.000-1.030) Urine Protein (Negative) Urine Glucose (UA) (Negative) Urine Ketones (Negative) Urine Blood (Negative) Urine Nitrite (Negative) Urine Bilirubin (Negative) Urine Urobilinogen (Negative) Ur Leukocyte Esterase (Negative) Urine WBC (Auto) (0-5) /hpf Urine RBC (Auto) (0-4) /hpf U Hyaline Cast (Auto) (0-5) /lpf U Epithel Cells (Auto) (0-5) /lpf Urine Bacteria (Auto) (Negative) Urine Osmolality (500-800) mOsm/kg Ur Random Creatinine mg/dl U Random Total Protein (0-11.9) mg/dl Ur Random Sodium mmol/L Protein/Creatinin Ratio (0-0.2) Urine Opiates Screen (Neg) Ur Methadone, Qual (Neg) Urine Barbiturates (Neg) Ur Phencyclidine (PCP) (Neg) U Amphetamin/Meth Scrn (Neg) MDMA (Ecstasy) Screen (Neg) U Benzodiazepines Scrn (Neg) Ur Cocaine Metabolite (Neg) U Marijuana (THC) Screen (Neg) Ethyl Alcohol mg/dL (<10.0) mg/dl Anaplasma Smear Anaplasma Comment Lyme Disease IgG Ab (Negative) Lyme Disease IgM Ab (Negative) SARS-CoV-2, RNA, NAAT (NEGATIVE) Blood Type Blood Type Recheck Antibody Screen
[2022-10-04] MEDS: SODIUM CHLORIDE 0.9% 1000ML 1,000 ML IV SCH (08:23)
[2022-10-04] MEDS: METOPROLOL TARTRATE 25 MG TAB PO SCH ×2 (08:24→20:32)
[2022-10-04] MEDS: ACETAMINOPHEN 325 MG TAB PO SCH ×3 (08:25→20:32)
[2022-10-04] MEDS: DOXYCYCLINE HYCLATE 100 MG in DEXTROSE 5% 100 ML IV SCH ×2 (08:30→20:32)
[2022-10-04] MEDS: CEFEPIME 2,000 MG in SYRINGE 0 ML IV SCH ×2 (08:30→15:28)
[2022-10-04] MEDS: oxyCODONE HCL IR 5 MG TAB (IMMEDIATE RELEASE) PO PRN ×2 (10:16→20:48)
--- NOTE | 2022-10-04 11:22 | Nephrology Progress Note ---
Date of Service October 04, 2022 Assessment & Plan (1) Hyponatremia: Plan: hypovolemic hypotonic hyponatremia. presenting sodium 126 in a septic patient w/ hypotension w/ meth in his system, tachycardia, AF w/ RVR and climbing lactate. unclear cause; may be hypovolemic but at risk for SIADH/low solute diet picture. note also that as liver pt he may have normal BP in low 100s systolic. improving at acceptable rate to 132 today; responding as hypovolemic though at risk for SIADH type process -maintain eukalemia -goal sNa by tomorrow am is no more than 138 -changed NS to 1/2 ns W/ 75 MeQ/L sodium bicarb -HR better controlled currently - follow-up any new cardiology recs (2) Abnormal urine findings: Plan: 800 mg proteinuria, microhematuria; no evidence of infection. may well relate to hcv hx versus Lyme dz/anaplasma. denies nsaid use. -quantify proteinuria -follow blood tests of renal function -at risk for [place] w/ dye load but so far no evidence of this -f/u pending hepatitis panels -further w/u pending above Admission and Anticipated Discharge Date Admission Date: October 02, 2022 Subjective OR yesterday; pain controlled when I saw him mid afternoon. no sob Review of Systems Review of Systems: All systems reviewed & are unremarkable except as noted in Subjective Physical Exam Constitutional: well developed, well nourished and cooperative; no acute distress Eyes: EOM intact bilaterally ENMT: Ears: no external ear abnormality Nose: no external nose abnormality Mouth: + dry oral mucous membranes Neck: no nuchal rigidity Respiratory: normal respiratory effort (Lying flat on room air); no cough Auscultation: + diminished lung sounds Cardiovascular: Rate/Rhythm: + tachycardic Extremities: no edema Gastrointestinal (Abdomen): Inspection/Auscultation: normal bowel sounds Percussion/Palpation: abdomen soft; abdomen nontender Musculoskeletal: Extremities: + limited ROM of extremities (R leg ext rotated) and strength 5/5 throughout Skin: no rashes, warm and dry Psychiatric: Orientation: alert and oriented x 3 Results & Data Vital Signs (Past 12 Hours) Vital Signs Temp Pulse Pulse Resp BP Pulse Ox Pulse Ox 10/04/22 08:11 36.4 C L 69 18 104/68 99 10/04/22 06:09 85 10/04/22 06:00 113/77 10/04/22 03:00 95 10/04/22 02:49 36.1 C L 91 H 16 102/65 95 O2 Del Method O2 Del Method 10/04/22 08:11 Room Air 10/04/22 06:09 10/04/22 06:00 10/04/22 03:00 Room Air 10/04/22 02:49 Room Air Laboratory Results 10/04/22 05:50 10/04/22 05:50
--- NOTE | 2022-10-04 11:25 | Hospitalist Progress Note ---
Date of Service October 04, 2022 Assessment & Plan (1) Lyme disease: (2) Anaplasmosis: (3) Lactic acidosis: (4) Hyponatremia: (5) Closed fracture of right hip: Plan 62-year-old male male with history of hep C treated, cirrhosis, was not seen a physician for long time and is not on any meds except for herbals admitted with right hip fracture, Lyme disease/anaplasmosis, lactic acidosis and hyponatremia X-ray right hip- Acute comminuted, moderately displaced intertrochanteric fracture of the right femur. CT A/P- 1. Intertrochanteric comminuted fracture of the right hip is described otherwise normal alignment. 2. Mild acute compression fracture of L1 with no retropulsion or extension to the pedicles. 3. Cirrhosis with mild splenomegaly and possible small esophageal varices. No evidence of visceral injury. No intra-abdominal hematoma and free fluid seen. 4. Possible nonobstructive stone within the left lower renal pole measuring 2.2 mm. Remainder of bilateral kidneys are unremarkable. 5. Cannot exclude mild enterocolitis in the appropriate clinical context, clinical correlation recommended. CT chest, head and cervical spine with no acute findings Echo with hyperdynamic left ventricle, EF more than 75%,borderline consider LVH, no significant valvular disease, no pulm hypertension Closed right hip fracture-due to fall. CT reviewed as above. - Status post open reduction internal fixation right hip fracture with trochanteric femoral nail fixation with fenestrated helical blade 10/03 per Ortho surgery -Continue physical therapy, pain management, bowel regimen -Okay to resume DVT prophylaxis per Ortho from this evening L1 fracture-due to fall. CT reviewed as above. Consulted spine orthopedics Lyme disease/anaplasmosis- reported tick bite last week. Labs positive for Anaplasma and Lyme disease. Started on doxycycline 10/02. Lactic acidosis-significantly improved. Lactic acid probably not clearing up because of his liver cirrhosis. No need for further trending. Clx negative- can likely discontinue cefepime and monitor. He does not meet SIRS or sepsis criteria on admission-no fever or leukocytosis or hypotension noted. A-fib with RVR-resolved, now back to NSR. He went to A-fib with RVR at 5 PM 10/02 and was in normal sinus rhythm when he came out of the OR yesterday 10/03. His A- fib was likely related to the underlying stressors and is now resolved. Echo reviewed. Telemetry reviewed. Seen by cardiology. His CHADS2 VASc is 0 and would not require anticoagulation. Hyponatremia-sodium has improved 125->126->130->132 with IVF. Nephrology following. Will be cautious with further crystalloids given his cirrhosis of liver and risk for third spacing. Likely will correct with good oral intake. Hypophosphatemia-repleted. Recheck in a.m. Polysubstance abuse- UDS positive for amphetamine and marijuana. Does smoke few cigarettes a day. States he used to drink alcohol in the past. Thrombocytopenia-due to tickborne disease. Overall stable. Monitor. Cirrhosis of liver with mild splenomegaly and possible small esophageal varices- no ascites noted. No acute encephalopathy. Patient does report history of hep C treated in the past and was seen at [facility]. Patient does not see any GI doctors locally. Recommended GI follow-up at discharge with EGD DVT prophylaxis- will start subcu heparin today evening as per orthopedics Disposition: PT OT evaluation. We will need rehab. Admission and Anticipated Discharge Date Admission Date: October 02, 2022 Subjective Patient was seen and examined at bedside. He is feeling a lot better today. Pain is improved. Oral intake improved. No fever, chills, chest pain or shortness of breath or nausea or vomiting. States he has 21 stairs to get to his apartment and there are no elevators. Review of Systems Review of Systems: All systems reviewed & are unremarkable except as noted in Subjective Physical Exam Physical Exam: General: Sick looking, lying comfortably in bed, not in acute distress, on room air HEENT: EOMI, KAMALJIT, MMM, poor oral hygiene Chest: Fair breath sounds bilaterally CVS: Regular, normal heart sounds, no murmur Abdomen: Soft, non tender, not distended, normal bowel sounds Neuro: Awake, alert, oriented, conversing well Extremities: No cyanosis, clubbing or edema. Rt hip incision site clean dry intact covered with dressing. Results & Data Results & Data Vital Signs (Past 12 Hours) Vital Signs Temp Pulse Pulse Resp BP Pulse Ox Pulse Ox 10/04/22 08:11 36.4 C L 69 18 104/68 99 10/04/22 06:09 85 10/04/22 06:00 113/77 10/04/22 03:00 95 10/04/22 02:49 36.1 C L 91 H 16 102/65 95 O2 Del Method O2 Del Method 10/04/22 08:11 Room Air 10/04/22 06:09 10/04/22 06:00 10/04/22 03:00 Room Air 10/04/22 02:49 Room Air Laboratory Results Short CBC 10/04/22 Range/Units 05:50 WBC 6.63 (4.8-10.8) K/ul Hgb 9.9 L (14.0-18.0) g/dl Hct 28.8 L (42.0-52.0) % Plt Count 77 L (130-400) K/uL BMP 10/04/22 05:50 Sodium 132 L Potassium 4.6 Chloride 108 H Carbon Dioxide 19 L BUN 19 Creatinine 0.66 Glucose 123 H Calcium 8.0 L Medications Administered Current Inpatient Medications Acetaminophen (Acetaminophen 325 Mg Tab) 650 mg PO TID [facility] Stop: 11/01/22 20:59 Last Admin: 10/04/22 08:25 Dose: 650 mg Promethazine HCl 6.25 mg/ (Sodium Chloride) 50.25 mls @ 201 mls/hr IV Q6H PRN PRN Reason: Nausea And Vomiting Stop: 11/01/22 02:22 Cefepime HCl 2,000 mg/ Syringe 20 mls @ 5 mls/min IV Q8H [facility]; Protocol Stop: 10/12/22 07:59 Last Admin: 10/04/22 08:30 Dose: 5 mls/min Doxycycline Hyclate 100 mg/ (Dextrose) 110 mls @ 50 mls/hr IV Q12H [facility]; Protocol Stop: 10/16/22 08:59 Last Infusion: 10/04/22 10:50 Dose: Infused Sodium Chloride (Nss 1000ml) 1,000 mls @ 100 mls/hr IV .Q10H [facility] Stop: 11/01/22 10:14 Last Admin: 10/04/22 08:23 Dose: 100 mls/hr Metoprolol Tartrate (Metoprolol Tartrate 25 Mg Tab) 12.5 mg PO BID [facility] Stop: 11/01/22 20:59 Last Admin: 10/04/22 08:24 Dose: 12.5 mg Morphine Sulfate (Morphine Sulfate 4 Mg/Ml 1 Ml Carp\Vial) 3 mg IV Q3H PRN PRN Reason: Pain Stop: 10/16/22 18:57 Last Admin: 10/04/22 05:58 Dose: 3 mg Oxycodone HCl (Oxycodone Hcl Ir 5 Mg Tab (Immediate Release)) 5 mg PO Q4H PRN PRN Reason: Pain Stop: 10/16/22 02:22 Last Admin: 10/04/22 10:16 Dose: 5 mg
[2022-10-04 11:42] LABS: Amphetamine Urine, Confirm 411 ng/mL (<250); Marijuana Quant, GCMS Urine 77 ng/mL (<5); Methamphetamine, Ur Confirm 1150 ng/mL (<250)
[2022-10-04] MEDS: SODIUM BICARBONATE 8.4% 75 MEQ in SODIUM CHLORIDE 0.45 % 1,000 ML IV SCH (12:42)
--- NOTE | 2022-10-04 12:57 | Cardiology Progress Note ---
Date of Service October 04, 2022 Assessment & Plan (1) Severe sepsis: (2) Anaplasmosis: (3) Acute alteration in mental status: (4) Acute pain of right hip: (5) Atrial fibrillation: (6) Elevated troponin: Plan 62-year-old male admitted with anaplasmosis, following a fall appearing to be secondary to hypovolemia/hypotension with resultant right hip fracture and acute compression fracture of L1. Patient status post October 03, 2022 right hip nailing, returning from the OR in sinus rhythm, previously with paroxysmal asymptomatic atrial fibrillation with a rapid ventricular response Workup this admission notable for emphysema, cirrhosis with possible small distal esophageal varices, thrombocytopenia, hyponatremia. High-sensitivity troponin I minimally elevated and flat with resting echocardiography revealing hyperdynamic LV systolic function without significant valvular disease or pulmonary hypertension. Recommend continuation of metoprolol as prescribed. Risks of long-term anticoagulation appear greater than the benefit; [id number] Score is 1 point. Doxycycline for anaplasmosis/Lyme. Increase activity as tolerated. Admission and Anticipated Discharge Date Admission Date: October 02, 2022 Supervising Physician Co-Signing Physician Notes Patient seen and examined at the bedside. Hip pain improved post orthopedic surgery. Sinus rhythm on telemetry currently. Denies chest pain or shortness of breath. PE: VSS. Gen: NAD, Awake and alert. Heart: Regular rhythm. No murmur. Lungs: clear B/L. No R/R/W. Ext: no edema. A/P: Agree with above PA-C history, physical exam, assessment and plan. 62-year-old patient with paroxysmal atrial fibrillation in the setting of fall, hip fracture, and anaplasmosis infection. Spontaneously converted to sinus rhythm. Continue beta-lina therapy. Long-term risk of anticoagulation appears to outweigh benefit. Treatment of tickborne disease as per internal medicine. Subjective Patient seen and examined. Chart, medications, and telemetry reviewed. Status post October 03, 2022 ORIF, right trochanteric femoral nail by Dr. Oscar. Patient returned from the OR in sinus rhythm which has been maintained thereafter, initially presenting in sinus tachycardia on though lapsing and atrial fibrillation this admission, in the setting of anaplasmosis/Lyme disease, polysubstance abuse, right hip fracture, liver cirrhosis with splenomegaly, esophageal varices, thrombocytopenia. Patient feels substantially better today, attributed to treatment for anaplasmosis/Lyme disease. No current complaints or concerns. No chest pain. No palpitations. No shortness of breath. No orthopnea or PND. No peripheral edema. No dizziness or near syncope. No fevers or chills. Telemetry: Reviewed. In atrial fibrillation with a controlled ventricular response until removed from telemetry for surgery, returning from the OR in sinus rhythm with occasional atrial ectopy. Review of Systems Review of Systems: Complete review of systems is otherwise as stated above, negative, or noncontributory Physical Exam Physical Exam: General: A&Ox3. NAD. HENT: Normocephalic. Atraumatic. Mouth: Poor dentition Eyes: PER. Conjunctiva pink, sclera clear. Neck: No carotid bruits. No JVD. No HJR. Heart: Regular at 70 bpm. Soft systolic ejection murmur. No diastolic murmur. No rub. No gallop. PMI is nondisplaced. Lungs: Clear to auscultation. Abdomen: +BS. Soft. Nontender. No masses or organomegaly. Extremities: ? Mild clubbing. No cyanosis. No edema. Limited neurological examination is without focal deficits. Pulses: radial=2/4, posterior tibial=1/4. Results & Data Vital Signs (Past 12 Hours) Vital Signs Temp Pulse Pulse Resp BP Pulse Ox Pulse Ox 10/04/22 11:38 36.3 C L 79 16 105/72 97 10/04/22 08:11 36.4 C L 69 18 104/68 99 10/04/22 06:09 85 10/04/22 06:00 113/77 10/04/22 03:00 95 10/04/22 02:49 36.1 C L 91 H 16 102/65 95 O2 Del Method O2 Del Method 10/04/22 11:38 Room Air 10/04/22 08:11 Room Air 10/04/22 06:09 10/04/22 06:00 10/04/22 03:00 Room Air 10/04/22 02:49 Room Air Laboratory Results CBC 10/04/22 Range/Units 05:50 WBC 6.63 (4.8-10.8) K/ul RBC 3.17 L (4.70-6.10) M/uL Hgb 9.9 L (14.0-18.0) g/dl Hct 28.8 L (42.0-52.0) % Plt Count 77 L (130-400) K/uL Neut # (Auto) 2.92 (1.40-6.50) K/uL Lymph # (Auto) 3.07 (1.2-3.4) K/uL [place] # (Auto) 0.60 H (0.11-0.59) K/uL Eos # (Auto) 0.00 (0-0.50) K/uL Baso # (Auto) 0.01 (0-0.2) K/uL Comprehensive Metabolic Panel 10/04/22 Range/Units 05:50 Sodium 132 L (136-145) mmol/L Potassium 4.6 (3.5-5.1) mmol/L Chloride 108 H (98-107) mmol/L Carbon Dioxide 19 L (21-32) mmol/L BUN 19 (6-23) mg/dl Creatinine 0.66 (0.6-1.4) mg/dl Glucose 123 H (70-99(Fasting)) mg/dl Calcium 8.0 L (8.6-10.3) mg/dl Intake and Output 10/03/22 10/04/22 10/04/22 22:59 06:59 14:59 Intake Total 2180 / 4147 350 / 4147 1696.667 / 1696.667 Output Total 375 / 1175 800 / 1175 400 / 400 Balance 1805 / 2972 -450 / 2972 1296.667 / 1296.667 Intake: IV 1000 / 2727 110 / 2727 1421.667 / 1421.667 Doxycycline Hyclate 100 mg In 110 / 220 110 / 110 Dextrose 5% 100 ml @ 50 mls/hr IV Q12H [facility] Rx#:[id number] Sodium Chloride 0.9% 1000ML 1, 1000 / 1999 1311.667 / 1311.667 000 ml @ 100 mls/hr IV .Q10H [facility] Rx#:[id number] IV Perioperative 700 / 700 Oral 480 / 720 240 / 720 275 / 275 Output: Estimated Blood Loss 75 / 75 Urine Amount (Catheter) 300 / 1100 800 / 1100 400 / 400 Infante/Indwelling 300 / 1100 800 / 1100 400 / 400 Other: Weight 91.1 kg 92.2 kg Weight Measurement Method Built in [facility]
[2022-10-04] MEDS: POT PHOSPHATE MONOBASIC W/ SOD TAB PO SCH ×3 (13:13→20:33)
[2022-10-04 18:18] LABS: HBSAG NON-REACTIVE (NON-REACTIVE); Hepatitis A Antibody IgM NON-REACTIVE (NON-REACTIVE); Hepatitis B Core Antibody IgM NON-REACTIVE (NON-REACTIVE); Hepatitis C Vira RNA (Log) PCR 3.84 Log IU/mL (NOT DETECTED); Hepatitis C Viral RNA by PCR 6980 IU/mL (NOT DETECTED)
[2022-10-04] MEDS: HEPARIN SOD 5,000 UNIT/0.5 ML VIAL SQ SCH (20:04)
[2022-10-05] MEDS: SODIUM BICARBONATE 8.4% 75 MEQ in SODIUM CHLORIDE 0.45 % 1,000 ML IV SCH (02:09)
[2022-10-05] MEDS: MoRPHine SULFATE 4 MG/ML 1 ML CARP\\VIAL IV PRN ×2 (02:22→18:43)
[2022-10-05] MEDS: CALCIUM CARBONATE 500 MG CHEWABLE TAB PO PRN ×2 (03:49→16:24)
[2022-10-05] MEDS: HEPARIN SOD 5,000 UNIT/0.5 ML VIAL SQ SCH ×3 (05:43→21:01)
[2022-10-05 06:40] LABS: Hematocrit (blood only) 26.5 % (42.0-52.0); Hemoglobin 9.1 g/dl (14.0-18.0); Mean Corpuscular Hemoglobin 31.4 pg (25.0-34.0); Mean Corpuscular Hgb Conc 34.3 g/dL (32.0-36.0); Mean Corpuscular Volume 91.4 fL (80.0-100.0); Mean Platelet Volume 11.3 fL (9.4-12.4); Nucleated RBC # (auto) 0.03 K/uL (0-0.12); Nucleated RBC % (auto) 0.4 %; Platelet Count 89 K/uL (130-400); RDW Standard Deviation 50.2 fL (36.4-46.3); White Blood Count 6.76 K/ul (4.8-10.8)
[2022-10-05] MEDS ORDERED: MAGNESIUM HYDROXIDE SUSP 30 ML UDC PO ONE (06:41)
[2022-10-05 07:02] LABS: BUN Creatinine Ratio 25.4 (10-20); Calcium 7.8 mg/dl (8.6-10.3); Creatinine Clr Calc Pharmacy 149.4 ml/min; Est GFR (African American) 124.9 ml/min; Est GFR (Non-African American) 107.7 ml/min; Potassium 4.2 mmol/L (3.5-5.1)
[2022-10-05] MEDS: ACETAMINOPHEN 325 MG TAB PO SCH ×3 (08:34→20:45)
[2022-10-05] MEDS: POT PHOSPHATE MONOBASIC W/ SOD TAB PO SCH ×4 (08:34→20:47)
[2022-10-05] MEDS: DOXYCYCLINE HYCLATE 100 MG in DEXTROSE 5% 100 ML IV SCH (08:37)
[2022-10-05] MEDS: POLYETHYLENE (MIRALAX) 17 GM PACK PO SCH (08:38)
--- NOTE | 2022-10-05 09:38 | Orthopedic Progress Note ---
Date of Service October 05, 2022 Assessment & Plan (1) Closed fracture of right hip: Plan: Postop day #2 right trochanteric femoral nailing -PT/OT: Toe-touch weightbearing right lower extremity -Pain management as written. -DVT prophylaxis: SCDs, TEDs, Anticoagulation as per medicine. Okay to resume anticoagulation this evening. -Discharge plan: Patient likely will require rehab at discharge. He lives alone in a second floor apartment. PT/OT eval's pending. Orthopedics will sign off at this time. Instructions placed in discharge section. Please call with any questions. Admission and Anticipated Discharge Date Admission Date: October 02, 2022 Subjective Postop day 2 Patient sitting up and eating breakfast in bed. Patient is feeling much better overall. Pain is controlled. Physical Exam Physical Exam: Dressings are clean, dry, and intact. Calves are soft nontender. Neurovascular is intact. Toes are mobile. Results & Data Vital Signs (Past 12 Hours) Vital Signs Temp Pulse Pulse Pulse Resp BP BP 10/05/22 07:59 36.5 C 76 20 105/66 10/05/22 04:09 36.5 C 72 18 107/69 10/05/22 03:00 10/04/22 22:28 78 10/04/22 23:04 36.5 C 86 18 101/65 Pulse Ox Pulse Ox O2 Del Method O2 Del Method 10/05/22 07:59 96 Room Air 10/05/22 04:09 97 Room Air 10/05/22 03:00 94 Room Air 10/04/22 22:28 10/04/22 23:04 93 Room Air Laboratory Results 10/05/22 10/05/22 10/02/22 Range/Units 05:34 05:34 05:20 WBC 6.76 (4.8-10.8) K/ul RBC 2.90 L (4.70-6.10) M/uL Hgb 9.1 L (14.0-18.0) g/dl Hct 26.5 L (42.0-52.0) % MCV 91.4 (80.0-100.0) fL MCH 31.4 (25.0-34.0) pg MCHC 34.3 (32.0-36.0) g/dL RDW Std Deviation 50.2 H (36.4-46.3) fL RDW Coeff of Yanni 15.0 H (11.5-14.5) % Plt Count 89 L (130-400) K/uL MPV 11.3 (9.4-12.4) fL Absolute Nucleated RBC 0.03 (0-0.12) K/uL Nucleated RBC % (auto) 0.4 % Sodium 137 (136-145) mmol/L Potassium 4.2 (3.5-5.1) mmol/L Chloride 109 H (98-107) mmol/L Carbon Dioxide 25 (21-32) mmol/L Anion Gap 3 (3-11) BUN 15 (6-23) mg/dl Creatinine 0.59 L (0.6-1.4) mg/dl Est Cr Clr Drug Dosing 149.4 ml/min Est GFR ( Amer) 124.9 ml/min Est GFR (Non-Af Amer) 107.7 ml/min BUN/Creatinine Ratio 25.4 H (10-20) Glucose 101 H (70-99(Fasting)) mg/dl Calcium 7.8 L (8.6-10.3) mg/dl Phosphorus 2.0 L (2.5-4.9) mg/dl U Amphetamines Confirm (<250) ng/mL U Methamphetamin Confrm (<250) ng/mL U Marijuana THC Carboxy (<5) ng/mL Drug Screen Comment Hepatitis A IgM Ab NON-REACTIVE (NON-REACTIVE) Hep Bs Antigen NON-REACTIVE (NON-REACTIVE) Hep Bs Ag Confirmation TNP Hep B Core IgM Ab NON-REACTIVE (NON-REACTIVE) Hepatitis C Ab (EIA) REACTIVE A (NON-REACTIVE) Hep C Ab Signal/Cutoff Pending HCV RNA (PCR) IUs/ml 6980 H (NOT DETECTED) IU/mL HCV RNA PCR log IUs/ml 3.84 H (NOT DETECTED) Log IU/mL Hepatitis C RNA Comment SEE NOTE 10/01/22 Range/Units 22:26 WBC (4.8-10.8) K/ul RBC (4.70-6.10) M/uL Hgb (14.0-18.0) g/dl Hct (42.0-52.0) % MCV (80.0-100.0) fL MCH (25.0-34.0) pg MCHC (32.0-36.0) g/dL RDW Std Deviation (36.4-46.3) fL RDW Coeff of Yanni (11.5-14.5) % Plt Count (130-400) K/uL MPV (9.4-12.4) fL Absolute Nucleated RBC (0-0.12) K/uL Nucleated RBC % (auto) % Sodium (136-145) mmol/L Potassium (3.5-5.1) mmol/L Chloride (98-107) mmol/L Carbon Dioxide (21-32) mmol/L Anion Gap (3-11) BUN (6-23) mg/dl Creatinine (0.6-1.4) mg/dl Est Cr Clr Drug Dosing ml/min Est GFR ( Amer) ml/min Est GFR (Non-Af Amer) ml/min BUN/Creatinine Ratio (10-20) Glucose (70-99(Fasting)) mg/dl Calcium (8.6-10.3) mg/dl Phosphorus (2.5-4.9) mg/dl U Amphetamines Confirm 411 H (<250) ng/mL U Methamphetamin Confrm 1150 H (<250) ng/mL U Marijuana THC Carboxy 77 H (<5) ng/mL Drug Screen Comment SEE NOTE Hepatitis A IgM Ab (NON-REACTIVE) Hep Bs Antigen (NON-REACTIVE) Hep Bs Ag Confirmation Hep B Core IgM Ab (NON-REACTIVE) Hepatitis C Ab (EIA) (NON-REACTIVE) Hep C Ab Signal/Cutoff HCV RNA (PCR) IUs/ml (NOT DETECTED) IU/mL HCV RNA PCR log IUs/ml (NOT DETECTED) Log IU/mL Hepatitis C RNA Comment
[2022-10-05] MEDS: METOPROLOL TARTRATE 25 MG TAB PO SCH ×2 (09:49→20:45)
--- NOTE | 2022-10-05 11:12 | Cardiology Progress Note ---
Date of Service October 05, 2022 Assessment & Plan (1) Severe sepsis: (2) Anaplasmosis: (3) Acute alteration in mental status: (4) Acute pain of right hip: (5) Atrial fibrillation: (6) Elevated troponin: Plan 62-year-old male admitted with anaplasmosis/Lyme, following a fall appearing to be secondary to hypovolemia/hypotension with resultant right hip fracture and acute compression fracture of L1. Status post October 03, 2022 right hip nailing, returning from the OR in sinus rhythm, initially presenting to the hospital with sinus tachycardia before lapsing into paroxysmal atrial fibrillation with a rapid ventricular response. Workup this admission notable for emphysema, cirrhosis with possible small distal esophageal varices, thrombocytopenia, hyponatremia. High-sensitivity troponin I minimally elevated and flat with resting echocardiography revealing hyperdynamic LV systolic function without significant valvular disease or pulmonary hypertension. Recommend continuation of metoprolol as prescribed. Risks of long-term anticoagulation appear greater than the benefit; [id number] Score is 1 point. Doxycycline for anaplasmosis/Lyme. Increase activity as tolerated. Please contact with any further questions or concerns Recommend outpatient cardiology follow-up in [place] Admission and Anticipated Discharge Date Admission Date: October 02, 2022 Supervising Physician Co-Signing Physician Notes Patient seen and examined at the bedside. Hip pain improved post orthopedic surgery. Sinus rhythm on telemetry currently. Denies chest pain or shortness of breath. PE: VSS. Gen: NAD, Awake and alert. Heart: Regular rhythm. No murmur. Lungs: clear B/L. No R/R/W. Ext: no edema. A/P: Agree with above PA-C history, physical exam, assessment and plan. 62-year-old patient with paroxysmal atrial fibrillation in the setting of fall, hip fracture, and anaplasmosis infection. Spontaneously converted to sinus rhythm. Continue beta-lina therapy. Long-term risk of anticoagulation appears to outweigh benefit. Treatment of tickborne disease as per internal medicine. No further inpatient cardiac testing or intervention. Cardiology will sign off. Please call with questions. Subjective Patient seen and examined. Chart, medications, telemetry reviewed. Telemetry: Patient maintaining sinus rhythm since returning from the OR, currently sinus in the 70s. Patient notes "I feel 100% better since I came in to the hospital." Complaints noted include some acid reflux that is typically aided at home by avoiding lying down after eating and constipation, without recent bowel movement. No chest pain. No palpitations. No shortness of breath. No dizziness. No fevers or chills. Review of Systems Review of Systems: Complete review of systems is otherwise as stated above, negative, or noncontributory Physical Exam Physical Exam: General: A&Ox3. NAD. HENT: Normocephalic. Atraumatic. Mouth: Poor dentition Eyes: PER. Conjunctiva pink, sclera clear. Neck: No carotid bruits. No JVD. No HJR. Heart: Regular at 70 bpm. Soft systolic ejection murmur. No diastolic murmur. No rub. No gallop. PMI is nondisplaced. Lungs: Clear to auscultation. Abdomen: +BS. Soft. Nontender. No masses or organomegaly. Extremities: ? Mild clubbing. No cyanosis. No edema. Limited neurological examination is without focal deficits. Pulses: radial=2/4, posterior tibial=1/4. Results & Data Vital Signs (Past 12 Hours) Vital Signs Temp Pulse Pulse Pulse Resp BP BP 10/05/22 05:55 74 10/05/22 07:59 36.5 C 76 20 105/66 10/05/22 04:09 36.5 C 72 18 107/69 10/05/22 03:00 Pulse Ox Pulse Ox O2 Del Method O2 Del Method 10/05/22 05:55 10/05/22 07:59 96 Room Air 10/05/22 04:09 97 Room Air 10/05/22 03:00 94 Room Air Laboratory Results CBC 10/05/22 Range/Units 05:34 WBC 6.76 (4.8-10.8) K/ul RBC 2.90 L (4.70-6.10) M/uL Hgb 9.1 L (14.0-18.0) g/dl Hct 26.5 L (42.0-52.0) % Plt Count 89 L (130-400) K/uL Comprehensive Metabolic Panel 10/05/22 Range/Units 05:34 Sodium 137 (136-145) mmol/L Potassium 4.2 (3.5-5.1) mmol/L Chloride 109 H (98-107) mmol/L Carbon Dioxide 25 (21-32) mmol/L BUN 15 (6-23) mg/dl Creatinine 0.59 L (0.6-1.4) mg/dl Glucose 101 H (70-99(Fasting)) mg/dl Calcium 7.8 L (8.6-10.3) mg/dl Intake and Output 10/04/22 10/05/22 10/05/22 22:59 06:59 14:59 Intake Total 110 / 3361.667 1555 / 3361.667 632.667 / 632.667 Output Total 850 / 1250 Balance 110 / 2111.667 705 / 2111.667 632.667 / 632.667 Intake: IV 110 / 2606.667 1075 / 2606.667 632.667 / 632.667 Doxycycline Hyclate 100 mg In 110 / 220 110 / 110 Dextrose 5% 100 ml @ 50 mls/hr IV Q12H [facility] Rx#:[id number] Sodium Bicarbonate 8.4% 75 meq 1075 / 1075 522.667 / 522.667 In Sodium Chloride 0.45 % 1,000 ml @ 80 mls/hr IV [id number] [facility] Rx#:[id number] Oral 480 / 755 Output: Urine Amount (Catheter) 850 / 1250 Infante/Indwelling 850 / 1250 Other: Weight 93.1 kg Weight Measurement Method Built in [facility]
--- NOTE | 2022-10-05 13:08 | Hospitalist Progress Note ---
Date of Service October 05, 2022 Assessment & Plan (1) Lyme disease: (2) Anaplasmosis: (3) Lactic acidosis: (4) Hyponatremia: (5) Closed fracture of right hip: Plan 62-year-old male male with history of hep C treated, cirrhosis, was not seen a physician for long time and is not on any meds except for herbals admitted with right hip fracture, Lyme disease/anaplasmosis, lactic acidosis and hyponatremia X-ray right hip- Acute comminuted, moderately displaced intertrochanteric fracture of the right femur. CT A/P- 1. Intertrochanteric comminuted fracture of the right hip is described otherwise normal alignment. 2. Mild acute compression fracture of L1 with no retropulsion or extension to the pedicles. 3. Cirrhosis with mild splenomegaly and possible small esophageal varices. No evidence of visceral injury. No intra-abdominal hematoma and free fluid seen. 4. Possible nonobstructive stone within the left lower renal pole measuring 2.2 mm. Remainder of bilateral kidneys are unremarkable. 5. Cannot exclude mild enterocolitis in the appropriate clinical context, clinical correlation recommended. CT chest, head and cervical spine with no acute findings Echo with hyperdynamic left ventricle, EF more than 75%,borderline consider LVH, no significant valvular disease, no pulm hypertension Closed right hip fracture-due to fall. CT reviewed as above. - Status post open reduction internal fixation right hip fracture with trochanteric femoral nail fixation with fenestrated helical blade 10/03 per Ortho surgery -Continue physical therapy, pain management, bowel regimen, DVT prophylaxis -Patient will need rehab prior to returning to his apartment L1 fracture-due to fall. CT reviewed as above. Consulted spine orthopedics Lyme disease/anaplasmosis- reported tick bite last week. Labs positive for Anaplasma and Lyme disease, western blot pending. Started on doxycycline 10/02. Lactic acidosis-significantly improved. Lactic acid probably not clearing up because of his liver cirrhosis. No need for further trending. Clx negative- c efepime discontinued 10/04 and being monitored clinically. He does not meet SIRS or sepsis criteria on admission-no fever or leukocytosis or hypotension noted. A-fib with RVR-resolved, now back to NSR. He went to A-fib with RVR at 5 PM 10/02 and was in normal sinus rhythm when he came out of the OR yesterday 10/03. His A- fib was likely related to the underlying stressors and is now resolved. Echo reviewed. Telemetry reviewed. Seen by cardiology. His CHADS2 VASc is 0 and would not require anticoagulation. Hyponatremia-resolved. sodium 125->126->130->132->137 with IVF. IVF discontinued. Seen by nephrology Hypophosphatemia-repleted. Recheck in a.m. Polysubstance abuse- UDS positive for amphetamine and marijuana. Does smoke few cigarettes a day. States he used to drink alcohol in the past. Thrombocytopenia-due to tickborne disease. Improving with treatment. Monitor. Cirrhosis of liver (?alc/Hep C related) with mild splenomegaly and possible small esophageal varices-no clinical decompensation noted. patient does report history of hep C treated in the past and was seen at [place], HCV RNA load of 6980. Patient does not see any GI doctors locally. Recommended GI follow-up at discharge for the same with EGD. Vitamin D deficiency-vitamin D level 22. Start supplementation at discharge DVT prophylaxis-subcu heparin Disposition: PT recommends acute rehab- CM following. Stable to go to rehab. Admission and Anticipated Discharge Date Admission Date: October 02, 2022 Subjective Patient was seen and examined at bedside. He continues to feel better. he feels back to his baseline. Pain is controlled except when he tries to move. No fever, chills, chest pain or shortness of breath nausea vomiting. Appetite has significant improved. No bowel movement yet Review of Systems Review of Systems: All systems reviewed & are unremarkable except as noted in Subjective Physical Exam Physical Exam: General: Lying comfortably in bed, not in acute distress, on room air HEENT: EOMI, KAMALJIT, MMM, poor dentition Chest: Fair breath sounds bilaterally CVS: Regular, normal heart sounds, no murmur Abdomen: Soft, non tender, not distended, normal bowel sounds Neuro: Awake, alert, oriented, conversing well Extremities: No cyanosis, clubbing or edema. Rt hip incision site clean dry intact covered with dressing. Results & Data Results & Data Vital Signs (Past 12 Hours) Vital Signs Temp Pulse Pulse Pulse Resp BP BP 10/05/22 11:22 36.6 C 72 18 101/67 10/05/22 05:55 74 10/05/22 07:59 36.5 C 76 20 105/66 10/05/22 04:09 36.5 C 72 18 107/69 10/05/22 03:00 Pulse Ox Pulse Ox O2 Del Method O2 Del Method 10/05/22 11:22 96 Room Air 10/05/22 05:55 10/05/22 07:59 96 Room Air 10/05/22 04:09 97 Room Air 10/05/22 03:00 94 Room Air Laboratory Results Short CBC 10/05/22 Range/Units 05:34 WBC 6.76 (4.8-10.8) K/ul Hgb 9.1 L (14.0-18.0) g/dl Hct 26.5 L (42.0-52.0) % Plt Count 89 L (130-400) K/uL BMP 10/05/22 05:34 Sodium 137 Potassium 4.2 Chloride 109 H Carbon Dioxide 25 BUN 15 Creatinine 0.59 L Glucose 101 H Calcium 7.8 L Medications Administered Current Inpatient Medications Acetaminophen (Acetaminophen 325 Mg Tab) 650 mg PO TID [facility] Stop: 11/01/22 20:59 Last Admin: 10/05/22 08:34 Dose: 650 mg Calcium Carbonate (Calcium Carbonate 500 Mg Chewable Tab) 500 mg PO BID PRN PRN Reason: Indigestion Stop: 11/03/22 23:07 Last Admin: 10/05/22 03:49 Dose: 500 mg Doxycycline Hyclate (Doxycycline Hyclate 100 Mg Cap) 100 mg PO Q12H [facility] Stop: 10/16/22 08:59 Heparin Sodium (Porcine) (Heparin Sod 5,000 Unit/0.5 Ml Vial) 5,000 units SQ Q8 [facility] Stop: 11/03/22 19:59 Last Admin: 10/05/22 05:43 Dose: 5,000 units Promethazine HCl 6.25 mg/ (Sodium Chloride) 50.25 mls @ 201 mls/hr IV Q6H PRN PRN Reason: Nausea And Vomiting Stop: 11/01/22 02:22 Metoprolol Tartrate (Metoprolol Tartrate 25 Mg Tab) 12.5 mg PO BID [facility] Stop: 11/01/22 20:59 Last Admin: 10/05/22 09:49 Dose: 12.5 mg Morphine Sulfate (Morphine Sulfate 4 Mg/Ml 1 Ml Carp\Vial) 3 mg IV Q3H PRN PRN Reason: Pain Stop: 10/16/22 18:57 Last Admin: 10/05/22 02:22 Dose: 3 mg Oxycodone HCl (Oxycodone Hcl Ir 5 Mg Tab (Immediate Release)) 5 mg PO Q4H PRN PRN Reason: Pain Stop: 10/16/22 02:22 Last Admin: 10/04/22 20:48 Dose: 5 mg Polyethylene Glycol (Polyethylene (Miralax) 17 Gm Pack) 17 gm PO DAILY [facility] Stop: 11/04/22 08:59 Last Admin: 10/05/22 08:38 Dose: 17 gm Potassium Phosphate (Pot Phosphate Monobasic W/ Sod Tab) 2 tab PO QID [facility] Stop: 11/04/22 08:59 Last Admin: 10/05/22 12:17 Dose: 2 tab
--- NOTE | 2022-10-05 14:06 | Nephrology Progress Note ---
Date of Service October 05, 2022 Assessment & Plan (1) Hyponatremia: Plan: resolved hypovolemic hypotonic hyponatremia. presenting sodium 126 in a septic patient w/ hypotension w/ meth in his system, tachycardia, AF w/ RVR and climbing lactate. unclear cause; may be hypovolemic but at risk for SIADH/low solute diet picture. note also that as liver pt he may have normal BP in low 100s systolic. improving at acceptable rate to 137 today; responding as hypovolemic though at risk for SIADH type process -agree w/ stopping IVF -would d/c sosa soon WILL SIGN OFF Nephro d/c recs: -nephro RN to order recheck UACM, ACR one week after hospital d/c -hospital d/c appt nearest his home w/ nephro (ideally [facility]) re microhematuria, albuminuria 3-4 wks after hospital d/c -would recheck BMP at that time as well for sodium, other electrolytes -cardiology rec for OP f/u noted (2) Abnormal urine findings: Plan: 800 mg proteinuria, microhematuria w/ active HCV infection. ? role if any for Lyme dz/anaplasma. denies nsaid use. -OP f/u as above (3) HCV (hepatitis C virus): Plan: for GI f/u at d/c w/ EGD Admission and Anticipated Discharge Date Admission Date: October 02, 2022 Subjective sNa wnl; IVF off now today; eating heartily. still w/ sosa; no sob, no uncontrolled pain Review of Systems Review of Systems: All systems reviewed & are unremarkable except as noted in Subjective Physical Exam Constitutional: well developed, well nourished and cooperative; no acute distress Eyes: EOM intact bilaterally ENMT: Ears: no external ear abnormality Nose: no external nose abnormality Mouth: + dry oral mucous membranes Neck: no nuchal rigidity Respiratory: normal respiratory effort (on room air); no cough Auscultation: + diminished lung sounds Cardiovascular: Rate/Rhythm: regular rate and regular rhythm Extremities: no edema Gastrointestinal (Abdomen): Inspection/Auscultation: normal bowel sounds Percussion/Palpation: abdomen soft; abdomen nontender Musculoskeletal: Extremities: + limited ROM of extremities (R prox thigh dressed) and strength 5/5 throughout Skin: no rashes, warm and dry Psychiatric: Orientation: alert and oriented x 3 Genitourinary: sosa w / ample ambuer urine Results & Data Vital Signs (Past 12 Hours) Vital Signs Temp Pulse Pulse Pulse Resp BP BP 10/05/22 12:51 10/05/22 11:22 36.6 C 72 18 101/67 10/05/22 05:55 74 10/05/22 07:59 36.5 C 76 20 105/66 10/05/22 04:09 36.5 C 72 18 107/69 10/05/22 03:00 Pulse Ox Pulse Ox O2 Del Method O2 Del Method 10/05/22 12:51 97 10/05/22 11:22 96 Room Air 10/05/22 05:55 10/05/22 07:59 96 Room Air 10/05/22 04:09 97 Room Air 10/05/22 03:00 94 Room Air Laboratory Results 10/05/22 05:34 10/05/22 05:34
[2022-10-05] MEDS: oxyCODONE HCL IR 5 MG TAB (IMMEDIATE RELEASE) PO PRN ×2 (15:25→20:44)
[2022-10-05 16:27] LABS: 18KDIGG Band NON-REACTIVE; 23KDIGG Band REACTIVE; 23KDIGM Band REACTIVE; 28KDIGG Band NON-REACTIVE; 30KDIGG Band NON-REACTIVE; 39KDIGG Band REACTIVE; 39KDIGM Band REACTIVE; 41KDIGG Band REACTIVE; 41KDIGM Band REACTIVE; 45KDIGG Band NON-REACTIVE; 58KDIGG Band REACTIVE; 66KDIGG Band REACTIVE; 93KDIGG Band REACTIVE; Lyme Antibodies, WB IgG POSITIVE (NEGATIVE); Lyme Antibodies, WB IgM POSITIVE (NEGATIVE)
[2022-10-05] MEDS: DOXYCYCLINE HYCLATE 100 MG CAP PO SCH (20:45)
[2022-10-06] MEDS: HEPARIN SOD 5,000 UNIT/0.5 ML VIAL SQ SCH ×2 (05:18→14:40)
[2022-10-06 06:48] LABS: Hematocrit (blood only) 27.2 % (42.0-52.0); Hemoglobin 9.2 g/dl (14.0-18.0); Mean Corpuscular Hemoglobin 31.8 pg (25.0-34.0); Mean Corpuscular Hgb Conc 33.8 g/dL (32.0-36.0); Mean Corpuscular Volume 94.1 fL (80.0-100.0); Mean Platelet Volume 10.6 fL (9.4-12.4); Nucleated RBC % (auto) 1.3 %; Platelet Count 122 K/uL (130-400); RDW Coefficient of Variation 15.3 % (11.5-14.5); RDW Standard Deviation 51.4 fL (36.4-46.3); Red Blood Count 2.89 M/uL (4.70-6.10); White Blood Count 7.67 K/ul (4.8-10.8)
[2022-10-06 07:11] LABS: Albumin Globulin Ratio 0.5 (0.9-2); Albumin Level 2.1 gm/dl (3.4-5.0); BUN Creatinine Ratio 23.9 (10-20); Bilirubin,Total 1.4 mg/dl (0.2-1.0); Calcium 7.9 mg/dl (8.6-10.3); Creatinine Clr Calc Pharmacy 131.6 ml/min; Est GFR (African American) 118.5 ml/min; Est GFR (Non-African American) 102.3 ml/min; Globulin 3.9 gm/dl (2.5-4.0); Phosphorus 2.4 mg/dl (2.5-4.9); Potassium 3.9 mmol/L (3.5-5.1)
[2022-10-06] MEDS: oxyCODONE HCL IR 5 MG TAB (IMMEDIATE RELEASE) PO PRN ×3 (07:51→19:43)
[2022-10-06] MEDS: METOPROLOL TARTRATE 25 MG TAB PO SCH ×2 (09:17→21:23)
[2022-10-06] MEDS: DOXYCYCLINE HYCLATE 100 MG CAP PO SCH ×2 (09:17→21:20)
[2022-10-06] MEDS: ACETAMINOPHEN 325 MG TAB PO SCH ×3 (09:18→21:19)
[2022-10-06] MEDS: POLYETHYLENE (MIRALAX) 17 GM PACK PO SCH (09:18)
[2022-10-06] MEDS: POT PHOSPHATE MONOBASIC W/ SOD TAB PO SCH ×4 (09:18→21:20)
[2022-10-06] MEDS ORDERED: MAGNESIUM HYDROXIDE SUSP 30 ML UDC PO ONE (12:10)
--- NOTE | 2022-10-06 14:41 | Hospitalist Progress Note ---
Date of Service October 06, 2022 Assessment & Plan (1) Lyme disease: (2) Anaplasmosis: (3) Lactic acidosis: (4) Hyponatremia: (5) Closed fracture of right hip: Plan 62-year-old male male with history of hep C treated, cirrhosis, was not seen a physician for long time and is not on any meds except for herbals admitted with right hip fracture, Lyme disease/anaplasmosis, lactic acidosis and hyponatremia X-ray right hip- Acute comminuted, moderately displaced intertrochanteric fracture of the right femur. CT A/P- 1. Intertrochanteric comminuted fracture of the right hip is described otherwise normal alignment. 2. Mild acute compression fracture of L1 with no retropulsion or extension to the pedicles. 3. Cirrhosis with mild splenomegaly and possible small esophageal varices. No evidence of visceral injury. No intra-abdominal hematoma and free fluid seen. 4. Possible nonobstructive stone within the left lower renal pole measuring 2.2 mm. Remainder of bilateral kidneys are unremarkable. 5. Cannot exclude mild enterocolitis in the appropriate clinical context, clinical correlation recommended. CT chest, head and cervical spine with no acute findings Echo with hyperdynamic left ventricle, EF more than 75%,borderline consider LVH, no significant valvular disease, no pulm hypertension Closed right hip fracture-due to fall. CT reviewed as above. - Status post open reduction internal fixation right hip fracture with trochanteric femoral nail fixation with fenestrated helical blade 10/03 per Ortho surgery -Continue physical therapy, pain management, bowel regimen, DVT prophylaxis -Patient will need rehab prior to returning to his apartment L1 fracture-due to fall. CT reviewed as above. Consulted spine orthopedics Lyme disease/anaplasmosis- reported tick bite last week. Labs positive for Anaplasma and Lyme disease, Western blot positive for Lyme. Continue doxycycline for 10 days.. Lactic acidosis-significantly improved. Lactic acid probably not clearing up because of his liver cirrhosis. No need for further trending. Clx negative- cefepime discontinued 10/04 and being monitored clinically. He does not meet SIRS or sepsis criteria on admission-no fever or leukocytosis or hypotension noted. A-fib with RVR-resolved, now back to NSR. He went to A-fib with RVR at 5 PM 10/02 and was in normal sinus rhythm when he came out of the OR yesterday 10/03. His A- fib was likely related to the underlying stressors and is now resolved. Echo reviewed. Telemetry reviewed. Seen by cardiology. His CHADS2 VASc is 0 and would not require anticoagulation. Hyponatremia-resolved. sodium 125->126->130->132->137 with IVF. IVF discontinued. Seen by nephrology Hypophosphatemia-repleted. Recheck in a.m. Polysubstance abuse- UDS positive for amphetamine and marijuana. Does smoke few cigarettes a day. States he used to drink alcohol in the past. Thrombocytopenia-due to tickborne disease. Improving with treatment. Monitor. Cirrhosis of liver (?alc/Hep C related) with mild splenomegaly and possible small esophageal varices-no clinical decompensation noted. patient does report history of hep C treated in the past and was seen at [facility], HCV RNA load of 6980. Patient does not see any GI doctors locally. Recommended GI follow-up at discharge for the same with EGD. Vitamin D deficiency-vitamin D level 22. Start supplementation at discharge DVT prophylaxis-subcu heparin Disposition: PT recommends acute rehab- CM following. Stable to go to rehab. Time spent evaluating patient, direct bedside care, chart review, placing orders, interpretation of diagnostic studies, discussion with consultants, patient, and family members, as well as other required patient management activities is 60 minutes. Please note the above document was generated using voice recognition software. It may contain grammatical, syntax or spelling errors. Any formal questions or concerns about the content, text or information contained within the body of this dictation should be directly addressed to the provider for clarification Admission and Anticipated Discharge Date Admission Date: October 02, 2022 Subjective Patient seen and examined at bedside. He is lying in the bed comfortably. Reports that he has not had a bowel movement since surgery. Review of Systems Review of Systems: All systems reviewed & are unremarkable except as noted in Subjective Physical Exam Physical Exam: General: Lying comfortably in bed, not in acute distress, on room air HEENT: EOMI, KAMALJIT, MMM, poor dentition Chest: Fair breath sounds bilaterally CVS: Regular, normal heart sounds, no murmur Abdomen: Soft, non tender, not distended, normal bowel sounds Neuro: Awake, alert, oriented, conversing well Extremities: No cyanosis, clubbing or edema. Rt hip incision site clean dry intact covered with dressing. Results & Data Results & Data Vital Signs (Past 12 Hours) Vital Signs Temp Pulse Resp BP Pulse Ox O2 Del Method 10/06/22 11:33 Room Air 10/06/22 07:47 97 Room Air 10/06/22 07:32 36.3 C L 66 16 103/66 90 Room Air Laboratory Results Laboratory Results WBC 7.67 K/ul (4.8-10.8) 10/06/22 06:08 RBC 2.89 M/uL (4.70-6.10) L 10/06/22 06:08 Hgb 9.2 g/dl (14.0-18.0) L 10/06/22 06:08 Hct 27.2 % (42.0-52.0) L 10/06/22 06:08 MCV 94.1 fL (80.0-100.0) 10/06/22 06:08 MCH 31.8 pg (25.0-34.0) 10/06/22 06:08 MCHC 33.8 g/dL (32.0-36.0) 10/06/22 06:08 RDW Std Deviation 51.4 fL (36.4-46.3) H 10/06/22 06:08 RDW Coeff of Yanni 15.3 % (11.5-14.5) H 10/06/22 06:08 Plt Count 122 K/uL (130-400) L 10/06/22 06:08 MPV 10.6 fL (9.4-12.4) 10/06/22 06:08 Immature Gran % (Auto) 0.5 % 10/04/22 05:50 Neut % (Auto) 44.0 % 10/04/22 05:50 Lymph % (Auto) 46.3 % 10/04/22 05:50 Hand % (Auto) 9.0 % 10/04/22 05:50 Eos % (Auto) 0.0 % 10/04/22 05:50 Baso % (Auto) 0.2 % 10/04/22 05:50 Neut # (Auto) 2.92 K/uL (1.40-6.50) 10/04/22 05:50 Lymph # (Auto) 3.07 K/uL (1.2-3.4) 10/04/22 05:50 Hand # (Auto) 0.60 K/uL (0.11-0.59) H 10/04/22 05:50 Eos # (Auto) 0.00 K/uL (0-0.50) 10/04/22 05:50 Baso # (Auto) 0.01 K/uL (0-0.2) 10/04/22 05:50 Immature Gran # (Auto) 0.03 K/uL (0.01-0.20) 10/04/22 05:50 Absolute Nucleated RBC 0.10 K/uL (0-0.12) 10/06/22 06:08 Nucleated RBC % (auto) 1.3 % 10/06/22 06:08 Platelet Estimate Decreased (Normal) L 10/01/22 21:54 Polychromasia 1+ 10/04/22 05:50 Acanthocytes (Spur) 2+ 10/01/22 21:54 Peripher Smr Path Cons 10/02/22 05:20 PT 17.0 Seconds (9.0-12.0) H 10/01/22 21:54 INR 1.6 (0.9-1.1) H 10/01/22 21:54 APTT 40.4 Seconds (21.0-31.0) H* 10/01/22 21:54 PTT Ratio 1.4 10/01/22 21:54 VBG pH 7.44 (7.36-7.41) H 10/02/22 00:00 VBG pCO2 35 mmHg (38-50) L 10/02/22 00:00 VBG pO2 20 mmHg 10/02/22 00:00 VBG HCO3 24 mmol/L 10/02/22 00:00 VBG O2 Saturation < 60.0 % 10/02/22 00:00 VBG Base Excess 0.1 mEq/L 10/02/22 00:00 Sodium 140 mmol/L (136-145) 10/06/22 06:08 Potassium 3.9 mmol/L (3.5-5.1) 10/06/22 06:08 Chloride 108 mmol/L (98-107) H 10/06/22 06:08 Carbon Dioxide 29 mmol/L (21-32) 10/06/22 06:08 Anion Gap 3 (3-11) 10/06/22 06:08 BUN 16 mg/dl (6-23) 10/06/22 06:08 Creatinine 0.67 mg/dl (0.6-1.4) 10/06/22 06:08 Est Cr Clr Drug Dosing 131.6 ml/min 10/06/22 06:08 Est GFR ( Amer) 118.5 ml/min 10/06/22 06:08 Est GFR (Non-Af Amer) 102.3 ml/min 10/06/22 06:08 BUN/Creatinine Ratio 23.9 (10-20) H 10/06/22 06:08 Glucose 95 mg/dl (70-99(Fasting)) 10/06/22 06:08 Estimat Average Glucose 97 mg/dl 10/02/22 05:20 Hemoglobin A1c 5.0 % (4.5-5.6) 10/02/22 05:20 Osmolality 276 mOsm/kg (280-300) L 10/01/22 21:54 Lactate 2.9 mmol/L (0.4-2.0) H* 10/03/22 10:26 Calcium 7.9 mg/dl (8.6-10.3) L 10/06/22 06:08 Phosphorus 2.4 mg/dl (2.5-4.9) L 10/06/22 06:08 Magnesium 2.1 mg/dl (1.7-2.4) 10/04/22 05:50 Total Bilirubin 1.4 mg/dl (0.2-1.0) H 10/06/22 06:08 AST 62 U/L (13-39) H 10/06/22 06:08 ALT 37 U/L (7-52) 10/06/22 06:08 Alkaline Phosphatase 94 U/L (34-104) 10/06/22 06:08 Ammonia 44.0 umol/L (18-72) 10/02/22 01:45 Total Creatine Kinase 215 U/L (30-223) 10/02/22 05:20 Troponin I High Sens 20.3 pg/ml (0-20) H 10/02/22 05:20 B-Natriuretic Peptide 68 pg/ml (0-100) 10/01/22 21:54 Total Protein 6.0 gm/dl (6.0-8.3) 10/06/22 06:08 Albumin 2.1 gm/dl (3.4-5.0) L 10/06/22 06:08 Globulin 3.9 gm/dl (2.5-4.0) 10/06/22 06:08 Albumin/Globulin Ratio 0.5 (0.9-2) L 10/06/22 06:08 25-OH Vitamin D Total 22.5 ng/ml (30-100) L 10/04/22 05:50 Procalcitonin 3.15 ng/ml (0-0.5) H 10/02/22 05:20 TSH 0.671 uIu/ml (0.300-4.500) 10/01/22 21:54 Urine Color [place] 10/01/22 22:26 Urine Appearance Clear (Clear) 10/01/22 22:26 Urine pH 5.5 (4.5-7.5) 10/01/22 22:26 Ur Specific [place] 1.029 (1.000-1.030) 10/01/22 22:26 Urine Protein 2+ (Negative) H 10/01/22 22:26 Urine Glucose (UA) Negative (Negative) 10/01/22 22:26 Urine Ketones Trace (Negative) H 10/01/22 22:26 Urine Blood 3+ (Negative) H 10/01/22 22:26 Urine Nitrite Positive (Negative) A 10/01/22 22:26 Urine Bilirubin 1+ (Negative) H 10/01/22 22:26 Urine Urobilinogen Positive (Negative) H 10/01/22 22:26 Ur Leukocyte Esterase Trace (Negative) H 10/01/22 22:26 Urine WBC (Auto) 1-5 /hpf (0-5) 10/01/22 22:26 Urine RBC (Auto) 5-10 /hpf (0-4) H 10/01/22 22:26 U Hyaline Cast (Auto) 1-5 /lpf (0-5) 10/01/22 22:26 U Epithel Cells (Auto) 5-10 /lpf (0-5) H 10/01/22 22:26 Urine Bacteria (Auto) Negative (Negative) 10/01/22 22:26 Urine Osmolality 976 mOsm/kg (500-800) H 10/02/22 17:29 Ur Random Creatinine 183.9 mg/dl 10/02/22 17:29 U Random Total Protein 146.5 mg/dl (0-11.9) H 10/02/22 17:29 Ur Random Sodium < 10 mmol/L 10/02/22 17:29 Protein/Creatinin Ratio 0.8 (0-0.2) H 10/02/22 17:29 Urine Opiates Screen Neg (Neg) 10/01/22 22:26 Ur Methadone, Qual Neg (Neg) 10/01/22 22:26 Urine Barbiturates Neg (Neg) 10/01/22 22:26 Ur Phencyclidine (PCP) Neg (Neg) 10/01/22 22:26 U Amphetamines Confirm 411 ng/mL (<250) H 10/01/22 22:26 U Amphetamin/Meth Scrn Pos (Neg) H 10/01/22 22:26 U Methamphetamin Confrm 1150 ng/mL (<250) H 10/01/22 22:26 MDMA (Ecstasy) Screen Neg (Neg) 10/01/22 22:26 U Benzodiazepines Scrn Neg (Neg) 10/01/22 22:26 Ur Cocaine Metabolite Neg (Neg) 10/01/22 22:26 U Marijuana (THC) Screen Pos (Neg) H 10/01/22 22:26 U Marijuana THC Carboxy 77 ng/mL (<5) H 10/01/22 22:26 Drug Screen Comment SEE NOTE 10/01/22 22:26 Ethyl Alcohol mg/dL < 10.0 mg/dl (<10.0) 10/01/22 21:54 Anaplasma Smear See Comment A 10/02/22 05:20 Anaplasma Comment Pos for Anaplasma 10/02/22 05:20 Lyme Disease IgG Ab Positive (Negative) A 10/02/22 11:50 Lyme IgG (Western Blot) POSITIVE (NEGATIVE) A 10/02/22 11:50 Lyme IgG 18 kDa Band NON-REACTIVE 10/02/22 11:50 Lyme IgG 23 kDa Band REACTIVE A 10/02/22 11:50 Lyme IgG 28 kDa Band NON-REACTIVE 10/02/22 11:50 Lyme IgG 30 kDa Band NON-REACTIVE 10/02/22 11:50 Lyme IgG 39 kDa Band REACTIVE A 10/02/22 11:50 Lyme IgG 41 kDa Band REACTIVE A 10/02/22 11:50 Lyme IgG 45 kDa Band NON-REACTIVE 10/02/22 11:50 Lyme IgG 58 kDa Band REACTIVE A 10/02/22 11:50 Lyme IgG 66 kDa Band REACTIVE A 10/02/22 11:50 Lyme IgG 93 kDa Band REACTIVE A 10/02/22 11:50 Lyme IgM Ab (WB) POSITIVE (NEGATIVE) A 10/02/22 11:50 Lyme Disease IgM Ab Positive (Negative) A 10/02/22 11:50 Lyme IgM 23 kDa Band REACTIVE A 10/02/22 11:50 Lyme IgM 39 kDa Band REACTIVE A 10/02/22 11:50 Lyme IgM 41 kDa Band REACTIVE A 10/02/22 11:50 Hepatitis A IgM Ab NON-REACTIVE (NON-REACTIVE) 10/02/22 05:20 Hep Bs Antigen NON-REACTIVE (NON-REACTIVE) 10/02/22 05:20 Hep Bs Ag Confirmation TNP 10/02/22 05:20 Hep B Core IgM Ab NON-REACTIVE (NON-REACTIVE) 10/02/22 05:20 Hepatitis C Ab (EIA) REACTIVE (NON-REACTIVE) A 10/02/22 05:20 Hep C Ab Signal/Cutoff Not Reportable 10/02/22 05:20 HCV RNA (PCR) IUs/ml 6980 IU/mL (NOT DETECTED) H 10/02/22 05:20 HCV RNA PCR log IUs/ml 3.84 Log IU/mL (NOT DETECTED) H 10/02/22 05:20 Hepatitis C RNA Comment SEE NOTE 10/02/22 05:20 SARS-CoV-2, RNA, NAAT NEGATIVE (NEGATIVE) 10/01/22 21:38 Blood Type A Negative 10/01/22 21:54 Blood Type Recheck A Negative 10/03/22 04:43 Antibody Screen NEGATIVE 10/01/22 21:54 Impressions Abdomen/Pelvis CT 10/01/22 21:49 Exam(s): CT ABDOMEN + PELVIS With Contrast IV Amt: 95 ML OPTIRAY 320 EXAM: CT Abdomen and Pelvis With Intravenous Contrast CLINICAL HISTORY: Reason for exam: fall, right hip pain, AMS. TECHNIQUE: Axial computed tomography images of the abdomen and pelvis with intravenous contrast. Automated exposure control was utilized for the study. A dose lowering technique was utilized adhering to the principles of ALARA. CONTRAST: Patient received 95 ML OPTIRAY 320 of IV contrast COMPARISON: None. FINDINGS: Lung bases: Mild bilateral posterior dependent atelectasis. ABDOMEN: Liver: Nodular margins of the liver suggestive of cirrhosis. Gallbladder and bile ducts: Unremarkable. No calcified stones. No ductal dilation. Pancreas: Unremarkable. No mass. No ductal dilation. Spleen: The spleen measures 14.6 cm consistent with splenomegaly. Adrenals: Unremarkable. No mass. Kidneys and ureters: Possible tiny stones within the lower pole of the left kidney measuring 2.2 mm. Otherwise normal bilateral kidneys. No hydronephrosis. Stomach and bowel: Incompletely distended colon with borderline thickening of the wall. Loops of small bowel within the right abdomen with borderline mild fullness of the wall, cannot exclude mild enterocolitis. Mild distention of several small bowel loops in the pelvis reaching a maximum diameter up to 2.3 cm, cannot exclude mild ileus. No significant dilatation to suggest obstruction. The descending colon is decompressed, otherwise unremarkable. PELVIS: Appendix: Normal appendix. Bladder: Unremarkable. No mass. Reproductive: Unremarkable as visualized. ABDOMEN and PELVIS: Intraperitoneal space: Unremarkable. No free air. No significant fluid collection. Bones/joints: There is a comminuted fracture involving the right intertrochanteric region. Mild compression fracture of L1 vertebral body with no extension to the pedicles or retropulsion. Multilevel degenerative disease of the lumbar spine. No dislocation. Soft tissues: Slight heterogeneity with enlargement and poor definition of the fascial planes involving the right gluteus musculature, suggestive of nonspecific soft tissue edema versus bruising/hematoma. Small bilateral fat-containing inguinal hernias versus scrotal lipomas. Vasculature: Calcified atherosclerotic disease of aorta with no aneurysm or dissection. Possible small distal esophageal varices. Lymph nodes: Unremarkable. No enlarged lymph nodes. IMPRESSION: 1. Intertrochanteric comminuted fracture of the right hip is described otherwise normal alignment. 2. Mild acute compression fracture of L1 with no retropulsion or extension to the pedicles. 3. Cirrhosis with mild splenomegaly and possible small esophageal varices. No evidence of visceral injury. No intra-abdominal hematoma and free fluid seen. 4. Possible nonobstructive stone within the left lower renal pole measuring 2.2 mm. Remainder of bilateral kidneys are unremarkable. 5. Cannot exclude mild enterocolitis in the appropriate clinical context, clinical correlation recommended. Electronically signed by: Aaliyah Fry MD 10/02/22 00:[address] 10/01/22 21:49 Exam(s): CT C SPINE EXAM: CT Cervical Spine Without Intravenous Contrast CLINICAL HISTORY: Reason for exam: fall, AMS. TECHNIQUE: Axial computed tomography images of the cervical spine without intravenous contrast. Automated exposure control was utilized for the study. A dose lowering technique was utilized adhering to the principles of ALARA. COMPARISON: None. FINDINGS: Vertebrae: Degenerative arthrosis at anterior C1-C2 articulation otherwise normal odontoid process. Multilevel spondylosis with narrowing of described, severe C6-C7. Otherwise normal alignment. No acute fracture. Discs/spinal canal/neural foramina: Multilevel bilateral apophyseal hypertrophy contributing to variable degrees of neuroforaminal encroachment, more significant at C6-C7. No central canal stenosis. Soft tissues: Unremarkable. Pleural space: Lung apices revealed no pneumothorax. Mild right-sided apical pleural thickening with subpleural cystic/emphysematous changes versus scarring. IMPRESSION: Multilevel degenerative disease with no acute fracture or subluxation. Electronically signed by: Aaliyah Fry MD 10/02/22 00:[address] 10/01/22 21:49 Exam(s): CT CHEST With Contrast IV Amt: 95 ML OPTIRAY 320 EXAM: CT Chest With Intravenous Contrast CLINICAL HISTORY: Reason for exam: fall, right rib pain, AMS. TECHNIQUE: Axial computed tomography images of the chest with intravenous contrast. Automated exposure control was utilized for the study. A dose lowering technique was utilized adhering to the principles of ALARA. CONTRAST: Patient received 95 ML OPTIRAY 320 of IV contrast COMPARISON: None. FINDINGS: Lungs: Bilateral posterior lower lobe subpleural atelectasis. Pleural space: Right apical pleural thickening with subpleural scarring versus minimal cystic subpleural emphysematous changes. Otherwise normal lung parenchyma. No pleural effusion or pneumothorax. Heart: Unremarkable. No significant pericardial effusion. Normal cardiac size with coronary artery calcifications. Bones/joints: Degenerative disease of the bilateral shoulders, right more than left. Degenerative disease of the spine. Cortical disruption with irregularity along the superior endplate of L1 concerning for acute mild compression fracture. Moderate decrease in vertebral body height of T8 with prominent Schmorl nodes along the superior endplate suggestive of compression fracture, exact age indeterminate and likely old given morphology. No dislocation. Soft tissues: Unremarkable. Vasculature: Atherosclerotic disease of aorta with no aneurysm or dissection. Lymph nodes: Unremarkable. No enlarged lymph nodes. Liver: Nodular margins of the liver concerning for underlying cirrhosis. The spleen is enlarged measuring at least 14 cm, otherwise not entirely included in the [id number]. Gallbladder and bile ducts: Status post cholecystectomy. IMPRESSION: No acute findings in the chest. Electronically signed by: Aaliyah Fry MD 10/02/22 00:[address] 10/01/22 21:49 Exam(s): CT HEAD Without Contrast EXAM: CT Head Without Intravenous Contrast CLINICAL HISTORY: Reason for exam: fall, AMS. TECHNIQUE: Axial computed tomography images of the head/brain without intravenous contrast. Automated exposure control was utilized for the study. A dose lowering technique was utilized adhering to the principles of ALARA. COMPARISON: None. FINDINGS: Brain: Mild generalized brain atrophy. No hemorrhage. No significant white matter disease. Ventricles: Unremarkable. No ventriculomegaly. Bones/joints: Unremarkable. No acute fracture. Soft tissues: Unremarkable. Sinuses: Unremarkable as visualized. No acute sinusitis. Mastoid air cells: Unremarkable as visualized. No mastoid effusion. IMPRESSION: Involutional changes otherwise normal CT brain. Electronically signed by: Aaliyah Fry MD 10/02/22 00:22 AM Hip/Pelvis X-Ray 10/01/22 21:49 XR hip RT 2V w pelvis CLINICAL HISTORY: Right hip pain following fall. COMPARISON: CT of the abdomen and right hip performed earlier today. FINDINGS: Incidental is made of contrast within the bladder from recent contrast-enhanced CT. The sacroiliac joints and symphysis pubis are intact. Note is made of an acute significantly comminuted moderately displaced intertrochanteric fracture of the right femur. There is no proximal left femoral fracture. There is no pelvic fracture. IMPRESSION: Acute comminuted, moderately displaced intertrochanteric fracture of the right femur. ACT 112: Negative or not required by law. Electronically signed by: Aravind Plata M.D. 10/02/2022 7:[address] 10/02/22 02:23 Exam(s): CT RIGHT HIP Without Contrast EXAM: CT Right Lower Extremity Without Intravenous Contrast, Hip CLINICAL HISTORY: Reason for exam: R hip pain. TECHNIQUE: Axial computed tomography images of the right hip without intravenous contrast. CTDI is 3597.14 mGy and DLP is 1546.33 mGy-cm. Automated exposure control was utilized for the study. A dose lowering technique was utilized adhering to the principles of ALARA. COMPARISON: None. FINDINGS: Bones/joints: Severely comminuted fracture involving the right intertrochanteric region of the right proximal femur with cephalad displacement of the femoral shaft in relation to the femoral neck and 90 angulation. Normal alignment at the level of the hip joint. Mild narrowing of the joint space at the level of the right hip with small cystic changes consistent with degenerative disease. Soft tissues: Unremarkable. IMPRESSION: Comminuted right-sided intertrochanteric fracture as described. Electronically signed by: Aaliyah Fry MD 10/02/22 03:19 AM Hip X-Ray 10/03/22 14:30 INTRAOPERATIVE RADIOGRAPHS CLINICAL HISTORY: Open reduction and fixation of the right proximal femur. Fluoro time: 180 seconds Ka,r: 63.93 mGy FINDINGS: 5 spot fluoroscopic views of the right femur are correlated with radiographs dated 10/01/2022. There has been intertrochanteric and intramedullary nail fixation of a comminuted intertrochanteric fracture of the right proximal femur. Near-anatomic alignment is restored. There is medial displacement of the lesser trochanter. A single cortical lag transfixes the distal end of the intramedullary nail. The orthopedic hardware appears intact. IMPRESSION: Intraoperative images from open reduction and internal fixation of the right proximal femur as above. Electronically signed by: Juan J Echevarria M.D. 10/03/2022 7:28 PM
--- NOTE | 2022-10-06 20:08 | Communication Note ---
Date of Service: October 06, 2022 Patient with increasing right hip pain as per RN. Right hip dressing soaked with yellow puslike bloody drainage. Red rash noted underneath the incision as per RN. CT right hip: 1. Postoperative changes along the proximal right femur with normal alignment. 2. Diffuse subcutaneous soft tissue edema versus cellulitis. 3. Fluid collection along the lateral aspect of the upper femur with punctate air suggestive of postoperative seroma versus hematoma. No distinct enhancing wall to suggest abscess. If indicated, this findings may be additionally characterized with ultrasound of the anterolateral aspect of the right upper thigh region. RLE nonvascular ultrasound: 1. Complex fluid collection within the soft tissues along the anterolateral aspect of the right upper thigh largest measuring 8.3 x 2.3 x 1.6 cm, likely hematoma. 2. No fluid collection to suggest abscess seen. AP Postop hematoma/fluid infection, possible infection Recent right hip surgery No sepsis for now CS, add Zosyn to Doxycycline Rx (currently being given for tickborne infection) Hold heparin subcu Orthopedics re-eval in a.m. (will ask AM provider to communicate with service.) N.p.o. after midnight until patient seen by Orthopedics. ADDENDUM : 10/07, [address] Castellanos of [facility] [place] updated of developments. Okay to resume diet for now as per discussion.
[2022-10-06] MEDS ORDERED: CEFEPIME 2,000 MG in SYRINGE 0 ML IV SCH (21:00)
[2022-10-06] MEDS ORDERED: LACTATED RINGER'S 1,000 ML IV ONE (21:41)
[2022-10-06] MEDS ORDERED: OPTIRAY 320 100ml IV ONE (21:43)
[2022-10-06 22:10] LABS: Hematocrit (blood only) 28.8 % (42.0-52.0); Hemoglobin 9.6 g/dl (14.0-18.0)
--- NOTE | 2022-10-06 22:45 | CT Scan Report ---
Exam(s): CT RIGHT HIP With Contrast IV Amt: 93ML OPTIRAY 320 EXAM: CT Right Lower Extremity With Intravenous Contrast, Hip CLINICAL HISTORY: Reason for exam: worsening R hip pain/wound drainage, ro abscess. TECHNIQUE: Axial computed tomography images of the right hip with intravenous contrast. Automated exposure control was utilized for the study. A dose lowering technique was utilized adhering to the principles of ALARA. CONTRAST: Patient received 93ML OPTIRAY 320 of IV contrast COMPARISON: 10/01/2022. FINDINGS: Bones/joints: The patient is status post ORIF surgery with the fixation сергей through the proximal right femoral shaft and femoral neck. Near anatomical alignment for the intertrochanteric fracture. Soft tissues: There is stranding with diffuse fluid along the subcutaneous fat along the right hip consistent with postoperative swelling. There is fluid collection with small amount of air at the level of the superolateral aspect of the right upper thigh/femoral region, difficult to accurately measure and measuring approximately 6.0 x 3.3 x 9.5 cm which could represent postoperative seroma or hematoma. There is evidence of the right lateral skin wagner along the surgical site consistent with recent surgery. IMPRESSION: 1. Postoperative changes along the proximal right femur with normal alignment. 2. Diffuse subcutaneous soft tissue edema versus cellulitis. 3. Fluid collection along the lateral aspect of the upper femur with punctate air suggestive of postoperative seroma versus hematoma. No distinct enhancing wall to suggest abscess. If indicated, this findings may be additionally characterized with ultrasound of the anterolateral aspect of the right upper thigh region. Electronically signed by: Aaliyah Fry MD 10/06/22 22:43 PM
[2022-10-07] MEDS ORDERED: PIPERACILLIN/TAZOBACTAM 4.5 GM (over 30 mins) IV ONE
--- NOTE | 2022-10-07 00:29 | Ultrasound Report ---
Exam(s): US EXTREMITY EXAM: US Right Lower Extremity Non-Vascular, Complete CLINICAL HISTORY: Reason for exam: R thigh fluid collection. TECHNIQUE: Real-time ultrasound scan of the right lower extremity with image documentation. COMPARISON: None. FINDINGS: Soft tissues: Ultrasound images directed to the anterolateral aspect of the right thigh, superior to the incision sites there are 2 areas of complex fluid collections, largest seen inferiorly and measuring 8.3 x 2. 3 x 1.6 cm, likely hematoma. Diffuse superficial soft tissue edema noted, nonspecific. No foreign body. IMPRESSION: 1. Complex fluid collection within the soft tissues along the anterolateral aspect of the right upper thigh largest measuring 8.3 x 2.3 x 1.6 cm, likely hematoma. 2. No fluid collection to suggest abscess seen. Electronically signed by: Aaliyah Fry MD 10/07/22 00:28 AM
[2022-10-07] MEDS ORDERED: PIPERACILLIN/TAZOBACTAM 4.5 GM in DEXTROSE 5% 100 ML IV SCH (06:00)
[2022-10-07 08:05] LABS: BUN Creatinine Ratio 20.9 (10-20); Calcium 7.6 mg/dl (8.6-10.3); Creatinine Clr Calc Pharmacy 131.6 ml/min; Est GFR (African American) 118.5 ml/min; Est GFR (Non-African American) 102.3 ml/min; Potassium 4.3 mmol/L (3.5-5.1)
[2022-10-07] MEDS: ACETAMINOPHEN 325 MG TAB PO SCH ×3 (08:47→20:11)
[2022-10-07] MEDS: oxyCODONE HCL IR 5 MG TAB (IMMEDIATE RELEASE) PO PRN ×2 (08:47→12:54)
[2022-10-07] MEDS: DOXYCYCLINE HYCLATE 100 MG CAP PO SCH ×2 (08:49→20:11)
[2022-10-07 08:50] LABS: Hematocrit (blood only) 28.1 % (42.0-52.0); Hemoglobin 9.4 g/dl (14.0-18.0); Mean Corpuscular Hemoglobin 32.1 pg (25.0-34.0); Mean Corpuscular Hgb Conc 33.5 g/dL (32.0-36.0); Mean Corpuscular Volume 95.9 fL (80.0-100.0); Mean Platelet Volume 10.5 fL (9.4-12.4); Nucleated RBC # (auto) 0.08 K/uL (0-0.12); Platelet Count 134 K/uL (130-400); RDW Coefficient of Variation 16.9 % (11.5-14.5); RDW Standard Deviation 52.6 fL (36.4-46.3); Red Blood Count 2.93 M/uL (4.70-6.10); White Blood Count 7.95 K/ul (4.8-10.8)
[2022-10-07] MEDS: METOPROLOL TARTRATE 25 MG TAB PO SCH ×2 (08:50→20:12)
[2022-10-07] MEDS: POT PHOSPHATE MONOBASIC W/ SOD TAB PO SCH ×4 (08:51→20:12)
[2022-10-07] MEDS: POLYETHYLENE (MIRALAX) 17 GM PACK PO SCH (08:52)
[2022-10-07 09:51] LABS: ALC (manual) 3.26 K/uL (1.2-3.4); Basophils # (manual) 0.08 K/uL (0-0.2); Basophils % (manual) 1 %; Lymphocytes # (manual) 3.26 K/uL (1.2-3.4); Lymphocytes % (manual) 41 %; Metamyelocytes # (manual) 0.16 K/uL (0-0); Metamyelocytes % (manual) 2 %; Monocytes % (manual) 10 %; Myelocytes # (manual) 0.56 K/uL (0-0); Myelocytes % (manual) 7 %; Neutrophils % (manual) 39 %; Polychromasia 1+
--- NOTE | 2022-10-07 10:37 | Orthopedic Progress Note ---
Date of Service October 07, 2022 Assessment & Plan (1) Closed fracture of right hip: Plan: Patient is postop day #4 right trochanteric femoral nailing. He has developed a likely postoperative hematoma/seroma. Does not appear to be infectious at this time. No surgical intervention planned at this point. Patient is on oral doxycycline for Lyme currently. Would recommend continuing doxycycline. Ice to affected area. Daily dressing changes or as needed. Toe-touch weightbearing right lower extremity. Follow-up with Dr. Oscar's office in 7 to 10 days. Call with any issues or concerns or worsening symptoms. (2) Seroma of musculoskeletal structure after musculoskeletal system procedure: Admission and Anticipated Discharge Date Admission Date: October 02, 2022 Subjective Patient is postop day #4 right trochanteric femoral nail. He was having some increased pain and swelling as well as developed some serous drainage from his incision. His CT scan and ultrasound were obtained demonstrating fluid collection lateral aspect of his hip consistent with a seroma or hematoma. We were asked to see the patient again secondary to above complaints. Review of Systems Review of Systems: All systems reviewed & are unremarkable except as noted in Subjective Physical Exam Physical Exam: Right hip: Incision is intact and clean. There is no erythema about the incision. No purulent discharge. Dressing does have serous drainage present however no gross drainage from the incisions at this time. Compartments are soft with mild tenderness. There is some mild fluctuance about the lateral aspect of his hip consistent with fluid collection. Posteriorly posterior to the dressing there is area of a raised erythematous rash. Results & Data Vital Signs (Past 12 Hours) Vital Signs Temp Pulse Resp BP Pulse Ox O2 Del Method 10/07/22 07:08 36.9 C 77 16 113/71 96 Room Air Diagnostic Findings EXAM: CT Right Lower Extremity With Intravenous Contrast, Hip CLINICAL HISTORY: Reason for exam: worsening R hip pain/wound drainage, ro abscess. TECHNIQUE: Axial computed tomography images of the right hip with intravenous contrast. Automated exposure control was utilized for the study. A dose lowering technique was utilized adhering to the principles of ALARA. CONTRAST: Patient received 93ML OPTIRAY 320 of IV contrast COMPARISON: 10/01/2022. FINDINGS: Bones/joints: The patient is status post ORIF surgery with the fixation сергей through the proximal right femoral shaft and femoral neck. Near anatomical alignment for the intertrochanteric fracture. Soft tissues: There is stranding with diffuse fluid along the subcutaneous fat along the right hip consistent with postoperative swelling. There is fluid collection with small amount of air at the level of the superolateral aspect of the right upper thigh/femoral region, difficult to accurately measure and measuring approximately 6.0 x 3.3 x 9.5 cm which could represent postoperative seroma or hematoma. There is evidence of the right lateral skin wagner along the surgical site consistent with recent surgery. IMPRESSION: 1. Postoperative changes along the proximal right femur with normal alignment. 2. Diffuse subcutaneous soft tissue edema versus cellulitis. 3. Fluid collection along the lateral aspect of the upper femur with punctate air suggestive of postoperative seroma versus hematoma. No distinct enhancing wall to suggest abscess. If indicated, this findings may be additionally characterized with ultrasound of the anterolateral aspect of the right upper thigh region. EXAM: US Right Lower Extremity Non-Vascular, Complete CLINICAL HISTORY: Reason for exam: R thigh fluid collection. TECHNIQUE: Real-time ultrasound scan of the right lower extremity with image documentation. COMPARISON: None. FINDINGS: Soft tissues: Ultrasound images directed to the anterolateral aspect of the right thigh, superior to the incision sites there are 2 areas of complex fluid collections, largest seen inferiorly and measuring 8.3 x 2. 3 x 1.6 cm, likely hematoma. Diffuse superficial soft tissue edema noted, nonspecific. No foreign body. IMPRESSION: 1. Complex fluid collection within the soft tissues along the anterolateral aspect of the right upper thigh largest measuring 8.3 x 2.3 x 1.6 cm, likely hematoma. 2. No fluid collection to suggest abscess seen.
[2022-10-07] MEDS ORDERED: MAGNESIUM HYDROXIDE SUSP 30 ML UDC PO ONE (11:48)
[2022-10-07] MEDS ORDERED: DOCUSATE SODIUM SYRUP 100 MG/10 ML UDC PO STA (11:53)
--- NOTE | 2022-10-07 11:54 | Hospitalist Progress Note ---
Date of Service October 07, 2022 Assessment & Plan (1) Lyme disease: (2) Anaplasmosis: (3) Lactic acidosis: (4) Hyponatremia: (5) Closed fracture of right hip: Plan 62-year-old male male with history of hep C treated, cirrhosis, was not seen a physician for long time and is not on any meds except for herbals admitted with right hip fracture, Lyme disease/anaplasmosis, lactic acidosis and hyponatremia X-ray right hip- Acute comminuted, moderately displaced intertrochanteric fracture of the right femur. CT A/P- 1. Intertrochanteric comminuted fracture of the right hip is described otherwise normal alignment. 2. Mild acute compression fracture of L1 with no retropulsion or extension to the pedicles. 3. Cirrhosis with mild splenomegaly and possible small esophageal varices. No evidence of visceral injury. No intra-abdominal hematoma and free fluid seen. 4. Possible nonobstructive stone within the left lower renal pole measuring 2.2 mm. Remainder of bilateral kidneys are unremarkable. 5. Cannot exclude mild enterocolitis in the appropriate clinical context, clinical correlation recommended. CT chest, head and cervical spine with no acute findings Echo with hyperdynamic left ventricle, EF more than 75%,borderline consider LVH, no significant valvular disease, no pulm hypertension Closed right hip fracture-due to fall. CT reviewed as above. - Status post open reduction internal fixation right hip fracture with trochanteric femoral nail fixation with fenestrated helical blade 10/03 per Ortho surgery -Continue physical therapy, pain management, bowel regimen, DVT prophylaxis -Patient will need rehab prior to returning to his apartment Concern for postoperative hematoma/seroma: On the night of 10/07/2022, patient reported to have increasing right hip pain with soaked dressing with yellow puslike bloody discharge. CT of right hip and right lower extremity ultrasound done which showed complex fluid collection in right upper thigh measuring 8.3 X 2.3 X 1.6 cm. Patient was started on Zosyn. Evaluated by orthopedics on the morning; no concern for infection. Likely developed postoperative hematoma/seroma. Recommended to continue doxycycline for Lyme;. We will hold heparin for today; resume if hemoglobin continues to remain stable tomorrow. L1 fracture-due to fall. CT reviewed as above. Consulted spine orthopedics Lyme disease/anaplasmosis- reported tick bite last week. Labs positive for Anaplasma and Lyme disease, Western blot positive for Lyme. Continue doxycycline for 10 days.. Lactic acidosis-significantly improved. Lactic acid probably not clearing up because of his liver cirrhosis. No need for further trending. Clx negative- cefepime discontinued 10/04 and being monitored clinically. He does not meet SIRS or sepsis criteria on admission-no fever or leukocytosis or hypotension noted. A-fib with RVR-resolved, now back to NSR. He went to A-fib with RVR at 5 PM 10/02 and was in normal sinus rhythm when he came out of the OR yesterday 10/03. His A- fib was likely related to the underlying stressors and is now resolved. Echo reviewed. Telemetry reviewed. Seen by cardiology. His CHADS2 VASc is 0 and would not require anticoagulation. Hyponatremia-resolved. sodium 125->126->130->132->137 with IVF. IVF discontinued. Seen by nephrology Hypophosphatemia-repleted. Recheck Polysubstance abuse- UDS positive for amphetamine and marijuana. Does smoke few cigarettes a day. States he used to drink alcohol in the past. Thrombocytopenia-due to tickborne disease. Improving with treatment. Monitor. Cirrhosis of liver (?alc/Hep C related) with mild splenomegaly and possible small esophageal varices-no clinical decompensation noted. patient does report history of hep C treated in the past and was seen at [facility], HCV RNA load of 6980. Patient does not see any GI doctors locally. Recommended GI follow-up at discharge for the same with EGD. Vitamin D deficiency-vitamin D level 22. Started on vitamin D supplementation. DVT prophylaxis-subcu heparin Disposition: PT recommends acute rehab- CM following. Stable to go to rehab. Time spent evaluating patient, direct bedside care, chart review, placing orders, interpretation of diagnostic studies, discussion with consultants, patie nt, and family members, as well as other required patient management activities is 60 minutes. Please note the above document was generated using voice recognition software. It may contain grammatical, syntax or spelling errors. Any formal questions or concerns about the content, text or information contained within the body of this dictation should be directly addressed to the provider for clarification Admission and Anticipated Discharge Date Admission Date: October 02, 2022 Subjective Overnight, patient had increasing pain on right hip as per RN. Found to have right hip dressing soaked with yellow puslike bloody discharge. CT right hip was done as well as right lower extremity ultrasound. Patient was started on Zosyn. Orthopedic evaluated the patient in a.m.; patient has most likely developed postoperative hematoma/seroma; does not appear to be infected at this time. Recommend continuing doxycycline. Review of Systems Review of Systems: All systems reviewed & are unremarkable except as noted in Subjective Physical Exam Physical Exam: General: Lying comfortably in bed, not in acute distress, on room air HEENT: EOMI, KAMALJIT, MMM, poor dentition Chest: Fair breath sounds bilaterally CVS: Regular, normal heart sounds, no murmur Abdomen: Soft, non tender, not distended, normal bowel sounds Neuro: Awake, alert, oriented, conversing well Extremities: No cyanosis, clubbing or edema. Rt hip incision site clean dry intact covered with dressing. Results & Data Results & Data Vital Signs (Past 12 Hours) Vital Signs Temp Pulse Resp BP Pulse Ox O2 Del Method 10/07/22 07:08 36.9 C 77 16 113/71 96 Room Air Laboratory Results Laboratory Results WBC 7.95 K/ul (4.8-10.8) 10/07/22 06:56 RBC 2.93 M/uL (4.70-6.10) L 10/07/22 06:56 Hgb 9.4 g/dl (14.0-18.0) L 10/07/22 06:56 Hct 28.1 % (42.0-52.0) L 10/07/22 06:56 MCV 95.9 fL (80.0-100.0) 10/07/22 06:56 MCH 32.1 pg (25.0-34.0) 10/07/22 06:56 MCHC 33.5 g/dL (32.0-36.0) 10/07/22 06:56 RDW Std Deviation 52.6 fL (36.4-46.3) H 10/07/22 06:56 RDW Coeff of Yanni 16.9 % (11.5-14.5) H 10/07/22 06:56 Plt Count 134 K/uL (130-400) 10/07/22 06:56 MPV 10.5 fL (9.4-12.4) 10/07/22 06:56 Immature Gran % (Auto) 0.5 % 10/04/22 05:50 Neut % (Auto) 44.0 % 10/04/22 05:50 Lymph % (Auto) 46.3 % 10/04/22 05:50 [place]cho % (Auto) 9.0 % 10/04/22 05:50 Eos % (Auto) 0.0 % 10/04/22 05:50 Baso % (Auto) 0.2 % 10/04/22 05:50 Neut # (Auto) 2.92 K/uL (1.40-6.50) 10/04/22 05:50 Lymph # (Auto) 3.07 K/uL (1.2-3.4) 10/04/22 05:50 [place] # (Auto) 0.60 K/uL (0.11-0.59) H 10/04/22 05:50 Eos # (Auto) 0.00 K/uL (0-0.50) 10/04/22 05:50 Baso # (Auto) 0.01 K/uL (0-0.2) 10/04/22 05:50 Immature Gran # (Auto) 0.03 K/uL (0.01-0.20) 10/04/22 05:50 Absolute Nucleated RBC 0.08 K/uL (0-0.12) 10/07/22 06:56 Nucleated RBC % (auto) 1.0 % 10/07/22 06:56 Neutrophils % (Manual) 39 % 10/07/22 06:56 Lymphocytes % (Manual) 41 % 10/07/22 06:56 Monocytes % (Manual) 10 % 10/07/22 06:56 Basophils % (Manual) 1 % 10/07/22 06:56 Metamyelocytes % (Man) 2 % 10/07/22 06:56 Myelocytes % (Man) 7 % 10/07/22 06:56 Neutrophils # (Manual) 3.10 K/uL (1.40-6.50) 10/07/22 06:56 Total Absolute Neuts 3.10 K/uL (1.4-6.5) 10/07/22 06:56 Lymphocytes # (Manual) 3.26 K/uL (1.2-3.4) 10/07/22 06:56 Total Abs Lymphocytes 3.26 K/uL (1.2-3.4) 10/07/22 06:56 Monocytes # (Manual) 0.80 K/uL (0.11-0.59) H 10/07/22 06:56 Basophils # (Manual) 0.08 K/uL (0-0.2) 10/07/22 06:56 Metamyelocytes # (Man) 0.16 K/uL (0-0) H 10/07/22 06:56 Myelocytes # (Manual) 0.56 K/uL (0-0) H 10/07/22 06:56 Platelet Estimate Decreased (Normal) L 10/01/22 21:54 Polychromasia 1+ 10/07/22 06:56 Acanthocytes (Spur) 2+ 10/01/22 21:54 Peripher Smr Path Cons 10/02/22 05:20 PT 17.0 Seconds (9.0-12.0) H 10/01/22 21:54 INR 1.6 (0.9-1.1) H 10/01/22 21:54 APTT 40.4 Seconds (21.0-31.0) H* 10/01/22 21:54 PTT Ratio 1.4 10/01/22 21:54 VBG pH 7.44 (7.36-7.41) H 10/02/22 00:00 VBG pCO2 35 mmHg (38-50) L 10/02/22 00:00 VBG pO2 20 mmHg 10/02/22 00:00 VBG HCO3 24 mmol/L 10/02/22 00:00 VBG O2 Saturation < 60.0 % 10/02/22 00:00 VBG Base Excess 0.1 mEq/L 10/02/22 00:00 Sodium 137 mmol/L (136-145) 10/07/22 06:56 Potassium 4.3 mmol/L (3.5-5.1) 10/07/22 06:56 Chloride 106 mmol/L (98-107) 10/07/22 06:56 Carbon Dioxide 26 mmol/L (21-32) 10/07/22 06:56 Anion Gap 5 (3-11) 10/07/22 06:56 BUN 14 mg/dl (6-23) 10/07/22 06:56 Creatinine 0.67 mg/dl (0.6-1.4) 10/07/22 06:56 Est Cr Clr Drug Dosing 131.6 ml/min 10/07/22 06:56 Est GFR ( Amer) 118.5 ml/min 10/07/22 06:56 Est GFR (Non-Af Amer) 102.3 ml/min 10/07/22 06:56 BUN/Creatinine Ratio 20.9 (10-20) H 10/07/22 06:56 Glucose 88 mg/dl (70-99(Fasting)) 10/07/22 06:56 Estimat Average Glucose 97 mg/dl 10/02/22 05:20 Hemoglobin A1c 5.0 % (4.5-5.6) 10/02/22 05:20 Osmolality 276 mOsm/kg (280-300) L 10/01/22 21:54 Lactate 2.9 mmol/L (0.4-2.0) H* 10/03/22 10:26 Calcium 7.6 mg/dl (8.6-10.3) L 10/07/22 06:56 Phosphorus 2.4 mg/dl (2.5-4.9) L 10/06/22 06:08 Magnesium 2.1 mg/dl (1.7-2.4) 10/04/22 05:50 Total Bilirubin 1.4 mg/dl (0.2-1.0) H 10/06/22 06:08 AST 62 U/L (13-39) H 10/06/22 06:08 ALT 37 U/L (7-52) 10/06/22 06:08 Alkaline Phosphatase 94 U/L (34-104) 10/06/22 06:08 Ammonia 44.0 umol/L (18-72) 10/02/22 01:45 Total Creatine Kinase 215 U/L (30-223) 10/02/22 05:20 Troponin I High Sens 20.3 pg/ml (0-20) H 10/02/22 05:20 B-Natriuretic Peptide 68 pg/ml (0-100) 10/01/22 21:54 Total Protein 6.0 gm/dl (6.0-8.3) 10/06/22 06:08 Albumin 2.1 gm/dl (3.4-5.0) L 10/06/22 06:08 Globulin 3.9 gm/dl (2.5-4.0) 10/06/22 06:08 Albumin/Globulin Ratio 0.5 (0.9-2) L 10/06/22 06:08 25-OH Vitamin D Total 22.5 ng/ml (30-100) L 10/04/22 05:50 Procalcitonin 3.15 ng/ml (0-0.5) H 10/02/22 05:20 TSH 0.671 uIu/ml (0.300-4.500) 10/01/22 21:54 Urine Color Temple 10/01/22 22:26 Urine Appearance Clear (Clear) 10/01/22 22:26 Urine pH 5.5 (4.5-7.5) 10/01/22 22:26 Ur Specific [place] 1.029 (1.000-1.030) 10/01/22 22:26 Urine Protein 2+ (Negative) H 10/01/22 22:26 Urine Glucose (UA) Negative (Negative) 10/01/22 22:26 Urine Ketones Trace (Negative) H 10/01/22 22:26 Urine Blood 3+ (Negative) H 10/01/22 22:26 Urine Nitrite Positive (Negative) A 10/01/22 22:26 Urine Bilirubin 1+ (Negative) H 10/01/22 22:26 Urine Urobilinogen Positive (Negative) H 10/01/22 22:26 Ur Leukocyte Esterase Trace (Negative) H 10/01/22 22:26 Urine WBC (Auto) 1-5 /hpf (0-5) 10/01/22 22:26 Urine RBC (Auto) 5-10 /hpf (0-4) H 10/01/22 22:26 U Hyaline Cast (Auto) 1-5 /lpf (0-5) 10/01/22 22:26 U Epithel Cells (Auto) 5-10 /lpf (0-5) H 10/01/22 22:26 Urine Bacteria (Auto) Negative (Negative) 10/01/22 22:26 Urine Osmolality 976 mOsm/kg (500-800) H 10/02/22 17:29 Ur Random Creatinine 183.9 mg/dl 10/02/22 17:29 U Random Total Protein 146.5 mg/dl (0-11.9) H 10/02/22 17:29 Ur Random Sodium < 10 mmol/L 10/02/22 17:29 Protein/Creatinin Ratio 0.8 (0-0.2) H 10/02/22 17:29 Urine Opiates Screen Neg (Neg) 10/01/22 22:26 Ur Methadone, Qual Neg (Neg) 10/01/22 22:26 Urine Barbiturates Neg (Neg) 10/01/22 22:26 Ur Phencyclidine (PCP) Neg (Neg) 10/01/22 22:26 U Amphetamines Confirm 411 ng/mL (<250) H 10/01/22 22:26 U Amphetamin/Meth Scrn Pos (Neg) H 10/01/22 22:26 U Methamphetamin Confrm 1150 ng/mL (<250) H 10/01/22 22:26 MDMA (Ecstasy) Screen Neg (Neg) 10/01/22 22:26 U Benzodiazepines Scrn Neg (Neg) 10/01/22 22:26 Ur Cocaine Metabolite Neg (Neg) 10/01/22 22:26 U Marijuana (THC) Screen Pos (Neg) H 10/01/22 22:26 U Marijuana THC Carboxy 77 ng/mL (<5) H 10/01/22 22:26 Drug Screen Comment SEE NOTE 10/01/22 22:26 Ethyl Alcohol mg/dL < 10.0 mg/dl (<10.0) 10/01/22 21:54 Anaplasma Smear See Comment A 10/02/22 05:20 Anaplasma Comment Pos for Anaplasma 10/02/22 05:20 Lyme Disease IgG Ab Positive (Negative) A 10/02/22 11:50 Lyme IgG (Western Blot) POSITIVE (NEGATIVE) A 10/02/22 11:50 Lyme IgG 18 kDa Band NON-REACTIVE 10/02/22 11:50 Lyme IgG 23 kDa Band REACTIVE A 10/02/22 11:50 Lyme IgG 28 kDa Band NON-REACTIVE 10/02/22 11:50 Lyme IgG 30 kDa Band NON-REACTIVE 10/02/22 11:50 Lyme IgG 39 kDa Band REACTIVE A 10/02/22 11:50 Lyme IgG 41 kDa Band REACTIVE A 10/02/22 11:50 Lyme IgG 45 kDa Band NON-REACTIVE 10/02/22 11:50 Lyme IgG 58 kDa Band REACTIVE A 10/02/22 11:50 Lyme IgG 66 kDa Band REACTIVE A 10/02/22 11:50 Lyme IgG 93 kDa Band REACTIVE A 10/02/22 11:50 Lyme IgM Ab (WB) POSITIVE (NEGATIVE) A 10/02/22 11:50 Lyme Disease IgM Ab Positive (Negative) A 10/02/22 11:50 Lyme IgM 23 kDa Band REACTIVE A 10/02/22 11:50 Lyme IgM 39 kDa Band REACTIVE A 10/02/22 11:50 Lyme IgM 41 kDa Band REACTIVE A 10/02/22 11:50 Hepatitis A IgM Ab NON-REACTIVE (NON-REACTIVE) 10/02/22 05:20 Hep Bs Antigen NON-REACTIVE (NON-REACTIVE) 10/02/22 05:20 Hep Bs Ag Confirmation TNP 10/02/22 05:20 Hep B Core IgM Ab NON-REACTIVE (NON-REACTIVE) 10/02/22 05:20 Hepatitis C Ab (EIA) REACTIVE (NON-REACTIVE) A 10/02/22 05:20 Hep C Ab Signal/Cutoff Not Reportable 10/02/22 05:20 HCV RNA (PCR) IUs/ml 6980 IU/mL (NOT DETECTED) H 10/02/22 05:20 HCV RNA PCR log IUs/ml 3.84 Log IU/mL (NOT DETECTED) H 10/02/22 05:20 Hepatitis C RNA Comment SEE NOTE 10/02/22 05:20 SARS-CoV-2, RNA, NAAT NEGATIVE (NEGATIVE) 10/01/22 21:38 Blood Type A Negative 10/01/22 21:54 Blood Type Recheck A Negative 10/03/22 04:43 Antibody Screen NEGATIVE 10/01/22 21:54 Impressions Abdomen/Pelvis CT 10/01/22 21:49 Exam(s): CT ABDOMEN + PELVIS With Contrast IV Amt: 95 ML OPTIRAY 320 EXAM: CT Abdomen and Pelvis With Intravenous Contrast CLINICAL HISTORY: Reason for exam: fall, right hip pain, AMS. TECHNIQUE: Axial computed tomography images of the abdomen and pelvis with intravenous contrast. Automated exposure control was utilized for the study. A dose lowering technique was utilized adhering to the principles of ALARA. CONTRAST: Patient received 95 ML OPTIRAY 320 of IV contrast COMPARISON: None. FINDINGS: Lung bases: Mild bilateral posterior dependent atelectasis. ABDOMEN: Liver: Nodular margins of the liver suggestive of cirrhosis. Gallbladder and bile ducts: Unremarkable. No calcified stones. No ductal dilation. Pancreas: Unremarkable. No mass. No ductal dilation. Spleen: The spleen measures 14.6 cm consistent with splenomegaly. Adrenals: Unremarkable. No mass. Kidneys and ureters: Possible tiny stones within the lower pole of the left kidney measuring 2.2 mm. Otherwise normal bilateral kidneys. No hydronephrosis. Stomach and bowel: Incompletely distended colon with borderline thickening of the wall. Loops of small bowel within the right abdomen with borderline mild fullness of the wall, cannot exclude mild enterocolitis. Mild distention of several small bowel loops in the pelvis reaching a maximum diameter up to 2.3 cm, cannot exclude mild ileus. No significant dilatation to suggest obstruction. The descending colon is decompressed, otherwise unremarkable. PELVIS: Appendix: Normal appendix. Bladder: Unremarkable. No mass. Reproductive: Unremarkable as visualized. ABDOMEN and PELVIS: Intraperitoneal space: Unremarkable. No free air. No significant fluid collection. Bones/joints: There is a comminuted fracture involving the right intertrochanteric region. Mild compression fracture of L1 vertebral body with no extension to the pedicles or retropulsion. Multilevel degenerative disease of the lumbar spine. No dislocation. Soft tissues: Slight heterogeneity with enlargement and poor definition of the fascial planes involving the right gluteus musculature, suggestive of nonspecific soft tissue edema versus bruising/hematoma. Small bilateral fat-containing inguinal hernias versus scrotal lipomas. Vasculature: Calcified atherosclerotic disease of aorta with no aneurysm or dissection. Possible small distal esophageal varices. Lymph nodes: Unremarkable. No enlarged lymph nodes. IMPRESSION: 1. Intertrochanteric comminuted fracture of the right hip is described otherwise normal alignment. 2. Mild acute compression fracture of L1 with no retropulsion or extension to the pedicles. 3. Cirrhosis with mild splenomegaly and possible small esophageal varices. No evidence of visceral injury. No intra-abdominal hematoma and free fluid seen. 4. Possible nonobstructive stone within the left lower renal pole measuring 2.2 mm. Remainder of bilateral kidneys are unremarkable. 5. Cannot exclude mild enterocolitis in the appropriate clinical context, clinical correlation recommended. Electronically signed by: Aaliyah Fry MD 10/02/22 00:[address] 10/01/22 21:49 Exam(s): CT C SPINE EXAM: CT Cervical Spine Without Intravenous Contrast CLINICAL HISTORY: Reason for exam: fall, AMS. TECHNIQUE: Axial computed tomography images of the cervical spine without intravenous contrast. Automated exposure control was utilized for the study. A dose lowering technique was utilized adhering to the principles of ALARA. COMPARISON: None. FINDINGS: Vertebrae: Degenerative arthrosis at anterior C1-C2 articulation otherwise normal odontoid process. Multilevel spondylosis with narrowing of described, severe C6-C7. Otherwise normal alignment. No acute fracture. Discs/spinal canal/neural foramina: Multilevel bilateral apophyseal hypertrophy contributing to variable degrees of neuroforaminal encroachment, more significant at C6-C7. No central canal stenosis. Soft tissues: Unremarkable. Pleural space: Lung apices revealed no pneumothorax. Mild right-sided apical pleural thickening with subpleural cystic/emphysematous changes versus scarring. IMPRESSION: Multilevel degenerative disease with no acute fracture or subluxation. Electronically signed by: Aaliyah Fry MD 10/02/22 00:[address] 10/01/22 21:49 Exam(s): CT CHEST With Contrast IV Amt: 95 ML OPTIRAY 320 EXAM: CT Chest With Intravenous Contrast CLINICAL HISTORY: Reason for exam: fall, right rib pain, AMS. TECHNIQUE: Axial computed tomography images of the chest with intravenous contrast. Automated exposure control was utilized for the study. A dose lowering technique was utilized adhering to the principles of ALARA. CONTRAST: Patient received 95 ML OPTIRAY 320 of IV contrast COMPARISON: None. FINDINGS: Lungs: Bilateral posterior lower lobe subpleural atelectasis. Pleural space: Right apical pleural thickening with subpleural scarring versus minimal cystic subpleural emphysematous changes. Otherwise normal lung parenchyma. No pleural effusion or pneumothorax. Heart: Unremarkable. No significant pericardial effusion. Normal cardiac size with coronary artery calcifications. Bones/joints: Degenerative disease of the bilateral shoulders, right more than left. Degenerative disease of the spine. Cortical disruption with irregularity along the superior endplate of L1 concerning for acute mild compression fracture. Moderate decrease in vertebral body height of T8 with prominent Schmorl nodes along the superior endplate suggestive of compression fracture, exact age indeterminate and likely old given morphology. No dislocation. Soft tissues: Unremarkable. Vasculature: Atherosclerotic disease of aorta with no aneurysm or dissection. Lymph nodes: Unremarkable. No enlarged lymph nodes. Liver: Nodular margins of the liver concerning for underlying cirrhosis. The spleen is enlarged measuring at least 14 cm, otherwise not entirely included in the [id number]. Gallbladder and bile ducts: Status post cholecystectomy. IMPRESSION: No acute findings in the chest. Electronically signed by: Aaliyah Fry MD 10/02/22 00:[address] 10/01/22 21:49 Exam(s): CT HEAD Without Contrast EXAM: CT Head Without Intravenous Contrast CLINICAL HISTORY: Reason for exam: fall, AMS. TECHNIQUE: Axial computed tomography images of the head/brain without intravenous contrast. Automated exposure control was utilized for the study. A dose lowering technique was utilized adhering to the principles of ALARA. COMPARISON: None. FINDINGS: Brain: Mild generalized brain atrophy. No hemorrhage. No significant white matter disease. Ventricles: Unremarkable. No ventriculomegaly. Bones/joints: Unremarkable. No acute fracture. Soft tissues: Unremarkable. Sinuses: Unremarkable as visualized. No acute sinusitis. Mastoid air cells: Unremarkable as visualized. No mastoid effusion. IMPRESSION: Involutional changes otherwise normal CT brain. Electronically signed by: Aaliyah Fry MD 10/02/22 00:22 AM Hip/Pelvis X-Ray 10/01/22 21:49 XR hip RT 2V w pelvis CLINICAL HISTORY: Right hip pain following fall. COMPARISON: CT of the abdomen and right hip performed earlier today. FINDINGS: Incidental is made of contrast within the bladder from recent contrast-enhanced CT. The sacroiliac joints and symphysis pubis are intact. Note is made of an acute significantly comminuted moderately displaced intertrochanteric fracture of the right femur. There is no proximal left femoral fracture. There is no pelvic fracture. IMPRESSION: Acute comminuted, moderately displaced intertrochanteric fracture of the right femur. ACT 112: Negative or not required by law. Electronically signed by: Aravind Plata M.D. 10/02/2022 7:08 AM Hip X-Ray 10/03/22 14:30 INTRAOPERATIVE RADIOGRAPHS CLINICAL HISTORY: Open reduction and fixation of the right proximal femur. Fluoro time: 180 seconds Ka,r: 63.93 mGy FINDINGS: 5 spot fluoroscopic views of the right femur are correlated with radiographs dated 10/01/2022. There has been intertrochanteric and intramedullary nail fixation of a comminuted intertrochanteric fracture of the right proximal femur. Near-anatomic alignment is restored. There is medial displacement of the lesser trochanter. A single cortical lag transfixes the distal end of the intramedullary nail. The orthopedic hardware appears intact. IMPRESSION: Intraoperative images from open reduction and internal fixation of the right proximal femur as above. Electronically signed by: Juan J Echevarria M.D. 10/03/2022 7:[address] 10/06/22 20:50 Exam(s): CT RIGHT HIP With Contrast IV Amt: 93ML OPTIRAY 320 EXAM: CT Right Lower Extremity With Intravenous Contrast, Hip CLINICAL HISTORY: Reason for exam: worsening R hip pain/wound drainage, ro abscess. TECHNIQUE: Axial computed tomography images of the right hip with intravenous contrast. Automated exposure control was utilized for the study. A dose lowering technique was utilized adhering to the principles of ALARA. CONTRAST: Patient received 93ML OPTIRAY 320 of IV contrast COMPARISON: 10/01/2022. FINDINGS: Bones/joints: The patient is status post ORIF surgery with the fixation сергей through the proximal right femoral shaft and femoral neck. Near anatomical alignment for the intertrochanteric fracture. Soft tissues: There is stranding with diffuse fluid along the subcutaneous fat along the right hip consistent with postoperative swelling. There is fluid collection with small amount of air at the level of the superolateral aspect of the right upper thigh/femoral region, difficult to accurately measure and measuring approximately 6.0 x 3.3 x 9.5 cm which could represent postoperative seroma or hematoma. There is evidence of the right lateral skin wagner along the surgical site consistent with recent surgery. IMPRESSION: 1. Postoperative changes along the proximal right femur with normal alignment. 2. Diffuse subcutaneous soft tissue edema versus cellulitis. 3. Fluid collection along the lateral aspect of the upper femur with punctate air suggestive of postoperative seroma versus hematoma. No distinct enhancing wall to suggest abscess. If indicated, this findings may be additionally characterized with ultrasound of the anterolateral aspect of the right upper thigh region. Electronically signed by: Aaliyah Fry MD 10/06/22 22:43 PM Vascular Ultrasound 10/06/22 23:06 Exam(s): US EXTREMITY EXAM: US Right Lower Extremity Non-Vascular, Complete CLINICAL HISTORY: Reason for exam: R thigh fluid collection. TECHNIQUE: Real-time ultrasound scan of the right lower extremity with image documentation. COMPARISON: None. FINDINGS: Soft tissues: Ultrasound images directed to the anterolateral aspect of the right thigh, superior to the incision sites there are 2 areas of complex fluid collections, largest seen inferiorly and measuring 8.3 x 2. 3 x 1.6 cm, likely hematoma. Diffuse superficial soft tissue edema noted, nonspecific. No foreign body. IMPRESSION: 1. Complex fluid collection within the soft tissues along the anterolateral aspect of the right upper thigh largest measuring 8.3 x 2.3 x 1.6 cm, likely hematoma. 2. No fluid collection to suggest abscess seen. Electronically signed by: Aaliyah Fry MD 10/07/22 00:28 AM
[2022-10-07] MEDS: CHOLECALCIFEROL 5,000 UNITS 125 MCG TAB PO SCH (12:54)
[2022-10-08 06:44] LABS: Hematocrit (blood only) 29.9 % (42.0-52.0); Hemoglobin 10.1 g/dl (14.0-18.0); Mean Corpuscular Hemoglobin 31.8 pg (25.0-34.0); Mean Corpuscular Hgb Conc 33.8 g/dL (32.0-36.0); Mean Platelet Volume 9.9 fL (9.4-12.4); Nucleated RBC # (auto) 0.02 K/uL (0-0.12); Nucleated RBC % (auto) 0.3 %; Platelet Count 140 K/uL (130-400); RDW Coefficient of Variation 17.3 % (11.5-14.5); RDW Standard Deviation 51.1 fL (36.4-46.3); Red Blood Count 3.18 M/uL (4.70-6.10); White Blood Count 6.29 K/ul (4.8-10.8)
[2022-10-08 07:02] LABS: Calcium 7.8 mg/dl (8.6-10.3); Creatinine Clr Calc Pharmacy 142.2 ml/min; Est GFR (African American) 122.4 ml/min; Est GFR (Non-African American) 105.6 ml/min; Potassium 4.6 mmol/L (3.5-5.1)
[2022-10-08 07:36] LABS: ALC (manual) 2.83 K/uL (1.2-3.4); ANC (manual) 2.52 K/uL (1.4-6.5); Eosinophils # (manual) 0.19 K/uL (0-0.50); Eosinophils % (manual) 3 %; Lymphocytes # (manual) 1.45 K/uL (1.2-3.4); Lymphocytes % (manual) 23 %; Metamyelocytes # (manual) 0.25 K/uL (0-0); Metamyelocytes % (manual) 4 %; Monocytes # (manual) 0.44 K/uL (0.11-0.59); Monocytes % (manual) 7 %; Myelocytes # (manual) 0.19 K/uL (0-0); Myelocytes % (manual) 3 %; Neutrophils # (manual) 2.52 K/uL (1.40-6.50); Neutrophils % (manual) 40 %; Polychromasia 1+; Reactive Lymphocytes # (manual) 1.38 K/uL; Reactive Lymphocytes % (manual) 22 %
[2022-10-08] MEDS: POT PHOSPHATE MONOBASIC W/ SOD TAB PO SCH ×4 (08:31→21:09)
[2022-10-08] MEDS: DOXYCYCLINE HYCLATE 100 MG CAP PO SCH ×2 (08:31→21:11)
[2022-10-08] MEDS: METOPROLOL TARTRATE 25 MG TAB PO SCH ×2 (08:31→21:10)
[2022-10-08] MEDS: CHOLECALCIFEROL 5,000 UNITS 125 MCG TAB PO SCH (08:32)
[2022-10-08] MEDS: POLYETHYLENE (MIRALAX) 17 GM PACK PO SCH (08:32)
[2022-10-08] MEDS: oxyCODONE HCL IR 5 MG TAB (IMMEDIATE RELEASE) PO PRN ×2 (08:36→21:13)
[2022-10-08] MEDS: ACETAMINOPHEN 325 MG TAB PO SCH ×3 (08:36→21:09)
--- NOTE | 2022-10-08 14:03 | Hospitalist Progress Note ---
Date of Service October 08, 2022 Assessment & Plan (1) Lyme disease: (2) Anaplasmosis: (3) Lactic acidosis: (4) Hyponatremia: (5) Closed fracture of right hip: Plan 62-year-old male male with history of hep C treated, cirrhosis, was not seen a physician for long time and is not on any meds except for herbals admitted with right hip fracture, Lyme disease/anaplasmosis, lactic acidosis and hyponatremia X-ray right hip- Acute comminuted, moderately displaced intertrochanteric fracture of the right femur. CT A/P- 1. Intertrochanteric comminuted fracture of the right hip is described otherwise normal alignment. 2. Mild acute compression fracture of L1 with no retropulsion or extension to the pedicles. 3. Cirrhosis with mild splenomegaly and possible small esophageal varices. No evidence of visceral injury. No intra-abdominal hematoma and free fluid seen. 4. Possible nonobstructive stone within the left lower renal pole measuring 2.2 mm. Remainder of bilateral kidneys are unremarkable. 5. Cannot exclude mild enterocolitis in the appropriate clinical context, clinical correlation recommended. CT chest, head and cervical spine with no acute findings Echo with hyperdynamic left ventricle, EF more than 75%,borderline consider LVH, no significant valvular disease, no pulm hypertension Closed right hip fracture-due to fall. CT reviewed as above. - Status post open reduction internal fixation right hip fracture with trochanteric femoral nail fixation with fenestrated helical blade 10/03 per Ortho surgery -Continue physical therapy, pain management, bowel regimen, DVT prophylaxis -Patient will need rehab prior to returning to his apartment Concern for postoperative hematoma/seroma: On the night of 10/07/2022, patient reported to have increasing right hip pain with soaked dressing with yellow puslike bloody discharge. CT of right hip and right lower extremity ultrasound done which showed complex fluid collection in right upper thigh measuring 8.3 X 2.3 X 1.6 cm. Patient was started on Zosyn. Evaluated by orthopedics on the morning; no concern for infection. Likely developed postoperative hematoma/seroma. Recommended to continue doxycycline for Lyme;. Hemoglobin stable; resume Lovenox L1 fracture-due to fall. CT reviewed as above. Lyme disease/anaplasmosis- reported tick bite last week. Labs positive for Anaplasma and Lyme disease, Western blot positive for Lyme. Continue doxycycline for 10 days.. Lactic acidosis-significantly improved. Lactic acid probably not clearing up because of his liver cirrhosis. No need for further trending. Clx negative- cefepime discontinued 10/04 and being monitored clinically. He does not meet SIRS or sepsis criteria on admission-no fever or leukocytosis or hypotension noted. A-fib with RVR-resolved, now back to NSR. He went to A-fib with RVR at 5 PM 10/02 and was in normal sinus rhythm when he came out of the OR yesterday 10/03. His A- fib was likely related to the underlying stressors and is now resolved. Echo reviewed. Telemetry reviewed. Seen by cardiology. His CHADS2 VASc is 0 and would not require anticoagulation. Hyponatremia-resolved. sodium 125->126->130->132->137 with IVF. IVF discontinued. Seen by nephrology Hypophosphatemia-repleted. Recheck Polysubstance abuse- UDS positive for amphetamine and marijuana. Does smoke few cigarettes a day. States he used to drink alcohol in the past. Thrombocytopenia-due to tickborne disease. Improving with treatment. Monitor. Cirrhosis of liver (?alc/Hep C related) with mild splenomegaly and possible small esophageal varices-no clinical decompensation noted. patient does report history of hep C treated in the past and was seen at [place], HCV RNA load of 6980. Patient does not see any GI doctors locally. Recommended GI follow-up at discharge for the same with EGD. Vitamin D deficiency-vitamin D level 22. Started on vitamin D supplementation. DVT prophylaxis-Lovenox while Disposition: PT recommends acute rehab- CM following. Stable to go to rehab. Time spent evaluating patient, direct bedside care, chart review, placing orders, interpretation of diagnostic studies, discussion with consultants, patient, and family members, as well as other required patient management activities is 60 minutes. Please note the above document was generated using voice recognition software. It may contain grammatical, syntax or spelling errors. Any formal questions or concerns about the content, text or information contained within the body of this dictation should be directly addressed to the provider for clarification Admission and Anticipated Discharge Date Admission Date: October 02, 2022 Subjective Patient seen and examined at bedside. He is comfortably lying on the bed; not in any distress. Reports that pain is well controlled on current medication. Review of Systems Review of Systems: All systems reviewed & are unremarkable except as noted in Subjective Physical Exam Physical Exam: General: Lying comfortably in bed, not in acute distress, on room air HEENT: EOMI, KAMALJIT, MMM, poor dentition Chest: Fair breath sounds bilaterally CVS: Regular, normal heart sounds, no murmur Abdomen: Soft, non tender, not distended, normal bowel sounds Neuro: Awake, alert, oriented, conversing well Extremities: No cyanosis, clubbing or edema. Rt hip incision site clean dry intact covered with dressing. Results & Data Results & Data Vital Signs (Past 12 Hours) Vital Signs Temp Pulse Resp BP Pulse Ox O2 Del Method 10/08/22 10:44 114/71 10/08/22 08:45 Room Air 10/08/22 08:29 36.8 C 86 16 99/63 L 95 Room Air Laboratory Results Laboratory Results WBC 6.29 K/ul (4.8-10.8) 10/08/22 06:17 RBC 3.18 M/uL (4.70-6.10) L 10/08/22 06:17 Hgb 10.1 g/dl (14.0-18.0) L 10/08/22 06:17 Hct 29.9 % (42.0-52.0) L 10/08/22 06:17 MCV 94.0 fL (80.0-100.0) 10/08/22 06:17 MCH 31.8 pg (25.0-34.0) 10/08/22 06:17 MCHC 33.8 g/dL (32.0-36.0) 10/08/22 06:17 RDW Std Deviation 51.1 fL (36.4-46.3) H 10/08/22 06:17 RDW Coeff of Yanni 17.3 % (11.5-14.5) H 10/08/22 06:17 Plt Count 140 K/uL (130-400) 10/08/22 06:17 MPV 9.9 fL (9.4-12.4) 10/08/22 06:17 Immature Gran % (Auto) 0.5 % 10/04/22 05:50 Neut % (Auto) 44.0 % 10/04/22 05:50 Lymph % (Auto) 46.3 % 10/04/22 05:50 [place] % (Auto) 9.0 % 10/04/22 05:50 Eos % (Auto) 0.0 % 10/04/22 05:50 Baso % (Auto) 0.2 % 10/04/22 05:50 Neut # (Auto) 2.92 K/uL (1.40-6.50) 10/04/22 05:50 Lymph # (Auto) 3.07 K/uL (1.2-3.4) 10/04/22 05:50 [place] # (Auto) 0.60 K/uL (0.11-0.59) H 10/04/22 05:50 Eos # (Auto) 0.00 K/uL (0-0.50) 10/04/22 05:50 Baso # (Auto) 0.01 K/uL (0-0.2) 10/04/22 05:50 Immature Gran # (Auto) 0.03 K/uL (0.01-0.20) 10/04/22 05:50 Absolute Nucleated RBC 0.02 K/uL (0-0.12) 10/08/22 06:17 Nucleated RBC % (auto) 0.3 % 10/08/22 06:17 Neutrophils % (Manual) 40 % 10/08/22 06:17 Lymphocytes % (Manual) 23 % 10/08/22 06:17 Reactive Lymphs % (Man) 22 % 10/08/22 06:17 Monocytes % (Manual) 7 % 10/08/22 06:17 Eosinophils % (Manual) 3 % 10/08/22 06:17 Basophils % (Manual) 1 % 10/07/22 06:56 Metamyelocytes % (Man) 4 % 10/08/22 06:17 Myelocytes % (Man) 3 % 10/08/22 06:17 Neutrophils # (Manual) 2.52 K/uL (1.40-6.50) 10/08/22 06:17 Total Absolute Neuts 2.52 K/uL (1.4-6.5) 10/08/22 06:17 Lymphocytes # (Manual) 1.45 K/uL (1.2-3.4) 10/08/22 06:17 Reactive Lymphs # 1.38 K/uL 10/08/22 06:17 Total Abs Lymphocytes 2.83 K/uL (1.2-3.4) 10/08/22 06:17 Monocytes # (Manual) 0.44 K/uL (0.11-0.59) 10/08/22 06:17 Eosinophils # (Manual) 0.19 K/uL (0-0.50) 10/08/22 06:17 Basophils # (Manual) 0.08 K/uL (0-0.2) 10/07/22 06:56 Metamyelocytes # (Man) 0.25 K/uL (0-0) H 10/08/22 06:17 Myelocytes # (Manual) 0.19 K/uL (0-0) H 10/08/22 06:17 Platelet Estimate Decreased (Normal) L 10/01/22 21:54 Polychromasia 1+ 10/08/22 06:17 Acanthocytes (Spur) 2+ 10/01/22 21:54 Peripher Smr Path Cons 10/02/22 05:20 PT 17.0 Seconds (9.0-12.0) H 10/01/22 21:54 INR 1.6 (0.9-1.1) H 10/01/22 21:54 APTT 40.4 Seconds (21.0-31.0) H* 10/01/22 21:54 PTT Ratio 1.4 10/01/22 21:54 VBG pH 7.44 (7.36-7.41) H 10/02/22 00:00 VBG pCO2 35 mmHg (38-50) L 10/02/22 00:00 VBG pO2 20 mmHg 10/02/22 00:00 VBG HCO3 24 mmol/L 10/02/22 00:00 VBG O2 Saturation < 60.0 % 10/02/22 00:00 VBG Base Excess 0.1 mEq/L 10/02/22 00:00 Sodium 135 mmol/L (136-145) L 10/08/22 06:17 Potassium 4.6 mmol/L (3.5-5.1) 10/08/22 06:17 Chloride 106 mmol/L (98-107) 10/08/22 06:17 Carbon Dioxide 26 mmol/L (21-32) 10/08/22 06:17 Anion Gap 3 (3-11) 10/08/22 06:17 BUN 13 mg/dl (6-23) 10/08/22 06:17 Creatinine 0.62 mg/dl (0.6-1.4) 10/08/22 06:17 Est Cr Clr Drug Dosing 142.2 ml/min 10/08/22 06:17 Est GFR ( Amer) 122.4 ml/min 10/08/22 06:17 Est GFR (Non-Af Amer) 105.6 ml/min 10/08/22 06:17 BUN/Creatinine Ratio 21.0 (10-20) H 10/08/22 06:17 Glucose 94 mg/dl (70-99(Fasting)) 10/08/22 06:17 Estimat Average Glucose 97 mg/dl 10/02/22 05:20 Hemoglobin A1c 5.0 % (4.5-5.6) 10/02/22 05:20 Osmolality 276 mOsm/kg (280-300) L 10/01/22 21:54 Lactate 2.9 mmol/L (0.4-2.0) H* 10/03/22 10:26 Calcium 7.8 mg/dl (8.6-10.3) L 10/08/22 06:17 Phosphorus 2.4 mg/dl (2.5-4.9) L 10/06/22 06:08 Magnesium 2.1 mg/dl (1.7-2.4) 10/04/22 05:50 Total Bilirubin 1.4 mg/dl (0.2-1.0) H 10/06/22 06:08 AST 62 U/L (13-39) H 10/06/22 06:08 ALT 37 U/L (7-52) 10/06/22 06:08 Alkaline Phosphatase 94 U/L (34-104) 10/06/22 06:08 Ammonia 44.0 umol/L (18-72) 10/02/22 01:45 Total Creatine Kinase 215 U/L (30-223) 10/02/22 05:20 Troponin I High Sens 20.3 pg/ml (0-20) H 10/02/22 05:20 B-Natriuretic Peptide 68 pg/ml (0-100) 10/01/22 21:54 Total Protein 6.0 gm/dl (6.0-8.3) 10/06/22 06:08 Albumin 2.1 gm/dl (3.4-5.0) L 10/06/22 06:08 Globulin 3.9 gm/dl (2.5-4.0) 10/06/22 06:08 Albumin/Globulin Ratio 0.5 (0.9-2) L 10/06/22 06:08 25-OH Vitamin D Total 22.5 ng/ml (30-100) L 10/04/22 05:50 Procalcitonin 3.15 ng/ml (0-0.5) H 10/02/22 05:20 TSH 0.671 uIu/ml (0.300-4.500) 10/01/22 21:54 Urine Color [place] 10/01/22 22:26 Urine Appearance Clear (Clear) 10/01/22 22:26 Urine pH 5.5 (4.5-7.5) 10/01/22 22:26 Ur Specific [place] 1.029 (1.000-1.030) 10/01/22 22:26 Urine Protein 2+ (Negative) H 10/01/22 22:26 Urine Glucose (UA) Negative (Negative) 10/01/22 22:26 Urine Ketones Trace (Negative) H 10/01/22 22:26 Urine Blood 3+ (Negative) H 10/01/22 22:26 Urine Nitrite Positive (Negative) A 10/01/22 22:26 Urine Bilirubin 1+ (Negative) H 10/01/22 22:26 Urine Urobilinogen Positive (Negative) H 10/01/22 22:26 Ur Leukocyte Esterase Trace (Negative) H 10/01/22 22:26 Urine WBC (Auto) 1-5 /hpf (0-5) 10/01/22 22:26 Urine RBC (Auto) 5-10 /hpf (0-4) H 10/01/22 22:26 U Hyaline Cast (Auto) 1-5 /lpf (0-5) 10/01/22 22:26 U Epithel Cells (Auto) 5-10 /lpf (0-5) H 10/01/22 22:26 Urine Bacteria (Auto) Negative (Negative) 10/01/22 22:26 Urine Osmolality 976 mOsm/kg (500-800) H 10/02/22 17:29 Ur Random Creatinine 183.9 mg/dl 10/02/22 17:29 U Random Total Protein 146.5 mg/dl (0-11.9) H 10/02/22 17:29 Ur Random Sodium < 10 mmol/L 10/02/22 17:29 Protein/Creatinin Ratio 0.8 (0-0.2) H 10/02/22 17:29 Urine Opiates Screen Neg (Neg) 10/01/22 22:26 Ur Methadone, Qual Neg (Neg) 10/01/22 22:26 Urine Barbiturates Neg (Neg) 10/01/22 22:26 Ur Phencyclidine (PCP) Neg (Neg) 10/01/22 22:26 U Amphetamines Confirm 411 ng/mL (<250) H 10/01/22 22:26 U Amphetamin/Meth Scrn Pos (Neg) H 10/01/22 22:26 U Methamphetamin Confrm 1150 ng/mL (<250) H 10/01/22 22:26 MDMA (Ecstasy) Screen Neg (Neg) 10/01/22 22:26 U Benzodiazepines Scrn Neg (Neg) 10/01/22 22:26 Ur Cocaine Metabolite Neg (Neg) 10/01/22 22:26 U Marijuana (THC) Screen Pos (Neg) H 10/01/22 22:26 U Marijuana THC Carboxy 77 ng/mL (<5) H 10/01/22 22:26 Drug Screen Comment SEE NOTE 10/01/22 22:26 Ethyl Alcohol mg/dL < 10.0 mg/dl (<10.0) 10/01/22 21:54 Anaplasma Smear See Comment A 10/02/22 05:20 Anaplasma Comment Pos for Anaplasma 10/02/22 05:20 Lyme Disease IgG Ab Positive (Negative) A 10/02/22 11:50 Lyme IgG (Western Blot) POSITIVE (NEGATIVE) A 10/02/22 11:50 Lyme IgG 18 kDa Band NON-REACTIVE 10/02/22 11:50 Lyme IgG 23 kDa Band REACTIVE A 10/02/22 11:50 Lyme IgG 28 kDa Band NON-REACTIVE 10/02/22 11:50 Lyme IgG 30 kDa Band NON-REACTIVE 10/02/22 11:50 Lyme IgG 39 kDa Band REACTIVE A 10/02/22 11:50 Lyme IgG 41 kDa Band REACTIVE A 10/02/22 11:50 Lyme IgG 45 kDa Band NON-REACTIVE 10/02/22 11:50 Lyme IgG 58 kDa Band REACTIVE A 10/02/22 11:50 Lyme IgG 66 kDa Band REACTIVE A 10/02/22 11:50 Lyme IgG 93 kDa Band REACTIVE A 10/02/22 11:50 Lyme IgM Ab (WB) POSITIVE (NEGATIVE) A 10/02/22 11:50 Lyme Disease IgM Ab Positive (Negative) A 10/02/22 11:50 Lyme IgM 23 kDa Band REACTIVE A 10/02/22 11:50 Lyme IgM 39 kDa Band REACTIVE A 10/02/22 11:50 Lyme IgM 41 kDa Band REACTIVE A 10/02/22 11:50 Hepatitis A IgM Ab NON-REACTIVE (NON-REACTIVE) 10/02/22 05:20 Hep Bs Antigen NON-REACTIVE (NON-REACTIVE) 10/02/22 05:20 Hep Bs Ag Confirmation TNP 10/02/22 05:20 Hep B Core IgM Ab NON-REACTIVE (NON-REACTIVE) 10/02/22 05:20 Hepatitis C Ab (EIA) REACTIVE (NON-REACTIVE) A 10/02/22 05:20 Hep C Ab Signal/Cutoff Not Reportable 10/02/22 05:20 HCV RNA (PCR) IUs/ml 6980 IU/mL (NOT DETECTED) H 10/02/22 05:20 HCV RNA PCR log IUs/ml 3.84 Log IU/mL (NOT DETECTED) H 10/02/22 05:20 Hepatitis C RNA Comment SEE NOTE 10/02/22 05:20 SARS-CoV-2, RNA, NAAT NEGATIVE (NEGATIVE) 10/01/22 21:38 Blood Type A Negative 10/01/22 21:54 Blood Type Recheck A Negative 10/03/22 04:43 Antibody Screen NEGATIVE 10/01/22 21:54 Impressions Abdomen/Pelvis CT 10/01/22 21:49 Exam(s): CT ABDOMEN + PELVIS With Contrast IV Amt: 95 ML OPTIRAY 320 EXAM: CT Abdomen and Pelvis With Intravenous Contrast CLINICAL HISTORY: Reason for exam: fall, right hip pain, AMS. TECHNIQUE: Axial computed tomography images of the abdomen and pelvis with intravenous contrast. Automated exposure control was utilized for the study. A dose lowering technique was utilized adhering to the principles of ALARA. CONTRAST: Patient received 95 ML OPTIRAY 320 of IV contrast COMPARISON: None. FINDINGS: Lung bases: Mild bilateral posterior dependent atelectasis. ABDOMEN: Liver: Nodular margins of the liver suggestive of cirrhosis. Gallbladder and bile ducts: Unremarkable. No calcified stones. No ductal dilation. Pancreas: Unremarkable. No mass. No ductal dilation. Spleen: The spleen measures 14.6 cm consistent with splenomegaly. Adrenals: Unremarkable. No mass. Kidneys and ureters: Possible tiny stones within the lower pole of the left kidney measuring 2.2 mm. Otherwise normal bilateral kidneys. No hydronephrosis. Stomach and bowel: Incompletely distended colon with borderline thickening of the wall. Loops of small bowel within the right abdomen with borderline mild fullness of the wall, cannot exclude mild enterocolitis. Mild distention of several small bowel loops in the pelvis reaching a maximum diameter up to 2.3 cm, cannot exclude mild ileus. No significant dilatation to suggest obstruction. The descending colon is decompressed, otherwise unremarkable. PELVIS: Appendix: Normal appendix. Bladder: Unremarkable. No mass. Reproductive: Unremarkable as visualized. ABDOMEN and PELVIS: Intraperitoneal space: Unremarkable. No free air. No significant fluid collection. Bones/joints: There is a comminuted fracture involving the right intertrochanteric region. Mild compression fracture of L1 vertebral body with no extension to the pedicles or retropulsion. Multilevel degenerative disease of the lumbar spine. No dislocation. Soft tissues: Slight heterogeneity with enlargement and poor definition of the fascial planes involving the right gluteus musculature, suggestive of nonspecific soft tissue edema versus bruising/hematoma. Small bilateral fat-containing inguinal hernias versus scrotal lipomas. Vasculature: Calcified atherosclerotic disease of aorta with no aneurysm or dissection. Possible small distal esophageal varices. Lymph nodes: Unremarkable. No enlarged lymph nodes. IMPRESSION: 1. Intertrochanteric comminuted fracture of the right hip is described otherwise normal alignment. 2. Mild acute compression fracture of L1 with no retropulsion or extension to the pedicles. 3. Cirrhosis with mild splenomegaly and possible small esophageal varices. No evidence of visceral injury. No intra-abdominal hematoma and free fluid seen. 4. Possible nonobstructive stone within the left lower renal pole measuring 2.2 mm. Remainder of bilateral kidneys are unremarkable. 5. Cannot exclude mild enterocolitis in the appropriate clinical context, clinical correlation recommended. Electronically signed by: Aaliyah Fry MD 10/02/22 00:[address] 10/01/22 21:49 Exam(s): CT C SPINE EXAM: CT Cervical Spine Without Intravenous Contrast CLINICAL HISTORY: Reason for exam: fall, AMS. TECHNIQUE: Axial computed tomography images of the cervical spine without intravenous contrast. Automated exposure control was utilized for the study. A dose lowering technique was utilized adhering to the principles of ALARA. COMPARISON: None. FINDINGS: Vertebrae: Degenerative arthrosis at anterior C1-C2 articulation otherwise normal odontoid process. Multilevel spondylosis with narrowing of described, severe C6-C7. Otherwise normal alignment. No acute fracture. Discs/spinal canal/neural foramina: Multilevel bilateral apophyseal hypertrophy contributing to variable degrees of neuroforaminal encroachment, more significant at C6-C7. No central canal stenosis. Soft tissues: Unremarkable. Pleural space: Lung apices revealed no pneumothorax. Mild right-sided apical pleural thickening with subpleural cystic/emphysematous changes versus scarring. IMPRESSION: Multilevel degenerative disease with no acute fracture or subluxation. Electronically signed by: Aaliyah Fry MD 10/02/22 00:[address] 10/01/22 21:49 Exam(s): CT CHEST With Contrast IV Amt: 95 ML OPTIRAY 320 EXAM: CT Chest With Intravenous Contrast CLINICAL HISTORY: Reason for exam: fall, right rib pain, AMS. TECHNIQUE: Axial computed tomography images of the chest with intravenous contrast. Automated exposure control was utilized for the study. A dose lowering technique was utilized adhering to the principles of ALARA. CONTRAST: Patient received 95 ML OPTIRAY 320 of IV contrast COMPARISON: None. FINDINGS: Lungs: Bilateral posterior lower lobe subpleural atelectasis. Pleural space: Right apical pleural thickening with subpleural scarring versus minimal cystic subpleural emphysematous changes. Otherwise normal lung parenchyma. No pleural effusion or pneumothorax. Heart: Unremarkable. No significant pericardial effusion. Normal cardiac size with coronary artery calcifications. Bones/joints: Degenerative disease of the bilateral shoulders, right more than left. Degenerative disease of the spine. Cortical disruption with irregularity along the superior endplate of L1 concerning for acute mild compression fracture. Moderate decrease in vertebral body height of T8 with prominent Schmorl nodes along the superior endplate suggestive of compression fracture, exact age indeterminate and likely old given morphology. No dislocation. Soft tissues: Unremarkable. Vasculature: Atherosclerotic disease of aorta with no aneurysm or dissection. Lymph nodes: Unremarkable. No enlarged lymph nodes. Liver: Nodular margins of the liver concerning for underlying cirrhosis. The spleen is enlarged measuring at least 14 cm, otherwise not entirely included in the [id number]. Gallbladder and bile ducts: Status post cholecystectomy. IMPRESSION: No acute findings in the chest. Electronically signed by: Aaliyah Fry MD 10/02/22 00:[address] 10/01/22 21:49 Exam(s): CT HEAD Without Contrast EXAM: CT Head Without Intravenous Contrast CLINICAL HISTORY: Reason for exam: fall, AMS. TECHNIQUE: Axial computed tomography images of the head/brain without intravenous contrast. Automated exposure control was utilized for the study. A dose lowering technique was utilized adhering to the principles of ALARA. COMPARISON: None. FINDINGS: Brain: Mild generalized brain atrophy. No hemorrhage. No significant white matter disease. Ventricles: Unremarkable. No ventriculomegaly. Bones/joints: Unremarkable. No acute fracture. Soft tissues: Unremarkable. Sinuses: Unremarkable as visualized. No acute sinusitis. Mastoid air cells: Unremarkable as visualized. No mastoid effusion. IMPRESSION: Involutional changes otherwise normal CT brain. Electronically signed by: Aaliyah Fry MD 10/02/22 00:22 AM Hip/Pelvis X-Ray 10/01/22 21:49 XR hip RT 2V w pelvis CLINICAL HISTORY: Right hip pain following fall. COMPARISON: CT of the abdomen and right hip performed earlier today. FINDINGS: Incidental is made of contrast within the bladder from recent contrast-enhanced CT. The sacroiliac joints and symphysis pubis are intact. Note is made of an acute significantly comminuted moderately displaced intertrochanteric fracture of the right femur. There is no proximal left femoral fracture. There is no pelvic fracture. IMPRESSION: Acute comminuted, moderately displaced intertrochanteric fracture of the right femur. ACT 112: Negative or not required by law. Electronically signed by: Aravind Plata M.D. 10/02/2022 7:08 AM Hip X-Ray 10/03/22 14:30 INTRAOPERATIVE RADIOGRAPHS CLINICAL HISTORY: Open reduction and fixation of the right proximal femur. Fluoro time: 180 seconds Ka,r: 63.93 mGy FINDINGS: 5 spot fluoroscopic views of the right femur are correlated with radiographs dated 10/01/2022. There has been intertrochanteric and intramedullary nail fixation of a comminuted intertrochanteric fracture of the right proximal femur. Near-anatomic alignment is restored. There is medial displacement of the lesser trochanter. A single cortical lag transfixes the distal end of the intramedullary nail. The orthopedic hardware appears intact. IMPRESSION: Intraoperative images from open reduction and internal fixation of the right proximal femur as above. Electronically signed by: Juan J Echevarria M.D. 10/03/2022 7:[address] 10/06/22 20:50 Exam(s): CT RIGHT HIP With Contrast IV Amt: 93ML OPTIRAY 320 EXAM: CT Right Lower Extremity With Intravenous Contrast, Hip CLINICAL HISTORY: Reason for exam: worsening R hip pain/wound drainage, ro abscess. TECHNIQUE: Axial computed tomography images of the right hip with intravenous contrast. Automated exposure control was utilized for the study. A dose lowering technique was utilized adhering to the principles of ALARA. CONTRAST: Patient received 93ML OPTIRAY 320 of IV contrast COMPARISON: 10/01/2022. FINDINGS: Bones/joints: The patient is status post ORIF surgery with the fixation сергей through the proximal right femoral shaft and femoral neck. Near anatomical alignment for the intertrochanteric fracture. Soft tissues: There is stranding with diffuse fluid along the subcutaneous fat along the right hip consistent with postoperative swelling. There is fluid collection with small amount of air at the level of the superolateral aspect of the right upper thigh/femoral region, difficult to accurately measure and measuring approximately 6.0 x 3.3 x 9.5 cm which could represent postoperative seroma or hematoma. There is evidence of the right lateral skin wagner along the surgical site consistent with recent surgery. IMPRESSION: 1. Postoperative changes along the proximal right femur with normal alignment. 2. Diffuse subcutaneous soft tissue edema versus cellulitis. 3. Fluid collection along the lateral aspect of the upper femur with punctate air suggestive of postoperative seroma versus hematoma. No distinct enhancing wall to suggest abscess. If indicated, this findings may be additionally characterized with ultrasound of the anterolateral aspect of the right upper thigh region. Electronically signed by: Aaliyah Fry MD 10/06/22 22:43 PM Vascular Ultrasound 10/06/22 23:06 Exam(s): US EXTREMITY EXAM: US Right Lower Extremity Non-Vascular, Complete CLINICAL HISTORY: Reason for exam: R thigh fluid collection. TECHNIQUE: Real-time ultrasound scan of the right lower extremity with image documentation. COMPARISON: None. FINDINGS: Soft tissues: Ultrasound images directed to the anterolateral aspect of the right thigh, superior to the incision sites there are 2 areas of complex fluid collections, largest seen inferiorly and measuring 8.3 x 2. 3 x 1.6 cm, likely hematoma. Diffuse superficial soft tissue edema noted, nonspecific. No foreign body. IMPRESSION: 1. Complex fluid collection within the soft tissues along the anterolateral aspect of the right upper thigh largest measuring 8.3 x 2.3 x 1.6 cm, likely hematoma. 2. No fluid collection to suggest abscess seen. Electronically signed by: Aaliyah Fry MD 10/07/22 00:28 AM
[2022-10-08] MEDS: ENOXAPARIN INJ 40 MG/0.4 ML SYR SQ SCH (16:19)
[2022-10-09] MEDS: oxyCODONE HCL IR 5 MG TAB (IMMEDIATE RELEASE) PO PRN ×2 (02:57→13:25)
[2022-10-09 07:14] LABS: Hematocrit (blood only) 32.2 % (42.0-52.0); Hemoglobin 10.7 g/dl (14.0-18.0); Mean Corpuscular Hemoglobin 31.8 pg (25.0-34.0); Mean Corpuscular Hgb Conc 33.2 g/dL (32.0-36.0); Mean Corpuscular Volume 95.8 fL (80.0-100.0); Mean Platelet Volume 9.8 fL (9.4-12.4); Nucleated RBC # (auto) 0.02 K/uL (0-0.12); Nucleated RBC % (auto) 0.4 %; Platelet Count 138 K/uL (130-400); RDW Coefficient of Variation 17.4 % (11.5-14.5); RDW Standard Deviation 53.4 fL (36.4-46.3); Red Blood Count 3.36 M/uL (4.70-6.10); White Blood Count 5.57 K/ul (4.8-10.8)
[2022-10-09 07:44] LABS: Albumin Globulin Ratio 0.5 (0.9-2); Albumin Level 2.3 gm/dl (3.4-5.0); BUN Creatinine Ratio 24.5 (10-20); Calcium 8.1 mg/dl (8.6-10.3); Creatinine Clr Calc Pharmacy 166.3 ml/min; Est GFR (African American) 130.5 ml/min; Est GFR (Non-African American) 112.6 ml/min; Globulin 4.3 gm/dl (2.5-4.0); Potassium 4.4 mmol/L (3.5-5.1); Total Protein 6.6 gm/dl (6.0-8.3)
[2022-10-09 07:54] LABS: Basophils # (auto) 0.03 K/uL (0-0.2); Basophils % (auto) 0.5 %; Eosinophils # (auto) 0.08 K/uL (0-0.50); Eosinophils % (auto) 1.4 %; Immature Granulocytes # (auto) 0.43 K/uL (0.01-0.20); Immature Granulocytes % (auto) 7.7 %; Lymphocytes # (auto) 2.35 K/uL (1.2-3.4); Lymphocytes % (auto) 42.2 %; Monocytes # (auto) 0.62 K/uL (0.11-0.59); Monocytes % (auto) 11.1 %; Neutrophils # (auto) 2.06 K/uL (1.40-6.50); Neutrophils % (auto) 37.1 %; Polychromasia 2+
[2022-10-09] MEDS: POT PHOSPHATE MONOBASIC W/ SOD TAB PO SCH ×4 (08:31→20:13)
[2022-10-09] MEDS: DOXYCYCLINE HYCLATE 100 MG CAP PO SCH ×2 (08:31→20:12)
[2022-10-09] MEDS: METOPROLOL TARTRATE 25 MG TAB PO SCH ×2 (08:31→20:12)
[2022-10-09] MEDS: POLYETHYLENE (MIRALAX) 17 GM PACK PO SCH (08:32)
[2022-10-09] MEDS: CHOLECALCIFEROL 5,000 UNITS 125 MCG TAB PO SCH (08:32)
[2022-10-09] MEDS: ACETAMINOPHEN 325 MG TAB PO SCH ×3 (08:34→20:11)
[2022-10-09 14:09] LABS: Ehrlichia chaff DNA Bld Negative (Negative)
--- NOTE | 2022-10-09 14:26 | Hospitalist Progress Note ---
Date of Service October 09, 2022 Assessment & Plan (1) Lyme disease: (2) Anaplasmosis: (3) Lactic acidosis: (4) Hyponatremia: (5) Closed fracture of right hip: Plan 62-year-old male male with history of hep C treated, cirrhosis, was not seen a physician for long time and is not on any meds except for herbals admitted with right hip fracture, Lyme disease/anaplasmosis, lactic acidosis and hyponatremia X-ray right hip- Acute comminuted, moderately displaced intertrochanteric fracture of the right femur. CT A/P- 1. Intertrochanteric comminuted fracture of the right hip is described otherwise normal alignment. 2. Mild acute compression fracture of L1 with no retropulsion or extension to the pedicles. 3. Cirrhosis with mild splenomegaly and possible small esophageal varices. No evidence of visceral injury. No intra-abdominal hematoma and free fluid seen. 4. Possible nonobstructive stone within the left lower renal pole measuring 2.2 mm. Remainder of bilateral kidneys are unremarkable. 5. Cannot exclude mild enterocolitis in the appropriate clinical context, clinical correlation recommended. CT chest, head and cervical spine with no acute findings Echo with hyperdynamic left ventricle, EF more than 75%,borderline consider LVH, no significant valvular disease, no pulm hypertension Closed right hip fracture-due to fall. CT reviewed as above. - Status post open reduction internal fixation right hip fracture with trochanteric femoral nail fixation with fenestrated helical blade 10/03 per Ortho surgery -Continue physical therapy, pain management, bowel regimen, DVT prophylaxis -Patient will need rehab prior to returning to his apartment Concern for postoperative hematoma/seroma: On the night of 10/07/2022, patient reported to have increasing right hip pain with soaked dressing with yellow puslike bloody discharge. CT of right hip and right lower extremity ultrasound done which showed complex fluid collection in right upper thigh measuring 8.3 X 2.3 X 1.6 cm. Patient was started on Zosyn. Evaluated by orthopedics on the morning; no concern for infection. Likely developed postoperative hematoma/seroma. Recommended to continue doxycycline for Lyme;. Hemoglobin stable; resume Lovenox Rash-patient developed rash over upper back , all the way down to buttocks. Reports itchiness. will start calamine lotion and antihistamine (loratadine). Will see response. If does not improve, will add topical antifungal. L1 fracture-due to fall. CT reviewed as above. No pain/discomfort. Continue to monitor. Lyme disease/anaplasmosis- reported tick bite last week. Labs positive for Anaplasma and Lyme disease, Western blot positive for Lyme. Continue doxycycline for 10 days.. Lactic acidosis-significantly improved. Lactic acid probably not clearing up because of his liver cirrhosis. No need for further trending. Clx negative- cefepime discontinued 10/04 and being monitored clinically. He does not meet SIRS or sepsis criteria on admission-no fever or leukocytosis or hypotension noted. A-fib with RVR-resolved, now back to NSR. He went to A-fib with RVR at 5 PM 10/02 and was in normal sinus rhythm when he came out of the OR yesterday 10/03. His A- fib was likely related to the underlying stressors and is now resolved. Echo reviewed. Telemetry reviewed. Seen by cardiology. His CHADS2 VASc is 0 and would not require anticoagulation. Hyponatremia-resolved. sodium 125->126->130->132->137 with IVF. IVF discontinued. Seen by nephrology Hypophosphatemia-repleted. Recheck Polysubstance abuse- UDS positive for amphetamine and marijuana. Does smoke few cigarettes a day. States he used to drink alcohol in the past. Thrombocytopenia-due to tickborne disease/cirrhosis. Monitor Cirrhosis of liver (?alc/Hep C related) with mild splenomegaly and possible small esophageal varices-no clinical decompensation noted. patient does report history of hep C treated in the past and was seen at [place], HCV RNA load of 6980. Patient does not see any GI doctors locally. Recommended GI follow-up at discharge for the same with EGD. Vitamin D deficiency-vitamin D level 22. Started on vitamin D supplementation. DVT prophylaxis-Lovenox while Disposition: PT recommends acute rehab- CM following. Stable to go to rehab. Time spent evaluating patient, direct bedside care, chart review, placing orders, interpretation of diagnostic studies, discussion with consultants, patient, and family members, as well as other required patient management activities is 60 minutes. Please note the above document was generated using voice recognition software. It may contain grammatical, syntax or spelling errors. Any formal questions or concerns about the content, text or information contained within the body of this dictation should be directly addressed to the provider for clarification Admission and Anticipated Discharge Date Admission Date: October 02, 2022 Subjective Appears to have rash on his back from the shoulder all the way down to his buttocks. Reports that it itches. No other complaints. Review of Systems Review of Systems: All systems reviewed & are unremarkable except as noted in Subjective Physical Exam Physical Exam: General: Lying comfortably in bed, not in acute distress, on room air HEENT: EOMI, KAMALJIT, MMM, poor dentition Chest: Fair breath sounds bilaterally CVS: Regular, normal heart sounds, no murmur Abdomen: Soft, non tender, not distended, normal bowel sounds Neuro: Awake, alert, oriented, conversing well Extremities: No cyanosis, clubbing or edema. Rt hip incision site clean dry intact covered with dressing. Results & Data Results & Data Vital Signs (Past 12 Hours) Vital Signs Temp Pulse Resp BP Pulse Ox O2 Del Method 10/09/22 09:15 Room Air 10/09/22 07:07 36.8 C 82 18 145/84 H 98 Room Air Laboratory Results Laboratory Results WBC 5.57 K/ul (4.8-10.8) 10/09/22 06:12 RBC 3.36 M/uL (4.70-6.10) L 10/09/22 06:12 Hgb 10.7 g/dl (14.0-18.0) L 10/09/22 06:12 Hct 32.2 % (42.0-52.0) L 10/09/22 06:12 MCV 95.8 fL (80.0-100.0) 10/09/22 06:12 MCH 31.8 pg (25.0-34.0) 10/09/22 06:12 MCHC 33.2 g/dL (32.0-36.0) 10/09/22 06:12 RDW Std Deviation 53.4 fL (36.4-46.3) H 10/09/22 06:12 RDW Coeff of Yanni 17.4 % (11.5-14.5) H 10/09/22 06:12 Plt Count 138 K/uL (130-400) 10/09/22 06:12 MPV 9.8 fL (9.4-12.4) 10/09/22 06:12 Immature Gran % (Auto) 7.7 % 10/09/22 06:12 Neut % (Auto) 37.1 % 10/09/22 06:12 Lymph % (Auto) 42.2 % 10/09/22 06:12 [place] % (Auto) 11.1 % 10/09/22 06:12 Eos % (Auto) 1.4 % 10/09/22 06:12 Baso % (Auto) 0.5 % 10/09/22 06:12 Neut # (Auto) 2.06 K/uL (1.40-6.50) 10/09/22 06:12 Lymph # (Auto) 2.35 K/uL (1.2-3.4) 10/09/22 06:12 [place] # (Auto) 0.62 K/uL (0.11-0.59) H 10/09/22 06:12 Eos # (Auto) 0.08 K/uL (0-0.50) 10/09/22 06:12 Baso # (Auto) 0.03 K/uL (0-0.2) 10/09/22 06:12 Immature Gran # (Auto) 0.43 K/uL (0.01-0.20) H 10/09/22 06:12 Absolute Nucleated RBC 0.02 K/uL (0-0.12) 10/09/22 06:12 Nucleated RBC % (auto) 0.4 % 10/09/22 06:12 Neutrophils % (Manual) 40 % 10/08/22 06:17 Lymphocytes % (Manual) 23 % 10/08/22 06:17 Reactive Lymphs % (Man) 22 % 10/08/22 06:17 Monocytes % (Manual) 7 % 10/08/22 06:17 Eosinophils % (Manual) 3 % 10/08/22 06:17 Basophils % (Manual) 1 % 10/07/22 06:56 Metamyelocytes % (Man) 4 % 10/08/22 06:17 Myelocytes % (Man) 3 % 10/08/22 06:17 Neutrophils # (Manual) 2.52 K/uL (1.40-6.50) 10/08/22 06:17 Total Absolute Neuts 2.52 K/uL (1.4-6.5) 10/08/22 06:17 Lymphocytes # (Manual) 1.45 K/uL (1.2-3.4) 10/08/22 06:17 Reactive Lymphs # 1.38 K/uL 10/08/22 06:17 Total Abs Lymphocytes 2.83 K/uL (1.2-3.4) 10/08/22 06:17 Monocytes # (Manual) 0.44 K/uL (0.11-0.59) 10/08/22 06:17 Eosinophils # (Manual) 0.19 K/uL (0-0.50) 10/08/22 06:17 Basophils # (Manual) 0.08 K/uL (0-0.2) 10/07/22 06:56 Metamyelocytes # (Man) 0.25 K/uL (0-0) H 10/08/22 06:17 Myelocytes # (Manual) 0.19 K/uL (0-0) H 10/08/22 06:17 Platelet Estimate Decreased (Normal) L 10/01/22 21:54 Polychromasia 2+ 10/09/22 06:12 Acanthocytes (Spur) 2+ 10/01/22 21:54 Peripher Smr Path Cons 10/02/22 05:20 PT 17.0 Seconds (9.0-12.0) H 10/01/22 21:54 INR 1.6 (0.9-1.1) H 10/01/22 21:54 APTT 40.4 Seconds (21.0-31.0) H* 10/01/22 21:54 PTT Ratio 1.4 10/01/22 21:54 VBG pH 7.44 (7.36-7.41) H 10/02/22 00:00 VBG pCO2 35 mmHg (38-50) L 10/02/22 00:00 VBG pO2 20 mmHg 10/02/22 00:00 VBG HCO3 24 mmol/L 10/02/22 00:00 VBG O2 Saturation < 60.0 % 10/02/22 00:00 VBG Base Excess 0.1 mEq/L 10/02/22 00:00 Sodium 135 mmol/L (136-145) L 10/09/22 06:12 Potassium 4.4 mmol/L (3.5-5.1) 10/09/22 06:12 Chloride 107 mmol/L (98-107) 10/09/22 06:12 Carbon Dioxide 26 mmol/L (21-32) 10/09/22 06:12 Anion Gap 2 (3-11) L 10/09/22 06:12 BUN 13 mg/dl (6-23) 10/09/22 06:12 Creatinine 0.53 mg/dl (0.6-1.4) L 10/09/22 06:12 Est Cr Clr Drug Dosing 166.3 ml/min 10/09/22 06:12 Est GFR ( Amer) 130.5 ml/min 10/09/22 06:12 Est GFR (Non-Af Amer) 112.6 ml/min 10/09/22 06:12 BUN/Creatinine Ratio 24.5 (10-20) H 10/09/22 06:12 Glucose 79 mg/dl (70-99(Fasting)) 10/09/22 06:12 POC Glucose 124 mg/dl (70-99) H 10/08/22 16:50 Estimat Average Glucose 97 mg/dl 10/02/22 05:20 Hemoglobin A1c 5.0 % (4.5-5.6) 10/02/22 05:20 Osmolality 276 mOsm/kg (280-300) L 10/01/22 21:54 Lactate 2.9 mmol/L (0.4-2.0) H* 10/03/22 10:26 Calcium 8.1 mg/dl (8.6-10.3) L 10/09/22 06:12 Phosphorus 2.4 mg/dl (2.5-4.9) L 10/06/22 06:08 Magnesium 2.1 mg/dl (1.7-2.4) 10/04/22 05:50 Total Bilirubin 2.0 mg/dl (0.2-1.0) H 10/09/22 06:12 AST 37 U/L (13-39) 10/09/22 06:12 ALT 23 U/L (7-52) 10/09/22 06:12 Alkaline Phosphatase 105 U/L (34-104) H 10/09/22 06:12 Ammonia 44.0 umol/L (18-72) 10/02/22 01:45 Total Creatine Kinase 215 U/L (30-223) 10/02/22 05:20 Troponin I High Sens 20.3 pg/ml (0-20) H 10/02/22 05:20 B-Natriuretic Peptide 68 pg/ml (0-100) 10/01/22 21:54 Total Protein 6.6 gm/dl (6.0-8.3) 10/09/22 06:12 Albumin 2.3 gm/dl (3.4-5.0) L 10/09/22 06:12 Globulin 4.3 gm/dl (2.5-4.0) H 10/09/22 06:12 Albumin/Globulin Ratio 0.5 (0.9-2) L 10/09/22 06:12 25-OH Vitamin D Total 22.5 ng/ml (30-100) L 10/04/22 05:50 Procalcitonin 3.15 ng/ml (0-0.5) H 10/02/22 05:20 TSH 0.671 uIu/ml (0.300-4.500) 10/01/22 21:54 Urine Color [place] 10/01/22 22:26 Urine Appearance Clear (Clear) 10/01/22 22:26 Urine pH 5.5 (4.5-7.5) 10/01/22 22:26 Ur Specific [place] 1.029 (1.000-1.030) 10/01/22 22:26 Urine Protein 2+ (Negative) H 10/01/22 22:26 Urine Glucose (UA) Negative (Negative) 10/01/22 22:26 Urine Ketones Trace (Negative) H 10/01/22 22:26 Urine Blood 3+ (Negative) H 10/01/22 22:26 Urine Nitrite Positive (Negative) A 10/01/22 22:26 Urine Bilirubin 1+ (Negative) H 10/01/22 22:26 Urine Urobilinogen Positive (Negative) H 10/01/22 22:26 Ur Leukocyte Esterase Trace (Negative) H 10/01/22 22:26 Urine WBC (Auto) 1-5 /hpf (0-5) 10/01/22 22:26 Urine RBC (Auto) 5-10 /hpf (0-4) H 10/01/22 22:26 U Hyaline Cast (Auto) 1-5 /lpf (0-5) 10/01/22 22:26 U Epithel Cells (Auto) 5-10 /lpf (0-5) H 10/01/22 22:26 Urine Bacteria (Auto) Negative (Negative) 10/01/22 22:26 Urine Osmolality 976 mOsm/kg (500-800) H 10/02/22 17:29 Ur Random Creatinine 183.9 mg/dl 10/02/22 17:29 U Random Total Protein 146.5 mg/dl (0-11.9) H 10/02/22 17:29 Ur Random Sodium < 10 mmol/L 10/02/22 17:29 Protein/Creatinin Ratio 0.8 (0-0.2) H 10/02/22 17:29 Urine Opiates Screen Neg (Neg) 10/01/22 22:26 Ur Methadone, Qual Neg (Neg) 10/01/22 22:26 Urine Barbiturates Neg (Neg) 10/01/22 22:26 Ur Phencyclidine (PCP) Neg (Neg) 10/01/22 22:26 U Amphetamines Confirm 411 ng/mL (<250) H 10/01/22 22:26 U Amphetamin/Meth Scrn Pos (Neg) H 10/01/22 22:26 U Methamphetamin Confrm 1150 ng/mL (<250) H 10/01/22 22:26 MDMA (Ecstasy) Screen Neg (Neg) 10/01/22 22:26 U Benzodiazepines Scrn Neg (Neg) 10/01/22 22:26 Ur Cocaine Metabolite Neg (Neg) 10/01/22 22:26 U Marijuana (THC) Screen Pos (Neg) H 10/01/22 22:26 U Marijuana THC Carboxy 77 ng/mL (<5) H 10/01/22 22:26 Drug Screen Comment SEE NOTE 10/01/22 22:26 Ethyl Alcohol mg/dL < 10.0 mg/dl (<10.0) 10/01/22 21:54 Anaplasma Smear See Comment A 10/02/22 05:20 Anaplasma Comment Pos for Anaplasma 10/02/22 05:20 Lyme Disease IgG Ab Positive (Negative) A 10/02/22 11:50 Lyme IgG (Western Blot) POSITIVE (NEGATIVE) A 10/02/22 11:50 Lyme IgG 18 kDa Band NON-REACTIVE 10/02/22 11:50 Lyme IgG 23 kDa Band REACTIVE A 10/02/22 11:50 Lyme IgG 28 kDa Band NON-REACTIVE 10/02/22 11:50 Lyme IgG 30 kDa Band NON-REACTIVE 10/02/22 11:50 Lyme IgG 39 kDa Band REACTIVE A 10/02/22 11:50 Lyme IgG 41 kDa Band REACTIVE A 10/02/22 11:50 Lyme IgG 45 kDa Band NON-REACTIVE 10/02/22 11:50 Lyme IgG 58 kDa Band REACTIVE A 10/02/22 11:50 Lyme IgG 66 kDa Band REACTIVE A 10/02/22 11:50 Lyme IgG 93 kDa Band REACTIVE A 10/02/22 11:50 Lyme IgM Ab (WB) POSITIVE (NEGATIVE) A 10/02/22 11:50 Lyme Disease IgM Ab Positive (Negative) A 10/02/22 11:50 Lyme IgM 23 kDa Band REACTIVE A 10/02/22 11:50 Lyme IgM 39 kDa Band REACTIVE A 10/02/22 11:50 Lyme IgM 41 kDa Band REACTIVE A 10/02/22 11:50 E.chaffeensis DNA (PCR) Negative (Negative) 10/02/22 11:50 Hepatitis A IgM Ab NON-REACTIVE (NON-REACTIVE) 10/02/22 05:20 Hep Bs Antigen NON-REACTIVE (NON-REACTIVE) 10/02/22 05:20 Hep Bs Ag Confirmation TNP 10/02/22 05:20 Hep B Core IgM Ab NON-REACTIVE (NON-REACTIVE) 10/02/22 05:20 Hepatitis C Ab (EIA) REACTIVE (NON-REACTIVE) A 10/02/22 05:20 Hep C Ab Signal/Cutoff Not Reportable 10/02/22 05:20 HCV RNA (PCR) IUs/ml 6980 IU/mL (NOT DETECTED) H 10/02/22 05:20 HCV RNA PCR log IUs/ml 3.84 Log IU/mL (NOT DETECTED) H 10/02/22 05:20 Hepatitis C RNA Comment SEE NOTE 10/02/22 05:20 SARS-CoV-2, RNA, NAAT NEGATIVE (NEGATIVE) 10/01/22 21:38 Blood Type A Negative 10/01/22 21:54 Blood Type Recheck A Negative 10/03/22 04:43 Antibody Screen NEGATIVE 10/01/22 21:54 Impressions Abdomen/Pelvis CT 10/01/22 21:49 Exam(s): CT ABDOMEN + PELVIS With Contrast IV Amt: 95 ML OPTIRAY 320 EXAM: CT Abdomen and Pelvis With Intravenous Contrast CLINICAL HISTORY: Reason for exam: fall, right hip pain, AMS. TECHNIQUE: Axial computed tomography images of the abdomen and pelvis with intravenous contrast. Automated exposure control was utilized for the study. A dose lowering technique was utilized adhering to the principles of ALARA. CONTRAST: Patient received 95 ML OPTIRAY 320 of IV contrast COMPARISON: None. FINDINGS: Lung bases: Mild bilateral posterior dependent atelectasis. ABDOMEN: Liver: Nodular margins of the liver suggestive of cirrhosis. Gallbladder and bile ducts: Unremarkable. No calcified stones. No ductal dilation. Pancreas: Unremarkable. No mass. No ductal dilation. Spleen: The spleen measures 14.6 cm consistent with splenomegaly. Adrenals: Unremarkable. No mass. Kidneys and ureters: Possible tiny stones within the lower pole of the left kidney measuring 2.2 mm. Otherwise normal bilateral kidneys. No hydronephrosis. Stomach and bowel: Incompletely distended colon with borderline thickening of the wall. Loops of small bowel within the right abdomen with borderline mild fullness of the wall, cannot exclude mild enterocolitis. Mild distention of several small bowel loops in the pelvis reaching a maximum diameter up to 2.3 cm, cannot exclude mild ileus. No significant dilatation to suggest obstruction. The descending colon is decompressed, otherwise unremarkable. PELVIS: Appendix: Normal appendix. Bladder: Unremarkable. No mass. Reproductive: Unremarkable as visualized. ABDOMEN and PELVIS: Intraperitoneal space: Unremarkable. No free air. No significant fluid collection. Bones/joints: There is a comminuted fracture involving the right intertrochanteric region. Mild compression fracture of L1 vertebral body with no extension to the pedicles or retropulsion. Multilevel degenerative disease of the lumbar spine. No dislocation. Soft tissues: Slight heterogeneity with enlargement and poor definition of the fascial planes involving the right gluteus musculature, suggestive of nonspecific soft tissue edema versus bruising/hematoma. Small bilateral fat-containing inguinal hernias versus scrotal lipomas. Vasculature: Calcified atherosclerotic disease of aorta with no aneurysm or dissection. Possible small distal esophageal varices. Lymph nodes: Unremarkable. No enlarged lymph nodes. IMPRESSION: 1. Intertrochanteric comminuted fracture of the right hip is described otherwise normal alignment. 2. Mild acute compression fracture of L1 with no retropulsion or extension to the pedicles. 3. Cirrhosis with mild splenomegaly and possible small esophageal varices. No evidence of visceral injury. No intra-abdominal hematoma and free fluid seen. 4. Possible nonobstructive stone within the left lower renal pole measuring 2.2 mm. Remainder of bilateral kidneys are unremarkable. 5. Cannot exclude mild enterocolitis in the appropriate clinical context, clinical correlation recommended. Electronically signed by: Aaliyah Fry MD 10/02/22 00:[address] 10/01/22 21:49 Exam(s): CT C SPINE EXAM: CT Cervical Spine Without Intravenous Contrast CLINICAL HISTORY: Reason for exam: fall, AMS. TECHNIQUE: Axial computed tomography images of the cervical spine without intravenous contrast. Automated exposure control was utilized for the study. A dose lowering technique was utilized adhering to the principles of ALARA. COMPARISON: None. FINDINGS: Vertebrae: Degenerative arthrosis at anterior C1-C2 articulation otherwise normal odontoid process. Multilevel spondylosis with narrowing of described, severe C6-C7. Otherwise normal alignment. No acute fracture. Discs/spinal canal/neural foramina: Multilevel bilateral apophyseal hypertrophy contributing to variable degrees of neuroforaminal encroachment, more significant at C6-C7. No central canal stenosis. Soft tissues: Unremarkable. Pleural space: Lung apices revealed no pneumothorax. Mild right-sided apical pleural thickening with subpleural cystic/emphysematous changes versus scarring. IMPRESSION: Multilevel degenerative disease with no acute fracture or subluxation. Electronically signed by: Aaliyah Fry MD 10/02/22 00:[address] 10/01/22 21:49 Exam(s): CT CHEST With Contrast IV Amt: 95 ML OPTIRAY 320 EXAM: CT Chest With Intravenous Contrast CLINICAL HISTORY: Reason for exam: fall, right rib pain, AMS. TECHNIQUE: Axial computed tomography images of the chest with intravenous contrast. Automated exposure control was utilized for the study. A dose lowering technique was utilized adhering to the principles of ALARA. CONTRAST: Patient received 95 ML OPTIRAY 320 of IV contrast COMPARISON: None. FINDINGS: Lungs: Bilateral posterior lower lobe subpleural atelectasis. Pleural space: Right apical pleural thickening with subpleural scarring versus minimal cystic subpleural emphysematous changes. Otherwise normal lung parenchyma. No pleural effusion or pneumothorax. Heart: Unremarkable. No significant pericardial effusion. Normal cardiac size with coronary artery calcifications. Bones/joints: Degenerative disease of the bilateral shoulders, right more than left. Degenerative disease of the spine. Cortical disruption with irregularity along the superior endplate of L1 concerning for acute mild compression fracture. Moderate decrease in vertebral body height of T8 with prominent Schmorl nodes along the superior endplate suggestive of compression fracture, exact age indeterminate and likely old given morphology. No dislocation. Soft tissues: Unremarkable. Vasculature: Atherosclerotic disease of aorta with no aneurysm or dissection. Lymph nodes: Unremarkable. No enlarged lymph nodes. Liver: Nodular margins of the liver concerning for underlying cirrhosis. The spleen is enlarged measuring at least 14 cm, otherwise not entirely included in the [id number]. Gallbladder and bile ducts: Status post cholecystectomy. IMPRESSION: No acute findings in the chest. Electronically signed by: Aaliyah Fry MD 10/02/22 00:[address] 10/01/22 21:49 Exam(s): CT HEAD Without Contrast EXAM: CT Head Without Intravenous Contrast CLINICAL HISTORY: Reason for exam: fall, AMS. TECHNIQUE: Axial computed tomography images of the head/brain without intravenous contrast. Automated exposure control was utilized for the study. A dose lowering technique was utilized adhering to the principles of ALARA. COMPARISON: None. FINDINGS: Brain: Mild generalized brain atrophy. No hemorrhage. No significant white matter disease. Ventricles: Unremarkable. No ventriculomegaly. Bones/joints: Unremarkable. No acute fracture. Soft tissues: Unremarkable. Sinuses: Unremarkable as visualized. No acute sinusitis. Mastoid air cells: Unremarkable as visualized. No mastoid effusion. IMPRESSION: Involutional changes otherwise normal CT brain. Electronically signed by: Aaliyah Fry MD 10/02/22 00:22 AM Hip/Pelvis X-Ray 10/01/22 21:49 XR hip RT 2V w pelvis CLINICAL HISTORY: Right hip pain following fall. COMPARISON: CT of the abdomen and right hip performed earlier today. FINDINGS: Incidental is made of contrast within the bladder from recent contrast-enhanced CT. The sacroiliac joints and symphysis pubis are intact. Note is made of an acute significantly comminuted moderately displaced intertrochanteric fracture of the right femur. There is no proximal left femoral fracture. There is no pelvic fracture. IMPRESSION: Acute comminuted, moderately displaced intertrochanteric fracture of the right femur. ACT 112: Negative or not required by law. Electronically signed by: Aravind Plata M.D. 10/02/2022 7:08 AM Hip X-Ray 10/03/22 14:30 INTRAOPERATIVE RADIOGRAPHS CLINICAL HISTORY: Open reduction and fixation of the right proximal femur. Fluoro time: 180 seconds Ka,r: 63.93 mGy FINDINGS: 5 spot fluoroscopic views of the right femur are correlated with radiographs dated 10/01/2022. There has been intertrochanteric and intramedullary nail fixation of a comminuted intertrochanteric fracture of the right proximal femur. Near-anatomic alignment is restored. There is medial displacement of the lesser trochanter. A single cortical lag transfixes the distal end of the intr amedullary nail. The orthopedic hardware appears intact. IMPRESSION: Intraoperative images from open reduction and internal fixation of the right proximal femur as above. Electronically signed by: Juan J Echevarria M.D. 10/03/2022 7:[address] 10/06/22 20:50 Exam(s): CT RIGHT HIP With Contrast IV Amt: 93ML OPTIRAY 320 EXAM: CT Right Lower Extremity With Intravenous Contrast, Hip CLINICAL HISTORY: Reason for exam: worsening R hip pain/wound drainage, ro abscess. TECHNIQUE: Axial computed tomography images of the right hip with intravenous contrast. Automated exposure control was utilized for the study. A dose lowering technique was utilized adhering to the principles of ALARA. CONTRAST: Patient received 93ML OPTIRAY 320 of IV contrast COMPARISON: 10/01/2022. FINDINGS: Bones/joints: The patient is status post ORIF surgery with the fixation сергей through the proximal right femoral shaft and femoral neck. Near anatomical alignment for the intertrochanteric fracture. Soft tissues: There is stranding with diffuse fluid along the subcutaneous fat along the right hip consistent with postoperative swelling. There is fluid collection with small amount of air at the level of the superolateral aspect of the right upper thigh/femoral region, difficult to accurately measure and measuring approximately 6.0 x 3.3 x 9.5 cm which could represent postoperative seroma or hematoma. There is evidence of the right lateral skin wagner along the surgical site consistent with recent surgery. IMPRESSION: 1. Postoperative changes along the proximal right femur with normal alignment. 2. Diffuse subcutaneous soft tissue edema versus cellulitis. 3. Fluid collection along the lateral aspect of the upper femur with punctate air suggestive of postoperative seroma versus hematoma. No distinct enhancing wall to suggest abscess. If indicated, this findings may be additionally characterized with ultrasound of the anterolateral aspect of the right upper thigh region. Electronically signed by: Aaliyah Fry MD 10/06/22 22:43 PM Vascular Ultrasound 10/06/22 23:06 Exam(s): US EXTREMITY EXAM: US Right Lower Extremity Non-Vascular, Complete CLINICAL HISTORY: Reason for exam: R thigh fluid collection. TECHNIQUE: Real-time ultrasound scan of the right lower extremity with image documentation. COMPARISON: None. FINDINGS: Soft tissues: Ultrasound images directed to the anterolateral aspect of the right thigh, superior to the incision sites there are 2 areas of complex fluid collections, largest seen inferiorly and measuring 8.3 x 2. 3 x 1.6 cm, likely hematoma. Diffuse superficial soft tissue edema noted, nonspecific. No foreign body. IMPRESSION: 1. Complex fluid collection within the soft tissues along the anterolateral aspect of the right upper thigh largest measuring 8.3 x 2.3 x 1.6 cm, likely hematoma. 2. No fluid collection to suggest abscess seen. Electronically signed by: Aaliyah Fry MD 10/07/22 00:28 AM
[2022-10-09] MEDS: ENOXAPARIN INJ 40 MG/0.4 ML SYR SQ SCH (14:59)
[2022-10-09] MEDS: LORATADINE 10 MG TAB PO SCH (16:53)
[2022-10-09] MEDS: CALAMINE/PRAMOXINE LOTION 180 APPLN/180 ML BTL EXT SCH (16:54)
[2022-10-10] MEDS: METOPROLOL TARTRATE 25 MG TAB PO SCH ×2 (08:31→20:15)
[2022-10-10] MEDS: POT PHOSPHATE MONOBASIC W/ SOD TAB PO SCH ×4 (08:32→20:15)
[2022-10-10] MEDS: LORATADINE 10 MG TAB PO SCH (08:33)
[2022-10-10] MEDS: CHOLECALCIFEROL 5,000 UNITS 125 MCG TAB PO SCH (08:33)
[2022-10-10] MEDS: DOXYCYCLINE HYCLATE 100 MG CAP PO SCH ×2 (08:34→20:15)
[2022-10-10] MEDS: CALAMINE/PRAMOXINE LOTION 180 APPLN/180 ML BTL EXT SCH (08:34)
[2022-10-10] MEDS: POLYETHYLENE (MIRALAX) 17 GM PACK PO SCH (08:41)
[2022-10-10] MEDS: ACETAMINOPHEN 325 MG TAB PO SCH ×3 (08:41→20:17)
[2022-10-10] MEDS: oxyCODONE HCL IR 5 MG TAB (IMMEDIATE RELEASE) PO PRN ×2 (09:44→19:30)
[2022-10-10] MEDS ORDERED: CALAMINE/PRAMOXINE LOTION 180 APPLN/180 ML BTL EXT PRN (11:36)
[2022-10-10] MEDS: predniSONE 5 MG TAB PO SCH (12:01)
[2022-10-10 12:51] LABS: Adenovirus F 40/41 PCR Not Detected (NotDetected); Astrovirus PCR Not Detected (NotDetected); Campylobacter PCR Not Detected (NotDetected); Cryptosporidium PCR Not Detected (NotDetected); Cyclospora cayetanensis PCR Not Detected (NotDetected); Entamoeba histolytica PCR Not Detected (NotDetected); Enteroaggregative E.coli(EAEC) Not Detected (NotDetected); Enteropathogenic E.coli (EPEC) Not Detected (NotDetected); Enterotoxigenic E.coli (ETEC) Not Detected (NotDetected); Giardia lamblia PCR Not Detected (NotDetected); Norovirus GI/GII PCR Not Detected (NotDetected); Plesiomonas shigelloides PCR Not Detected (NotDetected); Rotavirus A PCR Not Detected (NotDetected); Salmonella PCR Not Detected (NotDetected); Sapovirus PCR Not Detected (NotDetected); Shiga-like Toxin E.coli (STEC) Not Detected (NotDetected); Shigella/Enteroinvasive E.coli Not Detected (NotDetected); Vibrio cholerae PCR Not Detected (NotDetected); Vibrio species PCR Not Detected (NotDetected); Yersinia enterocolitica PCR Not Detected (NotDetected)
[2022-10-10] MEDS: ENOXAPARIN INJ 40 MG/0.4 ML SYR SQ SCH (15:37)
--- NOTE | 2022-10-10 16:49 | Hospitalist Progress Note ---
Date of Service October 10, 2022 Assessment & Plan (1) Lyme disease: (2) Anaplasmosis: (3) Lactic acidosis: (4) Hyponatremia: (5) Closed fracture of right hip: Plan 62-year-old male male with history of hep C treated, cirrhosis, was not seen a physician for long time and is not on any meds except for herbals admitted with right hip fracture, Lyme disease/anaplasmosis, lactic acidosis and hyponatremia X-ray right hip- Acute comminuted, moderately displaced intertrochanteric fracture of the right femur. CT A/P- 1. Intertrochanteric comminuted fracture of the right hip is described otherwise normal alignment. 2. Mild acute compression fracture of L1 with no retropulsion or extension to the pedicles. 3. Cirrhosis with mild splenomegaly and possible small esophageal varices. No evidence of visceral injury. No intra-abdominal hematoma and free fluid seen. 4. Possible nonobstructive stone within the left lower renal pole measuring 2.2 mm. Remainder of bilateral kidneys are unremarkable. 5. Cannot exclude mild enterocolitis in the appropriate clinical context, clinical correlation recommended. CT chest, head and cervical spine with no acute findings Echo with hyperdynamic left ventricle, EF more than 75%,borderline consider LVH, no significant valvular disease, no pulm hypertension Closed right hip fracture-due to fall. CT reviewed as above. - Status post open reduction internal fixation right hip fracture with trochanteric femoral nail fixation with fenestrated helical blade 10/03 per Ortho surgery -Continue physical therapy, pain management, bowel regimen, DVT prophylaxis w/ lovenox on DC. -Patient will need rehab prior to returning to his apartment per pt/ot. pt now wants to go home w/ home health Concern for postoperative hematoma/seroma: On the night of 10/07/2022, patient reported to have increasing right hip pain with soaked dressing with yellow puslike bloody discharge. CT of right hip and right lower extremity ultrasound done which showed complex fluid collection in right upper thigh measuring 8.3 X 2.3 X 1.6 cm. Patient was started on Zosyn. Evaluated by orthopedics on the morning; no concern for infection. Likely developed postoperative hematoma/seroma. Recommended to continue doxycycline for Lyme;. Hemoglobin stable; resumed Lovenox Rash-patient developed rash over upper back - noted 10/09 , all the way down to buttocks. Reports itchiness. c/w calamine lotion tid and antihistamine (loratadine). Pt reports about same itchiness/ i can't confirm how the visual of rash lesions were doing as I was not here yesterday but it is concentrated in upper back and in buttock rather than continuous today. Less concern for fungal, will add po steroid as the ointment would be not feasible give larger area of involvement. L1 fracture-due to fall. CT reviewed as above. No pain/discomfort. Continue to monitor. Lyme disease/anaplasmosis- reported tick bite last week [employer]. Labs positive for Anaplasma and Lyme disease, Western blot positive for Lyme. Continue doxycycline for 10 days.. Lactic acidosis-significantly improved. Lactic acid probably not clearing up because of his liver cirrhosis. No need for further trending. Clx negative- cefepime discontinued 10/04 and being monitored clinically. He does not meet SIRS or sepsis criteria on admission-no fever or leukocytosis or hypotension no brianna. A-fib with RVR-resolved, now back to NSR. He went to A-fib with RVR at 5 PM 10/02 and was in normal sinus rhythm when he came out of the OR yesterday 10/03. His A- fib was likely related to the underlying stressors and is now resolved. Echo reviewed. Telemetry reviewed. Seen by cardiology. His CHADS2 VASc is 0 and would not require anticoagulation. Hyponatremia-resolved. sodium 125->126->130->132->137 with IVF. IVF discontinued. Seen by nephrology Hypophosphatemia-repleted. Recheck Polysubstance abuse- UDS positive for amphetamine and marijuana. Does smoke few cigarettes a day. States he used to drink alcohol in the past. Thrombocytopenia-due to tickborne disease/cirrhosis. Monitor Cirrhosis of liver (?alc/Hep C related) with mild splenomegaly and possible small esophageal varices-no clinical decompensation noted. patient does report history of hep C treated in the past and was seen at [facility], HCV RNA load of 6980. Patient does not see any GI doctors locally. Recommended GI follow-up at discharge for the same with EGD. Vitamin D deficiency-vitamin D level 22. Started on vitamin D supplementation. DVT prophylaxis-Lovenox while Disposition: PT recommends acute rehab- CM following. Pt wants to go home w/ HH; DC pending improvement in his rash. Admission and Anticipated Discharge Date Admission Date: October 02, 2022 Subjective Appears to have rash on his back from the shoulder all the way down to his buttocks since yesterday ? folliculitis (upper back) vs ?contact dermatitis over buttock . Reports that it itches. Non painful. otherwise ROS stable. Physical Exam Physical Exam: General: Lying comfortably in bed, not in acute distress, on room air HEENT: EOMI, KAMALJIT, MMM, poor dentition Chest: Fair breath sounds bilaterally CVS: Regular, normal heart sounds, no murmur Abdomen: Soft, non tender, not distended, normal bowel sounds Neuro: Awake, alert, oriented, conversing well Extremities: No cyanosis, clubbing or edema. Rt hip incision site clean dry intact covered with dressing. Results & Data Results & Data Vital Signs (Past 12 Hours) Vital Signs Temp Pulse Resp BP Pulse Ox O2 Del Method 10/10/22 14:19 36.6 C 76 18 127/71 96 Room Air 10/10/22 07:45 Room Air 10/10/22 08:29 86 17 106/68 99 Room Air 10/10/22 07:47 36.7 C 76 18 108/68 95 Room Air
[2022-10-11] MEDS: POT PHOSPHATE MONOBASIC W/ SOD TAB PO SCH ×2 (09:03→13:50)
[2022-10-11] MEDS: DOXYCYCLINE HYCLATE 100 MG CAP PO SCH (09:04)
[2022-10-11] MEDS: METOPROLOL TARTRATE 25 MG TAB PO SCH (09:04)
[2022-10-11] MEDS: predniSONE 5 MG TAB PO SCH (09:05)
[2022-10-11] MEDS: CHOLECALCIFEROL 5,000 UNITS 125 MCG TAB PO SCH (09:05)
[2022-10-11] MEDS: LORATADINE 10 MG TAB PO SCH (09:06)
[2022-10-11] MEDS: POLYETHYLENE (MIRALAX) 17 GM PACK PO SCH (09:16)
[2022-10-11] MEDS: ACETAMINOPHEN 325 MG TAB PO SCH ×2 (09:16→13:50)
[2022-10-11] MEDS ORDERED: ADVANCED PROBIOTIC 1250 MG CAPSULE PO SCH (09:45)
--- NOTE | 2022-10-11 15:19 | Discharge Summary ---
Date of Service October 11, 2022 Admission HPI Per Admitting Provider History obtained from patient, family, and records. Medical history significant for LSS status post surgery, HCV status post Rx past alcohol abuse, ongoing tobacco use. Patient has not seen a PCP for a number of years. Patient fell at home last week after an unwitnessed syncopal event. Patient woke up on his own. Not sure how long he was out. No headache, no chest pain, no cough, no SOB, no abdominal pain. No tongue injury or incontinence as per patient. Patient noticed achy right hip pain worse on ambulation. Patient drove himself to [facility] ER where 'nothing was done' as per patient account. Patient subsequently stayed at ex-'s trailer home. Watery diarrhea symptoms with worsening right hip pain over the last few days. No recent antibiotic Rx. Patient not sure about sick contacts given recent ER visit. Patient found to be somewhat confused by . Patient brought to ER by EMS. Lowest SBP at the ER noted to be 90s. Zosyn administered at the ER for sepsis. 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 Admission Exam Per Admitting Provider GENERAL: uncomfortable, no respiratory distress SKIN: Pallor , warm HEENT: Partial alopecia, pale palpebral conjunctivae, no ptosis, dry buccal mucosa NECK : Supple, no tenderness CHEST : Decreased breath sounds, no tenderness HEART : Tachycardic, no obvious murmurs ABDOMEN: Some distention, nontender EXTREMITIES : No LE swelling, right hip tenderness, no other conspicuous deformities noted NEUROLOGIC : Coherent, no facial asymmetry, gait and stance not assessed Principal Diagnosis Closed right hip fracture Skin rash Lyme disease Discharge Exam General: Lying comfortably in bed, not in acute distress, on room air HEENT: EOMI, KAMALJIT, MMM, poor dentition Chest: Fair breath sounds bilaterally CVS: Regular, normal heart sounds, no murmur Abdomen: Soft, non tender, not distended, normal bowel sounds Neuro: Awake, alert, oriented, conversing well Extremities: No cyanosis, clubbing or edema. Rt hip incision site clean dry intact covered with dressing. Discharge Data Allergies Allergy/AdvReac Type Severity Reaction Status Date / Time No Known Allergies Allergy Unverified 10/02/22 15:33 Consultations 10/02/22 00:41 ED Decision to Admit Stat 10/02/22 03:28 Consult Orthopedic Surgery Routine 10/02/22 10:19 Consult Orthopedic Surgery Routine 10/02/22 14:28 Consult Nephrology Routine 10/02/22 17:50 Consult Cardiology Routine Procedures Performed Operation Date: 10/03/22 07:00 Actual Procedures p Right Trochanteric Nail(Right) - Onofre Oscar MD Ordered Studies 10/01/22 21:49 CT abd pelvis IV con only Stat CT cervical spine wo con Stat CT chest diagnostic w con Stat CT head/brain wo con Stat 10/02/22 02:23 CT hip RT wo con Stat 10/03/22 14:30 FL hip RT 2-3V Routine 10/06/22 20:50 CT hip RT w con Urgent 10/06/22 23:06 US extremity non-vascular ltd Urgent Hospital Course (1) Lyme disease: (2) Anaplasmosis: (3) Lactic acidosis: (4) Hyponatremia: (5) Closed fracture of right hip: Plan 62-year-old male male with history of hep C treated, cirrhosis, was not seen a physician for long time and is not on any meds except for herbals admitted with right hip fracture, Lyme disease/anaplasmosis, lactic acidosis and hyponatremia. He was managed for the following: X-ray right hip- Acute comminuted, moderately displaced intertrochanteric fracture of the right femur. CT A/P- 1. Intertrochanteric comminuted fracture of the right hip is described otherwise normal alignment. 2. Mild acute compression fracture of L1 with no retropulsion or extension to the pedicles. 3. Cirrhosis with mild splenomegaly and possible small esophageal varices. No evidence of visceral injury. No intra-abdominal hematoma and free fluid seen. 4. Possible nonobstructive stone within the left lower renal pole measuring 2.2 mm. Remainder of bilateral kidneys are unremarkable. 5. Cannot exclude mild enterocolitis in the appropriate clinical context, clinical correlation recommended. CT chest, head and cervical spine with no acute findings Echo with hyperdynamic left ventricle, EF more than 75%,borderline consider LVH, no significant valvular disease, no pulm hypertension Closed right hip fracture-due to fall. CT reviewed as above. - Status post open reduction internal fixation right hip fracture with trochanteric femoral nail fixation with fenestrated helical blade 10/03 per Ortho surgery -Continue physical therapy, pain management, bowel regimen, DVT prophylaxis w/ lovenox on DC. Pt is made aware for need for lovenox dvt px -Patient is hemodynamically stable. He wants to go home. Prescription for physical therapy provided. Concern for postoperative hematoma/seroma: On the night of 10/07/2022, patient reported to have increasing right hip pain with soaked dressing with yellow puslike bloody discharge. CT of right hip and right lower extremity ultrasound done which showed complex fluid collection in right upper thigh measuring 8.3 X 2.3 X 1.6 cm. Patient was started on Zosyn. Evaluated by orthopedics on the morning; no concern for infection. Likely developed postoperative hematoma/seroma. Recommended to continue doxycycline for Lyme;. Hemoglobin stable; resumed Lovenox Rash-patient developed rash over upper back - noted 10/09 , all the way down to buttocks. Reports itchiness. c/w calamine lotion tid and antihistamine (loratadine). 5 mg prednisone started 10/10, rash improving significantly. Pt to continue taking prednisone for 5 more days and utilize the lotion as needed. L1 fracture-due to fall. CT reviewed as above. No pain/discomfort. Continue to monitor. Lyme disease/anaplasmosis- reported tick bite last week [employer]. Labs positive for Anaplasma and Lyme disease, Western blot positive for Lyme. Continue doxycycline for 10 days. to complete the course on DC. Lactic acidosis-significantly improved. Lactic acid probably not clearing up because of his liver cirrhosis. No need for further trending. Clx negative- cefepime discontinued 10/04 and being monitored clinically. He does not meet SIRS or sepsis criteria on admission-no fever or leukocytosis or hypotension noted. A-fib with RVR-resolved, now back to NSR. He went to A-fib with RVR at 5 PM 10/02 and was in normal sinus rhythm when he came out of the OR yesterday 10/03. His A- fib was likely related to the underlying stressors and is now resolved. Echo reviewed. Telemetry reviewed. Seen by cardiology. His CHADS2 VASc is 0 and would not require anticoagulation. Hyponatremia-resolved. sodium 125->126->130->132->137 with IVF. IVF discontinued. Seen by nephrology Hypophosphatemia-repleted. Recheck Polysubstance abuse- UDS positive for amphetamine and marijuana. Does smoke few cigarettes a day. States he used to drink alcohol in the past. Thrombocytopenia-due to tickborne disease/cirrhosis. Monitor Cirrhosis of liver (?alc/Hep C related) with mild splenomegaly and possible small esophageal varices-no clinical decompensation noted. patient does report history of hep C treated in the past and was seen at [facility], HCV RNA load of 6980. Patient does not see any GI doctors locally. Recommended GI follow-up at discharge for the same with EGD. Vitamin D deficiency-vitamin D level 22. Started on vitamin D supplementation. DVT prophylaxis-Lovenox , to be continued on dc as well. Patient being discharged to home with family support and outpatient physical therapy with following instruction at the point of discharge: Follow-up with your primary care physician within a week time and likely you will need labs CBC/CMP/magnesium/phosphorus. As discussed at the bedside, follow-up with your primary care physician within a week time. Follow-up with orthopedics doctor in 1 week time upon discharge. For your skin rash, you will be discharged on a small dose of prednisone, take for next 5 days and stop. You can use calamine lotion up to 3 times a day over your back. For your Lyme disease, you will be prescribed antibiotic to complete the 10-day course. Take as prescribed. For your vitamin D level deficiency, you are started on vitamin D s upplementation. You will need repeat vitamin D level in 2 to 3 months time, coordinate with the PCP office. Continue with physical therapy, prescription has been provided. To prevent the risks of blood clots given recent hip surgery, you are being discharged on Lovenox subcu. Use it for next 25 days. Please make sure that you are able to get your medications today by calling your pharmacy before you leave the hospital so that your treatment continuity is not broken. Home Health Attestation I certify that this patient is under my care and that I, or a physicians clinic assistant working with me, had a face to-face encounter that meets the home health [id number] encounter requirements with this patient. The encounter with the patient was in whole, or in part, for the following medical condition, which is the primary reason for home health care (list medical condition): I certify that, based on my findings, the following services are medically necessary home health services: My clinical findings support the need for the above services because: Further, I certify that my clinical findings support that this patient is homebound (i.e. absences from home require considerable and taxing effort and are for medical reasons or christian services or infrequently or of short duration when for other reasons) because: Certification for Home Health Services: Based on the above findings, I certify that this patient is confined to the home and needs intermittent fci care, physical therapy and/or speech therapy or continues to need occupational therapy. The patient is under my care, and I have initiated the establishment of the plan of care. This patient will be followed by a physician who will periodically review the plan of care. Total Time Total Time Spent Total Time Spent (In Minutes): 50 Discharge Plan Discharge Items Patient Disposition: Home - Home Health Services Reason For Visit: HYPOTENSION, SEPSIS Discharge Diagnosis: Closed right hip fracture Skin rash Lyme disease Activity: Per Instructions section Weightbearing: Right toe touch Non-emergency contact: Surgeon Call non-emergency contact if: you have any medication questions, your temperature is above 101.5, your wound has increased redness and your wound has increased drainage Follow-up/Referrals: PCP,NO [Primary Care Provider] - Diet: Regular Addtl Attending Provider Instructions: Follow-up with your primary care physician within a week time and likely you will need labs CBC/CMP/magnesium/phosphorus. As discussed at the bedside, follow-up with your primary care physician within a week time. Follow-up with orthopedics doctor in 1 week time upon discharge. For your skin rash, you will be discharged on a small dose of prednisone, take for next 5 days and stop. You can use calamine lotion up to 3 times a day over your back. For your Lyme disease, you will be prescribed antibiotic to complete the 10-day course. Take as prescribed. For your vitamin D level deficiency, you are started on vitamin D supplementation. You will need repeat vitamin D level in 2 to 3 months time, coordinate with the PCP office. Continue with physical therapy, prescription has been provided. To prevent the risks of blood clots given recent hip surgery, you are being discharged on Lovenox subcu. Use it for next 25 days. Please make sure that you are able to get your medications today by calling your pharmacy before you leave the hospital so that your treatment continuity is not broken. Addtl Bag Bundler Provider Instructions: [facility] DISCHARGE INSTRUCTIONS: HIP FRACTURE SELF CARE INSTRUCTIONS: A. You are to ambulate with a walker or crutches for approximately 6 weeks. B. You are TOE TOUCH WEIGHT BEARING on your operative lower extremity for at least 6 weeks. C. Wear low heeled shoes with non-slip soles D. Be sure that your floors are free of things that could trip you throw rugs, electrical cords, and small objects. Avoid wet and waxed floors, especially with crutches/walker/cane. E. Try to walk several times a day with rest periods between. F. You may shower 48 hours after surgery and get the incision area wet, but DO NOT soak or submerge incision area in water. (No baths, swimming pools, hot tubs) G. You may have a large, band-aid like dressing over your incision (Aquacel). This will remain on your incision for 7 days, and then can be removed. You CAN shower with this on. If incision is leaking through the dressing, please call the office . H. Do NOT apply soap or any ointment/lotions directly over incision. I. You may use ice as needed to operative site. SPECIAL CARE INSTRUCTIONS: VERY IMPORTANT TO READ AND REVIEW A. You may be at risk for phlebitis or blood clots. a. Wear surgical stockings (DIANA hose) for 2 weeks after surgery to improve circulation and reduce swelling. b. Take Heparin 5000u SQ every 8 hours for 4 weeks or as directed. This is your blood thinner. B. There are a few signs you need to watch for after you are home. Call [facility] at [phone] if you experience any of the following: a. If you have a temperature of 101 degrees or higher. b. Sudden increase in pain in your hip not relieved by rest or pain medication. c. Any fluid or drainage from the incision; redness of the incision. d. Shortness of breath or chest pain. C. Call your physician if: a. Temperature is greater than 101 degrees (F). b. Pain is not relieved by prescribed pain medica tions. c. Increase drainage or redness from incision. d. Unanswered questions or concerns. D. Pain Medication: a. You will be prescribed pain medication upon discharge that should last till your first post-operative appointment. b. If you experience nausea and/or skin rash, discontinue this medication and contact our office for an alternative medication. c. Caution- narcotic pain medication can cause constipation. FOLLOW UP VISIT: Please call [facility] at [phone] to schedule a follow up appointment 10-14 days from the date of your surgery date. Pending Studies at Discharge: No Stand-Alone Forms: My [facility], Smoking Cessation Medications and DC Order Prescriptions: New doxycycline hyclate 100 mg Capsule 100 mg PO Q12H 5 Days Qty: 10 0RF loratadine [Wal-itin] 10 mg Tablet 10 mg PO QAM 5 Days Qty: 5 0RF enoxaparin [Lovenox] 40 mg/0.4 mL Syringe 40 mg subcut Q24H 25 Days Qty: 10 0RF metoprolol tartrate 25 mg Tablet 12.5 mg PO BID Qty: 15 0RF oxycodone 5 mg Tablet 5 mg PO Q8H PRN (Reason: moderate to severe pain) 5 Days Qty: 15 0RF Advanced Probiotic 625 mg (10 billion cell) Capsule 2 cap PO DAILY 7 Days Qty: 14 0RF polyethylene glycol 3350 [Miralax] 17 gram Powder In Packet 17 g PO DAILY 14 Days Qty: 14 0RF prednisone 5 mg Tablet 5 mg PO QAM 5 Days Qty: 5 0RF Caldyphen 1-8 % Lotion 1 applic EXT TID PRN (Reason: itching) Qty: 177 0RF Rx Instructions: apply over back rash up to three times a day as needed for itching. cholecalciferol (vitamin D3) 125 mcg (5,000 unit) Tablet 5,000 unit PO QAM 30 Days Qty: 30 0RF Continued herbal drugs Rx Instructions: Pt states he takes a herb to help him go to sleep, but wouldn't confirm what the name of the herb was. Discharge Orders: Discharge Order (Routine); Ordered 10/11/22 Ordered By: Maureen Krause/Other Patient Handouts: Hip Fx Surg Dc Admission Data Admit Date/Time: 10/02/22 02:20 Attending Provider: Maureen Franco Admit Provider: Ravinder Cook Primary Care Provider: PCP,NO Other Providers: Mcdonald,[facility] ; Ravinder Cook ; Dario Claire ; Nicholas Leong ; Lizbet Todd ; Kiran Thomas ; Wolfgang Villalta ; [facility] ; [facility] ; [facility]
== END 2022-10-11 15:53 | disposition home health service (06) | DRG 481 ==
LOC: ED 20:54 → 4W 10-02 02:20 → SUATTDRO 10-02 02:20 → 4W 10-02 03:21 → 3N 10-05 20:20